=== PATIENT | female | born 1935 | race Caucasian/White ===

== ENCOUNTER 2020-04-18 08:05 | Outpatient (REF) | payer MEDICARE, SELFPAY ==
[2020-04-18 09:44] LABS: Estimated Average Glucose 186 mg/dL; Hemoglobin A1c % 8.1 %
[2020-04-18 10:22] LABS: Glucose Fasting 196 mg/dL (60-99)
[2020-04-18 10:29] LABS: Thyroid Stimulating Hormone 0.44 mIU/mL (0.32-4.0)
== END 2020-04-18 08:06 | disposition home or self-care (01) ==
LOC: HO.LAB 08:05
PROVIDERS: PCP Internal Medicine; Visit Provider Internal Medicine
DX: E03.9 Hypothyroidism, unspecified (principal); E11.9 Type 2 diabetes mellitus without complications
CPT/HCPCS: 82947; 83036; 84443

== ENCOUNTER → 2020-06-21 12:07 | Outpatient (BNVA) | payer MEDICARE, SELFPAY | PROVIDERS: PCP Internal Medicine; Visit Provider Internal Medicine Cardiovascular Disease | DX: I48.20 Chronic atrial fibrillation, unspecified (principal); I77.9 Disorder of arteries and arterioles, unspecified; R42 Dizziness and giddiness | CPT/HCPCS: 93005; 99212 ==

== ENCOUNTER 2020-06-22 10:06 | Outpatient (REF) | payer MEDICARE, SELFPAY ==
[2020-06-22 11:09] LABS: Anion Gap 13 (12-20); Blood Urea Nitrogen 11 mg/dL (9-16); Calcium 9.1 mg/dL (8.4-10.2); Carbon Dioxide 26 mmol/L (22-29); Chloride 104 mmol/L (96-108); Estimated Glomerular Filt Rate > 60; Glucose Random 224 mg/dL (60-115); Potassium 4.1 mmol/l (3.3-5.1); Sodium 139 mmol/L (135-145)
[2020-06-22 11:20] LABS: Digoxin 0.4 ng/mL (0.8-2.0)
== END 2020-06-22 10:07 | disposition home or self-care (01) ==
LOC: HO.LAB 10:06
PROVIDERS: PCP Internal Medicine; Visit Provider Internal Medicine Cardiovascular Disease
DX: I48.20 Chronic atrial fibrillation, unspecified (principal); E11.9 Type 2 diabetes mellitus without complications; R79.89 Other specified abnormal findings of blood chemistry
CPT/HCPCS: 80048; 80162

== ENCOUNTER 2020-08-09 11:40 | Outpatient (REF) | payer MEDICARE, SELFPAY ==
--- NOTE | ~2020-08-09 | MM_ITS ---
EXAMINATION: MM SCREENING DIGITAL BREAST TOMOSYNTHESIS, BILATERAL CLINICAL INFORMATION: Screening. Asymptomatic. Age 85. COMPARISON: Mammography: 02/23/2019, 02/19/2018, 02/04/2017 TECHNIQUE: Digital breast tomosynthesis is performed in both the craniocaudal and mediolateral oblique views along with computer-aided detection (CAD). Synthesized 2D images are generated from the tomosynthesis. FINDINGS: There are scattered areas of fibroglandular density (ACR BI-RADS breast composition Category b). There are no significant masses, abnormal calcifications, or other abnormalities. Parenchymal pattern is similar to prior studies. There are no significant changes. The axilla and skin contours are unremarkable. MM/MM tomosynthesis screening BI IMPRESSION: No mammographic evidence of malignancy. ASSESSMENT: BI-RADS 1: Negative RECOMMENDATION: Routine annual mammography screening. This patient's information was entered into a reminder system with a target due date for their next mammogram.
== END 2020-08-09 11:41 | disposition home or self-care (01) ==
LOC: HO.MAMMO 11:40
PROVIDERS: Visit Provider Internal Medicine
DX: Z12.31 Encounter for screening mammogram for malignant neoplasm of breast (principal)
CPT/HCPCS: 77063; 77067

== ENCOUNTER 2020-08-26 15:20 | Outpatient (REF) | payer MEDICARE, SELFPAY ==
[2020-08-26 16:32] LABS: Folate 13.6 ng/mL (> or = 4.0); Vitamin B12 271 pg/mL (200-900)
== END 2020-08-26 15:21 | disposition home or self-care (01) ==
LOC: HO.LNP 15:20
PROVIDERS: Visit Provider Internal Medicine
DX: G31.83 Neurocognitive disorder with Lewy bodies (principal)
CPT/HCPCS: 82607; 82746

== ENCOUNTER 2020-09-02 11:10 | Outpatient (REF) | payer MEDICARE, SELFPAY ==
--- NOTE | ~2020-09-02 | CT_ITS ---
EXAMINATION: CT HEAD WITHOUT CONTRAST CLINICAL INFORMATION: Dementia. COMPARISON: CT brain 05/27/2016. TECHNIQUE: Contiguous axial imaging was performed from the skull base to vertex without intravenous administration of contrast. This CT examination was performed using dose optimization techniques as appropriate, variously including the following: *Automated exposure control *Adjustment of mA and/or kV according to patient size (this includes techniques or standardized protocols for targeted exams where dose is matched to indication/reason for exam; i.e. extremities or head) *Use of iterative reconstruction technique DLP: 693 mGy-cm FINDINGS: There is no evidence of acute intracranial hemorrhage or territorial infarction. No abnormal mass effect or midline shift is seen. Alatorre to white matter differentiation is well preserved. No extra-axial fluid collections are identified. The ventricles are symmetrical in size and configuration but enlarged. There is diffuse periventricular hypodensity without mass effect in both cerebral hemispheres. The osseous structures and soft tissues are normal. The mastoid air cells and visualized portions of the paranasal sinuses are well aerated. CT/CT head/brain wo con IMPRESSION: No acute intracranial process seen. There is mild cerebral volume loss with chronic small vessel ischemic changes.
== END 2020-09-02 11:11 | disposition home or self-care (01) ==
LOC: HO.CT 11:10
PROVIDERS: PCP Internal Medicine; Visit Provider Internal Medicine
DX: G31.83 Neurocognitive disorder with Lewy bodies (principal)
CPT/HCPCS: 70450

== ENCOUNTER 2020-11-14 10:28 | Outpatient (REF) | payer MEDICARE, SELFPAY ==
[2020-11-14 11:15] LABS: Estimated Average Glucose 183 mg/dL
[2020-11-14 12:12] LABS: Alanine Aminotransferase 15 U/L (0-31); Albumin Level 4.3 g/dL (3.5-5.0); Alkaline Phosphatase 102 U/L (39-117); Aspartate Amino Transferase 12 U/L (5-31); Bilirubin Direct 0.5 mg/dL (0.0-0.5); Bilirubin Total 1.1 mg/dL (0.0-1.0); Cholesterol 117 mg/dL; Glucose Fasting 194 mg/dL (60-99); HDL Cholesterol 42 mg/dL; LDL Cholesterol Calculated 46 mg/dl; Total Protein 6.8 g/dL (6.5-8.0); Triglycerides 147 mg/dL
[2020-11-14 13:35] LABS: Reflex LDLD? No
[2020-11-15 09:59] LABS: Blood Urea Nitrogen 13 mg/dL (9-16); Estimated Glomerular Filt Rate > 60
== END 2020-11-14 10:29 | disposition home or self-care (01) ==
LOC: HO.LNP 10:28
PROVIDERS: Visit Provider Internal Medicine
DX: Z13.89 Encounter for screening for other disorder (principal)
CPT/HCPCS: 80061; 80076; 82565; 82947; 83036; 84520

== ENCOUNTER 2021-01-03 10:54 | Emergency (ER) | payer MEDICARE, SELFPAY ==
--- NOTE | ~2021-01-03 | CT_ITS ---
EXAMINATION: CT HEAD WITHOUT CONTRAST CLINICAL INFORMATION: Weakness for 2 days. COMPARISON: CT had noncontrast 09/02/2020 TECHNIQUE: Contiguous axial imaging was performed from the skull base to vertex without intravenous administration of contrast. This CT examination was performed using dose optimization techniques as appropriate, variously including the following: *Automated exposure control *Adjustment of mA and/or kV according to patient size (this includes techniques or standardized protocols for targeted exams where dose is matched to indication/reason for exam; i.e. extremities or head) *Use of iterative reconstruction technique DLP: 611 mGy-cm FINDINGS: There is no intracranial hemorrhage, hematoma, or extra-axial fluid collection. There are atrophic changes with mild prominence of the ventricles, cortical sulci, fissures, and cisterns similar to prior study. There is no interval hydrocephalus or edema or mass effect. No midline shift. Again, there is moderate periventricular white matter gliosis consistent with chronic small vessel ischemic changes. Virchow-Emigdio perivascular space again seen posterior inferior right basal ganglia. There is no visible acute territorial infarct or mass lesion. The calvarium appears intact. There is no pneumocephalus or orbital emphysema. The visualized sinuses and middle ears and mastoid air cells show no significant mucosal thickening. There are no air-fluid levels. CT/CT head/brain wo con IMPRESSION: 1. No acute intracranial abnormality. 2. Moderate global atrophic changes and periventricular white matter gliosis similar to prior exam 09/02/2020.
--- NOTE | ~2021-01-03 | CT_ITS ---
EXAMINATION: CT CHEST WITHOUT CONTRAST CLINICAL INFORMATION: Pneumonia. COMPARISON: Chest August 2016. TECHNIQUE: Multidetector volumetric CT imaging of the chest was done. Axial MIP volume rendering provided. Sagittal and coronal reformatted images were obtained. This CT examination was performed using dose optimization techniques as appropriate, variously including the following: *Automated exposure control *Adjustment of mA and/or kV according to patient size (this includes techniques or standardized protocols for targeted exams where dose is matched to indication/reason for exam; i.e. extremities or head) *Use of iterative reconstruction technique DLP: 186 mGy-cm. FINDINGS: Exam is slightly limited by image-degrading motion artifact likely related to patient breathing intermittently throughout the exam. LUNGS: Minimal linear opacities in the right middle lobe and posterior dependent lower lobes compatible scarring and/or discoid atelectasis. Minimal thickening of the minor fissure, probably without clinical significance of. No focal consolidation. No nodule. MEDIASTINUM: There is mild arterial calcification of the aorta and branches including the coronary vessels. No lymphadenopathy. PLEURA: There is no pleural effusion. No pleural mass or thickening. AXILLA: No lymphadenopathy. UPPER ABDOMEN: Unremarkable. OSSEOUS STRUCTURES: Mild multilevel spondylosis of the dorsal spine. CT/CT chest wo con IMPRESSION: No definite acute disease. Minimal atelectasis or scarring in the right middle lobe and lower lobes. Calcific atherosclerotic disease.
[2021-01-03 11:05] VITALS: BP 129/90; PULSE 68; RESP 18; TEMP 36.4; O2SAT 95; BMI 20.7
--- NOTE | 2021-01-03 11:08 | ECG_ITS ---
Test Reason : WEAKNESS Blood Pressure : / mmHG Vent. Rate : 064 BPM Atrial Rate : 104 BPM P-R Int : 000 ms QRS Dur : 088 ms QT Int : 418 ms P-R-T Axes : 000 045 -30 degrees QTc Int : 431 ms Atrial fibrillation Nonspecific ST abnormality Abnormal ECG When compared with ECG of 17-AUG-2016 10:47, No significant change was found Referred By: Leonel Hanson Electronically Signed By:CHANTEL LATHAM
--- NOTE | 2021-01-03 11:09 | ED.GENADULT ---
HPI - General Adult General Chief complaint: Weakness Stated complaint: WEAKNESS,LETHARGY X2DAYS Time Seen by Provider: 01/03/21 10:59 Source: patient Mode of arrival: ambulatory Limitations: no limitations History of Present Illness HPI narrative: patient presents to ED for weakness and lethargic for the past 2 days. Patient has dimensions a poor historian. Will wait for for history Related Data Home Medications Medication Instructions Recorded Confirmed amlodipine 2.5 mg tablet 2.5 mg PO DAILY 06/21/20 06/21/20 atorvastatin 10 mg tablet 10 mg PO DAILY 06/21/20 06/21/20 betaxolol 0.25 % eye 1 drp OPHTHALMIC (EYE) BID 06/21/20 06/21/20 drops,suspension calcium carbonate 600 mg calcium 600 mg PO DAILY 06/21/20 06/21/20 (1,500 mg) tablet digoxin 125 mcg (0.125 mg) tablet 125 mcg PO DAILY 06/21/20 06/21/20 levothyroxine 75 mcg tablet 75 mcg PO DAILY 06/21/20 06/21/20 meclizine 12.5 mg tablet 12.5 mg PO DAILY 06/21/20 06/21/20 memantine 10 mg tablet 10 mg PO BID 06/21/20 06/21/20 metformin 500 mg tablet 500 mg PO BID 06/21/20 06/21/20 metoprolol tartrate 50 mg tablet 50 mg PO BID 06/21/20 06/21/20 omeprazole 40 mg capsule,delayed 40 mg PO DAILY 06/21/20 06/21/20 release rivaroxaban 20 mg tablet 20 mg PO DAILY 06/21/20 06/21/20 valsartan 320 mg tablet 320 mg PO DAILY 06/21/20 06/21/20 Allergies Allergy/AdvReac Type Severity Reaction Status Date / Time corticotropin [From ACTH] Allergy Mild UNKNOWN Unverified 03/17/20 14:42 hydrochlorothiazide Allergy Unknown Verified 06/04/19 00:00 Review of Systems Review of Systems: dementia. will wait for her Yes all other systems are reviewed and are negative Constitutional: Constitutional: Reports as per HPI and Reports no additional constitutional complaints PMFSH Past Medical History Medical History Bilateral carotid artery disease Chronic atrial fibrillation HTN (hypertension) Surgical History Hx of appendectomy Hx of cholecystectomy Hx of hysterectomy Family History Family History Father CVD (cardiovascular disease) HTN (hypertension) Heart failure Mother Diabetes Cancer Brother CVD (cardiovascular disease) Social History Social History Advance Directives: Yes Advance Directives Information Provided: Yes Advance Directives on File: No Physical Exam Vital Signs: Vital Signs: Last Vital Signs Temp 97.4 F 01/03/21 17:57 Pulse 74 01/03/21 17:57 Resp 14 01/03/21 17:57 BP 197/88 H 01/03/21 17:57 Pulse Ox 94 01/03/21 17:57 Body Mass Index 20.7 Const: Other: lethargic General: cooperative and lethargic Orientation/consciousness: lethargic HENMT: Head: Yes normal to inspection, Yes No palpable skull fracture present, Yes normocephalic, Yes atraumatic and No abrasion Eyes: General: appearance normal, both eyes and all related structures Neck: Neck: Yes normal visual inspection, Yes full ROM, Yes no lymphadenopathy, Yes no meningeal signs, Yes trachea midline, Yes supple and No tender Chest: Chest palpation & inspection: normal inspection of the chest and normal palpation of entire chest wall Resp: Effort & Inspection: normal respiratory effort and able to speak in complete sentences Auscultation: clear to auscultation bilaterally Cardio: Jugular venous distension: no JVD Heart sounds: S1 normal heart sound present and S2 normal heart sound present GI: Inspection: Yes normal to inspection and No abdominal wall ecchymosis Palpation (GI): Soft to palpation, not firm, nontender, no guarding and not rigid : General: No CVA tenderness and Yes no CVA tenderness Back/Spine/Pelvis: Back: no CVA tenderness, No CVA tenderness and No back tenderness Skin: General skin exam: no rashes or lesions noted and elasticity normal Neuro: Other: negative for facial droop. Negative for slurred speech. All extremity have equal strength. Negative for any drift General: no meningeal signs and CN's II-XI intact bilaterally Extrem: General: Yes normal to inspection and Yes full ROM Psych: Appearance: grossly normal, well kempt and not disheveled Course Course Course Narrative: patient is a poor historian and seem lethargic. Negative for any focal neuro deficits. Patient have a medical evaluation including head CT, chest CT, labs, and UA. Reevaluation(s) Reevaluation #1: EKG shows atrial fibrillation. First troponin negative. UA negative for UTI. Head CT negative for stroke. Chest CT negative for pneumonia. Negative for electrolyte deficiency. Kidney function is normal. Negative for rhabdomyolysis. negative for any focal deficit. patient's came and informed us that patient began feeling tired and lethargic for the past 2 days. He states patient has been sleeping all day in bed yesterday and did not want to eat. States 2 days ago patient was found walking around talking with family and past 2 days patient does want to stay in bed and sleep. He denies any change in mental status. He patient has been walking on her own and even walked on her own this morning, but patient states she just wants to lay in bed and she is tired and sleeping. denies patient complaining of any abdominal pain, chest pain, shortness of breath, fever, chills, coughing, stroke-like symptoms, or any recent trauma. Time: 11:40 Reevaluation #2: patient now hypertensive systolic of 218. labetalol ordered. When blood pressure was elevated patient was anxious and shaking. Patient does have dementia and was . Time: 15:22 Reevaluation #3: repeat blood pressure on monitor systolic 128. case was presented to Dr. Johnson and and Natalia Victoria for possible admission for generalized weakness and failure to thrive. He reviewed the case and states patient had no indication for admission at the present moment. Patient was at her baseline mentally. And as per patient was ambulating this morning. Patient just feels fatigued. Has been made aware that patient takes digoxin so hospitalist informed that digoxin level should be sent and then if elevated we would reconsider admission. Case presented to eye care professional Marci for possible short-term rehab and PT evaluation if digoxin level is normal Time: 17:41 Additional Reevaluation(s): patient came back negative for digoxin toxicity. Second troponin came back negative. Will do case management. 18:15. see egg caser Marci spoke with and he does not want her to be evaluated for short-term rehab and refusing physical therapy. He states he can take care of patient at home and they will contact elderly care services. Medical Decision Making MDM Narrative Medical decision making narrative: Weakness. Failure to thrive Lab Data Result diagrams: 01/03/21 11:40 01/03/21 11:40 Labs: Lab Results 01/03/21 01/03/21 01/03/21 Range/Units 11:40 11:40 11:40 WBC 8.2 (4.8-10.8) X10*3/uL RBC 4.98 (4.20-5.50) X10*6/uL Hgb 14.5 (12.0-16.0) g/dl Hct 44.3 (37-47) % MCV 89.0 (80-98) fL MCH 29.1 (27.0-33.0) pg MCHC 32.7 (31.0-35.0) g/dl RDW 12.9 (11.0-16.0) % Plt Count 206 (160-400) X10*3/uL MPV 9.8 (9.4-12.3) fL Immature Gran % (Auto) 0.2 (0.0-0.4) % Neut % (Auto) 69.2 (45-73) % Lymph % (Auto) 21.9 (20-40) % [place] % (Auto) 6.5 (2-11) % Eos % (Auto) 1.7 (0-4) % Baso % (Auto) 0.5 (0-2) % Lymph # (Auto) 1.8 (1.2-4.9) X10*3/uL [place] # (Auto) 0.5 (0.1-1.2) X10*3/uL Eos # (Auto) 0.1 (0.0-0.4) X10*3/uL Baso # (Auto) 0.0 (0.0-0.2) X10*3/uL Abs Immat Gran (auto) 0.02 (0.00-0.03) X10*3/uL Absolute Neuts (auto) 5.7 (2.0-8.3) X10*3/uL Absolute Nucleated RBC 0.000 (0.0-0.012) X10*3/uL Nucleated RBC % (auto) 0.0 (0.0-0.2) /100WBC PT 22.1 H (9.9-13.0) SEC INR 1.9 H (0.9-1.1) APTT 48.0 H (24.1-38.0) SEC Sodium 141 (135-145) mmol/L Potassium 4.0 (3.3-5.1) mmol/L Chloride 106 (96-108) mmol/L Carbon Dioxide 26 (22-29) mmol/L Anion Gap 13 (12-20) BUN 14 (9-16) mg/dL Creatinine 0.82 (0.5-1.4) mg/dL Estim Creat Clear Calc 41.5 Estimated GFR > 60 POC Glucose (60-115) mg/dL Random Glucose 166 H (60-115) mg/dL Lactic Acid (0.5-2.0) mmol/L Calcium 9.8 D (8.4-10.2) mg/dL Magnesium 1.6 (1.6-2.6) mg/dL Total Bilirubin 1.0 (0.0-1.0) mg/dL AST 12 (5-31) U/L ALT 11 (0-31) U/L Alkaline Phosphatase 79 D (39-117) U/L Total Creatine Kinase 23 L (26-140) U/L Troponin I High Sens (<3.5-17.0) ng/L Total Protein 6.4 L (6.5-8.0) g/dL Albumin 3.9 (3.5-5.0) g/dL Urine Color Urine Appearance Urine pH (5.0-8.0) Ur Specific [place] (1.005-1.025) Urine Protein (NEG-TRACE) MG/DL Urine Glucose (UA) (NEG) MG/DL Urine Ketones (NEG) MG/DL Urine Blood (NEG) Urine Nitrite (NEG) Ur Leukocyte Esterase (NEG) Urine RBC (0) /HPF Urine WBC (0-4) /HPF Ur Squamous Epith Cells /LPF Urine Bacteria /LPF Digoxin (0.8-2.0) ng/mL COVID-19 (LAN) (Negative) COVID-19 Clin Com 01/03/21 01/03/21 01/03/21 Range/Units 11:40 11:40 14:36 WBC (4.8-10.8) X10*3/uL RBC (4.20-5.50) X10*6/uL Hgb (12.0-16.0) g/dl Hct (37-47) % MCV (80-98) fL MCH (27.0-33.0) pg MCHC (31.0-35.0) g/dl RDW (11.0-16.0) % Plt Count (160-400) X10*3/uL MPV (9.4-12.3) fL Immature Gran % (Auto) (0.0-0.4) % Neut % (Auto) (45-73) % Lymph % (Auto) (20-40) % [place] % (Auto) (2-11) % Eos % (Auto) (0-4) % Baso % (Auto) (0-2) % Lymph # (Auto) (1.2-4.9) X10*3/uL [place] # (Auto) (0.1-1.2) X10*3/uL Eos # (Auto) (0.0-0.4) X10*3/uL Baso # (Auto) (0.0-0.2) X10*3/uL Abs Immat Gran (auto) (0.00-0.03) X10*3/uL Absolute Neuts (auto) (2.0-8.3) X10*3/uL Absolute Nucleated RBC (0.0-0.012) X10*3/uL Nucleated RBC % (auto) (0.0-0.2) /100WBC PT (9.9-13.0) SEC INR (0.9-1.1) APTT (24.1-38.0) SEC Sodium (135-145) mmol/L Potassium (3.3-5.1) mmol/L Chloride (96-108) mmol/L Carbon Dioxide (22-29) mmol/L Anion Gap (12-20) BUN (9-16) mg/dL Creatinine (0.5-1.4) mg/dL Estim Creat Clear Calc Estimated GFR POC Glucose (60-115) mg/dL Random Glucose (60-115) mg/dL Lactic Acid 1.1 (0.5-2.0) mmol/L Calcium (8.4-10.2) mg/dL Magnesium (1.6-2.6) mg/dL Total Bilirubin (0.0-1.0) mg/dL AST (5-31) U/L ALT (0-31) U/L Alkaline Phosphatase (39-117) U/L Total Creatine Kinase (26-140) U/L Troponin I High Sens 5.6 (<3.5-17.0) ng/L Total Protein (6.5-8.0) g/dL Albumin (3.5-5.0) g/dL Urine Color YELLOW Urine Appearance CLEAR Urine pH 6.0 (5.0-8.0) Ur Specific [place] 1.025 (1.005-1.025) Urine Protein NEG (NEG-TRACE) MG/DL Urine Glucose (UA) NEG (NEG) MG/DL Urine Ketones NEG (NEG) MG/DL Urine Blood TRACE (NEG) Urine Nitrite NEG (NEG) Ur Leukocyte Esterase NEG (NEG) Urine RBC 1-4 (0) /HPF Urine WBC 0-2 (0-4) /HPF Ur Squamous Epith Cells 2+ /LPF Urine Bacteria NONE /LPF Digoxin (0.8-2.0) ng/mL COVID-19 (LAN) (Negative) COVID-19 Clin Com 01/03/21 01/03/21 01/03/21 Range/Units 16:30 16:53 17:06 WBC (4.8-10.8) X10*3/uL RBC (4.20-5.50) X10*6/uL Hgb (12.0-16.0) g/dl Hct (37-47) % MCV (80-98) fL MCH (27.0-33.0) pg MCHC (31.0-35.0) g/dl RDW (11.0-16.0) % Plt Count (160-400) X10*3/uL MPV (9.4-12.3) fL Immature Gran % (Auto) (0.0-0.4) % Neut % (Auto) (45-73) % Lymph % (Auto) (20-40) % [place] % (Auto) (2-11) % Eos % (Auto) (0-4) % Baso % (Auto) (0-2) % Lymph # (Auto) (1.2-4.9) X10*3/uL [place] # (Auto) (0.1-1.2) X10*3/uL Eos # (Auto) (0.0-0.4) X10*3/uL Baso # (Auto) (0.0-0.2) X10*3/uL Abs Immat Gran (auto) (0.00-0.03) X10*3/uL Absolute Neuts (auto) (2.0-8.3) X10*3/uL Absolute Nucleated RBC (0.0-0.012) X10*3/uL Nucleated RBC % (auto) (0.0-0.2) /100WBC PT (9.9-13.0) SEC INR (0.9-1.1) APTT (24.1-38.0) SEC Sodium (135-145) mmol/L Potassium (3.3-5.1) mmol/L Chloride (96-108) mmol/L Carbon Dioxide (22-29) mmol/L Anion Gap (12-20) BUN (9-16) mg/dL Creatinine (0.5-1.4) mg/dL Estim Creat Clear Calc Estimated GFR POC Glucose 133 H (60-115) mg/dL Random Glucose (60-115) mg/dL Lactic Acid (0.5-2.0) mmol/L Calcium (8.4-10.2) mg/dL Magnesium (1.6-2.6) mg/dL Total Bilirubin (0.0-1.0) mg/dL AST (5-31) U/L ALT (0-31) U/L Alkaline Phosphatase (39-117) U/L Total Creatine Kinase (26-140) U/L Troponin I High Sens (<3.5-17.0) ng/L Total Protein (6.5-8.0) g/dL Albumin (3.5-5.0) g/dL Urine Color Urine Appearance Urine pH (5.0-8.0) Ur Specific [place] (1.005-1.025) Urine Protein (NEG-TRACE) MG/DL Urine Glucose (UA) (NEG) MG/DL Urine Ketones (NEG) MG/DL Urine Blood (NEG) Urine Nitrite (NEG) Ur Leukocyte Esterase (NEG) Urine RBC (0) /HPF Urine WBC (0-4) /HPF Ur Squamous Epith Cells /LPF Urine Bacteria /LPF Digoxin 0.6 L (0.8-2.0) ng/mL COVID-19 (LAN) Negative (Negative) COVID-19 Clin Com See Note 01/03/21 Range/Units 17:06 WBC (4.8-10.8) X10*3/uL RBC (4.20-5.50) X10*6/uL Hgb (12.0-16.0) g/dl Hct (37-47) % MCV (80-98) fL MCH (27.0-33.0) pg MCHC (31.0-35.0) g/dl RDW (11.0-16.0) % Plt Count (160-400) X10*3/uL MPV (9.4-12.3) fL Immature Gran % (Auto) (0.0-0.4) % Neut % (Auto) (45-73) % Lymph % (Auto) (20-40) % [place] % (Auto) (2-11) % Eos % (Auto) (0-4) % Baso % (Auto) (0-2) % Lymph # (Auto) (1.2-4.9) X10*3/uL [place] # (Auto) (0.1-1.2) X10*3/uL Eos # (Auto) (0.0-0.4) X10*3/uL Baso # (Auto) (0.0-0.2) X10*3/uL Abs Immat Gran (auto) (0.00-0.03) X10*3/uL Absolute Neuts (auto) (2.0-8.3) X10*3/uL Absolute Nucleated RBC (0.0-0.012) X10*3/uL Nucleated RBC % (auto) (0.0-0.2) /100WBC PT (9.9-13.0) SEC INR (0.9-1.1) APTT (24.1-38.0) SEC Sodium (135-145) mmol/L Potassium (3.3-5.1) mmol/L Chloride (96-108) mmol/L Carbon Dioxide (22-29) mmol/L Anion Gap (12-20) BUN (9-16) mg/dL Creatinine (0.5-1.4) mg/dL Estim Creat Clear Calc Estimated GFR POC Glucose (60-115) mg/dL Random Glucose (60-115) mg/dL Lactic Acid (0.5-2.0) mmol/L Calcium (8.4-10.2) mg/dL Magnesium (1.6-2.6) mg/dL Total Bilirubin (0.0-1.0) mg/dL AST (5-31) U/L ALT (0-31) U/L Alkaline Phosphatase (39-117) U/L Total Creatine Kinase (26-140) U/L Troponin I High Sens 4.2 (<3.5-17.0) ng/L Total Protein (6.5-8.0) g/dL Albumin (3.5-5.0) g/dL Urine Color Urine Appearance Urine pH (5.0-8.0) Ur Specific [place] (1.005-1.025) Urine Protein (NEG-TRACE) MG/DL Urine Glucose (UA) (NEG) MG/DL Urine Ketones (NEG) MG/DL Urine Blood (NEG) Urine Nitrite (NEG) Ur Leukocyte Esterase (NEG) Urine RBC (0) /HPF Urine WBC (0-4) /HPF Ur Squamous Epith Cells /LPF Urine Bacteria /LPF Digoxin (0.8-2.0) ng/mL COVID-19 (LAN) (Negative) COVID-19 Clin Com ECG Data Interpretation: Atrial fibrillation. Nonspecific T abnormality. Meticulous this before. QRS 88. QTC 431. Discharge Plan Discharge Clinical Impression: Weakness, Fatigue, Adult failure to thrive Patient Disposition: Home, Self-Care Instructions: Failure to Thrive (ED), Weakness (ED), Fatigue (ED) Additional Instructions: your head CT scan came back normal. Your EKG and blood work came back negative for heart attack. Your urine was negative for UTI. Chest x-ray negative for pneumonia. Her kidney function came back normal. Your digoxin level came back normal. Return to the ED for any physical complaint, altered mental status, facial droop, slurred speech, loss of vision, paralysis of extremities, chest pain, shortness of breath, abdominal pain, dysuria, hematuria, flank pain, fever, chills, or any other concerning symptoms. Please follow-up with your primary care provider. Prescriptions: No Action metoprolol tartrate 50 mg tablet 50 mg PO BID RF: 0 calcium carbonate [Calcium 600] 600 mg calcium (1,500 mg) tablet 600 mg PO DAILY RF: 0 digoxin 125 mcg (0.125 mg) tablet 125 mcg PO DAILY RF: 0 amlodipine 2.5 mg tablet 2.5 mg PO DAILY RF: 0 metformin 500 mg tablet 500 mg PO BID RF: 0 levothyroxine [Synthroid] 75 mcg tablet 75 mcg PO DAILY RF: 0 atorvastatin [Lipitor] 10 mg tablet 10 mg PO DAILY RF: 0 omeprazole 40 mg capsule,delayed release(DR/EC) 40 mg PO DAILY RF: 0 Xarelto 20 mg tablet 20 mg PO DAILY RF: 0 memantine [Namenda] 10 mg tablet 10 mg PO BID RF: 0 Betoptic S 0.25 % drops,suspension 1 drp ophthalmic (eye) BID RF: 0 valsartan 320 mg tablet 320 mg PO DAILY RF: 0 meclizine 12.5 mg tablet 12.5 mg PO DAILY RF: 0 Print Language: [place] Citizen
[2021-01-03] MEDS: 0.9 % Sodium Chloride 1,000 ML 999 ML IV (11:45)
[2021-01-03 11:46] LABS: MANUAL DIFF FLAG NO
[2021-01-03 11:47] LABS: Basophils Percent Auto 0.5 % (0-2); Eosinophils Absolute Auto 0.1 X10*3/uL (0.0-0.4); Eosinophils Percent Auto 1.7 % (0-4); Hematocrit 44.3 % (37-47); Hemoglobin 14.5 g/dl (12.0-16.0); Imm Gran Abs Auto 0.02 X10*3/uL (0.00-0.03); Imm Gran Pct Auto 0.2 % (0.0-0.4); Lymphocytes Absolute Auto 1.8 X10*3/uL (1.2-4.9); Lymphocytes Percent Auto 21.9 % (20-40); Mean Corpuscular HGB Conc 32.7 g/dl (31.0-35.0); Mean Corpuscular Hemoglobin 29.1 pg (27.0-33.0); Mean Platelet Volume 9.8 fL (9.4-12.3); Monocytes Absolute Auto 0.5 X10*3/uL (0.1-1.2); Monocytes Percent Auto 6.5 % (2-11); Neutrophils Absolute Auto 5.7 X10*3/uL (2.0-8.3); Neutrophils Percent Auto 69.2 % (45-73); Platelet Count 206 X10*3/uL (160-400); Red Blood Count 4.98 X10*6/uL (4.20-5.50); Red Cell Distribution Width 12.9 % (11.0-16.0); White Blood Count 8.2 X10*3/uL (4.8-10.8)
[2021-01-03 12:02] LABS: INTERNATIONAL NORM RATIO 1.9 (0.9-1.1); Prothrombin Time 22.1 SEC (9.9-13.0)
[2021-01-03 12:08] LABS: Lactic Acid 1.1 mmol/L (0.5-2.0)
[2021-01-03 12:13] LABS: Alanine Aminotransferase 11 U/L (0-31); Albumin Level 3.9 g/dL (3.5-5.0); Alkaline Phosphatase 79 U/L (39-117); Anion Gap 13 (12-20); Aspartate Amino Transferase 12 U/L (5-31); Blood Urea Nitrogen 14 mg/dL (9-16); Calcium 9.8 mg/dL (8.4-10.2); Carbon Dioxide 26 mmol/L (22-29); Chloride 106 mmol/L (96-108); Creatinine Clr Calc Pharmacy 41.5; Estimated Glomerular Filt Rate > 60; Glucose Random 166 mg/dL (60-115); Sodium 141 mmol/L (135-145); Total Protein 6.4 g/dL (6.5-8.0)
[2021-01-03 12:31] LABS: Troponin-I High Sensitivity 5.6 ng/L (<3.5-17.0)
[2021-01-03 12:44] VITALS: BP 114/87; PULSE 68; RESP 22; O2SAT 93
[2021-01-03 14:54] LABS: Glucose Urine UA NEG (NEG); Leukocyte Esterase Urine NEG (NEG); Nitrite Urine NEG (NEG); Specific Gravity - Urine 1.025 (1.005-1.025); Urine Blood TRACE (NEG); Urine Ketones NEG (NEG); Urine Protein NEG (NEG-TRACE)
[2021-01-03 14:56] LABS: Appearance Urine CLEAR; Color Urine YELLOW
[2021-01-03 14:57] LABS: Magnesium 1.6 mg/dL (1.6-2.6)
[2021-01-03 15:08] VITALS: BP 218/94; PULSE 75; RESP 20; TEMP 36.6; O2SAT 94
[2021-01-03 15:09] LABS: WBC Urine 0-2 /HPF (0-4)
[2021-01-03 15:10] LABS: Squamous Epithelial Cell Urine 2+ /LPF
[2021-01-03 15:20] VITALS: BP 218/94; PULSE 74
[2021-01-03] MEDS: Labetalol HCL 100 MG/20 ML VIAL 10 MG IVPUSH (15:20)
[2021-01-03 16:49] LABS: COVID-19 Test Negative (Negative); IDNOW Serial# 08D9AD1C
[2021-01-03 16:56] LABS: Glucose, Whole Blood 133 mg/dL (60-115)
[2021-01-03 17:57] VITALS: BP 197/88; PULSE 74; RESP 14; TEMP 36.3; O2SAT 94
[2021-01-03 17:57] LABS: Digoxin 0.6 ng/mL (0.8-2.0)
[2021-01-03 18:00] LABS: Troponin-I High Sensitivity 4.2 ng/L (<3.5-17.0)
--- NOTE | 2021-01-03 18:18 | MHC.CM.ED ---
CM asked to meet with pt and to assess their needs for services. Pt has dementia and cares for her at home. They presently have no services and pt uses no DME. Ambulates without difficulty. has call to [facility] for evaluation. Has appointment with Dr. Raffaele Saldana next week. concerned that dementia is worsening and wanted EC to evaluate her dementia. CM suggested that they get a neurology referral from Dr. Saldana. would like to take pt home. States his son/daughter in law visit on Sundays and help with his . Pt feels safe at home. feels safe caring for her and denies need for services at home at this time. Awaiting discharge home. Leonel Dickerson aware of above and will d/c pt home.
== END 2021-01-03 18:55 | disposition home or self-care (01) ==
PROVIDERS: Physician Assistant; Emergency Provider Emergency Medicine
DX: R62.7 Adult failure to thrive (principal); R53.1 Weakness; R53.83 Other fatigue; Z20.822 Contact with and (suspected) exposure to COVID-19; I10 Essential (primary) hypertension; I48.91 Unspecified atrial fibrillation
CPT/HCPCS: 36415; 51701; 70450; 71250; 80053; 80162; 81001; 82550; 82947; 83605; 83735; 84484; 85025; 85610; 85730; 87040; 87635; 93005; 96361; 96374; 99284

== ENCOUNTER 2021-01-06 06:53 | Emergency (ER) | payer MEDICARE, SELFPAY ==
--- NOTE | 2021-01-06 07:17 | ED_ITS ---
HPI - General Adult General Chief complaint: Epistaxis Stated complaint: nosebleed Time Seen by Provider: 01/06/21 07:16 Source: patient, family and EMS Mode of arrival: EMS Limitations: no limitations History of Present Illness HPI narrative: Patient comes to the emergency room complaining of a bloody nose. Started approximately 1 hour ago. Patient is known to be on Xarelto for atrial fibrillation. The reports that yesterday the patient had a nosebleed as well, he was able to control the bleeding with pressure. However, today the nosebleed was profuse, therefore called EMS. Patient denies pain, complaining of nausea Related Data Home Medications Medication Instructions Recorded Confirmed amlodipine 2.5 mg tablet 2.5 mg PO DAILY 06/21/20 06/21/20 atorvastatin 10 mg tablet 10 mg PO DAILY 06/21/20 06/21/20 betaxolol 0.25 % eye 1 drp OPHTHALMIC (EYE) BID 06/21/20 06/21/20 drops,suspension calcium carbonate 600 mg calcium 600 mg PO DAILY 06/21/20 06/21/20 (1,500 mg) tablet digoxin 125 mcg (0.125 mg) tablet 125 mcg PO DAILY 06/21/20 06/21/20 levothyroxine 75 mcg tablet 75 mcg PO DAILY 06/21/20 06/21/20 meclizine 12.5 mg tablet 12.5 mg PO DAILY 06/21/20 06/21/20 memantine 10 mg tablet 10 mg PO BID 06/21/20 06/21/20 metformin 500 mg tablet 500 mg PO BID 06/21/20 06/21/20 metoprolol tartrate 50 mg tablet 50 mg PO BID 06/21/20 06/21/20 omeprazole 40 mg capsule,delayed 40 mg PO DAILY 06/21/20 06/21/20 release rivaroxaban 20 mg tablet 20 mg PO DAILY 06/21/20 06/21/20 valsartan 320 mg tablet 320 mg PO DAILY 06/21/20 06/21/20 Previous Rx's Medication Instructions Recorded cephalexin 500 mg PO Q12H #10 cap 01/06/21 Allergies Allergy/AdvReac Type Severity Reaction Status Date / Time corticotropin [From ACTH] Allergy Mild UNKNOWN Unverified 03/17/20 14:42 hydrochlorothiazide Allergy Unknown Verified 06/04/19 00:00 Review of Systems Review of Systems: Constitutional : No Weight loss, No Fever, No Chills, No Night Sweats, No Fatigue, No Malaise ENT/Mouth : No Hearing loss, No Ear Pain, no swelling difficulty, no hoarse ness, complaining of perfuse right nare bleeding Eyes: No Eye Pain, No Swelling, No Redness, No Foreign Body, No Discharge, No Vision Changes Cardiovascular : No Chest Pain, No SOB, No Dyspnea on Exertion, No Orthopnea, No Edema, No Palpitations Respiratory : No Cough, No Sputum, No Wheezing, No Smoke Exposure, No Dyspnea Gastrointestinal : No Nausea, No Vomiting, No Diarrhea, No Constipation, No abdominal Pain, No Hematochezia, No Melena Genitourinary : no irregular bleeding, No Dysuria, No Urinary Frequency, No Hematuria, No Urinary Incontinence, No Urgency, No Flank Pain, No Urinary Flow Changes, No Hesitancy Musculoskeletal : No joint pain, No Myalgias, No Joint Swelling Skin : No Skin Lesions, No rash Neuro : No Weakness, No Numbness, No Paresthesias, No Loss of Consciousness, No Dizziness, No Headache Psych : No Anxiety/Panic, No Depression, No SI/HI/AH/VH, No Social Issues, Heme/Lymph: No Bruising, No Bleeding,No Lymphadenopathy Endocrine : No Polyuria, No Polydipsia, No Temperature Intolerance [facility] Past Medical History Medical History Bilateral carotid artery disease Chronic atrial fibrillation HTN (hypertension) Surgical History Hx of appendectomy Hx of cholecystectomy Hx of hysterectomy Family History Family History Father CVD (cardiovascular disease) HTN (hypertension) Heart failure Mother Diabetes Cancer Brother CVD (cardiovascular disease) Social History Social History Smoked in Last 30 Days: No Use of substances other than those prescribed or required for medical reasons: No Advance Directives: No Advance Directives Information Provided: No Physical Exam Vital Signs: Vital Signs: Last Vital Signs Temp 97.5 F 01/06/21 07:25 Pulse 86 01/06/21 08:26 Resp 20 01/06/21 07:25 BP 184/84 H 01/06/21 07:25 Pulse Ox 95 01/06/21 08:26 Body Mass Index 21.0 Appearance: Alert. Oriented X3. No acute distress. Eyes: Pupils equal, round and reactive to light. ENT: patient is bleeding profusely from the right nare Neck: Normal inspection. Neck supple. No lymph nodes noted. No crepitus CVS: Normal heart rate and rhythm. Pulses normal. Normal S1 and S2 Respiratory: No respiratory distress. Breath sounds normal. No Wheezing. No rales Abdomen: Soft and nontender. No rigidity. No distention. good BS x4 Skin: Skin warm and dry. Normal skin color. Normal skin turgor. Extremities: No lower extremity edema. No lower extremity edema. No Lacerations. No Rash Neuro: Oriented X 3. No motor deficit. No sensory deficit. Moving all extermities. No slurred speech. Course Course Course Narrative: applied pressure to the nostrils did not stop the bleeding, still bleeding profusely, and anterior/posterior rhino rocket was soaked with TXA was applied to the right nostril. the bleeding stopped. I discussed with the patient that she will be going home with a rhino rocket, needs to be removed tomorrow, patient will be started on antibiotics. patient states that today she has an appointment with her primary care physician in 2 hours Medical Decision Making Lab Data Result diagrams: 01/06/21 07:20 01/06/21 07:20 Labs: Lab Results 01/06/21 01/06/21 01/06/21 Range/Units 07:20 07:20 07:20 WBC 9.9 (4.8-10.8) X10*3/uL RBC 4.46 (4.20-5.50) X10*6/uL Hgb 12.9 (12.0-16.0) g/dl Hct 39.5 (37-47) % MCV 88.6 (80-98) fL MCH 28.9 (27.0-33.0) pg MCHC 32.7 (31.0-35.0) g/dl RDW 13.0 (11.0-16.0) % Plt Count 206 (160-400) X10*3/uL MPV 10.0 (9.4-12.3) fL Immature Gran % (Auto) 0.3 (0.0-0.4) % Neut % (Auto) 60.5 (45-73) % Lymph % (Auto) 29.5 (20-40) % [place] % (Auto) 7.3 (2-11) % Eos % (Auto) 2.0 (0-4) % Baso % (Auto) 0.4 (0-2) % Lymph # (Auto) 2.9 (1.2-4.9) X10*3/uL [place] # (Auto) 0.7 (0.1-1.2) X10*3/uL Eos # (Auto) 0.2 (0.0-0.4) X10*3/uL Baso # (Auto) 0.0 (0.0-0.2) X10*3/uL Abs Immat Gran (auto) 0.03 (0.00-0.03) X10*3/uL Absolute Neuts (auto) 6.0 (2.0-8.3) X10*3/uL Absolute Nucleated RBC 0.000 (0.0-0.012) X10*3/uL Nucleated RBC % (auto) 0.0 (0.0-0.2) /100WBC PT 21.3 H (9.9-13.0) SEC INR 1.9 H (0.9-1.1) APTT 47.3 H (24.1-38.0) SEC Sodium 142 (135-145) mmol/L Potassium 4.6 (3.3-5.1) mmol/L Chloride 112 H (96-108) mmol/L Carbon Dioxide 18 L (22-29) mmol/L Anion Gap 17 (12-20) BUN 11 (9-16) mg/dL Creatinine 0.77 (0.5-1.4) mg/dL Estim Creat Clear Calc 42.2 Estimated GFR > 60 Random Glucose 174 H (60-115) mg/dL Calcium 9.0 D (8.4-10.2) mg/dL Total Bilirubin 0.6 (0.0-1.0) mg/dL Direct Bilirubin 0.2 (0.0-0.5) mg/dL AST 19 D (5-31) U/L ALT 15 (0-31) U/L Alkaline Phosphatase 72 (39-117) U/L Total Protein 6.4 L (6.5-8.0) g/dL Albumin 3.7 (3.5-5.0) g/dL Discharge Plan Discharge Clinical Impression: Epistaxis Patient Disposition: Home, Self-Care Instructions: Nosebleed (ED) Additional Instructions: Please follow-up with your primary care physician tomorrow. If you have any worsening or new symptoms, please return to the emergency room or call 911 Prescriptions: New cephalexin 500 mg capsule 500 mg PO Q12H Qty: 10 RF: 0 No Action metoprolol tartrate 50 mg tablet 50 mg PO BID RF: 0 calcium carbonate [Calcium 600] 600 mg calcium (1,500 mg) tablet 600 mg PO DAILY RF: 0 digoxin 125 mcg (0.125 mg) tablet 125 mcg PO DAILY RF: 0 amlodipine 2.5 mg tablet 2.5 mg PO DAILY RF: 0 metformin 500 mg tablet 500 mg PO BID RF: 0 levothyroxine [Synthroid] 75 mcg tablet 75 mcg PO DAILY RF: 0 atorvastatin [Lipitor] 10 mg tablet 10 mg PO DAILY RF: 0 omeprazole 40 mg capsule,delayed release(DR/EC) 40 mg PO DAILY RF: 0 Xarelto 20 mg tablet 20 mg PO DAILY RF: 0 memantine [Namenda] 10 mg tablet 10 mg PO BID RF: 0 Betoptic S 0.25 % drops,suspension 1 drp ophthalmic (eye) BID RF: 0 valsartan 320 mg tablet 320 mg PO DAILY RF: 0 meclizine 12.5 mg tablet 12.5 mg PO DAILY RF: 0
[2021-01-06] MEDS: ondansetron HCL 4 MG/2 ML VIAL IVPUSH (07:22)
[2021-01-06 07:23] LABS: MANUAL DIFF FLAG NO
[2021-01-06] MEDS: 0.9 % Sodium Chloride 1,000 ML 999 ML IVCONT (07:23)
[2021-01-06 07:25] VITALS: BP 184/84; PULSE 92; RESP 20; TEMP 36.4; O2SAT 95; BMI 21.0
[2021-01-06 07:26] LABS: Basophils Percent Auto 0.4 % (0-2); Eosinophils Absolute Auto 0.2 X10*3/uL (0.0-0.4); Hematocrit 39.5 % (37-47); Hemoglobin 12.9 g/dl (12.0-16.0); Imm Gran Abs Auto 0.03 X10*3/uL (0.00-0.03); Imm Gran Pct Auto 0.3 % (0.0-0.4); Lymphocytes Absolute Auto 2.9 X10*3/uL (1.2-4.9); Lymphocytes Percent Auto 29.5 % (20-40); Mean Corpuscular HGB Conc 32.7 g/dl (31.0-35.0); Mean Corpuscular Hemoglobin 28.9 pg (27.0-33.0); Mean Corpuscular Volume 88.6 fL (80-98); Monocytes Absolute Auto 0.7 X10*3/uL (0.1-1.2); Monocytes Percent Auto 7.3 % (2-11); Neutrophils Percent Auto 60.5 % (45-73); Platelet Count 206 X10*3/uL (160-400); Red Blood Count 4.46 X10*6/uL (4.20-5.50); White Blood Count 9.9 X10*3/uL (4.8-10.8)
[2021-01-06 07:30] LABS: INTERNATIONAL NORM RATIO 1.9 (0.9-1.1); Prothrombin Time 21.3 SEC (9.9-13.0)
[2021-01-06 07:33] LABS: Partial Thromboplastin Time 47.3 SEC (24.1-38.0)
[2021-01-06 08:02] LABS: Alanine Aminotransferase 15 U/L (0-31); Albumin Level 3.7 g/dL (3.5-5.0); Alkaline Phosphatase 72 U/L (39-117); Anion Gap 17 (12-20); Aspartate Amino Transferase 19 U/L (5-31); Bilirubin Direct 0.2 mg/dL (0.0-0.5); Bilirubin Total 0.6 mg/dL (0.0-1.0); Blood Urea Nitrogen 11 mg/dL (9-16); Carbon Dioxide 18 mmol/L (22-29); Chloride 112 mmol/L (96-108); Creatinine Clr Calc Pharmacy 42.2; Estimated Glomerular Filt Rate > 60; Glucose Random 174 mg/dL (60-115); Potassium 4.6 mmol/L (3.3-5.1); Sodium 142 mmol/L (135-145); Total Protein 6.4 g/dL (6.5-8.0)
[2021-01-06] MEDS: cephALEXin 500 MG CAPSULE PO (08:06)
--- NOTE | 2021-01-06 08:24 | PC.NURSE ---
pt in bed with eyes closed. reports discomfort to the face. family is at bedside. pt and family educated about care.
[2021-01-06 08:26] VITALS: PULSE 86; O2SAT 95
== END 2021-01-06 09:03 | disposition home or self-care (01) ==
PROVIDERS: Emergency Provider Emergency Medicine
DX: R04.0 Epistaxis (principal)
CPT/HCPCS: 36415; 80048; 80076; 85025; 85610; 85730; 99284; J2405

== ENCOUNTER 2021-01-06 13:25 | Emergency (ER) | payer MEDICARE, SELFPAY ==
[2021-01-06 13:30] VITALS: BP 142/75; PULSE 85; RESP 16; TEMP 36.4; O2SAT 96; BMI 21.0
--- NOTE | 2021-01-06 13:33 | ED.EPISTAXIS ---
History of Present Illness General Chief Complaint: General Medical Stated Complaint: dislodged nasal device Time Seen by Provider: 01/06/21 13:32 Source: patient Mode of arrival: ambulatory Limitations: no limitations History of Present Illness HPI Narrative: 85 y/o female with history of dementia, HTN, afib on Xarelto who was seen here in the ED earlier today for nose bleed and had a Rhinorocket placed into her right nare, presents back with slight dislodgment of the Rhinorocket. The tape came off of her cheek and she accidentally pulled on it a little bit. Patient has dementia and is a poor historian. did not witness how it came out. She denies any recurrent bleeding but came back to the ER for further evaluation of partial dislodgment. Location: Yes right nares Duration: Yes now resolved Pertinent past history: Yes hypertension and Yes history of previous nose bleed Context: Yes history of previous nose bleed Related Data Home Medications Medication Instructions Recorded Confirmed amlodipine 2.5 mg tablet 2.5 mg PO DAILY 06/21/20 06/21/20 atorvastatin 10 mg tablet 10 mg PO DAILY 06/21/20 06/21/20 betaxolol 0.25 % eye 1 drp OPHTHALMIC (EYE) BID 06/21/20 06/21/20 drops,suspension calcium carbonate 600 mg calcium 600 mg PO DAILY 06/21/20 06/21/20 (1,500 mg) tablet digoxin 125 mcg (0.125 mg) tablet 125 mcg PO DAILY 06/21/20 06/21/20 levothyroxine 75 mcg tablet 75 mcg PO DAILY 06/21/20 06/21/20 meclizine 12.5 mg tablet 12.5 mg PO DAILY 06/21/20 06/21/20 memantine 10 mg tablet 10 mg PO BID 06/21/20 06/21/20 metformin 500 mg tablet 500 mg PO BID 06/21/20 06/21/20 metoprolol tartrate 50 mg tablet 50 mg PO BID 06/21/20 06/21/20 omeprazole 40 mg capsule,delayed 40 mg PO DAILY 06/21/20 06/21/20 release rivaroxaban 20 mg tablet 20 mg PO DAILY 06/21/20 06/21/20 valsartan 320 mg tablet 320 mg PO DAILY 06/21/20 06/21/20 Previous Rx's Medication Instructions Recorded cephalexin 500 mg PO Q12H #10 cap 01/06/21 Allergies Allergy/AdvReac Type Severity Reaction Status Date / Time corticotropin [From ACTH] Allergy Mild UNKNOWN Unverified 03/17/20 14:42 hydrochlorothiazide Allergy Unknown Verified 06/04/19 00:00 Review of Systems Review of Systems: Constitutional: No Fever, No Chills ENT/Mouth: No sore throat, No Rhinorrhea, No Swallowing Difficulty, No nasal bleeding Cardiovascular: No Chest Pain, No SOB Respiratory: No Cough, No Sputum, No hemoptysis Gastrointestinal: No Nausea, No Vomiting Skin: No Skin Lesions, No rash Neuro: No Weakness, No Numbness, No Dizziness, No Headache Heme/Lymph: No Bruising PMFSH Past Medical History Attestation statement: The following information was validated with the patient. Medical History Bilateral carotid artery disease Chronic atrial fibrillation HTN (hypertension) Surgical History Hx of appendectomy Hx of cholecystectomy Hx of hysterectomy Family History Family History Father CVD (cardiovascular disease) HTN (hypertension) Heart failure Mother Diabetes Cancer Brother CVD (cardiovascular disease) Social History Social History Advance Directives: Yes Advance Directives Information Provided: Yes Advance Directives on File: No Physical Exam Vital Signs: Vital Signs: Last Vital Signs Temp 97.5 F 01/06/21 13:30 Pulse 85 01/06/21 13:30 Resp 16 01/06/21 13:30 BP 142/75 H 01/06/21 13:30 Pulse Ox 96 01/06/21 13:30 Body Mass Index 21.0 Appearance: Alert. Elderly female No acute distress. Eyes: Pupils equal, round and reactive to light. ENT: Pharynx normal. No blood seen in the posterior oropharynx, Rhinorocket in right nare with slight protusion anteriorly from the nare, no active bleeding appreciated. Neck: Normal inspection. Neck supple. Respiratory: No respiratory distress. Speaking in complete sentences Skin: Skin warm and dry. Normal skin color. Normal skin turgor. No rashes. Extremities: No lower extremity edema. Neuro: Alert, conversant, nonfocal. Course Course Course Narrative: 85 y/o female presenting with slight dislodgment of right nare Rhinorocket that was placed at 7am today. No active bleeding. 2cc of air was delflated, rhino rocket replaced and 2 cc reinstilled with good effect. No bleeding. Stable for d/c home with plan to come back tomorrow for removal as per Dr. Cabrera. Discharge Plan Discharge Clinical Impression: Epistaxis Patient Disposition: Home, Self-Care Instructions: Nosebleed (ED) Additional Instructions: recommend holding your Xarelto tonight come back to the ER tomorrow morning for rhinorocket removal continue antibiotics as prescribed recommend tylenol as needed for discomfort if nose bleeding recurs come back to the ER for further evaluation Prescriptions: No Action cephalexin 500 mg capsule 500 mg PO Q12H Qty: 10 RF: 0 metoprolol tartrate 50 mg tablet 50 mg PO BID RF: 0 calcium carbonate [Calcium 600] 600 mg calcium (1,500 mg) tablet 600 mg PO DAILY RF: 0 digoxin 125 mcg (0.125 mg) tablet 125 mcg PO DAILY RF: 0 amlodipine 2.5 mg tablet 2.5 mg PO DAILY RF: 0 metformin 500 mg tablet 500 mg PO BID RF: 0 levothyroxine [Synthroid] 75 mcg tablet 75 mcg PO DAILY RF: 0 atorvastatin [Lipitor] 10 mg tablet 10 mg PO DAILY RF: 0 omeprazole 40 mg capsule,delayed release(DR/EC) 40 mg PO DAILY RF: 0 Xarelto 20 mg tablet 20 mg PO DAILY RF: 0 memantine [Namenda] 10 mg tablet 10 mg PO BID RF: 0 Betoptic S 0.25 % drops,suspension 1 drp ophthalmic (eye) BID RF: 0 valsartan 320 mg tablet 320 mg PO DAILY RF: 0 meclizine 12.5 mg tablet 12.5 mg PO DAILY RF: 0
== END 2021-01-06 13:58 | disposition home or self-care (01) ==
PROVIDERS: Emergency Provider Emergency Medicine; PCP Internal Medicine
DX: R04.0 Epistaxis (principal); I10 Essential (primary) hypertension; Z79.899 Other long term (current) drug therapy
CPT/HCPCS: 36415; 80048; 80076; 85025; 85610; 85730; 96372; 99283; 99284; J2405

== ENCOUNTER 2021-01-07 11:02 | Emergency (ER) | payer MEDICARE, SELFPAY ==
[2021-01-07 11:20] VITALS: BP 132/54; PULSE 76; RESP 16; TEMP 36.7; O2SAT 97; BMI 21.0
--- NOTE | 2021-01-07 11:50 | ED.GENADULT ---
HPI - General Adult General Chief complaint: Wound/Laceration Stated complaint: PACKKING REMOVAL Time Seen by Provider: 01/07/21 11:48 Source: patient and family Limitations: no limitations History of Present Illness HPI narrative: This is a patient who states she had packing placed in her right nostril few days ago for epistaxis. Patient had returned yesterday because the packing and partly come out and had to be replaced. Patient has stopped her Xarelto yesterday per the instructions of a nurse practitioner. Patient returns today for packing removal. Reports no ongoing bleeding. She has been on antibiotic. She denies any headache or fever or sinus congestion. She has not noted any blood down the back of her throat Related Data Home Medications Medication Instructions Recorded Confirmed amlodipine 2.5 mg tablet 2.5 mg PO DAILY 06/21/20 06/21/20 atorvastatin 10 mg tablet 10 mg PO DAILY 06/21/20 06/21/20 betaxolol 0.25 % eye 1 drp OPHTHALMIC (EYE) BID 06/21/20 06/21/20 drops,suspension calcium carbonate 600 mg calcium 600 mg PO DAILY 06/21/20 06/21/20 (1,500 mg) tablet digoxin 125 mcg (0.125 mg) tablet 125 mcg PO DAILY 06/21/20 06/21/20 levothyroxine 75 mcg tablet 75 mcg PO DAILY 06/21/20 06/21/20 meclizine 12.5 mg tablet 12.5 mg PO DAILY 06/21/20 06/21/20 memantine 10 mg tablet 10 mg PO BID 06/21/20 06/21/20 metformin 500 mg tablet 500 mg PO BID 06/21/20 06/21/20 metoprolol tartrate 50 mg tablet 50 mg PO BID 06/21/20 06/21/20 omeprazole 40 mg capsule,delayed 40 mg PO DAILY 06/21/20 06/21/20 release rivaroxaban 20 mg tablet 20 mg PO DAILY 06/21/20 06/21/20 valsartan 320 mg tablet 320 mg PO DAILY 06/21/20 06/21/20 Previous Rx's Medication Instructions Recorded cephalexin 500 mg PO Q12H #10 cap 01/06/21 Allergies Allergy/AdvReac Type Severity Reaction Status Date / Time corticotropin [From ACTH] Allergy Mild UNKNOWN Unverified 03/17/20 14:42 hydrochlorothiazide Allergy Unknown Verified 06/04/19 00:00 Review of Systems Constitutional: Constitutional: Denies fever(s) ENT: Reports as per HPI, Denies nasal congestion, Denies sinus pressure and Denies sore throat Cardiovascular: Cardiovascular: Denies dyspnea Respiratory: Respiratory: Denies dyspnea PMFSH Past Medical History Medical History Bilateral carotid artery disease Chronic atrial fibrillation HTN (hypertension) Surgical History Hx of appendectomy Hx of cholecystectomy Hx of hysterectomy Family History Family History Father CVD (cardiovascular disease) HTN (hypertension) Heart failure Mother Diabetes Cancer Brother CVD (cardiovascular disease) Social History Social History Advance Directives: Yes Advance Directives Information Provided: No Advance Directives on File: No Physical Exam Vital Signs: Vital Signs: Last Vital Signs Temp 98.0 F 01/07/21 11:20 Pulse 76 01/07/21 11:20 Resp 16 01/07/21 11:20 BP 132/54 L 01/07/21 11:20 Pulse Ox 97 01/07/21 11:20 Body Mass Index 21.0 Const: Orientation/consciousness: patient oriented x3 HENMT: Head: Yes normal to inspection General nose exam: Other nasal findings present (Rhino stat air balloon device and right nostril) Eyes: General: appearance normal, both eyes and all related structures Resp: Effort & Inspection: normal respiratory effort Auscultation: clear to auscultation bilaterally Cardio: Rate: regular rate Rhythm: abnormal rhythm (Irregular regular) Neuro: General: patient oriented x3 Medical Decision Making MDM Narrative Medical decision making narrative: Air balloon was deflated and the packing was removed without incident. Examination after removal showed no bleeding, examination of the throat was also clear. Patient had stated that she had had the packing placed a few days ago but review of the records indicates that it actually was early yesterday. Nonetheless the patient has Dr. Villanueva and has no active bleeding and the packing has been removed Discharge Plan Discharge Clinical Impression: Encounter for removal of nasal packing Patient Disposition: Home, Self-Care Instructions: Nosebleed (ED) Additional Instructions: Restart her Xarelto tomorrow. Avoid bending over or straining. If bleeding recurs, pinch your nose and hold pressure directly for 20 minutes without letting up. Return for any new or worsened symptoms such as rebleeding which will not stop with direct pressure, fever or progressive headache/sinus symptoms Prescriptions: No Action cephalexin 500 mg capsule 500 mg PO Q12H Qty: 10 RF: 0 metoprolol tartrate 50 mg tablet 50 mg PO BID RF: 0 calcium carbonate [Calcium 600] 600 mg calcium (1,500 mg) tablet 600 mg PO DAILY RF: 0 digoxin 125 mcg (0.125 mg) tablet 125 mcg PO DAILY RF: 0 amlodipine 2.5 mg tablet 2.5 mg PO DAILY RF: 0 metformin 500 mg tablet 500 mg PO BID RF: 0 levothyroxine [Synthroid] 75 mcg tablet 75 mcg PO DAILY RF: 0 atorvastatin [Lipitor] 10 mg tablet 10 mg PO DAILY RF: 0 omeprazole 40 mg capsule,delayed release(DR/EC) 40 mg PO DAILY RF: 0 Xarelto 20 mg tablet 20 mg PO DAILY RF: 0 memantine [Namenda] 10 mg tablet 10 mg PO BID RF: 0 Betoptic S 0.25 % drops,suspension 1 drp ophthalmic (eye) BID RF: 0 valsartan 320 mg tablet 320 mg PO DAILY RF: 0 meclizine 12.5 mg tablet 12.5 mg PO DAILY RF: 0 Discharge Date/Time: 01/07/21 11:55
== END 2021-01-07 11:55 | disposition home or self-care (01) ==
PROVIDERS: Emergency Provider Emergency Medicine; PCP Internal Medicine
DX: Z48.00 Encounter for change or removal of nonsurgical wound dressing (principal)
CPT/HCPCS: 99283

== ENCOUNTER → 2021-01-24 14:58 | Outpatient (BNVA) | payer MEDICARE, SELFPAY | PROVIDERS: PCP Internal Medicine; Referring Provider Internal Medicine; Visit Provider Internal Medicine Cardiovascular Disease | DX: R42 Dizziness and giddiness (principal); I48.20 Chronic atrial fibrillation, unspecified | CPT/HCPCS: 99212 ==

== ENCOUNTER → 2021-02-07 11:04 | Outpatient (REF) | payer MEDICARE, SELFPAY ==
--- NOTE | 2021-02-07 11:07 | HM_ITS ---
Total monitoring time 3 days and 1 hour. Underlying rhythm is atrial fibrillation. Minimum heart rate 54/Min. Maximum 158/Min. Average 81/Min. About 5% of the time, rate greater than 100/Min. 100% the time, rhythm was atrial fibrillation. No pauses or AV blocks. Rare PVCs at 0.25% burden. No patient events. Overall, reasonable rate control but with tendency for tachycardia. MTDD
== END ==
LOC: HO.CARD 11:04
PROVIDERS: Visit Provider Internal Medicine Cardiovascular Disease
DX: R42 Dizziness and giddiness (principal)
CPT/HCPCS: 93225; 93242

== ENCOUNTER → 2021-02-22 12:49 | Outpatient (BNVA) | payer MEDICARE, SELFPAY | PROVIDERS: PCP Internal Medicine; Visit Provider Nurse Practitioner Family | DX: R42 Dizziness and giddiness (principal); I48.20 Chronic atrial fibrillation, unspecified; I25.82 Chronic total occlusion of coronary artery; I25.10 Atherosclerotic heart disease of native coronary artery without angina pectoris; I10 Essential (primary) hypertension; Z79.4 Long term (current) use of insulin; Z79.899 Other long term (current) drug therapy | CPT/HCPCS: 99212 ==

== ENCOUNTER 2021-05-22 12:20 | Emergency (ER) | payer MEDICARE, SELFPAY ==
--- NOTE | 2021-05-22 12:32 | ED.AMS ---
HPI - Altered Mental Status General Chief Complaint: Altered Mental Status Stated Complaint: GENERAL WEAKNESS Time Seen by Provider: 05/22/21 12:32 Source: EMS Mode of arrival: EMS Limitations: altered mental status History of Present Illness HPI narrative: Family with increased confusion, patient does not know why she is here. Patient had a head CT in August and again in December. MD complaint: confusion Onset (ago): week(s) Severity: moderate Consistency of symptoms: getting Worse Associated symptoms: denies other symptoms Related Data Home Medications Medication Instructions Recorded Confirmed atorvastatin 10 mg tablet (Lipitor) 10 mg PO DAILY 06/21/20 05/22/21 calcium carbonate 600 mg calcium 600 mg PO DAILY 06/21/20 05/22/21 (1,500 mg) tablet (Calcium) levothyroxine 75 mcg tablet 75 mcg PO DAILY 06/21/20 05/22/21 (Synthroid) memantine 10 mg tablet (Namenda) 10 mg PO BID 06/21/20 05/22/21 metformin 500 mg tablet 500 mg PO BID 06/21/20 05/22/21 metoprolol tartrate 50 mg tablet 50 mg PO BID 06/21/20 05/22/21 omeprazole 40 mg capsule,delayed 40 mg PO DAILY 06/21/20 05/22/21 release rivaroxaban 20 mg tablet (Xarelto) 20 mg PO DAILY 06/21/20 05/22/21 valsartan 320 mg tablet 320 mg PO DAILY 06/21/20 05/22/21 glimepiride 1 mg tablet 1 mg PO DAILY 01/24/21 05/22/21 aspirin 81 mg chewable tablet 81 mg PO DAILY 05/22/21 05/22/21 brimonidine 0.2 % eye drops 1 drp OPHTHALMIC (EYE) BID 05/22/21 05/22/21 fluticasone 250 mcg-salmeterol 50 1 puff INHALATION BID 05/22/21 05/22/21 mcg/dose blistr powdr for inhalation (Advair Diskus) latanoprost 0.005 % eye drops 1 drp OPHTHALMIC (EYE) BEDTIME 05/22/21 05/22/21 meclizine 12.5 mg tablet 12.5 mg PO DAILY PRN 05/22/21 05/22/21 vit C 250 mg-vit E 90 mg-zinc 40 1 cap PO BID 05/22/21 05/22/21 mg-copper 1 [id number] capsule (PreserVision AREDS-2) Allergies Allergy/AdvReac Type Severity Reaction Status Date / Time corticotropin [From ACTH] Allergy Mild UNKNOWN Unverified 02/22/21 14:43 hydrochlorothiazide Allergy Unknown Unknown Verified 02/22/21 14:43 Review of Systems Constitutional: Constitutional: Reports no additional constitutional complaints Eyes: Eyes: Reports no additional eye complaints ENT: Denies dizziness Cardiovascular: Cardiovascular: Reports no additional cardiovascular complaints Respiratory: Respiratory: Reports as per HPI Gastrointestinal: Gastrointestinal: Reports no additional gastrointestinal complaints Genitourinary: Genitourinary: Reports no additional female genitourinary complaints Musculoskeletal: Musculoskeletal: Reports no additional musculoskeletal complaints Integumentary/Breasts: Skin/Breast: Denies rash Neurologic: Reports system reviewed and no additional complaints, except as documented, Denies dizziness and Denies Sensory deficit (Neuro) Psychiatric: Psychiatric: Denies anxiety PMFSH Past Medical History Medical History Bilateral carotid artery disease Chronic atrial fibrillation HTN (hypertension) Surgical History Hx of appendectomy Hx of cholecystectomy Hx of hysterectomy Family History Family History Father CVD (cardiovascular disease) HTN (hypertension) Heart failure Mother Diabetes Cancer Brother CVD (cardiovascular disease) Social History Social History Advance Directives: Yes Advance Directives Information Provided: No Advance Directives on File: No Physical Exam Vital Signs: Vital Signs: Last Vital Signs Temp 98.5 F 05/22/21 12:34 Pulse 97 05/22/21 12:34 Resp 23 H 05/22/21 12:34 BP 199/118 H 05/22/21 12:34 Pulse Ox 94 05/22/21 12:34 Body Mass Index 21.9 Const: Other: Thin frail female in no acute distress, alert to self and place General: healthy appearing Nutritional Appearance: thin Orientation/consciousness: oriented to person and Other orientation findings (oriented to person and place) Limitations: no limitations HENMT: Head: Yes normal to inspection Ears: external ears normal General nose exam: Normal external nose present Mouth: Normal oral and palatal mucosa present and oropharynx normal Throat: Yes posterior oropharynx normal Eyes: General: appearance normal, both eyes and all related structures Neck: Other: supple Neck: Yes normal visual inspection Chest: Chest palpation & inspection: normal inspection of the chest Resp: Auscultation: clear to auscultation bilaterally Cardio: Jugular venous distension: no JVD Rate: regular rate Rhythm: regular rhythm Heart sounds: S1 normal heart sound present and S2 normal heart sound present GI: Inspection: Yes normal to inspection Palpation (GI): Soft to palpation, nontender and No hepatosplenomegaly present Auscultation: normal bowel sounds : General: Yes no CVA tenderness Back/Spine/Pelvis: Back: no CVA tenderness Skin: General skin exam: no rashes or lesions noted Neuro: General: oriented to person Cranial nerves: Yes CN's II-XII intact bilaterally Motor exam (neuro): 5/5 motor strength present throughout Sensory Exam: No Sensory deficit (Neuro) Extrem: General: Yes normal to inspection Psych: Appearance: grossly normal Course Reevaluation(s) Reevaluation #1: No acute change in labs, will have case management evaluate for safety Time: 14:30 Reevaluation #2: Discussed with Dr. Barillas patients dementia is getting worse and the is struggling to take care of her. Time: 14:43 Reevaluation #3: Awaiting physical therapy evaluation and will discarge Time: 17:31 MDM - Altered Mental Status Lab Data Result diagrams: 05/22/21 12:56 05/22/21 12:56 Labs: Lab Results 05/22/21 05/22/21 05/22/21 Range/Units 12:56 12:56 13:38 WBC 7.2 (4.8-10.8) X10*3/uL RBC 4.60 (4.20-5.50) X10*6/uL Hgb 10.8 L (12.0-16.0) g/dl Hct 35.1 L (37.0-47.0) % MCV 76.3 L (80.0-98.0) fL MCH 23.5 L (27.0-33.0) pg MCHC 30.8 L (31.0-35.0) g/dl RDW 19.8 H (11.0-16.0) % Plt Count 220 (160-400) X10*3/uL MPV 9.6 (9.4-12.3) fL Immature Gran % (Auto) 0.3 (0.0-0.4) % Neut % (Auto) 68.2 (45-73) % Lymph % (Auto) 23.0 (20-40) % [place] % (Auto) 6.7 (2-11) % Eos % (Auto) 1.4 (0-4) % Baso % (Auto) 0.4 (0-2) % Lymph # (Auto) 1.7 (1.2-4.9) X10*3/uL [place] # (Auto) 0.5 (0.1-1.2) X10*3/uL Eos # (Auto) 0.1 (0.0-0.4) X10*3/uL Baso # (Auto) 0.0 (0.0-0.2) X10*3/uL Abs Immat Gran (auto) 0.02 (0.00-0.03) X10*3/uL Absolute Neuts (auto) 4.9 (2.0-8.3) x10*3/uL Absolute Nucleated RBC 0.000 (0.0-0.012) X10*3/uL Nucleated RBC % (auto) 0.0 (0.0-0.2) /100WBC Sodium 141 (135-145) mmol/L Potassium 3.5 D (3.3-5.1) mmol/L Chloride 107 (96-108) mmol/L Carbon Dioxide 25 (22-29) mmol/L Anion Gap 13 (12-20) BUN 10 (9-16) mg/dL Creatinine 0.69 (0.5-1.4) mg/dL Estim Creat Clear Calc 47.1 Estimated GFR > 60 Random Glucose 133 H (60-115) mg/dL Calcium 9.0 (8.4-10.2) mg/dL Total Bilirubin 1.1 H (0.0-1.0) mg/dL Direct Bilirubin 0.5 (0.0-0.5) mg/dL AST 13 (5-31) U/L ALT 16 (0-31) U/L Alkaline Phosphatase 94 D (39-117) U/L Total Protein 6.0 L (6.5-8.0) g/dL Albumin 3.8 (3.5-5.0) g/dL Lipase 22 (8-78) U/L Urine Color YELLOW Urine Appearance CLEAR Urine pH 6.5 (5.0-8.0) Ur Specific [place] 1.015 (1.005-1.025) Urine Protein TRACE (NEG-TRACE) MG/DL Urine Glucose (UA) NEG (NEG) MG/DL Urine Ketones 15 (NEG) MG/DL Urine Blood NEG (NEG) Urine Nitrite NEG (NEG) Ur Leukocyte Esterase TRACE H (NEG) Urine RBC 0-2 (0) /HPF Urine WBC 1-4 (0-4) /HPF Ur Squamous Epith Cells TRACE /LPF Urine Bacteria TRACE /LPF Discharge Plan Discharge Clinical Impression: Dementia Patient Disposition: Home, Self-Care Instructions: Dementia (ED) Prescriptions: No Action latanoprost 0.005 % drops 1 drp ophthalmic (eye) BEDTIME RF: 0 fluticasone propion-salmeterol [Advair Diskus] 250-50 mcg/dose blister with device 1 puff inhalation BID RF: 0 brimonidine 0.2 % drops 1 drp ophthalmic (eye) BID RF: 0 meclizine 12.5 mg Tablet 12.5 mg PO DAILY PRN (Reason: Dizziness) RF: 0 aspirin 81 mg Tablet,Chewable 81 mg PO DAILY RF: 0 PreserVision AREDS-2 250-90-40-1 mg Capsule 1 cap PO BID RF: 0 glimepiride 1 mg tablet 1 mg PO DAILY RF: 0 metoprolol tartrate 50 mg tablet 50 mg PO BID RF: 0 calcium carbonate [Calcium 600] 600 mg calcium (1,500 mg) tablet 600 mg PO DAILY RF: 0 metformin 500 mg tablet 500 mg PO BID RF: 0 levothyroxine [Synthroid] 75 mcg tablet 75 mcg PO DAILY RF: 0 atorvastatin [Lipitor] 10 mg tablet 10 mg PO DAILY RF: 0 omeprazole 40 mg capsule,delayed release(DR/EC) 40 mg PO DAILY RF: 0 Xarelto 20 mg tablet 20 mg PO DAILY RF: 0 memantine [Namenda] 10 mg tablet 10 mg PO BID RF: 0 valsartan 320 mg tablet 320 mg PO DAILY RF: 0 Referrals: Bombardier,Raffaele P, MD [Primary Care Provider] - 1 week
[2021-05-22 12:34] VITALS: BP 199/118; BP 200/100; PULSE 110; PULSE 97; RESP 23; TEMP 36.9; O2SAT 94; BMI 21.9
[2021-05-22 12:59] LABS: MANUAL DIFF FLAG NO
[2021-05-22 13:01] LABS: Basophils Percent Auto 0.4 % (0-2); Eosinophils Absolute Auto 0.1 X10*3/uL (0.0-0.4); Eosinophils Percent Auto 1.4 % (0-4); Hematocrit 35.1 % (37.0-47.0); Hemoglobin 10.8 g/dl (12.0-16.0); Imm Gran Abs Auto 0.02 X10*3/uL (0.00-0.03); Imm Gran Pct Auto 0.3 % (0.0-0.4); Lymphocytes Absolute Auto 1.7 X10*3/uL (1.2-4.9); Mean Corpuscular HGB Conc 30.8 g/dl (31.0-35.0); Mean Corpuscular Hemoglobin 23.5 pg (27.0-33.0); Mean Corpuscular Volume 76.3 fL (80.0-98.0); Mean Platelet Volume 9.6 fL (9.4-12.3); Monocytes Absolute Auto 0.5 X10*3/uL (0.1-1.2); Monocytes Percent Auto 6.7 % (2-11); Neutrophils Absolute Auto 4.9 x10*3/uL (2.0-8.3); Neutrophils Percent Auto 68.2 % (45-73); Platelet Count 220 X10*3/uL (160-400); Red Cell Distribution Width 19.8 % (11.0-16.0); White Blood Count 7.2 X10*3/uL (4.8-10.8)
[2021-05-22 13:30] LABS: Alanine Aminotransferase 16 U/L (0-31); Albumin Level 3.8 g/dL (3.5-5.0); Alkaline Phosphatase 94 U/L (39-117); Anion Gap 13 (12-20); Aspartate Amino Transferase 13 U/L (5-31); Bilirubin Direct 0.5 mg/dL (0.0-0.5); Bilirubin Total 1.1 mg/dL (0.0-1.0); Blood Urea Nitrogen 10 mg/dL (9-16); Carbon Dioxide 25 mmol/L (22-29); Chloride 107 mmol/L (96-108); Creatinine Clr Calc Pharmacy 47.1; Estimated Glomerular Filt Rate > 60; Glucose Random 133 mg/dL (60-115); Lipase 22 U/L (8-78); Potassium 3.5 mmol/L (3.3-5.1); Sodium 141 mmol/L (135-145)
[2021-05-22 13:48] LABS: Appearance Urine CLEAR; Color Urine YELLOW; Glucose Urine UA NEG (NEG); Leukocyte Esterase Urine TRACE (NEG); Nitrite Urine NEG (NEG); PH 6.5 (5.0-8.0); Specific Gravity - Urine 1.015 (1.005-1.025); UACC Culture Trigger YES; Urine Blood NEG (NEG); Urine Ketones 15 MG/DL (NEG); Urine Protein TRACE MG/DL (NEG-TRACE)
--- NOTE | 2021-05-22 14:06 | PHA.MEDREC ---
Pharmacy Consult ? Medication Reconciliation Pharmacy has completed the medication reconciliation. There are no remarkable issues for provider's attention. Emi Quinones, DavidaD
[2021-05-22 14:09] LABS: Bacteria Urine TRACE /LPF; RBC Urine 0-2 /HPF (0); Squamous Epithelial Cell Urine TRACE /LPF
--- NOTE | 2021-05-22 17:06 | MHC.CM.ED ---
Addendum entered by Brooklynn Ramirez 05/22/21 17:26: Pt has jail health insurance. Listing of local business that provide home health care given to . Pt does not use a walker or a cane. They have no services in the home yet. Original Note: CM met with patient and at the request Of Dr. Pardo to ascertain if they need help or services at home. Pt has dementia and defers questions to her . HCP/, [facility] ([phone] H & [phone] C). provides all care at home. Pt can wash and dress herself. Pt eats well. helps her when ambulating and using the stairs for support. Uses a wheelchair when she needs to walk longer distances. [facility] has completed an intake. interested In ?EMERGENCY DEPARTMENT CLINICIAN or RADAR TECHNICIAN. Explained that he can pay for help in the home, as he is not interested in LTC at this time. Encouraged to speak with his family for some supports. Pt will have PT evaluation in the am. Care Port given with local facilities for STR if recommended. will review and get back to CM. Pt is well cared for. feels his of 62 years is safe at home. Pt is fully vaccinated with [employer] [place] and received the booster. No referrals placed at this time. CM to follow for d/c needs.
[2021-05-22 18:48] VITALS: BP 170/80; PULSE 89; RESP 15
[2021-05-22 19:54] VITALS: BP 180/89; PULSE 111; RESP 18; TEMP 36.9; O2SAT 94
--- NOTE | 2021-05-22 20:05 | PC.NURSE ---
Pt alert and confused, hx of dementia, per pt is at baseline mental status. pt only oriented to self at this time. Pt has reoriented and educated multiple times. Pt denies pain. Vitals stable. IV intact. Pt resting in stretcher at this time, very high safe. Educated acquisitions librarian duron. Will continue to monitor.
[2021-05-23 01:55] VITALS: BP 173/90; PULSE 98; RESP 16; TEMP 36.7
--- NOTE | 2021-05-23 05:02 | PC.NURSE ---
REPORT TAKEN FROM MICHAEL OSORIO, FIRST CONTACT WITH PT. RESTING IN BED EYES OPENED, PLEASANTLY CONFUSED. AWAITING PT EVAL IN AM.
[2021-05-23 06:00] VITALS: RESP 16; O2SAT 98
[2021-05-23 07:19] VITALS: BP 173/90; PULSE 98
--- NOTE | 2021-05-23 07:26 | PC.NURSE ---
REPORT GIVEN TO CLYDE OSORIO.
--- NOTE | 2021-05-23 08:37 | MHC.CM.ED ---
Patient remains in ER. Physical therapy eval completed. Home services is recommended. Met with patient and , [facility] at bedside. [facility] requesting referral to [facility]. Referral made via [employer]. Patient, Cailin Storm RN and Sindy COOPER aware. [facility] will transport patient home. Continue to monitor for d/c needs.
[2021-05-23 09:46] LABS: OBS Int Ctl Valid YES; OBS1 NEGATIVE (NEGATIVE)
== END 2021-05-23 11:02 | disposition home or self-care (01) ==
PROVIDERS: Physician Assistant; Emergency Provider Emergency Medicine; PCP Internal Medicine
DX: F03.90 Unspecified dementia, unspecified severity, without behavioral disturbance, psychotic disturbance, mood disturbance, and anxiety (principal); R53.1 Weakness; I48.20 Chronic atrial fibrillation, unspecified; I10 Essential (primary) hypertension; Z79.02 Long term (current) use of antithrombotics/antiplatelets; Z79.82 Long term (current) use of aspirin; Z79.899 Other long term (current) drug therapy
CPT/HCPCS: 36415; 80048; 80076; 81001; 82272; 83690; 85025; 87086; 97162; 99285

== ENCOUNTER 2021-06-05 10:51 | Outpatient (REF) | payer MEDICARE, SELFPAY ==
[2021-06-05 10:53] LABS: MANUAL DIFF FLAG NO
[2021-06-05 11:11] LABS: Basophils Percent Auto 0.4 % (0-2); Eosinophils Absolute Auto 0.1 X10*3/uL (0.0-0.4); Eosinophils Percent Auto 1.4 % (0-4); Hematocrit 36.9 % (37.0-47.0); Hemoglobin 11.2 g/dl (12.0-16.0); Imm Gran Abs Auto 0.02 X10*3/uL (0.00-0.03); Imm Gran Pct Auto 0.3 % (0.0-0.4); Lymphocytes Absolute Auto 1.8 X10*3/uL (1.2-4.9); Lymphocytes Percent Auto 23.1 % (20-40); Mean Corpuscular HGB Conc 30.4 g/dl (31.0-35.0); Mean Corpuscular Hemoglobin 23.7 pg (27.0-33.0); Mean Corpuscular Volume 78.2 fL (80.0-98.0); Mean Platelet Volume 10.8 fL (9.4-12.3); Monocytes Absolute Auto 0.5 X10*3/uL (0.1-1.2); Monocytes Percent Auto 6.8 % (2-11); Neutrophils Absolute Auto 5.3 x10*3/uL (2.0-8.3); Platelet Count 225 X10*3/uL (160-400); Red Blood Count 4.72 X10*6/uL (4.20-5.50); Red Cell Distribution Width 20.4 % (11.0-16.0); White Blood Count 7.8 X10*3/uL (4.8-10.8)
[2021-06-05 11:20] LABS: Appearance Urine CLEAR; Color Urine YELLOW; Glucose Urine UA NEG (NEG); Leukocyte Esterase Urine NEG (NEG); Nitrite Urine NEG (NEG); Specific Gravity - Urine 1.025 (1.005-1.025); Urine Blood NEG (NEG); Urine Ketones 5 MG/DL (NEG); Urine Protein 2+ MG/DL (NEG-TRACE)
[2021-06-05 11:23] LABS: Estimated Average Glucose 137 mg/dL; Hemoglobin A1c % 6.4 %
[2021-06-05 11:34] LABS: Alanine Aminotransferase 20 U/L (0-31); Albumin Level 3.8 g/dL (3.5-5.0); Alkaline Phosphatase 106 U/L (39-117); Anion Gap 15 (12-20); Aspartate Amino Transferase 15 U/L (5-31); Bilirubin Total 1.5 mg/dL (0.0-1.0); Blood Urea Nitrogen 10 mg/dL (9-16); Calcium 9.5 mg/dL (8.4-10.2); Carbon Dioxide 24 mmol/L (22-29); Chloride 108 mmol/L (96-108); Cholesterol 109 mg/dL; Estimated Glomerular Filt Rate > 60; Glucose Fasting 155 mg/dL (60-99); HDL Cholesterol 42 mg/dL; LDL Cholesterol Calculated 50 mg/dl; Potassium 3.5 mmol/L (3.3-5.1); Sodium 143 mmol/L (135-145); Total Protein 6.3 g/dL (6.5-8.0); Triglycerides 87 mg/dL
[2021-06-05 11:42] LABS: Creatinine Urine 136.28 mg/dL; Squamous Epithelial Cell Urine TRACE /LPF; TSH reflex Free T4 0.61 uIU/mL (0.32-4.0)
[2021-06-05 11:43] LABS: WBC Urine 0-2 /HPF (0-4)
[2021-06-05 11:44] LABS: RBC Urine 0 /HPF (0)
[2021-06-05 11:53] LABS: Microalbum/Creatinine Ratio Ur 554.7 ug/mg cr; Reflex LDLD? No
[2021-06-05 12:27] LABS: Iron 41 mcg/dL (30-160); Percent Iron Saturation 10 % (15-50); Total Iron Binding Capacity 414 mcg/dL (228-428); Unsaturated Iron Binding 373 ug/dL
== END 2021-06-05 10:52 | disposition home or self-care (01) ==
LOC: HO.LNP 10:51
PROVIDERS: Visit Provider Internal Medicine
DX: D64.9 Anemia, unspecified (principal); E03.9 Hypothyroidism, unspecified; E11.9 Type 2 diabetes mellitus without complications; E78.00 Pure hypercholesterolemia, unspecified; I10 Essential (primary) hypertension
CPT/HCPCS: 80053; 80061; 81001; 81003; 82043; 83036; 83540; 84443; 85025

== ENCOUNTER 2021-06-21 18:25 | Emergency (ER) | payer MEDICARE, SELFPAY ==
[2021-06-21 19:40] VITALS: BP 148/94; PULSE 108; RESP 20; TEMP 37; O2SAT 93; BMI 19.9
[2021-06-21 20:03] LABS: Appearance Urine CLEAR; Color Urine YELLOW; Glucose Urine UA NEG (NEG); Leukocyte Esterase Urine NEG (NEG); Nitrite Urine NEG (NEG); Specific Gravity - Urine 1.015 (1.005-1.025); Urine Blood NEG (NEG); Urine Ketones NEG (NEG); Urine Protein TRACE MG/DL (NEG-TRACE)
--- NOTE | 2021-06-21 22:14 | PC.NURSE ---
Pt restless in WR, per beginning to as is her usual at night. stating they would like to go home. This RN reviewed negative urine results and explained risks of leaving prior to MD gutiérrez. able to verbalize understanding of risks and return precautions. Pt ambulatory w/ steady gait, even and non-labored resps, in NAD at time of exiting department
== END 2021-06-21 22:22 | disposition left against medical advice (07) ==
PROVIDERS: Emergency Provider Emergency Medicine; PCP Internal Medicine
DX: N39.0 Urinary tract infection, site not specified (principal); R41.82 Altered mental status, unspecified; Z79.899 Other long term (current) drug therapy
CPT/HCPCS: 81003; 99283

== ENCOUNTER 2021-07-07 11:04 | Outpatient (REF) | payer MEDICARE, SELFPAY ==
[2021-07-07 12:02] LABS: Anion Gap 17 (12-20); Blood Urea Nitrogen 15 mg/dL (9-16); Calcium 9.6 mg/dL (8.4-10.2); Carbon Dioxide 20 mmol/L (22-29); Chloride 103 mmol/L (96-108); Estimated Glomerular Filt Rate 56; Glucose Random 242 mg/dL (60-115); Potassium 4.5 mmol/L (3.3-5.1); Sodium 135 mmol/L (135-145)
[2021-07-07 12:09] LABS: B Type Natriuretic Peptide 648 pg/mL (<100)
== END 2021-07-07 11:05 | disposition home or self-care (01) ==
LOC: HO.LAB 11:04
PROVIDERS: PCP Internal Medicine; Visit Provider Internal Medicine Cardiovascular Disease
DX: I48.20 Chronic atrial fibrillation, unspecified (principal)
CPT/HCPCS: 36415; 80048; 83880

== ENCOUNTER → 2021-07-17 08:24 | Outpatient (REF) | payer MEDICARE, SELFPAY ==
--- NOTE | 2021-07-17 08:31 | CA_ITS ---
Transthoracic Echocardiogram Patient (Last, First, Middle): Loren Mendoza M Gender: Female Date of : 1935 Age: 85 Procedure Date: 07/17/2021 Procedure Type: Transthoracic Echocardiogram Location: OP Height: 157.48 cm Weight: 49.44 kg BSA: 1.48 m2 Heart Rate: bpm BP: 125 / 82 mmHg Academic Adviser: TRANG Referring MD: Jimmy Plascencia MD Symptoms: I50.9 - Heart failure, unspecified Study Quality: Fair ECG Rhythm: Atrial Fibrillation Conclusions: - The left ventricular systolic function is mild to moderately decreased. The calculated ejection fraction is 41% by biplane method. - There is moderately decreased right ventricular systolic function. - The left atrium is moderately dilated. - There is mild calcification of the aortic valve. - There is moderate mitral annular calcification. There is mild mitral valve regurgitation. - There is moderate tricuspid valve regurgitation. - Severe pulmonary hypertension is present. Calculated RVSP 80 90mmHg, variable due to atrial fibrillation. - Small to moderately sized pericardial effusion over right atrium. Findings Left Ventricle Normal left ventricular cavity size. There is mildly increased left ventricular wall thickness. The left ventricular systolic function is mild to moderately decreased. The calculated ejection fraction is 41% by biplane method. There is mild global hypokinesis. Diastolic function is indeterminate on the basis of available data. Right Ventricle Normal right ventricular cavity size. There is moderately decreased right ventricular systolic function. TAPSE 1.1cm. Atria The left atrium is moderately dilated. The right atrium is mildly dilated. Aortic Valve There is mild calcification of the aortic valve. The mean gradient is 6 mmHg. There is trace (trivial) aortic valve regurgitation. No significant aortic stenosis. Mitral Valve There is moderate mitral annular calcification. There is mild mitral valve regurgitation. There is no mitral valve stenosis. Pulmonic Valve The pulmonic valve was not well visualized. Tricuspid Valve There is moderate tricuspid valve regurgitation. Severe pulmonary hypertension is present. Calculated RVSP 80-90mmHg, variable due to atrial fibrillation. Great Vessels The aortic annulus, sinuses of valsalva, and asc aorta are normal in size. Venous The inferior vena cava is normal in size and collapses greater than 50% with inspiration. Pericardium/Pleural There are no definitive echocardiographic findings of tamponade physiology. Small to moderately sized pericardial effusion over right atrium. Prior Study Comparison Changes noted compared to prior study dated: 06/10/2019. Decrease in LVEF. Increase in RVSP. Pericardial effusion noted. Measurements 2D Linear Measurements IVSd: 1.17 0.6-0.9/0.6-1.0 cm LVIDd: 4.23 3.9-5.3/4.2-5.9 cm LVIDd Index: 2.86 2.4-3.2/2.2-3.1 cm/m2 LVIDs: 3.26 2.0-3.6 cm LVPWd: 1.20 0.7-1.1 cm Ao Root: 3.00 2.1-3.5 cm LA Diam: 3.80 2.7-3.8/3.0-4.0 cm LAIDs Index: 2.57 1.5-2.3 cm/m2 LV Mass: 220.28 67-162/88-224 g LV Mass Index: 148.84 43-95/49-115 g/m2 LVOT Diam: 1.80 3.0+(-)1.3 cm 2D Systolic Function EF 4C: 41.80 >55% EF 2C: 42.70 >55% EF BiP: 40.70 >55% Mitral Valve MV Pk E: 1.03 MV Decel Time: 137.00 E'Lateral: 7.72 E'Medial: 5.98 E/E' Med: 17.20 E/E' Lat: 13.30 PHT: 40.00 MVA PHT: 5.50 Decel [place]: 7.53 Aortic Valve AoV Pk Blas: 1.67 AoV Mn Blas: 1.16 AoV VTI: 0.31 AoV Pk Grad: 11.00 Aov Mn Grad: 6.00 BESSIE Cont.VTI: 1.18 LVOT LVOT Pk Blas: 0.75 LVOT Mn Blas: 0.57 LVOT VTI: 0.14 LVOT Pk Grad: 2.00 LVOT Mn Grad: 1.00 LVOT Diam: 1.80 LVOT Area: 2.54 Diastolic Function MV Pk E: 1.03 E'Medial: 5.98 E/E' Med: 17.20 E' Laterial: 7.72 E/E' Lat: 13.30 Right Ventricle TAPSE (mm): 11.10 TVS' Blas: 7.62 Tricuspid Valve TR Pk Blas: 4.84 TR Pk Grad: 94.00 RA Press: 3.00 Great Vessels Aorta Ao Root-2D: 3.00 2.0-3.7 cm Ao Asc: 3.50 2.1-3.4 cm Ao Arch: 3.10 Updated in Other Vendor System with Status of Final Abdirahman Hennessy MD electronically signed on 07/17/2021 12:13:51 PM with status of Final
[2021-07-17 09:29] LABS: Anion Gap 14 (12-20); Blood Urea Nitrogen 18 mg/dL (9-16); Calcium 9.4 mg/dL (8.4-10.2); Carbon Dioxide 26 mmol/L (22-29); Chloride 106 mmol/L (96-108); Estimated Glomerular Filt Rate > 60; Glucose Random 249 mg/dL (60-115); Potassium 3.5 mmol/L (3.3-5.1); Sodium 142 mmol/L (135-145)
[2021-07-17 09:39] LABS: B Type Natriuretic Peptide 599 pg/mL (<100)
== END ==
LOC: HO.CARD 08:24
PROVIDERS: PCP Internal Medicine; Visit Provider Internal Medicine Cardiovascular Disease
DX: I50.9 Heart failure, unspecified (principal)
CPT/HCPCS: 36415; 80048; 83880; 93306; 99212

== ENCOUNTER 2021-07-21 13:06 | Outpatient (REF) | payer MEDICARE, SELFPAY ==
[2021-07-21 14:22] LABS: Anion Gap 15 (12-20); Blood Urea Nitrogen 18 mg/dL (9-16); Calcium 9.4 mg/dL (8.4-10.2); Carbon Dioxide 29 mmol/L (22-29); Chloride 100 mmol/L (96-108); Estimated Glomerular Filt Rate > 60; Glucose Random 126 mg/dL (60-115); Potassium 3.5 mmol/L (3.3-5.1); Sodium 140 mmol/L (135-145)
[2021-07-21 14:31] LABS: B Type Natriuretic Peptide 230 pg/mL (<100)
== END 2021-07-21 13:07 | disposition home or self-care (01) ==
LOC: HO.LAB 13:06
PROVIDERS: PCP Internal Medicine; Visit Provider Internal Medicine Cardiovascular Disease
DX: I48.20 Chronic atrial fibrillation, unspecified (principal); I50.9 Heart failure, unspecified
CPT/HCPCS: 36415; 80048; 83880; 99212

== ENCOUNTER → 2021-07-28 13:08 | Outpatient (BNVA) | payer MEDICARE, SELFPAY | PROVIDERS: PCP Internal Medicine; Referring Provider Internal Medicine; Visit Provider Internal Medicine Cardiovascular Disease | DX: I50.9 Heart failure, unspecified (principal); I48.20 Chronic atrial fibrillation, unspecified | CPT/HCPCS: 99212 ==

== ENCOUNTER 2021-07-31 21:51 | Emergency (ER) | payer MEDICARE, SELFPAY ==
--- NOTE | ~2021-07-31 | CT_ITS ---
EXAMINATION: CT HEAD WITHOUT CONTRAST CLINICAL INFORMATION: Severe headache. COMPARISON: CT head 01/03/2021 TECHNIQUE: Contiguous axial imaging was performed from the skull base to vertex without intravenous administration of contrast. Coronal and sagittal reformatted images are performed at CT scanner This CT examination was performed using dose optimization techniques as appropriate, variously including the following: *Automated exposure control *Adjustment of mA and/or kV according to patient size (this includes techniques or standardized protocols for targeted exams where dose is matched to indication/reason for exam; i.e. extremities or head) *Use of iterative reconstruction technique DLP: 625 mGy-cm FINDINGS: There is no evidence of acute intracranial hemorrhage or territorial infarction. No abnormal mass effect or midline shift is seen. Alatorre to white matter differentiation is well preserved. No extra-axial fluid collections are identified. There is generalized global volume loss. There is moderate prominence of the ventricles and the sulci . There is moderate hypodensity of the periventricular white matter due to chronic small vessel ischemic disease. There are vascular calcifications of the internal carotid arteries bilaterally. The osseous structures and soft tissues are normal. The mastoid air cells and visualized portions of the paranasal sinuses are well aerated. CT/CT head/brain wo con IMPRESSION: No acute intracranial pathology.
--- NOTE | 2021-07-31 22:04 | ED_ITS ---
HPI - Altered Mental Status General Chief Complaint: Neuro Symptoms/Deficit Stated Complaint: AMS Time Seen by Provider: 07/31/21 21:57 Source: patient and EMS History of Present Illness HPI narrative: Patient with History of hypertension AFib on Xarelto was doing okay till 2100 was getting ready for the bed and started having some headache and confusion anatomy Maddie had also improved focal deficit noted by the EMS. No vomiting no loss of consciousness no speech problem patient does have a baseline dementia and when examined the patient headache has improved Related Data Home Medications Medication Instructions Recorded Confirmed atorvastatin 10 mg tablet 10 mg PO DAILY 06/21/20 07/28/21 (Lipitor) calcium carbonate 600 mg 600 mg PO DAILY 06/21/20 07/28/21 calcium (1,500 mg) tablet (Calcium) memantine 10 mg tablet 10 mg PO BID 06/21/20 07/28/21 (Namenda) metformin 500 mg tablet 500 mg PO BID 06/21/20 07/28/21 metoprolol tartrate 50 mg 50 mg PO BID 06/21/20 07/28/21 tablet omeprazole 40 mg 40 mg PO DAILY 06/21/20 07/28/21 capsule,delayed release rivaroxaban 20 mg tablet 20 mg PO DAILY 06/21/20 07/28/21 (Xarelto) valsartan 320 mg tablet 320 mg PO DAILY 06/21/20 07/28/21 glimepiride 1 mg tablet 1 mg PO DAILY 01/24/21 07/28/21 aspirin 81 mg chewable 81 mg PO DAILY 05/22/21 07/28/21 tablet brimonidine 0.2 % eye drops 1 drp OPHTHALMIC (EYE) BID 05/22/21 07/28/21 fluticasone 250 1 puff INHALATION BID 05/22/21 07/28/21 mcg-salmeterol 50 mcg/dose blistr powdr for inhalation (Advair Diskus) latanoprost 0.005 % eye 1 drp OPHTHALMIC (EYE) 05/22/21 07/28/21 drops BEDTIME vit C 250 mg-vit E 90 1 cap PO BID 05/22/21 07/28/21 mg-zinc 40 mg-copper 1 [id number]-wjgwhs capsule (PreserVision AREDS-2) levothyroxine 50 mcg tablet 50 mcg PO DAILY 07/17/21 07/28/21 furosemide 20 mg tablet 40 mg PO DAILY tab 07/28/21 07/28/21 Allergies Allergy/AdvReac Type Severity Reaction Status Date / Time hydrochlorothiazide Allergy Unknown Unknown Verified 06/21/21 19:39 Review of Systems Verdana 4l Review of Systems: Yes all other systems are reviewed and Verdana 4d are negative [facility] Past Medical History Medical History Acute congestive heart failure Bilateral carotid artery disease Chronic atrial fibrillation Congestive heart failure HTN (hypertension) Surgical History Hx of appendectomy Hx of cholecystectomy Hx of hysterectomy Family History Family History Father CVD (cardiovascular disease) HTN (hypertension) Heart failure Mother Diabetes Cancer Brother CVD (cardiovascular disease) Social History Social History Alcohol intake: never Patient Tobacco Use Status: Never used Tobacco Use of substances other than those prescribed or required for medical reasons: No Advance Directives: No Physical Exam Verdana 4l Vital Signs: Verdana 4d Verdana 4d Vital Signs: Verdana 4d Verdana 4Bd Last Vital Signs Verdana 4d Appraisal Specialist New 4d Appraisal Specialist New 4d Temp 98.2 F 07/31/21 22:10 Appraisal Specialist New 4d Pulse 115 H 07/31/21 22:40 Appraisal Specialist New 4d Resp 16 07/31/21 22:40 BP 136/86 07/31/21 22:40 Pulse Ox 96 07/31/21 22:40 BMI result Body Mass Index 23.5 Appearance: Alert. Oriented X3. No acute distress. Eyes: PERRLA, No Nystagmus ENT: Pharynx normal. Oral Mucosa moist Neck: Normal inspection. Neck supple. CVS: Irregular heart rate and rhythm. Pulses normal. Respiratory: No respiratory distress. Equal air entry bilateral, no wheezing/rales/rhonchi Abdomen: Soft and nontender. Bowel sounds are present, no mass palpable, no CVA tenderness Skin: Skin warm and dry. Normal skin color. Normal skin turgor. Extremities: No lower extremity edema. No calf tenderness Neuro: Oriented X 3. No motor deficit. No sensory deficit.No cerebellar signs , cranial nerves II-XII intact MDM - Altered Mental Status Lab Data Attestation: I reviewed the patient's lab results. Result diagrams: 07/31/21 22:22 07/31/21 22:22 Labs: Lab Results 07/31/21 07/31/21 07/31/21 Range/Units 22:22 22:22 22:22 WBC 7.0 (4.8-10.8) X10*3/uL RBC 4.42 (4.20-5.50) X10*6/uL Hgb 10.4 L (12.0-16.0) g/dl Hct 34.7 L (37.0-47.0) % MCV 78.5 L (80.0-98.0) fL MCH 23.5 L (27.0-33.0) pg MCHC 30.0 L (31.0-35.0) g/dl RDW 18.4 H (11.0-16.0) % Plt Count 271 (160-400) X10*3/uL MPV 9.8 (9.4-12.3) fL Immature Gran % (Auto) 0.3 (0.0-0.4) % Neut % (Auto) 59.0 (45-73) % Lymph % (Auto) 28.9 (20-40) % [place] % (Auto) 9.5 (2-11) % Eos % (Auto) 1.9 (0-4) % Baso % (Auto) 0.4 (0-2) % Lymph # (Auto) 2.0 (1.2-4.9) X10*3/uL [place] # (Auto) 0.7 (0.1-1.2) X10*3/uL Eos # (Auto) 0.1 (0.0-0.4) X10*3/uL Baso # (Auto) 0.0 (0.0-0.2) X10*3/uL Abs Immat Gran (auto) 0.02 (0.00-0.03) X10*3/uL Absolute Neuts (auto) 4.1 (2.0-8.3) x10*3/uL Absolute Nucleated RBC 0.000 (0.0-0.012) X10*3/uL Nucleated RBC % (auto) 0.0 (0.0-0.2) /100WBC Sodium 143 (135-145) mmol/L Potassium 4.1 (3.3-5.1) mmol/L Chloride 106 (96-108) mmol/L Carbon Dioxide 25 (22-29) mmol/L Anion Gap 16 (12-20) BUN 19 H (9-16) mg/dL Creatinine 0.92 (0.5-1.4) mg/dL Estim Creat Clear Calc 43.4 Estimated GFR 58 Random Glucose 77 (60-115) mg/dL Calcium 9.6 (8.4-10.2) mg/dL Troponin I High Sens (<3.5-17.0) ng/L Urine Color Urine Appearance Urine pH (5.0-8.0) Ur Specific [place] (1.005-1.025) Urine Protein (NEG-TRACE) MG/DL Urine Glucose (UA) (NEG) MG/DL Urine Ketones (NEG) MG/DL Urine Blood (NEG) Urine Nitrite (NEG) Ur Leukocyte Esterase (NEG) COVID-19 (LAN) Negative (Negative) COVID-19 Clin Com See Note 07/31/21 07/31/21 Range/Units 22:22 22:35 WBC (4.8-10.8) X10*3/uL RBC (4.20-5.50) X10*6/uL Hgb (12.0-16.0) g/dl Hct (37.0-47.0) % MCV (80.0-98.0) fL MCH (27.0-33.0) pg MCHC (31.0-35.0) g/dl RDW (11.0-16.0) % Plt Count (160-400) X10*3/uL MPV (9.4-12.3) fL Immature Gran % (Auto) (0.0-0.4) % Neut % (Auto) (45-73) % Lymph % (Auto) (20-40) % [place] % (Auto) (2-11) % Eos % (Auto) (0-4) % Baso % (Auto) (0-2) % Lymph # (Auto) (1.2-4.9) X10*3/uL [place] # (Auto) (0.1-1.2) X10*3/uL Eos # (Auto) (0.0-0.4) X10*3/uL Baso # (Auto) (0.0-0.2) X10*3/uL Abs Immat Gran (auto) (0.00-0.03) X10*3/uL Absolute Neuts (auto) (2.0-8.3) x10*3/uL Absolute Nucleated RBC (0.0-0.012) X10*3/uL Nucleated RBC % (auto) (0.0-0.2) /100WBC Sodium (135-145) mmol/L Potassium (3.3-5.1) mmol/L Chloride (96-108) mmol/L Carbon Dioxide (22-29) mmol/L Anion Gap (12-20) BUN (9-16) mg/dL Creatinine (0.5-1.4) mg/dL Estim Creat Clear Calc Estimated GFR Random Glucose (60-115) mg/dL Calcium (8.4-10.2) mg/dL Troponin I High Sens 5.9 (<3.5-17.0) ng/L Urine Color YELLOW Urine Appearance CLEAR Urine pH 6.0 (5.0-8.0) Ur Specific [place] 1.015 (1.005-1.025) Urine Protein NEG (NEG-TRACE) MG/DL Urine Glucose (UA) NEG (NEG) MG/DL Urine Ketones NEG (NEG) MG/DL Urine Blood NEG (NEG) Urine Nitrite NEG (NEG) Ur Leukocyte Esterase NEG (NEG) COVID-19 (LAN) (Negative) COVID-19 Clin Com ECG Data ECG #1: Attestation: I personally reviewed and interpreted this ECG as follows: Interpretation: Atrial fibrillation with heart rate 103 beats per minute normal axis no acute ST T-wave change no acute ischemia Discharge Plan Discharge Clinical Impression: Headache Patient Disposition: Home, Self-Care Instructions: Acute Headache (ED) Additional Instructions: Tylenol for headache Report to the ER if worsening of the headache/nausea/vomiting/weakness of extremities Prescriptions: No Action latanoprost 0.005 % drops 1 drp ophthalmic (eye) BEDTIME 0RF fluticasone propion-salmeterol [Advair Diskus] 250-50 mcg/dose blister with device 1 puff inhalation BID 0RF brimonidine 0.2 % drops 1 drp ophthalmic (eye) BID 0RF aspirin 81 mg Tablet,Chewable 81 mg PO DAILY 0RF PreserVision AREDS-2 250-90-40-1 mg Capsule 1 cap PO BID 0RF glimepiride 1 mg tablet 1 mg PO DAILY 0RF metoprolol tartrate 50 mg tablet 50 mg PO BID 0RF calcium carbonate [Calcium 600] 600 mg calcium (1,500 mg) tablet 600 mg PO DAILY 0RF metformin 500 mg tablet 500 mg PO BID 0RF atorvastatin [Lipitor] 10 mg tablet 10 mg PO DAILY 0RF omeprazole 40 mg capsule,delayed release(DR/EC) 40 mg PO DAILY 0RF Xarelto 20 mg tablet 20 mg PO DAILY 0RF Rx Instructions: must administer with evening meal memantine [Namenda] 10 mg tablet 10 mg PO BID 0RF valsartan 320 mg tablet 320 mg PO DAILY 0RF levothyroxine 50 mcg tablet 50 mcg PO DAILY 0RF furosemide 20 mg tablet 40 mg PO DAILY 0RF
--- NOTE | 2021-07-31 22:06 | ECG_ITS ---
Test Reason : AMS Blood Pressure : / mmHG Vent. Rate : 103 BPM Atrial Rate : 000 BPM P-R Int : 000 ms QRS Dur : 088 ms QT Int : 364 ms P-R-T Axes : 000 052 072 degrees QTc Int : 476 ms Atrial fibrillation with rapid ventricular response Minimal voltage criteria for LVH, may be normal variant ( [place] product ) Abnormal ECG When compared with ECG of 03-JAN-2021 12:42, Vent. rate has increased BY 39 BPM Referred By: [facility] Electronically Signed By:CHANTEL LATHAM
[2021-07-31 22:10] VITALS: BP 157/93; PULSE 104; RESP 22; TEMP 36.8; O2SAT 96; BMI 23.5
[2021-07-31 22:25] VITALS: BP 155/90; PULSE 105; RESP 16; O2SAT 97
[2021-07-31 22:26] LABS: MANUAL DIFF FLAG NO
[2021-07-31 22:35] LABS: Basophils Percent Auto 0.4 % (0-2); Eosinophils Absolute Auto 0.1 X10*3/uL (0.0-0.4); Eosinophils Percent Auto 1.9 % (0-4); Hematocrit 34.7 % (37.0-47.0); Hemoglobin 10.4 g/dl (12.0-16.0); Imm Gran Abs Auto 0.02 X10*3/uL (0.00-0.03); Imm Gran Pct Auto 0.3 % (0.0-0.4); Lymphocytes Percent Auto 28.9 % (20-40); Mean Corpuscular Hemoglobin 23.5 pg (27.0-33.0); Mean Corpuscular Volume 78.5 fL (80.0-98.0); Mean Platelet Volume 9.8 fL (9.4-12.3); Monocytes Absolute Auto 0.7 X10*3/uL (0.1-1.2); Monocytes Percent Auto 9.5 % (2-11); Neutrophils Absolute Auto 4.1 x10*3/uL (2.0-8.3); Platelet Count 271 X10*3/uL (160-400); Red Blood Count 4.42 X10*6/uL (4.20-5.50); Red Cell Distribution Width 18.4 % (11.0-16.0)
[2021-07-31 22:40] VITALS: BP 136/86; PULSE 115; RESP 16; O2SAT 96
[2021-07-31 22:40] LABS: Appearance Urine CLEAR; Color Urine YELLOW; Glucose Urine UA NEG (NEG); Leukocyte Esterase Urine NEG (NEG); Nitrite Urine NEG (NEG); Specific Gravity - Urine 1.015 (1.005-1.025); Urine Blood NEG (NEG); Urine Ketones NEG (NEG); Urine Protein NEG (NEG-TRACE)
[2021-07-31 22:45] LABS: COVID-19 Test Negative (Negative)
[2021-07-31 22:59] LABS: Troponin-I High Sensitivity 5.9 ng/L (<3.5-17.0)
[2021-07-31 23:04] LABS: Anion Gap 16 (12-20); Blood Urea Nitrogen 19 mg/dL (9-16); Calcium 9.6 mg/dL (8.4-10.2); Carbon Dioxide 25 mmol/L (22-29); Chloride 106 mmol/L (96-108); Creatinine Clr Calc Pharmacy 43.4; Estimated Glomerular Filt Rate 58; Glucose Random 77 mg/dL (60-115); Potassium 4.1 mmol/L (3.3-5.1); Sodium 143 mmol/L (135-145)
[2021-07-31 23:38] VITALS: BP 146/78; PULSE 103; RESP 16; O2SAT 98
== END 2021-08-01 00:10 | disposition home or self-care (01) ==
PROVIDERS: Emergency Provider Internal Medicine; PCP Internal Medicine
DX: R51.9 Headache, unspecified (principal); Z20.822 Contact with and (suspected) exposure to COVID-19; I10 Essential (primary) hypertension; I48.20 Chronic atrial fibrillation, unspecified; Z79.01 Long term (current) use of anticoagulants; Z79.82 Long term (current) use of aspirin; Z79.02 Long term (current) use of antithrombotics/antiplatelets
CPT/HCPCS: 36415; 70450; 80048; 81003; 84484; 85025; 87635; 93005; 99284

== ENCOUNTER 2021-08-11 14:25 | Outpatient (REF) | payer MEDICARE, SELFPAY ==
--- NOTE | ~2021-08-11 | MM_ITS ---
EXAMINATION: MM SCREENING DIGITAL BREAST TOMOSYNTHESIS, BILATERAL CLINICAL INFORMATION: Screening. Asymptomatic. COMPARISON: Mammography: 08/09/2020, 02/23/2019, 02/19/2018 TECHNIQUE: Digital breast tomosynthesis is performed in both the craniocaudal and mediolateral oblique views along with computer-aided detection (CAD). Synthesized 2D images are generated from the tomosynthesis. Additional left MLO view is provided. FINDINGS: There are scattered areas of fibroglandular density (ACR BI-RADS breast composition Category b). There are no significant masses, abnormal calcifications, or other abnormalities. Parenchymal pattern is similar to prior studies. There is no developing density or architectural abnormality. The axilla and skin contours are unremarkable. No significant changes. MM/MM tomosynthesis screening BI IMPRESSION: No mammographic evidence of malignancy. ASSESSMENT: BI-RADS 1: Negative RECOMMENDATION: Routine annual mammography screening. This patient's information was entered into a reminder system with a target due date for their next mammogram.
== END 2021-08-11 14:26 | disposition home or self-care (01) ==
LOC: HO.MAMMO 14:25
PROVIDERS: Visit Provider Internal Medicine
DX: Z12.31 Encounter for screening mammogram for malignant neoplasm of breast (principal)
CPT/HCPCS: 77063; 77067

== ENCOUNTER → 2021-08-29 12:30 | Outpatient (BNVA) | payer MEDICARE, SELFPAY | PROVIDERS: PCP Internal Medicine; Referring Provider Internal Medicine; Visit Provider Internal Medicine Cardiovascular Disease | DX: I50.9 Heart failure, unspecified (principal); I48.20 Chronic atrial fibrillation, unspecified | CPT/HCPCS: 99212 ==

== ENCOUNTER 2021-09-05 10:02 | Outpatient (REF) | payer MEDICARE, SELFPAY ==
[2021-09-05 10:38] LABS: MANUAL DIFF FLAG NO
[2021-09-05 10:46] LABS: Basophils Percent Auto 0.4 % (0-2); Eosinophils Absolute Auto 0.1 X10*3/uL (0.0-0.4); Eosinophils Percent Auto 1.5 % (0-4); Hematocrit 34.4 % (37.0-47.0); Hemoglobin 10.2 g/dl (12.0-16.0); Imm Gran Abs Auto 0.02 X10*3/uL (0.00-0.03); Imm Gran Pct Auto 0.3 % (0.0-0.4); Lymphocytes Percent Auto 12.6 % (20-40); Mean Corpuscular HGB Conc 29.7 g/dl (31.0-35.0); Mean Corpuscular Volume 77.5 fL (80.0-98.0); Mean Platelet Volume 10.1 fL (9.4-12.3); Monocytes Absolute Auto 0.4 X10*3/uL (0.1-1.2); Monocytes Percent Auto 5.5 % (2-11); Neutrophils Absolute Auto 6.2 x10*3/uL (2.0-8.3); Neutrophils Percent Auto 79.7 % (45-73); Platelet Count 281 X10*3/uL (160-400); Red Blood Count 4.44 X10*6/uL (4.20-5.50); Red Cell Distribution Width 18.8 % (11.0-16.0); White Blood Count 7.8 X10*3/uL (4.8-10.8)
[2021-09-05 11:12] LABS: Iron 34 mcg/dL (30-160); Percent Iron Saturation 7 % (15-50); Total Iron Binding Capacity 471 mcg/dL (228-428); Unsaturated Iron Binding 437 ug/dL
[2021-09-05 11:27] LABS: Ferritin 20 ng/mL (10-250)
[2021-09-05 11:45] LABS: Folate 11.7 ng/mL (> or = 4.0); Vitamin B12 309 pg/mL (200-900)
== END 2021-09-05 10:03 | disposition home or self-care (01) ==
LOC: HO.10HDL 10:02
PROVIDERS: Visit Provider Internal Medicine
DX: D50.9 Iron deficiency anemia, unspecified (principal)
CPT/HCPCS: 36415; 82607; 82728; 82746; 83540; 85025

== ENCOUNTER 2021-09-11 10:47 | Outpatient (REF) | payer MEDICARE, SELFPAY ==
[2021-09-11 10:50] LABS: MANUAL DIFF FLAG NO
[2021-09-11 11:03] LABS: Basophils Percent Auto 0.4 % (0-2); Eosinophils Absolute Auto 0.1 X10*3/uL (0.0-0.4); Eosinophils Percent Auto 2.1 % (0-4); Hematocrit 38.3 % (37.0-47.0); Hemoglobin 11.4 g/dl (12.0-16.0); Imm Gran Abs Auto 0.02 X10*3/uL (0.00-0.03); Imm Gran Pct Auto 0.3 % (0.0-0.4); Lymphocytes Absolute Auto 2.7 X10*3/uL (1.2-4.9); Lymphocytes Percent Auto 40.7 % (20-40); Mean Corpuscular HGB Conc 29.8 g/dl (31.0-35.0); Mean Corpuscular Hemoglobin 23.2 pg (27.0-33.0); Mean Corpuscular Volume 77.8 fL (80.0-98.0); Mean Platelet Volume 10.3 fL (9.4-12.3); Monocytes Absolute Auto 0.6 X10*3/uL (0.1-1.2); Monocytes Percent Auto 8.2 % (2-11); Neutrophils Absolute Auto 3.3 x10*3/uL (2.0-8.3); Neutrophils Percent Auto 48.3 % (45-73); Platelet Count 228 X10*3/uL (160-400); Red Blood Count 4.92 X10*6/uL (4.20-5.50); Red Cell Distribution Width 19.7 % (11.0-16.0); White Blood Count 6.7 X10*3/uL (4.8-10.8)
[2021-09-11 11:33] LABS: TSH reflex Free T4 18.86 uIU/mL (0.32-4.0)
[2021-09-11 12:06] LABS: Free T4 (Free Thyroxine) 1.14 ng/dL (0.71-1.85)
== END 2021-09-11 10:48 | disposition home or self-care (01) ==
LOC: HO.LNP 10:47
PROVIDERS: PCP Internal Medicine; Visit Provider Internal Medicine
DX: E03.9 Hypothyroidism, unspecified (principal); D50.9 Iron deficiency anemia, unspecified
CPT/HCPCS: 84439; 84443; 85025

== ENCOUNTER 2021-10-09 09:49 | Day surgery (SDC) | payer MEDICARE, SELFPAY ==
[2021-10-04 10:21] VITALS: BMI 21.1
--- NOTE | 2021-10-05 14:23 | P.CONAN_ITS ---
Documented by User: Francoise Corea NP 10/05/21 14:26 HPI - Anesthesia Eval Consult details Narrative: 86yo F for Upper Endoscopy and Colonoscopy Xarelto for afib - ok to hold per cardiol Stable at 08/2021 cardiac visit [facility] Active Problems Active Problems: All Active Problems (Updated 10/04/21 @ 10:38 by Karen Molina, RN) Dizziness (Acute) Congestive heart failure (Acute) Chronic atrial fibrillation (Acute) Bilateral carotid artery disease (Acute) HTN (hypertension) (Acute) Past Medical History Medical History (Updated 10/04/21 @ 10:38 by Karen Molina, JO) Acute congestive heart failure Bilateral carotid artery disease Chronic atrial fibrillation Congestive heart failure COPD (chronic obstructive pulmonary disease) Diabetes HTN (hypertension) Seasonal allergies Family History Family History Father CVD (cardiovascular disease) HTN (hypertension) Heart failure Mother Diabetes Cancer Brother CVD (cardiovascular disease) Surgical History Surgical History (Updated 10/04/21 @ 10:19 by Karen Molina RN) History of esophagogastroduodenoscopy (EGD) Hx of appendectomy Hx of cholecystectomy Hx of colonoscopy Hx of hysterectomy Social History Social History Are you a primary prompt care rn to a significant other at home: No Do you presently have visiting nurse or other home services: No Alcohol intake: never Patient Tobacco Use Status: Never used Tobacco Use of substances other than those prescribed or required for medical reasons: No Are you DNR?: No Advance Directives: Yes Advance Directives Information Provided: No Advance Directives on File: Yes Advance Directives Date on File: 05/22/21 Recently lost weight without trying: Yes How much weight loss: 24-33 pounds Eating poorly because of decreased appetite: No Nutrition screen score: 5 Nutrition Risks: Surgical patient >75years Meds Allergies Allergy/AdvReac Type Severity Reaction Status Date / Time hydrochlorothiazide Allergy Unknown Unknown Verified 10/04/21 10:15 Home Medications Medication Instructions Recorded Confirmed Last Taken Type atorvastatin 10 mg tablet (Lipitor) 10 mg PO DAILY 06/21/20 10/04/21 05/21/21 History calcium carbonate 600 mg calcium 600 mg PO DAILY 06/21/20 10/04/21 05/21/21 History (1,500 mg) tablet (Calcium) memantine 10 mg tablet (Namenda) 10 mg PO BID 06/21/20 10/04/21 05/21/21 History metformin 500 mg tablet 1,000 mg PO BID 06/21/20 10/04/21 05/21/21 History metoprolol tartrate 50 mg tablet 50 mg PO BID 06/21/20 10/04/21 05/21/21 History omeprazole 40 mg capsule,delayed 40 mg PO DAILY@1700 06/21/20 10/04/21 05/21/21 History release rivaroxaban 20 mg tablet (Xarelto) 20 mg PO DAILY@1700 06/21/20 10/04/21 05/21/21 History valsartan 320 mg tablet 320 mg PO DAILY 06/21/20 10/04/21 05/21/21 History glimepiride 1 mg tablet 1 mg PO DAILY 01/24/21 10/04/21 05/21/21 History brimonidine 0.2 % eye drops 1 drp OPHTHALMIC (EYE) BID 05/22/21 10/04/21 05/21/21 History fluticasone 250 mcg-salmeterol 50 1 puff INHALATION BID 05/22/21 10/04/21 05/21/21 History mcg/dose blistr powdr for inhalation (Advair Diskus) latanoprost 0.005 % eye drops 1 drp OPHTHALMIC (EYE) BEDTIME 05/22/21 10/04/21 05/21/21 History vit C 250 mg-vit E 90 mg-zinc 40 1 cap PO BID 05/22/21 10/04/21 05/21/21 History mg-copper 1 [id number] capsule (PreserVision AREDS-2) levothyroxine 50 mcg tablet 50 mcg PO DAILY 07/17/21 10/04/21 Unknown History albuterol sulfate 90 mcg/actuation 2 puff PO Q4H PRN 10/04/21 10/04/21 Unknown History aerosol inhaler ferrous sulfate 325 mg (65 mg 325 mg PO DAILY 10/04/21 10/04/21 Unknown History iron) tablet (Iron (ferrous sulfate)) fexofenadine 180 mg tablet 180 mg PO DAILY 10/04/21 10/04/21 Unknown History Exam Exam Date and Time: October 05, 2021 1423 Height,Weight and Vital Signs: Height 5 ft 1 in Weight 50.802 kg Pertinent Lab Results Pertinent Lab Results: Laboratory Tests 07/31/21 09/11/21 22:22 08:40 WBC 6.7 Hgb 11.4 L Hct 38.3 Plt Count 228 Sodium 143 Potassium 4.1 Chloride 106 Carbon Dioxide 25 BUN 19 H Creatinine 0.92 Narrative Narrative: EKG 07/2021 Vent. Rate : 103 BPM ? ? Atrial Rate : 000 BPM ?? P-R Int : 000 ms? QRS Dur : 088 ms ? ? QT Int : 364 ms ? ? ? P-R-T Axes : 000 052 072 degrees ?? QTc Int : 476 ms ? Atrial fibrillation with rapid ventricular response Minimal voltage criteria for LVH, may be normal variant ( [place] product ) Abnormal ECG When compared with ECG of 03-JAN-2021 12:42, Vent. rate has increased BY? 39 BPM ECHO 07/2021 Conclusions: - The left ventricular systolic function is mild to moderately ? decreased.? The calculated ejection fraction is 41% by biplane ? method.? - There is moderately decreased right ventricular systolic ? ? ? function.? - The left atrium is moderately dilated. ? - There is mild calcification of the aortic valve. ? - There is moderate mitral annular calcification.? There is mild mitral valve regurgitation.? - There is moderate tricuspid valve regurgitation. ? - Severe pulmonary hypertension is present. Calculated RVSP 80 ? 90mmHg,? variable due to atrial fibrillation.? - Small to moderately sized pericardial effusion over right? ? ? atrium.? ?? Assessment and Plan Assessment Anesthesia Assessment: Chart Reviewed Documented by User: Roldan Beltran MD 10/09/21 11:18 [facility] Past Medical History Medical History (Updated 10/04/21 @ 10:38 by Karen Molina, RN) Acute congestive heart failure Bilateral carotid artery disease Chronic atrial fibrillation Congestive heart failure COPD (chronic obstructive pulmonary disease) Diabetes HTN (hypertension) Seasonal allergies Family History Family History Father CVD (cardiovascular disease) HTN (hypertension) Heart failure Mother Diabetes Cancer Brother CVD (cardiovascular disease) Family history of problems with anesthesia: No Surgical History Surgical History (Updated 10/04/21 @ 10:19 by Karen Molina RN) History of esophagogastroduodenoscopy (EGD) Hx of appendectomy Hx of cholecystectomy Hx of colonoscopy Hx of hysterectomy History of Problems with Anesthesia: No Social History Social History Are you a primary prompt care rn to a significant other at home: No Do you presently have visiting nurse or other home services: No Alcohol intake: never Patient Tobacco Use Status: Never used Tobacco Use of substances other than those prescribed or required for medical reasons: No Are you DNR?: No Advance Directives: Yes Advance Directives Information Provided: No Advance Directives on File: Yes Advance Directives Date on File: 05/22/21 Recently lost weight without trying: Yes How much weight loss: 24-33 pounds Eating poorly because of decreased appetite: No Nutrition screen score: 5 Nutrition Risks: Surgical patient >75years Meds Allergies Allergy/AdvReac Type Severity Reaction Status Date / Time hydrochlorothiazide Allergy Unknown Unknown Verified 10/04/21 10:15 Home Medications Medication Instructions Recorded Confirmed Last Taken Type atorvastatin 10 mg tablet (Lipitor) 10 mg PO DAILY 06/21/20 10/04/21 05/21/21 History calcium carbonate 600 mg calcium 600 mg PO DAILY 06/21/20 10/04/21 05/21/21 History (1,500 mg) tablet (Calcium) memantine 10 mg tablet (Namenda) 10 mg PO BID 06/21/20 10/04/21 05/21/21 History metformin 500 mg tablet 1,000 mg PO BID 06/21/20 10/04/21 05/21/21 History metoprolol tartrate 50 mg tablet 50 mg PO BID 06/21/20 10/04/21 05/21/21 History omeprazole 40 mg capsule,delayed 40 mg PO DAILY@1700 06/21/20 10/04/21 05/21/21 History release rivaroxaban 20 mg tablet (Xarelto) 20 mg PO DAILY@1700 06/21/20 10/04/21 05/21/21 History valsartan 320 mg tablet 320 mg PO DAILY 06/21/20 10/04/21 05/21/21 History glimepiride 1 mg tablet 1 mg PO DAILY 01/24/21 10/04/21 05/21/21 History brimonidine 0.2 % eye drops 1 drp OPHTHALMIC (EYE) BID 05/22/21 10/04/21 05/21/21 History fluticasone 250 mcg-salmeterol 50 1 puff INHALATION BID 05/22/21 10/04/21 05/21/21 History mcg/dose blistr powdr for inhalation (Advair Diskus) latanoprost 0.005 % eye drops 1 drp OPHTHALMIC (EYE) BEDTIME 05/22/21 10/04/21 05/21/21 History vit C 250 mg-vit E 90 mg-zinc 40 1 cap PO BID 05/22/21 10/04/21 05/21/21 History mg-copper 1 [id number] capsule (PreserVision AREDS-2) levothyroxine 50 mcg tablet 50 mcg PO DAILY 07/17/21 10/04/21 Unknown History albuterol sulfate 90 mcg/actuation 2 puff PO Q4H PRN 10/04/21 10/04/21 Unknown History aerosol inhaler ferrous sulfate 325 mg (65 mg 325 mg PO DAILY 10/04/21 10/04/21 Unknown History iron) tablet (Iron (ferrous sulfate)) fexofenadine 180 mg tablet 180 mg PO DAILY 10/04/21 10/04/21 Unknown History Exam Airway Mallampati Class: II TM Dist: >3cm Neck ROM: Full Loose/Missing/Broken Teeth: Yes (poor dentition) Heart: irreg irreg s1s2 Lungs: cta b/l Assessment and Plan Assessment Anesthesia Assessment: Anesthesia Plan Discussed Final Anesthetic Review Family History of Problems with Anesthesia: No History of Problems with Anesthesia: No NPO: Yes ASA Class: III Final Preanesthetic Review: No Changes in Pt Med Stat, Meds/Allgs Chart Reviewed, Consent Obtained/Reviewed and Anes Risks/Benef Reviewed Patient Risk: Intermediate Procedure Risk: Intermediate Assessment/Block/Sedation in SS: Assess/Block/Sedation-SS Anesthetic Plan Anesthetic Plan: MAC: and Agree w/ Assess. and Plan Disposition: Standard PACU
[2021-10-09 10:43] VITALS: BP 159/97; PULSE 80; RESP 15; TEMP 36.8; O2SAT 95; BMI 20.9
[2021-10-09] MEDS: Lactated Ringers 1,000 ML 20 ML IVCONT (11:07)
[2021-10-09 11:11] LABS: Glucose, Whole Blood 154 mg/dL (60-115)
[2021-10-09 12:50] VITALS: BP 115/61; PULSE 87; RESP 16; TEMP 36.4; O2SAT 94
--- NOTE | 2021-10-09 12:56 | PM.OP ---
Brief Operative Note Date of Service: 10/09/21 Pre-op diagnosis: Iron deficiency anemia Post-op diagnosis: other (Gastritis, R/O Celiac disease, Diverticulosis, Int/Ext hemorrhoids) Procedure: EGD with biopsies, Colonoscopy to the cecum Surgeon: Jose Pike Anesthesia: MAC Was an Human Resource Statistician used for this Procedure?: No Estimated blood loss (mL): 2.0 Pathology: other (A. Descending duodenum B. Gastric antrum) Condition: stable Disposition: PACU
[2021-10-09 13:05] VITALS: BP 157/75; PULSE 80; RESP 18; TEMP 36.2; O2SAT 97
--- NOTE | 2021-10-09 13:19 | OP_ITS ---
SURGEON: Jose Pike MD INDICATIONS: The patient presents for evaluation of iron-deficiency anemia. Full consent has been obtained from the patient's , including risks of bleeding and perforation. PREOPERATIVE DIAGNOSIS: Iron deficiency anemia. POSTOPERATIVE DIAGNOSIS: PROCEDURE PERFORMED: Colonoscopy to the cecum and esophagogastroduodenoscopy with biopsy. ESTIMATED BLOOD LOSS: COMPLICATIONS: ANESTHESIA: Monitored anesthesia care. ASSISTANTS: SPECIMENS: POSTOPERATIVE DIAGNOSES: Iron deficiency anemia, small hiatal hernia, mild gastritis, rule out celiac disease, diverticulosis, internal hemorrhoids, external hemorrhoids. DESCRIPTION OF PROCEDURE: The patient was placed in the left lateral decubitus position. The Olympus video gastroscope was passed in the posterior oropharynx and upper esophagus under direct vision. The scope was passed slowly into the distal esophagus. The gastroesophageal junction appeared at 38 cm. This area appeared normal without any sign of esophagitis nor Gilbert esophagus. The scope entered into the stomach. There was a small hiatal hernia with normal gastric mucosa. The scope was advanced to the pylorus and the duodenum was cannulated to the descending portion. The duodenum including the bulb appeared normal without mass or ulceration. Biopsies were obtained from the 2nd and 3rd portions of duodenum. The scope was withdrawn back to the stomach. The gastric antrum and body had some mild areas of edema and erythema, but no signs of any bleeding, erosions, nor ulceration. There was good peristalsis. Biopsies were obtained from the gastric antrum. The scope was retroflexed visualizing the proximal stomach carefully, which appeared normal other than multiple less than 5 mm hyperplastic appearing gastric polyps. There was no mass or ulceration. The scope was straightened and withdrawn back to the esophagus. The esophageal mucosa appeared normal. The scope was withdrawn from the patient. She was turned around for the colonoscopy. The digital rectal exam revealed external hemorrhoids. The Olympus video pediatric colonoscope was entered into the rectum and advanced easily to the cecum. Once in the cecum, I did identify normal-appearing cecal pouch with appendiceal orifice and a normal-appearing ileocecal valve. The entire cecum and ileocecal valve appeared normal. There was transillumination of light deep in the right lower quadrant. The scope was slowly withdrawn assessing all mucosal surfaces carefully. Preparation was excellent. I did not visualize any sign of polyps, colitis, nor angiodysplasia. There was a mild amount of sigmoid diverticulosis. In the rectum, scope was retroflexed visualizing internal hemorrhoids, but no other pathology. The rectal mucosa appeared normal. The scope was straightened and withdrawn from the patient. She tolerated the procedure well and was returned to recovery area in stable condition. IMPRESSION: 1. Mild gastritis. 2. Rule out celiac disease. 3. Small hiatal hernia. 4. Diverticulosis. 5. Internal and external hemorrhoids. PLAN: The results of the biopsis will be checked. She was advised to resume iron today, which I started her on recently after blood work showed iron deficiency with a ferritin of 20, hemoglobin 10.2, MCV 78, iron of 34, and iron saturation of 7%. B12 and folate levels were normal. She was advised to resume her Xarelto by tomorrow. I did advise her to continue the omeprazole long-term as well. I will see her in several months. We can follow her CBC. Given her age and condition, as long as things remain stable, I would probably hold off on any further studies such a small bowel video capsule study unless the anemia becomes more problematic requiring transfusions. This has all been discussed with her in detail and he is comfortable with this plan. MD AQUILES Pearson/THAI / [id number] MTDD
== END 2021-10-09 13:47 | disposition home or self-care (01) ==
PROVIDERS: PCP Internal Medicine; Visit Provider Internal Medicine
PROC: (CPT 45378; principal; 2021-10-09 10:50)
DX: D50.9 Iron deficiency anemia, unspecified (principal); K44.9 Diaphragmatic hernia without obstruction or gangrene; K29.70 Gastritis, unspecified, without bleeding; K57.30 Diverticulosis of large intestine without perforation or abscess without bleeding; K64.8 Other hemorrhoids; K64.4 Residual hemorrhoidal skin tags; I10 Essential (primary) hypertension; I48.91 Unspecified atrial fibrillation; J44.9 Chronic obstructive pulmonary disease, unspecified; Z79.01 Long term (current) use of anticoagulants; Z79.82 Long term (current) use of aspirin; Z79.899 Other long term (current) drug therapy
CPT/HCPCS: 45378; 43239; 82947; 88305; 88342; J3010

== ENCOUNTER 2021-11-11 15:52 | Inpatient (IN) | payer MEDICARE, SELFPAY ==
[2021-11-11] VITALS (7 sets, daily range): BP systolic 144–196; BP diastolic 84–112; PULSE 81–107; RESP 18–22; TEMP 36.8; O2SAT 92
--- NOTE | ~2021-11-11 | CT_ITS ---
EXAMINATION: CT CHEST WITHOUT CONTRAST CLINICAL INFORMATION: Hypoxia COMPARISON: 01/03/2021 TECHNIQUE: Multidetector volumetric CT imaging of the chest was done. Axial MIP volume rendering provided. Sagittal and coronal reformatted images were obtained. This CT examination was performed using dose optimization techniques as appropriate, variously including the following: *Automated exposure control *Adjustment of mA and/or kV according to patient size (this includes techniques or standardized protocols for targeted exams where dose is matched to indication/reason for exam; i.e. extremities or head) *Use of iterative reconstruction technique DLP: 464 mGy-cm FINDINGS: LUNGS: Mild emphysema. Smooth intralobular septal thickening within the upper lobes bilaterally reflective of interstitial edema. Subsegmental atelectasis present within the right lower lobe and lingula. Stable small area of round atelectasis within the medial segment of the middle lobe. There are a few stable pulmonary nodules measuring less than 3 mm. No concerning pulmonary nodules. MEDIASTINUM: Marked cardiomegaly. No pericardial effusion. Great vessels normal caliber. Triple vessel coronary calcifications. No mediastinal, hilar or supraclavicular lymphadenopathy. PLEURA: There is no pleural effusion. No pleural mass or thickening. AXILLA: No lymphadenopathy. UPPER ABDOMEN: Unremarkable. OSSEOUS STRUCTURES: Unremarkable. CT/CT chest wo con IMPRESSION: Cardiomegaly and mild interstitial pulmonary edema. Triple vessel coronary calcifications.
--- NOTE | ~2021-11-11 | CT_ITS ---
EXAMINATION: CT HEAD WITHOUT CONTRAST CLINICAL INFORMATION: Worst occipital headache COMPARISON: 07/31/2021 TECHNIQUE: Contiguous axial imaging was performed from the skull base to vertex without intravenous administration of contrast. This CT examination was performed using dose optimization techniques as appropriate, variously including the following: *Automated exposure control *Adjustment of mA and/or kV according to patient size (this includes techniques or standardized protocols for targeted exams where dose is matched to indication/reason for exam; i.e. extremities or head) *Use of iterative reconstruction technique DLP: 628 mGy-cm FINDINGS: There is no evidence of acute intracranial hemorrhage or territorial infarction. No abnormal mass effect or midline shift is seen. Alatorre to white matter differentiation is well preserved. No extra-axial fluid collections are identified. The ventricles are normal in size. Patchy and confluent subcortical and periventricular white matter low-attenuation changes redemonstrated, statistically related to chronic microangiopathic gliosis. The osseous structures and soft tissues are normal. The mastoid air cells and visualized portions of the paranasal sinuses are well aerated. CT/CT head/brain wo con IMPRESSION: No acute intracranial pathology.
--- NOTE | ~2021-11-11 | XR_ITS ---
EXAMINATION: XR CHEST CLINICAL INFORMATION: Hypoxemia COMPARISON: Chest radiograph 08/17/[address] chest 01/03/2021 TECHNIQUE: Frontal view of the chest was obtained. FINDINGS: There is mild cardiac enlargement. No CHF, consolidations or effusions. A small 6 mm nodular density is seen at the right apex between the first and second anterior rib ends. XR/XR chest 1V IMPRESSION: No acute intrathoracic disease. Possible small right upper lobe lung nodule
--- NOTE | 2021-11-11 16:15 | ED_ITS ---
HPI - Headache General Chief Complaint: Headache Stated Complaint: HEAD PAIN Time Seen by Provider: 11/11/21 16:14 Source: patient and EMS Mode of arrival: EMS Limitations: other (Patient has underlying dementia) History of Present Illness HPI Narrative: This is an 86-year-old female past medical history significant for atrial fibrillation, dementia, CHF, hypertension, diabetes presenting to the emergency department via ambulance with complaints of severe occipital headache times a few hours. According to EMS patient's called for help as patient was complaining of a sudden severe headache that did not feel like her typical, to the occipital aspect of the head. Has a hard time describing the pain. Patient tells me that she has been having episodes of these very strong headaches that come and go over the past few hours, she also reports associated dizziness, room spinning . She denies any head trauma. She is anticoagulated on Eliquis for atrial fibrillation. No recent falls. She denies chest pain, shortness of breath, nausea, vomiting, vision changes, neck pain. Patient has no history of migraines patient tells me at this time her headache has slightly subsided however it is still there. Her main concern at this time is dizziness MD elicited complaint: headache Onset (ago): day(s) (1) Onset description: suddenly Location: occipital Severity: severe Exacerbating factors: none Relieving factors: nothing Treatments prior to arrival: none Related Data Home Medications Medication Instructions Recorded Confirmed atorvastatin 10 mg tablet (Lipitor) 10 mg PO DAILY 06/21/20 10/04/21 calcium carbonate 600 mg calcium 600 mg PO DAILY 06/21/20 10/04/21 (1,500 mg) tablet (Calcium) memantine 10 mg tablet (Namenda) 10 mg PO BID 06/21/20 10/04/21 metformin 500 mg tablet 1,000 mg PO BID 06/21/20 10/04/21 metoprolol tartrate 50 mg tablet 50 mg PO BID 06/21/20 10/04/21 omeprazole 40 mg capsule,delayed 40 mg PO DAILY@1700 06/21/20 10/04/21 release rivaroxaban 20 mg tablet (Xarelto) 20 mg PO DAILY@1700 06/21/20 10/04/21 valsartan 320 mg tablet 320 mg PO DAILY 06/21/20 10/04/21 glimepiride 1 mg tablet 1 mg PO DAILY 01/24/21 10/04/21 brimonidine 0.2 % eye drops 1 drp OPHTHALMIC (EYE) BID 05/22/21 10/04/21 fluticasone 250 mcg-salmeterol 50 1 puff INHALATION BID 05/22/21 10/04/21 mcg/dose blistr powdr for inhalation (Advair Diskus) latanoprost 0.005 % eye drops 1 drp OPHTHALMIC (EYE) BEDTIME 05/22/21 10/04/21 vit C 250 mg-vit E 90 mg-zinc 40 1 cap PO BID 05/22/21 10/04/21 mg-copper 1 [id number] capsule (PreserVision AREDS-2) levothyroxine 50 mcg tablet 50 mcg PO DAILY 07/17/21 10/04/21 albuterol sulfate 90 mcg/actuation 2 puff PO Q4H PRN 10/04/21 10/04/21 aerosol inhaler ferrous sulfate 325 mg (65 mg 325 mg PO DAILY 10/04/21 10/04/21 iron) tablet (Iron (ferrous sulfate)) fexofenadine 180 mg tablet 180 mg PO DAILY 10/04/21 10/04/21 Previous Rx's Medication Instructions Recorded furosemide 20 mg tablet 40 mg PO DAILY #90 tab 08/14/21 Allergies Allergy/AdvReac Type Severity Reaction Status Date / Time hydrochlorothiazide Allergy Unknown Unknown Verified 10/04/21 10:15 Review of Systems Review of Systems: Constitutional : No Weight loss, No Fever, No Chills, No Fatigue, No Malaise ENT/Mouth : No sore throat, No Rhinorrhea Eyes: No Eye Pain, No Swelling, No Redness Cardiovascular : No Chest Pain, No SOB, No Dyspnea on Exertion, No Orthopnea, No Edema, No Palpitations Respiratory : No Cough, No Sputum, No Wheezing Gastrointestinal : No Nausea, No Vomiting, No Diarrhea, No Constipation, No abdominal Pain, No Hematochezia, No Melena Genitourinary : No Dysuria, No Urinary Frequency, No Hematuria, Musculoskeletal : No joint pain, No Myalgias, No Joint Swelling Skin : No Skin Lesions, No rash Neuro : No Weakness, No Numbness, + Dizziness, + Headache Psych : No Anxiety/Panic, No Depression All other systems reviewed and are negative Yes all other systems are reviewed and are negative PMFSH Past Medical History Attestation statement: The following information was validated with the patient. Source: old records reviewed and nursing notes reviewed Medical History Acute congestive heart failure Bilateral carotid artery disease Chronic atrial fibrillation Congestive heart failure COPD (chronic obstructive pulmonary disease) Diabetes HTN (hypertension) Seasonal allergies Surgical History History of esophagogastroduodenoscopy (EGD) Hx of appendectomy Hx of cholecystectomy Hx of colonoscopy Hx of hysterectomy Family History Family History Father CVD (cardiovascular disease) HTN (hypertension) Heart failure Mother Diabetes Cancer Brother CVD (cardiovascular disease) Social History Social History Are you a primary respiratory care instructor to a significant other at home: No Do you presently have visiting nurse or other home services: No Alcohol intake: never Patient Tobacco Use Status: Never used Tobacco Advance Directives: Yes Advance Directives on File: Yes Advance Directives Date on File: 05/22/21 Physical Exam Vital Signs: Vital Signs: Last Vital Signs Temp 98.2 F 11/11/21 21:13 Pulse 92 11/11/21 23:04 Resp 22 H 11/11/21 23:04 BP 177/94 H 11/11/21 23:04 Pulse Ox 92 11/11/21 23:04 Appearance: Alert.? Oriented X3.? No acute distress.? Head: Normocephalic, atraumatic, no step-offs or deformities Eyes: Pupils equal, round and reactive to light.? ENT: Pharynx normal.? Neck: Normal inspection.? Neck supple.? CVS: Normal heart rate and rhythm.? Pulses normal.? Respiratory: No respiratory distress.? Breath sounds normal.? Abdomen: Soft and nontender.? Skin: Skin warm and dry.? Normal skin color.? Normal skin turgor.? Extremities: No lower extremity edema.? No calf ttp. 5/5 strength to bilateral upper and lower extremities Back: No midline tenderness, no C-spine tenderness, full range of motion, no CVA tenderness bilaterally Neuro: Oriented X 3.? No motor deficit.? No sensory deficit. CN 2-12 intact Course Reevaluation(s) Reevaluation #1: Patient's CBC noted to be around baseline. No leukocytosis or anemia. Patient is noted to have a magnesium of 1.1 she will be given 2 g of IV magnesium at this time. No other acute electrolyte abnormalities requiring intervention. Patient's BNP slightly elevated however appears to be around her baseline, patient's reports that she did take Lasix prior to her arrival. Troponin negative. Patient not complaining of chest pain or shortness of breath unlikely CHF or ACS. Urine, CT of the head pending. Time: 16:55 Reevaluation #2: Magnesium improved to 1.8 after 2 g IV. Second troponin negative. Patient remains hypertensive however she was given 5 mg of amlodipine as well as Lasix. Patient will be admitted to the hospitalist team for hypoxia with new oxygen requirements, uncontrolled hypertension and further evaluation. Time: 23:21 MDM - Headache MDM Narrative Medical decision making narrative: 1610 86-year-old female presents with sudden-onset severe occipital headache with associated dizziness described as spinning. Anticoagulated on Eliquis. Arrived via EMS. No history of migraines. Physical examination benign. Neuro exam nonfocal. Normal [id number], [id number]-[id number]. Lungs clear. Irregularly irregular rhythm likely atrial fibrillation. Pupils equal round and reactive to light bilaterally. No nystagmus. NIH stroke scale of 0 Plan at this time is basic lab works, cardiac monitoring, orthostatic vitals. Low suspicion for VT, PE as patient is anticoagulated. Will rule out in tracranial etiologies, such as ICH. Will rule out orthostatic hypotension as well as electrolyte abnormalities and infection. Medical Records Attestation: I reviewed the patient's medical records. Lab Data Attestation: I reviewed the patient's lab results. Result diagrams: 11/11/21 16:35 11/11/21 18:52 Labs: Lab Results 11/11/21 11/11/21 11/11/21 Range/Units 16:35 16:35 16:35 WBC 7.9 (4.8-10.8) X10*3/uL RBC 4.82 (4.20-5.50) X10*6/uL Hgb 12.8 (12.0-16.0) g/dl Hct 40.3 (37.0-47.0) % MCV 83.6 (80.0-98.0) fL MCH 26.6 L (27.0-33.0) pg MCHC 31.8 (31.0-35.0) g/dl RDW 20.5 H (11.0-16.0) % Plt Count 159 L D (160-400) X10*3/uL MPV 9.5 (9.4-12.3) fL Immature Gran % (Auto) 0.3 (0.0-0.4) % Neut % (Auto) 62.9 (45-73) % Lymph % (Auto) 27.1 (20-40) % Warren % (Auto) 8.4 (2-11) % Eos % (Auto) 1.0 (0-4) % Baso % (Auto) 0.3 (0-2) % Lymph # (Auto) 2.1 (1.2-4.9) X10*3/uL Warren # (Auto) 0.7 (0.1-1.2) X10*3/uL Eos # (Auto) 0.1 (0.0-0.4) X10*3/uL Baso # (Auto) 0.0 (0.0-0.2) X10*3/uL Abs Immat Gran (auto) 0.02 (0.00-0.03) X10*3/uL Absolute Neuts (auto) 5.0 (2.0-8.3) x10*3/uL Absolute Nucleated RBC 0.000 (0.0-0.012) X10*3/uL Nucleated RBC % (auto) 0.0 (0.0-0.2) /100WBC PT (9.9-13.0) SEC INR (0.9-1.1) Sodium 142 (135-145) mmol/L Potassium 3.4 (3.3-5.1) mmol/L Chloride 104 (96-108) mmol/L Carbon Dioxide 27 (22-29) mmol/L Anion Gap 14 (12-20) BUN 18 H (9-16) mg/dL Creatinine 0.88 (0.5-1.4) mg/dL Estim Creat Clear Calc TNP Estimated GFR > 60 Random Glucose 108 (60-115) mg/dL Calcium 9.6 (8.4-10.2) mg/dL Magnesium 1.1 L* (1.6-2.6) mg/dL Total Bilirubin 0.8 (0.0-1.0) mg/dL AST 12 (5-31) U/L ALT 14 (0-31) U/L Alkaline Phosphatase 81 D (39-117) U/L Troponin I High Sens 4.2 (<3.5-17.0) ng/L C-Reactive Protein (< or = 0.50) mg/dL B-Natriuretic Peptide (<100) pg/mL Total Protein 6.5 (6.5-8.0) g/dL Albumin 3.8 (3.5-5.0) g/dL Urine Color Urine Appearance Urine pH (5.0-8.0) Ur Specific [place] (1.005-1.025) Urine Protein (NEG-TRACE) MG/DL Urine Glucose (UA) (NEG) MG/DL Urine Ketones (NEG) MG/DL Urine Blood (NEG) Urine Nitrite (NEG) Ur Leukocyte Esterase (NEG) COVID-19 (LAN) (Negative) COVID-19 Clin Com Influenza Type A (PCR) (Negative) Influenza Type B (PCR) (Negative) RSV RNA Qual (PCR) (Negative) SARS-CoV-2 RNA (RT-PCR) (Negative) 11/11/21 11/11/21 11/11/21 Range/Units 16:35 16:35 16:35 WBC (4.8-10.8) X10*3/uL RBC (4.20-5.50) X10*6/uL Hgb (12.0-16.0) g/dl Hct (37.0-47.0) % MCV (80.0-98.0) fL MCH (27.0-33.0) pg MCHC (31.0-35.0) g/dl RDW (11.0-16.0) % Plt Count (160-400) X10*3/uL MPV (9.4-12.3) fL Immature Gran % (Auto) (0.0-0.4) % Neut % (Auto) (45-73) % Lymph % (Auto) (20-40) % Warren % (Auto) (2-11) % Eos % (Auto) (0-4) % Baso % (Auto) (0-2) % Lymph # (Auto) (1.2-4.9) X10*3/uL Warren # (Auto) (0.1-1.2) X10*3/uL Eos # (Auto) (0.0-0.4) X10*3/uL Baso # (Auto) (0.0-0.2) X10*3/uL Abs Immat Gran (auto) (0.00-0.03) X10*3/uL Absolute Neuts (auto) (2.0-8.3) x10*3/uL Absolute Nucleated RBC (0.0-0.012) X10*3/uL Nucleated RBC % (auto) (0.0-0.2) /100WBC PT 16.7 H (9.9-13.0) SEC INR 1.5 H (0.9-1.1) Sodium (135-145) mmol/L Potassium (3.3-5.1) mmol/L Chloride (96-108) mmol/L Carbon Dioxide (22-29) mmol/L Anion Gap (12-20) BUN (9-16) mg/dL Creatinine (0.5-1.4) mg/dL Estim Creat Clear Calc Estimated GFR Random Glucose (60-115) mg/dL Calcium (8.4-10.2) mg/dL Magnesium (1.6-2.6) mg/dL Total Bilirubin (0.0-1.0) mg/dL AST (5-31) U/L ALT (0-31) U/L Alkaline Phosphatase (39-117) U/L Troponin I High Sens (<3.5-17.0) ng/L C-Reactive Protein (< or = 0.50) mg/dL B-Natriuretic Peptide 313 H (<100) pg/mL Total Protein (6.5-8.0) g/dL Albumin (3.5-5.0) g/dL Urine Color Urine Appearance Urine pH (5.0-8.0) Ur Specific [place] (1.005-1.025) Urine Protein (NEG-TRACE) MG/DL Urine Glucose (UA) (NEG) MG/DL Urine Ketones (NEG) MG/DL Urine Blood (NEG) Urine Nitrite (NEG) Ur Leukocyte Esterase (NEG) COVID-19 (LAN) Negative (Negative) COVID-19 Clin Com See Note Influenza Type A (PCR) (Negative) Influenza Type B (PCR) (Negative) RSV RNA Qual (PCR) (Negative) SARS-CoV-2 RNA (RT-PCR) (Negative) 11/11/21 11/11/21 11/11/21 Range/Units 18:52 21:19 21:19 WBC (4.8-10.8) X10*3/uL RBC (4.20-5.50) X10*6/uL Hgb (12.0-16.0) g/dl Hct (37.0-47.0) % MCV (80.0-98.0) fL MCH (27.0-33.0) pg MCHC (31.0-35.0) g/dl RDW (11.0-16.0) % Plt Count (160-400) X10*3/uL MPV (9.4-12.3) fL Immature Gran % (Auto) (0.0-0.4) % Neut % (Auto) (45-73) % Lymph % (Auto) (20-40) % Warren % (Auto) (2-11) % Eos % (Auto) (0-4) % Baso % (Auto) (0-2) % Lymph # (Auto) (1.2-4.9) X10*3/uL Warren # (Auto) (0.1-1.2) X10*3/uL Eos # (Auto) (0.0-0.4) X10*3/uL Baso # (Auto) (0.0-0.2) X10*3/uL Abs Immat Gran (auto) (0.00-0.03) X10*3/uL Absolute Neuts (auto) (2.0-8.3) x10*3/uL Absolute Nucleated RBC (0.0-0.012) X10*3/uL Nucleated RBC % (auto) (0.0-0.2) /100WBC PT (9.9-13.0) SEC INR (0.9-1.1) Sodium 141 (135-145) mmol/L Potassium 3.5 (3.3-5.1) mmol/L Chloride 104 (96-108) mmol/L Carbon Dioxide 28 (22-29) mmol/L Anion Gap 13 (12-20) BUN 17 H (9-16) mg/dL Creatinine 0.78 (0.5-1.4) mg/dL Estim Creat Clear Calc TNP Estimated GFR > 60 Random Glucose 89 (60-115) mg/dL Calcium 9.4 (8.4-10.2) mg/dL Magnesium 1.8 (1.6-2.6) mg/dL Total Bilirubin (0.0-1.0) mg/dL AST (5-31) U/L ALT (0-31) U/L Alkaline Phosphatase (39-117) U/L Troponin I High Sens 4.3 (<3.5-17.0) ng/L C-Reactive Protein 0.06 (< or = 0.50) mg/dL B-Natriuretic Peptide (<100) pg/mL Total Protein (6.5-8.0) g/dL Albumin (3.5-5.0) g/dL Urine Color YELLOW Urine Appearance CLEAR Urine pH 6.0 (5.0-8.0) Ur Specific [place] 1.010 (1.005-1.025) Urine Protein NEG (NEG-TRACE) MG/DL Urine Glucose (UA) NEG (NEG) MG/DL Urine Ketones NEG (NEG) MG/DL Urine Blood NEG (NEG) Urine Nitrite NEG (NEG) Ur Leukocyte Esterase NEG (NEG) COVID-19 (LAN) (Negative) COVID-19 Clin Com Influenza Type A (PCR) (Negative) Influenza Type B (PCR) (Negative) RSV RNA Qual (PCR) (Negative) SARS-CoV-2 RNA (RT-PCR) (Negative) 11/11/21 Range/Units 21:56 WBC (4.8-10.8) X10*3/uL RBC (4.20-5.50) X10*6/uL Hgb (12.0-16.0) g/dl Hct (37.0-47.0) % MCV (80.0-98.0) fL MCH (27.0-33.0) pg MCHC (31.0-35.0) g/dl RDW (11.0-16.0) % Plt Count (160-400) X10*3/uL MPV (9.4-12.3) fL Immature Gran % (Auto) (0.0-0.4) % Neut % (Auto) (45-73) % Lymph % (Auto) (20-40) % Warren % (Auto) (2-11) % Eos % (Auto) (0-4) % Baso % (Auto) (0-2) % Lymph # (Auto) (1.2-4.9) X10*3/uL Warren # (Auto) (0.1-1.2) X10*3/uL Eos # (Auto) (0.0-0.4) X10*3/uL Baso # (Auto) (0.0-0.2) X10*3/uL Abs Immat Gran (auto) (0.00-0.03) X10*3/uL Absolute Neuts (auto) (2.0-8.3) x10*3/uL Absolute Nucleated RBC (0.0-0.012) X10*3/uL Nucleated RBC % (auto) (0.0-0.2) /100WBC PT (9.9-13.0) SEC INR (0.9-1.1) Sodium (135-145) mmol/L Potassium (3.3-5.1) mmol/L Chloride (96-108) mmol/L Carbon Dioxide (22-29) mmol/L Anion Gap (12-20) BUN (9-16) mg/dL Creatinine (0.5-1.4) mg/dL Estim Creat Clear Calc Estimated GFR Random Glucose (60-115) mg/dL Calcium (8.4-10.2) mg/dL Magnesium (1.6-2.6) mg/dL Total Bilirubin (0.0-1.0) mg/dL AST (5-31) U/L ALT (0-31) U/L Alkaline Phosphatase (39-117) U/L Troponin I High Sens (<3.5-17.0) ng/L C-Reactive Protein (< or = 0.50) mg/dL B-Natriuretic Peptide (<100) pg/mL Total Protein (6.5-8.0) g/dL Albumin (3.5-5.0) g/dL Urine Color Urine Appearance Urine pH (5.0-8.0) Ur Specific [place] (1.005-1.025) Urine Protein (NEG-TRACE) MG/DL Urine Glucose (UA) (NEG) MG/DL Urine Ketones (NEG) MG/DL Urine Blood (NEG) Urine Nitrite (NEG) Ur Leukocyte Esterase (NEG) COVID-19 (LAN) (Negative) COVID-19 Clin Com Influenza Type A (PCR) NEGATIVE (Negative) Influenza Type B (PCR) NEGATIVE (Negative) RSV RNA Qual (PCR) NEGATIVE (Negative) SARS-CoV-2 RNA (RT-PCR) NEGATIVE (Negative) ECG Data Attestation: I personally reviewed and interpreted this ECG as follows: ECG interpretation date: 11/11/21 ECG interpretation time: 17:33 Prior ECG tracings: available for review Interpretation: Ventricular rate of 78, WA varies, QRS normal, QT/QTC normal. EKG shows atrial fibrillation with premature ventricular complexes no evident ischemia. No significant changes from EKG from July 2021 Critical Care Time Critical Care Time Critical Care Time: No Discharge Plan Discharge Clinical Impression: HTN (hypertension), Dizziness, Hypoxia Patient Disposition: Admitted As Inpatient
--- NOTE | 2021-11-11 16:25 | ECG_ITS ---
Test Reason : CONFUSION Blood Pressure : / mmHG Vent. Rate : 078 BPM Atrial Rate : 000 BPM P-R Int : 000 ms QRS Dur : 088 ms QT Int : 408 ms P-R-T Axes : 000 061 065 degrees QTc Int : 465 ms Atrial fibrillation with premature ventricular or aberrantly conducted complexes Moderate voltage criteria for LVH, may be normal variant ( Sokolow-Oneill , [place] product ) Nonspecific ST abnormality Abnormal ECG When compared with ECG of 31-JUL-2021 22:14, No significant change was found Referred By: Fern Padilla Electronically Signed By:ESTUARDO CORDOBA MD
[2021-11-11 16:42] LABS: MANUAL DIFF FLAG NO
[2021-11-11 16:44] LABS: Basophils Percent Auto 0.3 % (0-2); Eosinophils Absolute Auto 0.1 X10*3/uL (0.0-0.4); Hematocrit 40.3 % (37.0-47.0); Hemoglobin 12.8 g/dl (12.0-16.0); Imm Gran Abs Auto 0.02 X10*3/uL (0.00-0.03); Imm Gran Pct Auto 0.3 % (0.0-0.4); Lymphocytes Absolute Auto 2.1 X10*3/uL (1.2-4.9); Lymphocytes Percent Auto 27.1 % (20-40); Mean Corpuscular HGB Conc 31.8 g/dl (31.0-35.0); Mean Corpuscular Hemoglobin 26.6 pg (27.0-33.0); Mean Corpuscular Volume 83.6 fL (80.0-98.0); Mean Platelet Volume 9.5 fL (9.4-12.3); Monocytes Absolute Auto 0.7 X10*3/uL (0.1-1.2); Monocytes Percent Auto 8.4 % (2-11); Neutrophils Percent Auto 62.9 % (45-73); Platelet Count 159 X10*3/uL (160-400); Red Blood Count 4.82 X10*6/uL (4.20-5.50); Red Cell Distribution Width 20.5 % (11.0-16.0); White Blood Count 7.9 X10*3/uL (4.8-10.8)
[2021-11-11 16:49] LABS: INTERNATIONAL NORM RATIO 1.5 (0.9-1.1); Prothrombin Time 16.7 SEC (9.9-13.0)
[2021-11-11 17:06] LABS: COVID-19 Test Negative (Negative)
[2021-11-11 17:07] LABS: B Type Natriuretic Peptide 313 pg/mL (<100); Troponin-I High Sensitivity 4.2 ng/L (<3.5-17.0)
[2021-11-11 17:24] LABS: Alanine Aminotransferase 14 U/L (0-31); Albumin Level 3.8 g/dL (3.5-5.0); Alkaline Phosphatase 81 U/L (39-117); Anion Gap 14 (12-20); Aspartate Amino Transferase 12 U/L (5-31); Bilirubin Total 0.8 mg/dL (0.0-1.0); Blood Urea Nitrogen 18 mg/dL (9-16); Calcium 9.6 mg/dL (8.4-10.2); Carbon Dioxide 27 mmol/L (22-29); Chloride 104 mmol/L (96-108); Estimated Glomerular Filt Rate > 60; Glucose Random 108 mg/dL (60-115); Magnesium 1.1 mg/dL (1.6-2.6); Potassium 3.4 mmol/L (3.3-5.1); Sodium 142 mmol/L (135-145); Total Protein 6.5 g/dL (6.5-8.0)
[2021-11-11] MEDS: Magnesium Sulfate/H2O 2 GM/50 ML PIGGYBACK IV (17:48)
[2021-11-11 19:16] LABS: Anion Gap 13 (12-20); Blood Urea Nitrogen 17 mg/dL (9-16); Calcium 9.4 mg/dL (8.4-10.2); Carbon Dioxide 28 mmol/L (22-29); Chloride 104 mmol/L (96-108); Estimated Glomerular Filt Rate > 60; Glucose Random 89 mg/dL (60-115); Potassium 3.5 mmol/L (3.3-5.1); Sodium 141 mmol/L (135-145)
[2021-11-11 21:41] LABS: Appearance Urine CLEAR; Color Urine YELLOW; Glucose Urine UA NEG (NEG); Leukocyte Esterase Urine NEG (NEG); Nitrite Urine NEG (NEG); Urine Blood NEG (NEG); Urine Ketones NEG (NEG); Urine Protein NEG (NEG-TRACE)
[2021-11-11 21:53] LABS: Troponin-I High Sensitivity 4.3 ng/L (<3.5-17.0)
[2021-11-11] MEDS: Furosemide 20 MG/2 ML VIAL IVPUSH (21:56)
[2021-11-11 21:57] LABS: Magnesium 1.8 mg/dL (1.6-2.6)
[2021-11-11] MEDS: amLODIPine Besylate 5 MG TABLET PO (21:58)
[2021-11-11 22:21] LABS: C Reactive Protein 0.06 mg/dL (< or = 0.50)
[2021-11-11 22:41] LABS: Influenza A PCR NEGATIVE (Negative); Influenza B PCR NEGATIVE (Negative); Resp Syncy Virus RNA Qual PCR NEGATIVE (Negative); SARS COV2 PCR INHOUSE NEGATIVE (Negative)
--- NOTE | 2021-11-12 00:09 | PM.IMHP ---
History of Present Illness Date of Service: 11/12/21 Chief Complaint: headache 88-year-old female with a past medical history of hypertension, hyperlipidemia, diabetes, atrial fibrillation on anticoagulation, CHF presented to the hospital today with a chief complaint of headache. Patient reported that she had headache located on the back of the head; denies any associated blurry visions. Had mild dizziness. Denies any numbness tingling or focal weakness. Denies any chest pain. Reports that the headache was severe hence presented to the hospital for further evaluation. Denies any cough or shortness of breath. Denies any GI symptoms. Review of all other systems is negative except mentioned above ER course: Per ER team patient on presentation noted to have nonfocal examination; [place] [address] systolic; CT head showed no acute findings; but patient noted to be hypoxic at 84% on room air; chest x-ray showed congestion. Given Lasix. Patient also received amlodipine. Blood pressure improving. Admitted to the hospital for further management. [facility] Medical History Acute congestive heart failure Bilateral carotid artery disease Chronic atrial fibrillation Congestive heart failure COPD (chronic obstructive pulmonary disease) Diabetes HTN (hypertension) Seasonal allergies Family History Father CVD (cardiovascular disease) HTN (hypertension) Heart failure Mother Diabetes Cancer Brother CVD (cardiovascular disease) Surgical History History of esophagogastroduodenoscopy (EGD) Hx of appendectomy Hx of cholecystectomy Hx of colonoscopy Hx of hysterectomy Social History Are you a primary women's health care nurse practitioner to a significant other at home: No Do you presently have visiting nurse or other home services: No Alcohol intake: never Patient Tobacco Use Status: Never used Tobacco Advance Directives: Yes Advance Directives on File: Yes Advance Directives Date on File: 05/22/21 Meds Allergies Allergy/AdvReac Type Severity Reaction Status Date / Time hydrochlorothiazide Allergy Unknown Unknown Verified 10/04/21 10:15 Home Medications Medication Instructions Recorded Confirmed Last Taken Type atorvastatin 10 mg tablet (Lipitor) 10 mg PO DAILY 06/21/20 10/04/21 05/21/21 History calcium carbonate 600 mg calcium 600 mg PO DAILY 06/21/20 10/04/21 05/21/21 History (1,500 mg) tablet (Calcium) memantine 10 mg tablet (Namenda) 10 mg PO BID 06/21/20 10/04/21 05/21/21 History metformin 500 mg tablet 1,000 mg PO BID 06/21/20 10/04/21 05/21/21 History metoprolol tartrate 50 mg tablet 50 mg PO BID 06/21/20 10/04/21 05/21/21 History omeprazole 40 mg capsule,delayed 40 mg PO DAILY@1700 06/21/20 10/04/21 05/21/21 History release rivaroxaban 20 mg tablet (Xarelto) 20 mg PO DAILY@1700 06/21/20 10/04/21 05/21/21 History valsartan 320 mg tablet 320 mg PO DAILY 06/21/20 10/04/21 05/21/21 History glimepiride 1 mg tablet 1 mg PO DAILY 01/24/21 10/04/21 05/21/21 History brimonidine 0.2 % eye drops 1 drp OPHTHALMIC (EYE) BID 05/22/21 10/04/21 05/21/21 History fluticasone 250 mcg-salmeterol 50 1 puff INHALATION BID 05/22/21 10/04/21 05/21/21 History mcg/dose blistr powdr for inhalation (Advair Diskus) latanoprost 0.005 % eye drops 1 drp OPHTHALMIC (EYE) BEDTIME 05/22/21 10/04/21 05/21/21 History vit C 250 mg-vit E 90 mg-zinc 40 1 cap PO BID 05/22/21 10/04/21 05/21/21 History mg-copper 1 [id number] capsule (PreserVision AREDS-2) levothyroxine 50 mcg tablet 50 mcg PO DAILY 07/17/21 10/04/21 Unknown History albuterol sulfate 90 mcg/actuation 2 puff PO Q4H PRN 10/04/21 10/04/21 Unknown History aerosol inhaler ferrous sulfate 325 mg (65 mg 325 mg PO DAILY 10/04/21 10/04/21 Unknown History iron) tablet (Iron (ferrous sulfate)) fexofenadine 180 mg tablet 180 mg PO DAILY 10/04/21 10/04/21 Unknown History atorvastatin 10 mg tablet 1 tab PO DAILY 11/12/21 11/12/21 Unknown History brimonidine 0.2 % eye drops 1 drp OPHTHALMIC (EYE) BID 11/12/21 11/12/21 Unknown History calcium carb-ergocalciferol (vit 1 tab PO DAILY 11/12/21 11/12/21 Unknown History D2) 600 mg calcium-200 unit tablet furosemide 20 mg tablet 2 tab PO DAILY 11/12/21 11/12/21 Unknown History guaifenesin 600 mg tablet, 600 mg PO DAILY 11/12/21 11/12/21 Unknown History extended release 12 hr (Mucinex) latanoprost 0.005 % eye drops 1 drp OPHTHALMIC (EYE) BEDTIME 11/12/21 11/12/21 Unknown History levothyroxine 50 mcg tablet 1 tab PO DAILY 11/12/21 11/12/21 Unknown History memantine 10 mg tablet 1 tab PO BID 11/12/21 11/12/21 Unknown History metformin 500 mg tablet 2 tab PO BID 11/12/21 11/12/21 Unknown History metoprolol tartrate 50 mg tablet 1 tab PO BID 11/12/21 11/12/21 Unknown History omeprazole 40 mg capsule,delayed 1 cap PO DAILY 11/12/21 11/12/21 Unknown History release rivaroxaban 20 mg tablet (Xarelto) 1 tab PO DAILY 11/12/21 11/12/21 Unknown History valsartan 320 mg tablet 1 tab PO DAILY 11/12/21 11/12/21 Unknown History vit C 250 mg-vit E 90 mg-zinc 40 1 tab PO BID 11/12/21 11/12/21 Unknown History mg-copper 1 [id number] capsule (PreserVision AREDS-2) Physical Exam Vital Signs and Narrative: Vital Signs: Last Vital Signs Temp 98.2 F 11/11/21 21:13 Pulse 92 11/11/21 23:04 Resp 22 H 11/11/21 23:04 BP 177/94 H 11/11/21 23:04 Pulse Ox 92 11/11/21 23:04 Gen: Appears be in no acute distress. On supplemental oxygen. Speaks in full sentences. HEENT: NCAT, Moist mucosa. Pulmonary: Fine crackles present CVS: Normal S1-S2 Abdomen: BS+, Soft, Nontender Extremities: Warm well perfused Neuro: Alert and awake. grossly nonfocal Results Labs CBC and Chem 7: 11/11/21 16:35 11/11/21 18:52 Labs: Laboratory Results - last 24 hr 11/11/21 11/11/21 11/11/21 16:35 16:35 16:35 MCV 83.6 MCH 26.6 L MCHC 31.8 RDW 20.5 H Plt Count 159 L D MPV 9.5 Immature Gran % (Auto) 0.3 Neut % (Auto) 62.9 Lymph % (Auto) 27.1 [place]alier % (Auto) 8.4 Eos % (Auto) 1.0 Baso % (Auto) 0.3 Lymph # (Auto) 2.1 [place]alier # (Auto) 0.7 Eos # (Auto) 0.1 Baso # (Auto) 0.0 Abs Immat Gran (auto) 0.02 Absolute Neuts (auto) 5.0 Absolute Nucleated RBC 0.000 Nucleated RBC % (auto) 0.0 PT INR Anion Gap 14 Estim Creat Clear Calc TNP Estimated GFR > 60 Random Glucose 108 Calcium 9.6 Magnesium 1.1 L* Total Bilirubin 0.8 AST 12 ALT 14 Alkaline Phosphatase 81 D Troponin I High Sens 4.2 C-Reactive Protein B-Natriuretic Peptide Total Protein 6.5 Albumin 3.8 Urine Color Urine Appearance Urine pH Ur Specific [place] Urine Protein Urine Glucose (UA) Urine Ketones Urine Blood Urine Nitrite Ur Leukocyte Esterase COVID-19 (LAN) COVID-19 Clin Com Influenza Type A (PCR) Influenza Type B (PCR) RSV RNA Qual (PCR) SARS-CoV-2 RNA (RT-PCR) 11/11/21 11/11/21 11/11/21 16:35 16:35 16:35 MCV MCH MCHC RDW Plt Count MPV Immature Gran % (Auto) Neut % (Auto) Lymph % (Auto) [place] % (Auto) Eos % (Auto) Baso % (Auto) Lymph # (Auto) [place] # (Auto) Eos # (Auto) Baso # (Auto) Abs Immat Gran (auto) Absolute Neuts (auto) Absolute Nucleated RBC Nucleated RBC % (auto) PT 16.7 H INR 1.5 H Anion Gap Estim Creat Clear Calc Estimated GFR Random Glucose Calcium Magnesium Total Bilirubin AST ALT Alkaline Phosphatase Troponin I High Sens C-Reactive Protein B-Natriuretic Peptide 313 H Total Protein Albumin Urine Color Urine Appearance Urine pH Ur Specific [place] Urine Protein Urine Glucose (UA) Urine Ketones Urine Blood Urine Nitrite Ur Leukocyte Esterase COVID-19 (LAN) Negative COVID-19 Clin Com See Note Influenza Type A (PCR) Influenza Type B (PCR) RSV RNA Qual (PCR) SARS-CoV-2 RNA (RT-PCR) 11/11/21 11/11/21 11/11/21 18:52 21:19 21:19 MCV MCH MCHC RDW Plt Count MPV Immature Gran % (Auto) Neut % (Auto) Lymph % (Auto) [place] % (Auto) Eos % (Auto) Baso % (Auto) Lymph # (Auto) [place] # (Auto) Eos # (Auto) Baso # (Auto) Abs Immat Gran (auto) Absolute Neuts (auto) Absolute Nucleated RBC Nucleated RBC % (auto) PT INR Anion Gap 13 Estim Creat Clear Calc TNP Estimated GFR > 60 Random Glucose 89 Calcium 9.4 Magnesium 1.8 Total Bilirubin AST ALT Alkaline Phosphatase Troponin I High Sens 4.3 C-Reactive Protein 0.06 B-Natriuretic Peptide Total Protein Albumin Urine Color YELLOW Urine Appearance CLEAR Urine pH 6.0 Ur Specific [place] 1.010 Urine Protein NEG Urine Glucose (UA) NEG Urine Ketones NEG Urine Blood NEG Urine Nitrite NEG Ur Leukocyte Esterase NEG COVID-19 (LAN) COVID-19 Clin Com Influenza Type A (PCR) Influenza Type B (PCR) RSV RNA Qual (PCR) SARS-CoV-2 RNA (RT-PCR) 11/11/21 21:56 MCV MCH MCHC RDW Plt Count MPV Immature Gran % (Auto) Neut % (Auto) Lymph % (Auto) [place] % (Auto) Eos % (Auto) Baso % (Auto) Lymph # (Auto) [place] # (Auto) Eos # (Auto) Baso # (Auto) Abs Immat Gran (auto) Absolute Neuts (auto) Absolute Nucleated RBC Nucleated RBC % (auto) PT INR Anion Gap Estim Creat Clear Calc Estimated GFR Random Glucose Calcium Magnesium Total Bilirubin AST ALT Alkaline Phosphatase Troponin I High Sens C-Reactive Protein B-Natriuretic Peptide Total Protein Albumin Urine Color Urine Appearance Urine pH Ur Specific [place] Urine Protein Urine Glucose (UA) Urine Ketones Urine Blood Urine Nitrite Ur Leukocyte Esterase COVID-19 (LAN) COVID-19 Clin Com Influenza Type A (PCR) NEGATIVE Influenza Type B (PCR) NEGATIVE RSV RNA Qual (PCR) NEGATIVE SARS-CoV-2 RNA (RT-PCR) NEGATIVE Imaging Radiologist's Impressions: Impressions Head CT 11/11/21 17:00 IMPRESSION: No acute intracranial pathology. Chest X-Ray 11/11/21 19:45 IMPRESSION: No acute intrathoracic disease. Possible small right upper lobe lung nodule Chest CT 11/11/21 21:53 IMPRESSION: Cardiomegaly and mild interstitial pulmonary edema. Triple vessel coronary calcifications. Assessment and Plan (1) Dizziness: Status: Acute (2) Hypoxia: Status: Acute Plan 88-year-old female with a past medical history of hypertension, hyperlipidemia, diabetes, atrial fibrillation on anticoagulation, CHF presented to the hospital today with a chief complaint of headache. Noted to have hypoxia. Admitted for further management. Headache: Occipital. Currently resolved. Tylenol p.r.n.. CT head showed no acute findings. Exam grossly nonfocal. Denies any prior history of migraines. If the headache recurs will consider Neurology consult. Hypoxia: Likely in the setting of CHF. Patient received Lasix 20 mg IV in the ER. Cardiology follow-up. Daily weights and I's and O's. history of hypertension / hyperlipidemia: Continue home medications History of diabetes: Insulin sliding scale. Hold metformin History of dementia: Continue home memantine History of glaucoma: Continue home eye drops history of AFib: Continue home rivaroxaban. Patient on metoprolol. Rate controlled. DVT prophylaxis: Patient on rivaroxaban Code status: Code. Confirmed with the patient's family at bedside. Quality Stroke Does the patient have a stroke diagnosis?: No VTE Prior VTE?: No VTE Risk Level:: Medical - moderate - high VTE Device Contraindication: Treatment Not Indicated VTE Drug Contraindication: N/A - Med Ordered
[2021-11-12 00:26] VITALS: BP 168/101; PULSE 100; RESP 14; O2SAT 93
[2021-11-12] MEDS: Melatonin 3 MG TABLET 6 MG PO (01:21)
[2021-11-12] MEDS: Acetaminophen 325 MG TABLET 650 MG PO (01:21)
--- NOTE | 2021-11-12 02:54 | PC.NURSE ---
Transferred pt to a hospital bed and alarm set.
[2021-11-12] MEDS: traZODone HCL 50 MG TABLET PO (06:07)
[2021-11-12 06:21] VITALS: BP 125/73; PULSE 119; RESP 21; O2SAT 94
[2021-11-12 06:59] LABS: MANUAL DIFF FLAG NO
[2021-11-12 07:06] LABS: Basophils Percent Auto 0.4 % (0-2); Eosinophils Absolute Auto 0.1 X10*3/uL (0.0-0.4); Eosinophils Percent Auto 0.9 % (0-4); Imm Gran Abs Auto 0.05 X10*3/uL (0.00-0.03); Imm Gran Pct Auto 0.5 % (0.0-0.4); Lymphocytes Absolute Auto 2.5 X10*3/uL (1.2-4.9); Mean Corpuscular HGB Conc 32.6 g/dl (31.0-35.0); Mean Corpuscular Hemoglobin 26.6 pg (27.0-33.0); Mean Corpuscular Volume 81.7 fL (80.0-98.0); Mean Platelet Volume 10.5 fL (9.4-12.3); Monocytes Absolute Auto 0.7 X10*3/uL (0.1-1.2); Monocytes Percent Auto 7.3 % (2-11); Neutrophils Absolute Auto 6.3 x10*3/uL (2.0-8.3); Neutrophils Percent Auto 64.9 % (45-73); Platelet Count 185 X10*3/uL (160-400); Red Blood Count 5.26 X10*6/uL (4.20-5.50); Red Cell Distribution Width 20.3 % (11.0-16.0); White Blood Count 9.7 X10*3/uL (4.8-10.8)
[2021-11-12] MEDS: Insulin Lispro 100 UNIT/ML 3 ML VIAL SUBCUT (07:33)
--- NOTE | 2021-11-12 07:36 | PC.NURSE ---
report taken from jens anderson pt awake, breakfast brought to bedside. pt is very confused, appears anxious. educated about why pt is in hospital, given verbal reassurance. pt a bit more calm after assurance, but still asking many questions that have already been answered. pt has no iv access at this time. will alert hospitalist provider. domonique.
[2021-11-12 07:39] LABS: Anion Gap 17 (12-20); Blood Urea Nitrogen 18 mg/dL (9-16); Calcium 9.3 mg/dL (8.4-10.2); Carbon Dioxide 24 mmol/L (22-29); Chloride 101 mmol/L (96-108); Estimated Glomerular Filt Rate > 60; Glucose Random 151 mg/dL (60-115); Potassium 3.3 mmol/L (3.3-5.1); Sodium 139 mmol/L (135-145)
[2021-11-12] MEDS: Levothyroxine Sodium 50 MCG TABLET PO (08:51)
[2021-11-12] MEDS: Atorvastatin Calcium 10 MG TABLET PO (08:51)
[2021-11-12] MEDS: Metoprolol Tartrate 50 MG TABLET PO (08:51)
[2021-11-12] MEDS: Memantine HCl 10 MG TABLET PO (08:51)
[2021-11-12] MEDS: Omeprazole 40 MG CAPSULE.DR PO (08:52)
[2021-11-12] MEDS: Rivaroxaban 20 MG TABLET PO (08:52)
--- NOTE | 2021-11-12 09:56 | PM.EVENT ---
Event Note Date of Service: 11/12/21 Event Note: day hospitalist update S VIDES resolved off O2 now denies dyspnea O VS- BP 125/73, P 119, R 21, SaO2 94 on RA gen- NAD lungs- CTAB CV irregularly irregular + rapid in 110s, no m/r/g abd- soft/NT ext- no edema neuro- no focal findings A/P hospital d#1 86yo F with chronic HFrEF, chronic AF, bilateral carotid artery disease, HTN, COPD, DM2 presenting with VIDES + admitted with hypoxia due to CHF exacerbation # acute/chronic HFrEF + R-sided HF - TTE 07/17/21 LVEF 44% + decreased RV systolic function - continue IV furosemide - continue b-kathrin + ARB # AF/RVR - needs better rate control, increase metoprolol to 50 mg q8h - continue rivaroxaban for AC # HTN - continue metoprolol + valsartan # hypoMg - repleted # acute hypoxic resp failure - resolved # carotdid artery diseaese - continue statin # COPD - continue ICS/LABA, prn albuterol # DM2 - correction-dose lispro # hypothyroidism - continue LT4 # VTE ppx - rivaroxaban In my clinical judgment, the patient requires continued hospitalization for the following reasons: IV diuresis, rate control
[2021-11-12 09:58] VITALS: BP 106/62
--- NOTE | 2021-11-12 10:46 | PC.NURSE ---
pt remains confused, at bedside for visitation att, requiring frequent redirection.
--- NOTE | 2021-11-12 13:07 | P.F2F_ITS ---
Service Date Service Date: 11/12/21 Encounter Date of encounter: 11/12/21 Reasons for Services Signs and symptoms assessed: CHF cognitive impairment Reason for retirement: medication management and medication treatment Reason for physical therapy: home safety and mobility, therapeutic exercises, gait/transfer training, assess need for DME, ADL training and energy conservation MD Overseeing Care: Raffaele Saldana Homebound: Leaving the home is medically contraindicated at this time without the asist of a device and/or another person due th the listed conditions above and below. Reason homebound: unsteady gait / fall risk, shortness of breath with minimal effort and cognitively impaired / unsafe Certification: Based on the above findings, I certify that this patient is confined to the home and needs intermittent retirement care, physical therapy and/or speech therapy, or continues to need occupational therapy. The patient is under my care, and I have initiated the establishment of the plan of care. The patient will be followed by a physician who will periodically review the plan of care.
--- NOTE | 2021-11-12 13:40 | PM.CNCAR ---
History of Present Illness History of Present Illness Date of Service: 11/12/21 Requesting physician: Vern Hobbs Consult reason: congestive heart failure Chief complaint: Hypoxia Narrative: I was consulted to see Loren in cardiology consultation today. She is a patient of mine and I see year outpatient due to heart failure preserved ejection fraction in setting of chronic atrial fibrillation, bilateral carotid disease hypertension. She also has advanced dementia and is taken care of at home by her . Yesterday she was brought to the emergency room by the ago she was having severe occipital headache which lasted total of 12 minutes. He has been got concerned and brought her to the emergency room via an ambulance. She was noted to be significantly hypertensive. Her imaging of the brain was negative given that she is on oral anticoagulation therapy. Her she was noted to be hypoxemic and was noted to heart failure by chest x-ray BNP is minimally elevated. She was given diuresis and currently using no oxygen she appears very comfortable. Oxygen saturation is at 94% on room air. She appears very agitated and restless while I was talking with her and is very confused. says this has increased significantly in the recent time. Review of Systems Review of Systems: Yes Unobtainable due to mental status Neurologic: Reports confusion Psychiatric: Psychiatric: Reports confusion PMFSH Past Medical History Medical History Acute congestive heart failure Bilateral carotid artery disease Chronic atrial fibrillation Congestive heart failure COPD (chronic obstructive pulmonary disease) Diabetes HTN (hypertension) Seasonal allergies Family History Family History Father CVD (cardiovascular disease) HTN (hypertension) Heart failure Mother Diabetes Cancer Brother CVD (cardiovascular disease) Surgical History Surgical History History of esophagogastroduodenoscopy (EGD) Hx of appendectomy Hx of cholecystectomy Hx of colonoscopy Hx of hysterectomy Social History Social History Are you a primary medicare nurse to a significant other at home: No Do you presently have visiting nurse or other home services: No Alcohol intake: never Patient Tobacco Use Status: Never used Tobacco Advance Directives: Yes Advance Directives on File: Yes Advance Directives Date on File: 05/22/21 Meds Allergies Allergy/AdvReac Type Severity Reaction Status Date / Time hydrochlorothiazide Allergy Unknown Unknown Verified 10/04/21 10:15 Active Medications: Current Medications Acetaminophen (Acetaminophen 325 Mg Tablet) 650 mg PO Q6H PRN PRN Reason: Pain, Mild (Pain Scale 1-3) Last Admin: 11/12/21 01:21 Dose: 650 mg Documented by: Atorvastatin Calcium (Atorvastatin Calcium 10 Mg Tablet) 10 mg PO DAILY [facility] Last Admin: 11/12/21 08:51 Dose: 10 mg Documented by: Dextrose (Dextrose 50 % 25 Gm/50 Ml Syringe) 25 gm IVPUSH Q15M PRN; Protocol PRN Reason: per Hypoglycemia Standing Ord. Fluticasone/Vilanterol (Fluticasone/Vilanterol 100/25 Blst.W.Dev) 1 puff INHALE RDAILY [facility] Last Admin: 11/12/21 11:42 Dose: Not Given Documented by: Furosemide (Furosemide 20 Mg/2 Ml Vial) 20 mg IVPUSH DAILY [facility]; Protocol Last Admin: 11/12/21 07:33 Dose: Not Given Documented by: Glucose (Glucose Gel 15 Gm Gel..Gram.) 15 gm PO Q15M PRN; Protocol PRN Reason: per Hypoglycemia Standing Ord. Insulin Human Lispro (Insulin Lispro 100 Unit/Ml 3 Ml Vial) 0 unit SUBCUT QIDACHS [facility]; Protocol Last Admin: 11/12/21 07:33 Dose: 2 unit Documented by: Latanoprost (Latanoprost 0.005 % Ophth [place] 2.5 Ml Drops) 1 drop EYE-BOTH BEDTIME [facility] Levothyroxine Sodium (Levothyroxine Sodium 50 Mcg Tablet) 50 mcg PO DAILY@0600 [facility] Last Admin: 11/12/21 08:51 Dose: 50 mcg Documented by: Melatonin (Melatonin 3 Mg Tablet) 6 mg PO BEDTIME PRN PRN Reason: Insomnia Last Admin: 11/12/21 01:21 Dose: 6 mg Documented by: Memantine (Memantine Hcl 10 Mg Tablet) 10 mg PO BID [facility] Last Admin: 11/12/21 08:51 Dose: 10 mg Documented by: Metoprolol Tartrate (Metoprolol Tartrate 50 Mg Tablet) 50 mg PO Q8H [facility]; Protocol Non-Formulary Medication (Calcium Carbonate-Vitamin D2) 1 tab PO DAILY [facility] Last Admin: 11/12/21 08:52 Dose: Not Given Documented by: Omeprazole (Omeprazole 40 Mg Capsule.Dr) 40 mg PO DAILY [facility] Last Admin: 11/12/21 08:52 Dose: 40 mg Documented by: Rivaroxaban (Rivaroxaban 20 Mg Tablet) 20 mg PO DAILY [facility] Last Admin: 11/12/21 08:52 Dose: 20 mg Documented by: Senna (Sennosides 8.6 Mg Tablet) 17.2 mg PO BEDTIME PRN PRN Reason: Constipation Sodium Chloride (0.9 % Sodium Chloride Flush 3 Ml Syringe) 3 ml IVFLUSH QSHIFT [facility] Last Admin: 11/12/21 10:08 Dose: Not Given Documented by: Valsartan (Valsartan 320 Mg Tablet) 320 mg PO DAILY [facility]; Protocol Last Admin: 11/12/21 09:58 Dose: Not Given Documented by: Home Medications Medication Instructions Recorded Confirmed Last Taken Type glimepiride 1 mg tablet 1 mg PO DAILY 01/24/21 11/12/21 05/21/21 History fluticasone 250 mcg-salmeterol 50 1 puff INHALATION BID 05/22/21 11/12/21 05/21/21 History mcg/dose blistr powdr for inhalation (Advair Diskus) albuterol sulfate 90 mcg/actuation 2 puff PO Q4H PRN 10/04/21 11/12/21 Unknown History aerosol inhaler atorvastatin 10 mg tablet 1 tab PO DAILY 11/12/21 11/12/21 Unknown History brimonidine 0.2 % eye drops 1 drp OPHTHALMIC (EYE) BID 11/12/21 11/12/21 Unknown History calcium carb-ergocalciferol (vit 1 tab PO DAILY 11/12/21 11/12/21 Unknown History D2) 600 mg calcium-200 unit tablet furosemide 20 mg tablet 2 tab PO DAILY 11/12/21 11/12/21 Unknown History guaifenesin 600 mg tablet, 600 mg PO DAILY 11/12/21 11/12/21 Unknown History extended release 12 hr (Mucinex) latanoprost 0.005 % eye drops 1 drp OPHTHALMIC (EYE) BEDTIME 11/12/21 11/12/21 Unknown History levothyroxine 50 mcg tablet 1 tab PO DAILY 11/12/21 11/12/21 Unknown History memantine 10 mg tablet 1 tab PO BID 11/12/21 11/12/21 Unknown History metformin 500 mg tablet 2 tab PO BID 11/12/21 11/12/21 Unknown History metoprolol tartrate 50 mg tablet 1 tab PO BID 11/12/21 11/12/21 Unknown History omeprazole 40 mg capsule,delayed 1 cap PO DAILY 11/12/21 11/12/21 Unknown History release rivaroxaban 20 mg tablet (Xarelto) 1 tab PO DAILY 11/12/21 11/12/21 Unknown History valsartan 320 mg tablet 1 tab PO DAILY 11/12/21 11/12/21 Unknown History vit C 250 mg-vit E 90 mg-zinc 40 1 tab PO BID 11/12/21 11/12/21 Unknown History mg-copper 1 [id number] capsule (PreserVision AREDS-2) Physical Exam Vital Signs: Vital Signs: Last Vital Signs Temp 98.2 F 11/11/21 21:13 Pulse 119 H 11/12/21 06:21 Resp 21 H 11/12/21 06:21 BP 106/62 11/12/21 09:58 Pulse Ox 94 11/12/21 06:21 Const: General: cooperative, comfortable, no acute distress, alert, awake, confusion and other (Restless and anxious) Nutritional Appearance: thin Orientation/consciousness: confusion Limitations: no limitations HEENT: Head: Yes normocephalic and Yes atraumatic Neck: Neck: Yes trachea midline, Yes supple and Yes no JVD Resp: Effort & Inspection: normal respiratory effort Auscultation: clear to auscultation bilaterally Cardio: Jugular venous distension: no JVD Rhythm: abnormal rhythm irregularly irregular Heart sounds: S1 normal heart sound present, S2 normal heart sound present, no click, no gallops and no murmurs GI: Auscultation: normal bowel sounds Neuro: General: no focal motor deficits and confusion Extrem: General: Yes no clubbing, cyanosis or edema Objective Labs and Meds Result diagrams: 11/12/21 06:18 11/12/21 06:18 Lab results: Laboratory Results - last 24 hr 11/11/21 11/11/21 11/11/21 16:35 16:35 16:35 WBC 7.9 RBC 4.82 Hgb 12.8 Hct 40.3 MCV 83.6 MCH 26.6 L MCHC 31.8 RDW 20.5 H Plt Count 159 L D MPV 9.5 Immature Gran % (Auto) 0.3 Neut % (Auto) 62.9 Lymph % (Auto) 27.1 [place] % (Auto) 8.4 Eos % (Auto) 1.0 Baso % (Auto) 0.3 Lymph # (Auto) 2.1 [place] # (Auto) 0.7 Eos # (Auto) 0.1 Baso # (Auto) 0.0 Abs Immat Gran (auto) 0.02 Absolute Neuts (auto) 5.0 Absolute Nucleated RBC 0.000 Nucleated RBC % (auto) 0.0 PT INR Sodium 142 Potassium 3.4 Chloride 104 Carbon Dioxide 27 Anion Gap 14 BUN 18 H Creatinine 0.88 Estim Creat Clear Calc TNP Estimated GFR > 60 Random Glucose 108 Calcium 9.6 Magnesium 1.1 L* Total Bilirubin 0.8 AST 12 ALT 14 Alkaline Phosphatase 81 D Troponin I High Sens 4.2 C-Reactive Protein B-Natriuretic Peptide Total Protein 6.5 Albumin 3.8 Urine Color Urine Appearance Urine pH Ur Specific [place] Urine Protein Urine Glucose (UA) Urine Ketones Urine Blood Urine Nitrite Ur Leukocyte Esterase COVID-19 (LAN) COVID-19 Clin Com Influenza Type A (PCR) Influenza Type B (PCR) RSV RNA Qual (PCR) SARS-CoV-2 RNA (RT-PCR) 11/11/21 11/11/21 11/11/21 16:35 16:35 16:35 WBC RBC Hgb Hct MCV MCH MCHC RDW Plt Count MPV Immature Gran % (Auto) Neut % (Auto) Lymph % (Auto) [place] % (Auto) Eos % (Auto) Baso % (Auto) Lymph # (Auto) [place] # (Auto) Eos # (Auto) Baso # (Auto) Abs Immat Gran (auto) Absolute Neuts (auto) Absolute Nucleated RBC Nucleated RBC % (auto) PT 16.7 H INR 1.5 H Sodium Potassium Chloride Carbon Dioxide Anion Gap BUN Creatinine Estim Creat Clear Calc Estimated GFR Random Glucose Calcium Magnesium Total Bilirubin AST ALT Alkaline Phosphatase Troponin I High Sens C-Reactive Protein B-Natriuretic Peptide 313 H Total Protein Albumin Urine Color Urine Appearance Urine pH Ur Specific [place] Urine Protein Urine Glucose (UA) Urine Ketones Urine Blood Urine Nitrite Ur Leukocyte Esterase COVID-19 (LAN) Negative COVID-19 Clin Com See Note Influenza Type A (PCR) Influenza Type B (PCR) RSV RNA Qual (PCR) SARS-CoV-2 RNA (RT-PCR) 11/11/21 11/11/21 11/11/21 18:52 21:19 21:19 WBC RBC Hgb Hct MCV MCH MCHC RDW Plt Count MPV Immature Gran % (Auto) Neut % (Auto) Lymph % (Auto) [place] % (Auto) Eos % (Auto) Baso % (Auto) Lymph # (Auto) [place] # (Auto) Eos # (Auto) Baso # (Auto) Abs Immat Gran (auto) Absolute Neuts (auto) Absolute Nucleated RBC Nucleated RBC % (auto) PT INR Sodium 141 Potassium 3.5 Chloride 104 Carbon Dioxide 28 Anion Gap 13 BUN 17 H Creatinine 0.78 Estim Creat Clear Calc TNP Estimated GFR > 60 Random Glucose 89 Calcium 9.4 Magnesium 1.8 Total Bilirubin AST ALT Alkaline Phosphatase Troponin I High Sens 4.3 C-Reactive Protein 0.06 B-Natriuretic Peptide Total Protein Albumin Urine Color YELLOW Urine Appearance CLEAR Urine pH 6.0 Ur Specific [place] 1.010 Urine Protein NEG Urine Glucose (UA) NEG Urine Ketones NEG Urine Blood NEG Urine Nitrite NEG Ur Leukocyte Esterase NEG COVID-19 (LAN) COVID-19 Clin Com Influenza Type A (PCR) Influenza Type B (PCR) RSV RNA Qual (PCR) SARS-CoV-2 RNA (RT-PCR) 11/11/21 11/12/21 11/12/21 21:56 06:18 06:18 WBC 9.7 RBC 5.26 Hgb 14.0 Hct 43.0 MCV 81.7 MCH 26.6 L MCHC 32.6 RDW 20.3 H Plt Count 185 MPV 10.5 Immature Gran % (Auto) 0.5 H Neut % (Auto) 64.9 Lymph % (Auto) 26.0 [place] % (Auto) 7.3 Eos % (Auto) 0.9 Baso % (Auto) 0.4 Lymph # (Auto) 2.5 [place] # (Auto) 0.7 Eos # (Auto) 0.1 Baso # (Auto) 0.0 Abs Immat Gran (auto) 0.05 H Absolute Neuts (auto) 6.3 Absolute Nucleated RBC 0.000 Nucleated RBC % (auto) 0.0 PT INR Sodium 139 Potassium 3.3 Chloride 101 Carbon Dioxide 24 Anion Gap 17 BUN 18 H Creatinine 0.83 Estim Creat Clear Calc TNP Estimated GFR > 60 Random Glucose 151 H Calcium 9.3 Magnesium Total Bilirubin AST ALT Alkaline Phosphatase Troponin I High Sens C-Reactive Protein B-Natriuretic Peptide Total Protein Albumin Urine Color Urine Appearance Urine pH Ur Specific [place] Urine Protein Urine Glucose (UA) Urine Ketones Urine Blood Urine Nitrite Ur Leukocyte Esterase COVID-19 (LAN) COVID-19 Clin Com Influenza Type A (PCR) NEGATIVE Influenza Type B (PCR) NEGATIVE RSV RNA Qual (PCR) NEGATIVE SARS-CoV-2 RNA (RT-PCR) NEGATIVE Imaging Radiologist's impression: Impressions Head CT 11/11/21 17:00 IMPRESSION: No acute intracranial pathology. Chest X-Ray 11/11/21 19:45 IMPRESSION: No acute intrathoracic disease. Possible small right upper lobe lung nodule Chest CT 11/11/21 21:53 IMPRESSION: Cardiomegaly and mild interstitial pulmonary edema. Triple vessel coronary calcifications. Assessment and Plan (1) Congestive heart failure: Status: Acute On presentation patient was noted to be in heart failure and hypoxic. She was diuresed and currently appears to be well P heart failure could be due to acute hypertension. Underlying significant coronary artery disease highly likely. Also blood pressure could be significantly elevated due to vegetation. She was recently treated as outpatient for heart failure. This is going be a difficult problem to saw given her significant cognitive dysfunction and her elderly taking care of her at home. He has his own health issues. This could be a socially cline managing heart failure syndrome. However currently appears to be euvolemic and responding well to diuretic. I think she can go home. distance management of heart failure well. Risk of recurrent hospitalization with heart failure given marked hypertension is likely. Hypertension significantly elevated could be due to autonomic dysfunction but more likely related to agitation related to her dementia. This will be difficult clinical problem to solve when she is currently and normotensive situation. P.r.n. dose of hydralazine at home can be pursued. (2) Chronic atrial fibrillation: Status: Acute Chronic rate control atrial fibrillation. Currently rate controlled. Continue current rate control regimen. Continue full oral anticoagulation as prescribed. Will follow up as outpatient. Procedures Date of Service Date of Service: 11/12/21
[2021-11-12 13:45] VITALS: BP 131/83; PULSE 94; RESP 17; O2SAT 94
--- NOTE | 2021-11-12 14:18 | PM.DS ---
DS: Providers Provider Date of Service: 11/12/21 Date of admission: 11/12/21 00:02 Date of discharge: 11/12/21 Primary care physician: Raffaele Saldana MD Consults: 11/12/21 00:07 Consult to Cardiology Routine Consulting Provider: Jimmy Plascencia Reason for consultation: chf DS: Diagnosis Discharge Diagnosis (1) Congestive heart failure: Status: Acute (2) Chronic atrial fibrillation: Status: Acute (3) Acute on chronic heart failure with preserved ejection fraction (HFpEF): Status: Acute (4) Hypertension: Status: Acute DS: Summary Hospital Course Hospital Course: from admission H+P by Manpreet Hobbs, 11/12/21: 88-year-old female with a past medical history of hypertension, hyperlipidemia, diabetes, atrial fibrillation on anticoagulation, CHF presented to the hospital today with a chief complaint of headache.? Patient reported that she had headache located on the back of the head; denies any associated blurry visions.? Had mild dizziness.? Denies any numbness tingling or focal weakness.? Denies any chest pain. Reports that the? headache was severe hence presented to the hospital for further evaluation.? Denies any cough or shortness of breath.? Denies any GI symptoms.? Review of all other systems is negative except mentioned above ER course: Per ER team patient on presentation noted to have nonfocal examination; [place] [address] systolic; CT head showed no acute findings; but patient noted to be hypoxic at 84% on room air; chest x-ray showed congestion.? Given Lasix.? Patient also received amlodipine.? Blood pressure improving.? Admitted to the hospital for further management. per Cardiology consultation by Jimmy Plascencia MD, 11/12/21: I was consulted to see Loren in cardiology consultation today.? She is a patient of mine and I see year outpatient due to heart failure preserved ejection fraction in setting of chronic atrial fibrillation, bilateral carotid disease hypertension.? She also has advanced dementia and is taken care of at home by her .? Yesterday she was brought to the emergency room by the ago she was having severe occipital headache which lasted total of 12 minutes.? He has been got concerned and brought her to the emergency room via an ambulance.? She was noted to be significantly hypertensive.? Her imaging of the brain was negative given that she is on oral anticoagulation therapy.? Her she was noted to be hypoxemic and was noted to heart failure by chest x-ray BNP is minimally elevated.? She was given diuresis and currently using no oxygen she appears very comfortable.? Oxygen saturation is at 94% on room air.? She appears very agitated and restless while I was talking with her and is very confused.? says this has increased significantly in the recent time. She was diuresed with IV furosemide and quickly weaned off supplemental O2. Cardiology was consulted. She was discharged home with VNA services and outpatient follow-up. As-needed PO hyddralazine dose was prescibed; current exacerbation likely due to acute hypertension. There could be some comoonent of autonomic dysfunction but more likely agitation due to her dementia. Time Spent with Patient Time attestation: Total time spent providing and/or coordinating discharge services: Discharge coordination time: Greater than 30 minutes Quality: Safe Use of Opioids Does Pt have an Active Cancer Diagnosis on the Problem List?: No Quality: Stroke Does the patient have a stroke diagnosis?: No Physical Exam Vital Signs: Vital Signs: Last Vital Signs Temp 98.2 F 11/11/21 21:13 Pulse 94 11/12/21 13:45 Resp 17 11/12/21 13:45 BP 131/83 11/12/21 13:45 Pulse Ox 94 11/12/21 13:45 DS: Data Data Completed and Pending Labs on day of discharge: Laboratory Results - last 24 hr 11/11/21 11/11/21 11/11/21 16:35 16:35 16:35 WBC 7.9 RBC 4.82 Hgb 12.8 Hct 40.3 MCV 83.6 MCH 26.6 L MCHC 31.8 RDW 20.5 H Plt Count 159 L D MPV 9.5 Immature Gran % (Auto) 0.3 Neut % (Auto) 62.9 Lymph % (Auto) 27.1 [place] % (Auto) 8.4 Eos % (Auto) 1.0 Baso % (Auto) 0.3 Lymph # (Auto) 2.1 [place] # (Auto) 0.7 Eos # (Auto) 0.1 Baso # (Auto) 0.0 Abs Immat Gran (auto) 0.02 Absolute Neuts (auto) 5.0 Absolute Nucleated RBC 0.000 Nucleated RBC % (auto) 0.0 PT INR Sodium 142 Potassium 3.4 Chloride 104 Carbon Dioxide 27 Anion Gap 14 BUN 18 H Creatinine 0.88 Estim Creat Clear Calc TNP Estimated GFR > 60 Random Glucose 108 Calcium 9.6 Magnesium 1.1 L* Total Bilirubin 0.8 AST 12 ALT 14 Alkaline Phosphatase 81 D Troponin I High Sens 4.2 C-Reactive Protein B-Natriuretic Peptide Total Protein 6.5 Albumin 3.8 Urine Color Urine Appearance Urine pH Ur Specific [place] Urine Protein Urine Glucose (UA) Urine Ketones Urine Blood Urine Nitrite Ur Leukocyte Esterase COVID-19 (LAN) COVID-19 Clin Com Influenza Type A (PCR) Influenza Type B (PCR) RSV RNA Qual (PCR) SARS-CoV-2 RNA (RT-PCR) 11/11/21 11/11/21 11/11/21 16:35 16:35 16:35 WBC RBC Hgb Hct MCV MCH MCHC RDW Plt Count MPV Immature Gran % (Auto) Neut % (Auto) Lymph % (Auto) [place] % (Auto) Eos % (Auto) Baso % (Auto) Lymph # (Auto) [place] # (Auto) Eos # (Auto) Baso # (Auto) Abs Immat Gran (auto) Absolute Neuts (auto) Absolute Nucleated RBC Nucleated RBC % (auto) PT 16.7 H INR 1.5 H Sodium Potassium Chloride Carbon Dioxide Anion Gap BUN Creatinine Estim Creat Clear Calc Estimated GFR Random Glucose Calcium Magnesium Total Bilirubin AST ALT Alkaline Phosphatase Troponin I High Sens C-Reactive Protein B-Natriuretic Peptide 313 H Total Protein Albumin Urine Color Urine Appearance Urine pH Ur Specific [place] Urine Protein Urine Glucose (UA) Urine Ketones Urine Blood Urine Nitrite Ur Leukocyte Esterase COVID-19 (LAN) Negative COVID-19 Clin Com See Note Influenza Type A (PCR) Influenza Type B (PCR) RSV RNA Qual (PCR) SARS-CoV-2 RNA (RT-PCR) 11/11/21 11/11/21 11/11/21 18:52 21:19 21:19 WBC RBC Hgb Hct MCV MCH MCHC RDW Plt Count MPV Immature Gran % (Auto) Neut % (Auto) Lymph % (Auto) [place] % (Auto) Eos % (Auto) Baso % (Auto) Lymph # (Auto) [place] # (Auto) Eos # (Auto) Baso # (Auto) Abs Immat Gran (auto) Absolute Neuts (auto) Absolute Nucleated RBC Nucleated RBC % (auto) PT INR Sodium 141 Potassium 3.5 Chloride 104 Carbon Dioxide 28 Anion Gap 13 BUN 17 H Creatinine 0.78 Estim Creat Clear Calc TNP Estimated GFR > 60 Random Glucose 89 Calcium 9.4 Magnesium 1.8 Total Bilirubin AST ALT Alkaline Phosphatase Troponin I High Sens 4.3 C-Reactive Protein 0.06 B-Natriuretic Peptide Total Protein Albumin Urine Color YELLOW Urine Appearance CLEAR Urine pH 6.0 Ur Specific [place] 1.010 Urine Protein NEG Urine Glucose (UA) NEG Urine Ketones NEG Urine Blood NEG Urine Nitrite NEG Ur Leukocyte Esterase NEG COVID-19 (LAN) COVID-19 Clin Com Influenza Type A (PCR) Influenza Type B (PCR) RSV RNA Qual (PCR) SARS-CoV-2 RNA (RT-PCR) 11/11/21 11/12/21 11/12/21 21:56 06:18 06:18 WBC 9.7 RBC 5.26 Hgb 14.0 Hct 43.0 MCV 81.7 MCH 26.6 L MCHC 32.6 RDW 20.3 H Plt Count 185 MPV 10.5 Immature Gran % (Auto) 0.5 H Neut % (Auto) 64.9 Lymph % (Auto) 26.0 [place] % (Auto) 7.3 Eos % (Auto) 0.9 Baso % (Auto) 0.4 Lymph # (Auto) 2.5 [place] # (Auto) 0.7 Eos # (Auto) 0.1 Baso # (Auto) 0.0 Abs Immat Gran (auto) 0.05 H Absolute Neuts (auto) 6.3 Absolute Nucleated RBC 0.000 Nucleated RBC % (auto) 0.0 PT INR Sodium 139 Potassium 3.3 Chloride 101 Carbon Dioxide 24 Anion Gap 17 BUN 18 H Creatinine 0.83 Estim Creat Clear Calc TNP Estimated GFR > 60 Random Glucose 151 H Calcium 9.3 Magnesium Total Bilirubin AST ALT Alkaline Phosphatase Troponin I High Sens C-Reactive Protein B-Natriuretic Peptide Total Protein Albumin Urine Color Urine Appearance Urine pH Ur Specific [place] Urine Protein Urine Glucose (UA) Urine Ketones Urine Blood Urine Nitrite Ur Leukocyte Esterase COVID-19 (LAN) COVID-19 Clin Com Influenza Type A (PCR) NEGATIVE Influenza Type B (PCR) NEGATIVE RSV RNA Qual (PCR) NEGATIVE SARS-CoV-2 RNA (RT-PCR) NEGATIVE Discharge Plan Discharge Patient Disposition: Home Health Service Discharge Diagnosis: CHF exacerbation, acute hypoxic respiratory failure Referrals: Raffaele Saldana MD [Primary Care Provider] - 1 Week Discharge Medications: New hydralazine 10 mg tablet 10 mg PO TID PRN (Reason: systolic blood pressure greater than 160) Qty: 30 0RF Continued fluticasone propion-salmeterol [Advair Diskus] 250-50 mcg/dose blister with device 1 puff inhalation BID 0RF atorvastatin 10 mg tablet 1 tab PO DAILY 0RF brimonidine 0.2 % drops 1 drp ophthalmic (eye) BID 0RF calcium carbonate-vitamin D2 600 mg calcium- 200 unit Tablet 1 tab PO DAILY 0RF furosemide 20 mg tablet 2 tab PO DAILY 0RF latanoprost 0.005 % drops 1 drp ophthalmic (eye) BEDTIME 0RF levothyroxine 50 mcg tablet 1 tab PO DAILY 0RF memantine 10 mg tablet 1 tab PO BID 0RF metformin 500 mg tablet 2 tab PO BID 0RF metoprolol tartrate 50 mg tablet 1 tab PO BID 0RF guaifenesin [Mucinex] 600 mg Tablet Extended Release 12hr 600 mg PO DAILY 0RF omeprazole 40 mg capsule,delayed release(DR/EC) 1 cap PO DAILY 0RF PreserVision AREDS-2 250-90-40-1 mg Capsule 1 tab PO BID 0RF valsartan 320 mg tablet 1 tab PO DAILY 0RF Xarelto 20 mg tablet 1 tab PO DAILY 0RF albuterol sulfate 90 mcg/actuation HFA aerosol inhaler 2 puff PO Q4H PRN (Reason: Shortness Of Breath Or Wheezing) 0RF glimepiride 1 mg tablet 1 mg PO DAILY 0RF Discharge Orders: Discharge Order (Routine); Ordered 11/12/21 Ordered By: Delicia Galvan Diet: advance to usual diet and low salt diet Activity on Discharge: As tolerated Stand Alone Forms: Patient Portal Discharge page Care Plan Goals: cardiac health Health Concerns: CHF exacerbation, acute hypoxic respiratory failure Plan of Treatment: continue medications take hydralazine 10 mg 3x a day as needed for systolic blood pressure >160 restrict sodium to 2000 mg/d see primary care doctor in 1 week follow up with DR Plascencia in 1-2 weeks Assessment: See Discharge Summary Patient Instructions: Heart Failure (DC)
--- NOTE | 2021-11-12 14:34 | MHC.CM.PN ---
met with pt and in ed pt lives with had no srerv ceis prior to admisison pty dcd home with [facility] referrals made
--- NOTE | 2021-11-12 14:44 | MHC.CM.PN ---
PT DISCHARGED HOME TODAY WITH [facility]
[2021-11-13 11:46] LABS: Glucose, Whole Blood 216 mg/dL (60-115)
[2021-11-13 12:10] LABS: Glucose, Whole Blood 182 mg/dL (60-115)
== END 2021-11-12 14:35 | disposition home health service (06) | DRG 291 ==
LOC: HO.ED 23:20 → HO.EDOVER 11-12 00:12
PROVIDERS: Physician Assistant; Admitting Provider Hospitalist; Emergency Provider Internal Medicine; PCP Internal Medicine; Visit Provider Family Medicine
DX: I11.0 Hypertensive heart disease with heart failure (principal); I50.23 Acute on chronic systolic (congestive) heart failure; J96.01 Acute respiratory failure with hypoxia; I48.20 Chronic atrial fibrillation, unspecified; E83.42 Hypomagnesemia; E03.9 Hypothyroidism, unspecified; F03.90 Unspecified dementia, unspecified severity, without behavioral disturbance, psychotic disturbance, mood disturbance, and anxiety; Z20.822 Contact with and (suspected) exposure to COVID-19; Z79.01 Long term (current) use of anticoagulants; Z79.51 Long term (current) use of inhaled steroids; Z79.84 Long term (current) use of oral hypoglycemic drugs; Z79.890 Hormone replacement therapy; Z79.899 Other long term (current) drug therapy
CPT/HCPCS: 0241U; 36415; 70450; 71045; 71250; 80048; 80053; 81003; 82947; 83735; 83880; 84484; 85025; 85610; 86140; 87635; 93005; 99285; J1940; J3475

== ENCOUNTER 2021-11-30 11:18 | Outpatient (REF) | payer MEDICARE, SELFPAY ==
[2021-11-30 11:40] LABS: MANUAL DIFF FLAG NO
[2021-11-30 11:49] LABS: Basophils Percent Auto 0.4 % (0-2); Eosinophils Absolute Auto 0.1 X10*3/uL (0.0-0.4); Eosinophils Percent Auto 1.2 % (0-4); Hematocrit 42.3 % (37.0-47.0); Hemoglobin 13.4 g/dl (12.0-16.0); Imm Gran Abs Auto 0.03 X10*3/uL (0.00-0.03); Imm Gran Pct Auto 0.4 % (0.0-0.4); Lymphocytes Absolute Auto 1.2 X10*3/uL (1.2-4.9); Lymphocytes Percent Auto 13.9 % (20-40); Mean Corpuscular HGB Conc 31.7 g/dl (31.0-35.0); Mean Corpuscular Volume 85.3 fL (80.0-98.0); Mean Platelet Volume 10.2 fL (9.4-12.3); Monocytes Absolute Auto 0.5 X10*3/uL (0.1-1.2); Neutrophils Absolute Auto 6.5 x10*3/uL (2.0-8.3); Neutrophils Percent Auto 78.1 % (45-73); Platelet Count 181 X10*3/uL (160-400); Red Blood Count 4.96 X10*6/uL (4.20-5.50); Red Cell Distribution Width 17.7 % (11.0-16.0); White Blood Count 8.3 X10*3/uL (4.8-10.8)
[2021-11-30 12:16] LABS: Iron 85 mcg/dL (30-160); Percent Iron Saturation 21 % (15-50); Total Iron Binding Capacity 410 mcg/dL (228-428); Unsaturated Iron Binding 325 ug/dL
[2021-11-30 12:31] LABS: Ferritin 21 ng/mL (10-250)
== END 2021-11-30 11:19 | disposition home or self-care (01) ==
LOC: HO.LAB 11:18
PROVIDERS: PCP Internal Medicine; Visit Provider Internal Medicine
DX: D50.9 Iron deficiency anemia, unspecified (principal); I48.20 Chronic atrial fibrillation, unspecified; I50.9 Heart failure, unspecified
CPT/HCPCS: 36415; 82728; 83540; 85025; 99212

== ENCOUNTER 2022-01-18 10:31 | Outpatient (REF) | payer MEDICARE, SELFPAY ==
[2022-01-18 11:45] LABS: Thyroid Stimulating Hormone 5.03 uIU/mL (0.32-4.0)
[2022-01-18 12:00] LABS: Vitamin B12 237 pg/mL (200-900)
== END 2022-01-18 10:32 | disposition home or self-care (01) ==
LOC: HO.LNP 10:31
PROVIDERS: Visit Provider Internal Medicine
DX: E03.9 Hypothyroidism, unspecified (principal); D50.9 Iron deficiency anemia, unspecified
CPT/HCPCS: 82607; 82746; 84443

== ENCOUNTER → 2022-03-08 12:54 | Outpatient (BNVA) | payer MEDICARE, SELFPAY | PROVIDERS: PCP Internal Medicine; Referring Provider Internal Medicine; Visit Provider Internal Medicine Cardiovascular Disease | DX: I50.9 Heart failure, unspecified (principal); I48.20 Chronic atrial fibrillation, unspecified; Z79.01 Long term (current) use of anticoagulants; Z79.899 Other long term (current) drug therapy | CPT/HCPCS: 99212 ==

== ENCOUNTER 2022-06-05 11:06 | Outpatient (REF) | payer MEDICARE, SELFPAY ==
[2022-06-05 11:12] LABS: MANUAL DIFF FLAG NO
[2022-06-05 12:01] LABS: Basophils Percent Auto 0.5 % (0-2); Eosinophils Absolute Auto 0.2 X10*3/uL (0.0-0.4); Eosinophils Percent Auto 2.6 % (0-4); Hemoglobin 14.3 g/dl (12.0-16.0); Imm Gran Abs Auto 0.04 X10*3/uL (0.00-0.03); Imm Gran Pct Auto 0.5 % (0.0-0.4); Lymphocytes Absolute Auto 3.1 X10*3/uL (1.2-4.9); Lymphocytes Percent Auto 37.6 % (20-40); Mean Corpuscular HGB Conc 32.5 g/dl (31.0-35.0); Mean Corpuscular Hemoglobin 30.4 pg (27.0-33.0); Mean Corpuscular Volume 93.4 fL (80.0-98.0); Mean Platelet Volume 10.7 fL (9.4-12.3); Monocytes Absolute Auto 0.6 X10*3/uL (0.1-1.2); Monocytes Percent Auto 7.5 % (2-11); Neutrophils Absolute Auto 4.2 x10*3/uL (2.0-8.3); Neutrophils Percent Auto 51.3 % (45-73); Platelet Count 210 X10*3/uL (160-400); Red Blood Count 4.71 X10*6/uL (4.20-5.50); Red Cell Distribution Width 12.2 % (11.0-16.0); White Blood Count 8.2 X10*3/uL (4.8-10.8)
[2022-06-05 12:04] LABS: Appearance Urine Clear; Color Urine Yellow; Glucose Urine UA Negative (Negative); Leukocyte Esterase Urine Small (1+) (Negative); Nitrite Urine Negative (Negative); PH 5.5 (5.0-9.0); Specific Gravity - Urine 1.025 (1.005-1.025); UMIC TRIGGER UA YES; Urine Blood Negative (Negative); Urine Ketones Negative (Negative); Urine Protein Trace mg/dL (Neg-Trace)
[2022-06-05 12:18] LABS: Estimated Average Glucose 134 mg/dL; Hemoglobin A1c % 6.3 %
[2022-06-05 12:38] LABS: Bacteria Urine Trace (None Seen); RBC Urine 0-2 /HPF (0-2); Squamous Epithelial Cell Urine 0-2 /HPF (0-2); WBC Urine 0-5 /HPF (0-5)
[2022-06-05 12:39] LABS: Hyaline Casts Urine 0-2 /LPF (0-2)
[2022-06-05 12:41] LABS: Creatinine Urine 154.45 mg/dL; Microalbum/Creatinine Ratio Ur 70.5 ug/mg cr
[2022-06-05 14:07] LABS: Alanine Aminotransferase 16 U/L (0-31); Albumin Level 4.2 g/dL (3.5-5.0); Alkaline Phosphatase 75 U/L (39-117); Anion Gap 16 (12-20); Aspartate Amino Transferase 17 U/L (5-31); Blood Urea Nitrogen 27 mg/dL (9-16); Calcium 9.5 mg/dL (8.4-10.2); Carbon Dioxide 23 mmol/L (22-29); Chloride 108 mmol/L (96-108); Cholesterol 135 mg/dL; Estimated Glomerular Filt Rate 46; Glucose Fasting 141 mg/dL (60-99); HDL Cholesterol 56 mg/dL; LDL Cholesterol Calculated 58 mg/dl; Potassium 3.9 mmol/L (3.3-5.1); Sodium 143 mmol/L (135-145); TSH reflex Free T4 1.15 uIU/mL (0.32-4.0); Total Protein 6.8 g/dL (6.5-8.0); Triglycerides 108 mg/dL
== END 2022-06-05 11:07 | disposition home or self-care (01) ==
LOC: HO.LNP 11:06
PROVIDERS: Visit Provider Internal Medicine
DX: I11.0 Hypertensive heart disease with heart failure (principal); I50.9 Heart failure, unspecified; E03.9 Hypothyroidism, unspecified; E11.9 Type 2 diabetes mellitus without complications; E78.00 Pure hypercholesterolemia, unspecified; D50.9 Iron deficiency anemia, unspecified
CPT/HCPCS: 80053; 80061; 81001; 82043; 83036; 84443; 85025

== ENCOUNTER 2022-06-12 11:19 | Outpatient (REF) | payer MEDICARE, SELFPAY ==
[2022-06-12 12:27] LABS: Blood Urea Nitrogen 21 mg/dL (9-16)
== END 2022-06-12 11:20 | disposition home or self-care (01) ==
LOC: HO.LNP 11:19
PROVIDERS: Visit Provider Internal Medicine
DX: R79.9 Abnormal finding of blood chemistry, unspecified (principal); I50.9 Heart failure, unspecified; I48.20 Chronic atrial fibrillation, unspecified
CPT/HCPCS: 84520; 99212

== ENCOUNTER 2022-06-26 15:10 | Outpatient (REF) | payer MEDICARE, SELFPAY ==
[2022-06-26 16:16] LABS: Leukocytes Stool Qualitative MOD: 3-9/OIF (NEGATIVE)
[2022-06-27 10:11] LABS: Adenovirus F 40/41 Not Detected (Not Detect.); Astrovirus Not Detected (Not Detect.); Campylobacter Not Detected (Not Detect.); Cryptosporidium Not Detected (Not Detect.); Cyclospora cayetanensis Not Detected (Not Detect.); E. coli EAEC Not Detected (Not Detect.); E. coli EPEC Not Detected (Not Detect.); E. coli ETEC Not Detected (Not Detect.); E. coli STEC Not Detected (Not Detect.); Entamoeba histolytica Not Detected (Not Detect.); Giardia lamblia Not Detected (Not Detect.); Norovirus GI/GII Not Detected (Not Detect.); Plesiomonas shigelloides Not Detected (Not Detect.); Rotavirus A Not Detected (Not Detect.); Salmonella Not Detected (Not Detect.); Sapovirus Not Detected (Not Detect.); Shigella sp./EIEC Not Detected (Not Detect.); Vibrio Not Detected (Not Detect.); Vibrio Cholerae Not Detected (Not Detect.); Yersinia enterocolitica Not Detected (Not Detect.)
== END 2022-06-26 15:11 | disposition home or self-care (01) ==
LOC: HO.LNP 15:10
PROVIDERS: Visit Provider Internal Medicine
DX: R19.7 Diarrhea, unspecified (principal)
CPT/HCPCS: 87177; 87209; 87507; 89055

== ENCOUNTER 2022-07-28 16:13 | Emergency (ER) | payer MEDICARE, SELFPAY ==
--- NOTE | ~2022-07-28 | XR_ITS ---
EXAMINATION: XR chest 1V CLINICAL INFORMATION: Chest pain COMPARISON: Chest radiograph 11/11/2021 TECHNIQUE: One view of the chest XR/XR chest 1V FINDINGS/IMPRESSION: * Similar slightly increased reticular opacities which may reflect sequelae of senescent change. No new superimposed focal consolidation. * No pneumothorax or pleural effusion. * Cardiac silhouette is mildly enlarged similar to prior.
[2022-07-28 16:32] VITALS: BP 110/89; BP 172/85; PULSE 87; PULSE 94; RESP 14; TEMP 36.7; O2SAT 95; BMI 19.5
--- NOTE | 2022-07-28 16:48 | ED.EXTPRO ---
HPI - Extremity Problem General Chief complaint: Extremity Injury, Upper Stated complaint: SHOULDER PAIN,NO INJURY Time Seen by Provider: 07/28/22 16:48 Source: patient Mode of arrival: EMS Limitations: no limitations History of Present Illness HPI Narrative: Patient 86 years old with history of chronic atrial fibrillation on Eliquis, hypertension, CHF comes here as around 15:00 while at rest noticed pain in the left arm left lateral ribs. Pain lasted until she came to the hospital denies any pain now no shoulder pain no history of fall palpitation or shortness of breath no fever or chills no cough at this time patient feels normal blood pressure on arrival was 172/85 pulse rate 87 saturating 95% on room air Related Data Home Medications Medication Instructions Recorded Confirmed glimepiride 1 mg tablet 1 mg PO DAILY 01/24/21 06/12/22 fluticasone 250 mcg-salmeterol 50 1 puff inhalation BID 05/22/21 06/12/22 mcg/dose blistr powdr for inhalation (Advair Diskus) albuterol sulfate 90 mcg/actuation 2 puff PO Q4H PRN Shortness Of 10/04/21 06/12/22 aerosol inhaler Breath Or Wheezing brimonidine 0.2 % eye drops 1 drp ophthalmic (eye) BID 11/12/21 06/12/22 guaifenesin 600 mg tablet, 600 mg PO DAILY 11/12/21 06/12/22 extended release 12 hr (Mucinex) latanoprost 0.005 % eye drops 1 drp ophthalmic (eye) BEDTIME 11/12/21 06/12/22 atorvastatin 10 mg tablet 10 mg PO DAILY 11/30/21 06/12/22 calcium carb-ergocalciferol (vit 1 tab PO DAILY 11/30/21 06/12/22 D2) 600 mg calcium-200 unit tablet levothyroxine 50 mcg tablet 50 mcg PO DAILY 11/30/21 06/12/22 memantine 10 mg tablet 10 mg PO BID 11/30/21 06/12/22 metformin 500 mg tablet 1,000 mg PO BID 11/30/21 06/12/22 metoprolol tartrate 50 mg tablet 50 mg PO BID 11/30/21 06/12/22 omeprazole 40 mg capsule,delayed 40 mg PO DAILY 11/30/21 06/12/22 release potassium chloride 8 mEq 8 meq PO DAILY 11/30/21 06/12/22 tablet,extended release vit C 250 mg-vit E 90 mg-zinc 40 1 tab PO BID 11/30/21 06/12/22 mg-copper 1 [id number] capsule (PreserVision AREDS-2) valsartan 160 mg tablet 160 mg PO DAILY 06/12/22 06/12/22 Previous Rx's Medication Instructions Recorded hydralazine 10 mg tablet 10 mg PO TID PRN systolic blood 11/12/21 pressure greater than 160 #30 tabs apixaban 2.5 mg tablet (Eliquis) 2.5 mg PO BID #180 tabs 06/12/22 furosemide 20 mg tablet 40 mg PO DAILY #180 tabs 06/28/22 Allergies Allergy/AdvReac Type Severity Reaction Status Date / Time hydrochlorothiazide Allergy Unknown Unknown Verified 10/04/21 10:15 Review of Systems Review of Systems: Yes all other systems are reviewed and are negative [facility] Past Medical History Medical History Acute congestive heart failure Bilateral carotid artery disease Chronic atrial fibrillation Congestive heart failure COPD (chronic obstructive pulmonary disease) Diabetes Dizziness HTN (hypertension) Hypoxia Seasonal allergies Surgical History History of esophagogastroduodenoscopy (EGD) Hx of appendectomy Hx of cholecystectomy Hx of colonoscopy Hx of hysterectomy Family History Family History Father CVD (cardiovascular disease) HTN (hypertension) Heart failure Mother Diabetes Cancer Brother CVD (cardiovascular disease) Social History Social History Are you a primary pharmacy customer care specialist to a significant other at home: No Do you presently have visiting nurse or other home services: No Alcohol intake: never Patient Tobacco Use Status: Never used Tobacco Advance Directives: Yes Advance Directives on File: Yes Advance Directives Date on File: 05/22/21 service: No Physical Exam Vital Signs: Vital Signs: Last Vital Signs Temp 98.0 F 07/28/22 19:09 Pulse 94 07/28/22 19:09 Resp 23 H 07/28/22 19:09 BP 152/97 H 07/28/22 19:09 Pulse Ox 94 07/28/22 19:09 O2 Del Method 07/28/22 19:09 BMI result Body Mass Index 19.5 Appearance: Alert. Oriented X3. No acute distress. Eyes: PERRLA, No Nystagmus ENT: Pharynx normal. Oral Mucosa moist Neck: Normal inspection. Neck supple. CVS: Irregular irregular heart rate soft systolic ejection murmur no rub or gallop. Pulses normal. Respiratory: No respiratory distress. Equal air entry bilateral, no wheezing/rales/rhonchi Abdomen: Soft and nontender. Bowel sounds are present, no mass palpable, no CVA tenderness Skin: Skin warm and dry. Normal skin color. Normal skin turgor. Extremities: No lower extremity edema. No calf tenderness Neuro: Oriented X 3. No motor deficit. Medical Decision Making Medical Decision Making [facility] Narrative: Patient with left arm pain left rib pain etiology not very clear on Eliquis for AFib heart rate controlled 2 sets of high sensitive troponin negative D-dimer negative chest x-ray negative patient without any pain while stay in the ER will discharge patient home advised to follow up with consumer affairs director Lab Data [facility] Lab Attestation statement: I reviewed the patient's lab results. 07/28/22 17:23 07/28/22 17:23 Labs: Lab Results 07/28/22 07/28/22 07/28/22 Range/Units 17:23 17:23 17:23 WBC 7.7 (4.8-10.8) X10*3/uL RBC 4.33 (4.20-5.50) X10*6/uL Hgb 13.0 (12.0-16.0) g/dl Hct 39.6 (37.0-47.0) % MCV 91.5 (80.0-98.0) fL MCH 30.0 (27.0-33.0) pg MCHC 32.8 (31.0-35.0) g/dl RDW 13.1 (11.0-16.0) % Plt Count 177 (160-400) X10*3/uL MPV 10.2 (9.4-12.3) fL Immature Gran % (Auto) 0.4 (0.0-0.4) % Neut % (Auto) 66.0 (45-73) % Lymph % (Auto) 23.0 (20-40) % Bullock % (Auto) 8.7 (2-11) % Eos % (Auto) 1.4 (0-4) % Baso % (Auto) 0.5 (0-2) % Lymph # (Auto) 1.8 (1.2-4.9) X10*3/uL Bullock # (Auto) 0.7 (0.1-1.2) X10*3/uL Eos # (Auto) 0.1 (0.0-0.4) X10*3/uL Baso # (Auto) 0.0 (0.0-0.2) X10*3/uL Abs Immat Gran (auto) 0.03 (0.00-0.03) X10*3/uL Absolute Neuts (auto) 5.1 (2.0-8.3) x10*3/uL Absolute Nucleated RBC 0.000 (0.0-0.012) X10*3/uL Nucleated RBC % (auto) 0.0 (0.0-0.2) /100WBC PT 13.9 H (10.0-13.1) SEC INR 1.2 H (0.9-1.1) D-Dimer High Sensitivty < 150 NG/ML Sodium 141 (135-145) mmol/L Potassium 3.9 (3.3-5.1) mmol/L Chloride 105 (96-108) mmol/L Carbon Dioxide 28 (22-29) mmol/L Anion Gap 12 (12-20) BUN 32 H (9-16) mg/dL Creatinine 1.16 (0.5-1.4) mg/dL Estim Creat Clear Calc 27.4 Estimated GFR 44 Random Glucose 171 H (60-115) mg/dL Calcium 9.4 (8.4-10.2) mg/dL Total Bilirubin 0.5 (0.0-1.0) mg/dL AST 12 (5-31) U/L ALT 15 (0-31) U/L Alkaline Phosphatase 76 (39-117) U/L Troponin I High Sens (<3.5-17.0) ng/L B-Natriuretic Peptide (<100) pg/mL Total Protein 5.9 L (6.5-8.0) g/dL Albumin 3.5 (3.5-5.0) g/dL 07/28/22 07/28/22 07/28/22 Range/Units 17:23 17:23 19:15 WBC (4.8-10.8) X10*3/uL RBC (4.20-5.50) X10*6/uL Hgb (12.0-16.0) g/dl Hct (37.0-47.0) % MCV (80.0-98.0) fL MCH (27.0-33.0) pg MCHC (31.0-35.0) g/dl RDW (11.0-16.0) % Plt Count (160-400) X10*3/uL MPV (9.4-12.3) fL Immature Gran % (Auto) (0.0-0.4) % Neut % (Auto) (45-73) % Lymph % (Auto) (20-40) % Bullock % (Auto) (2-11) % Eos % (Auto) (0-4) % Baso % (Auto) (0-2) % Lymph # (Auto) (1.2-4.9) X10*3/uL Bullock # (Auto) (0.1-1.2) X10*3/uL Eos # (Auto) (0.0-0.4) X10*3/uL Baso # (Auto) (0.0-0.2) X10*3/uL Abs Immat Gran (auto) (0.00-0.03) X10*3/uL Absolute Neuts (auto) (2.0-8.3) x10*3/uL Absolute Nucleated RBC (0.0-0.012) X10*3/uL Nucleated RBC % (auto) (0.0-0.2) /100WBC PT (10.0-13.1) SEC INR (0.9-1.1) D-Dimer High Sensitivty NG/ML Sodium (135-145) mmol/L Potassium (3.3-5.1) mmol/L Chloride (96-108) mmol/L Carbon Dioxide (22-29) mmol/L Anion Gap (12-20) BUN (9-16) mg/dL Creatinine (0.5-1.4) mg/dL Estim Creat Clear Calc Estimated GFR Random Glucose (60-115) mg/dL Calcium (8.4-10.2) mg/dL Total Bilirubin (0.0-1.0) mg/dL AST (5-31) U/L ALT (0-31) U/L Alkaline Phosphatase (39-117) U/L Troponin I High Sens < 3.5 3.4 (<3.5-17.0) ng/L B-Natriuretic Peptide 216 H (<100) pg/mL Total Protein (6.5-8.0) g/dL Albumin (3.5-5.0) g/dL Independent Interpretation I performed an independent interpretation of an: EKG Interpretation: Atrial fibrillation heart rate 95 beats per minute LVH no acute restricted in no acute ischemia Discharge Plan Discharge Clinical Impression: Chest pain, Musculoskeletal arm pain Patient Disposition: Home, Self-Care Instructions: Chest Pain (ED), Arm Pain (ED) Additional Instructions: Because of your chest and arm pain is not very clear No cardiac damage was seen at this time Follow-up with your PCP/consumer affairs director for further evaluation Continue medications as before Prescriptions: No Action furosemide 20 mg tablet 40 mg PO DAILY Qty: 180 3RF fluticasone propion-salmeterol [Advair Diskus] 250-50 mcg/dose blister with device 1 puff inhalation BID brimonidine 0.2 % drops 1 drp ophthalmic (eye) BID latanoprost 0.005 % drops 1 drp ophthalmic (eye) BEDTIME guaifenesin [Mucinex] 600 mg Tablet Extended Release 12hr 600 mg PO DAILY hydralazine 10 mg tablet 10 mg PO TID PRN (Reason: systolic blood pressure greater than 160) Qty: 30 0RF atorvastatin 10 mg tablet 10 mg PO DAILY calcium carbonate-vitamin D2 600 mg calcium- 200 unit tablet 1 tab PO DAILY levothyroxine 50 mcg tablet 50 mcg PO DAILY memantine 10 mg tablet 10 mg PO BID metformin 500 mg tablet 1,000 mg PO BID metoprolol tartrate 50 mg tablet 50 mg PO BID omeprazole 40 mg capsule,delayed release(DR/EC) 40 mg PO DAILY PreserVision AREDS-2 250-90-40-1 mg capsule 1 tab PO BID albuterol sulfate 90 mcg/actuation HFA aerosol inhaler 2 puff PO Q4H PRN (Reason: Shortness Of Breath Or Wheezing) glimepiride 1 mg tablet 1 mg PO DAILY potassium chloride 8 mEq tablet extended release 8 meq PO DAILY valsartan 160 mg tablet 160 mg PO DAILY Eliquis 2.5 mg tablet 2.5 mg PO BID Qty: 180 3RF
--- NOTE | 2022-07-28 16:51 | ECG_ITS ---
Test Reason : Left arm pain Blood Pressure : / mmHG Vent. Rate : 095 BPM Atrial Rate : 000 BPM P-R Int : 000 ms QRS Dur : 084 ms QT Int : 380 ms P-R-T Axes : 000 060 081 degrees QTc Int : 477 ms Atrial fibrillation Minimal voltage criteria for LVH, may be normal variant ( Dane product ) Abnormal ECG When compared with ECG of 11-NOV-2021 17:20, No significant change was found Referred By: [facility] Electronically Signed By:CHANTEL LATHAM
[2022-07-28 17:33] LABS: MANUAL DIFF FLAG NO
[2022-07-28 17:34] LABS: Basophils Percent Auto 0.5 % (0-2); Eosinophils Absolute Auto 0.1 X10*3/uL (0.0-0.4); Eosinophils Percent Auto 1.4 % (0-4); Hematocrit 39.6 % (37.0-47.0); Imm Gran Abs Auto 0.03 X10*3/uL (0.00-0.03); Imm Gran Pct Auto 0.4 % (0.0-0.4); Lymphocytes Absolute Auto 1.8 X10*3/uL (1.2-4.9); Mean Corpuscular HGB Conc 32.8 g/dl (31.0-35.0); Mean Corpuscular Volume 91.5 fL (80.0-98.0); Mean Platelet Volume 10.2 fL (9.4-12.3); Monocytes Absolute Auto 0.7 X10*3/uL (0.1-1.2); Monocytes Percent Auto 8.7 % (2-11); Neutrophils Absolute Auto 5.1 x10*3/uL (2.0-8.3); Platelet Count 177 X10*3/uL (160-400); Red Blood Count 4.33 X10*6/uL (4.20-5.50); Red Cell Distribution Width 13.1 % (11.0-16.0); White Blood Count 7.7 X10*3/uL (4.8-10.8)
[2022-07-28 17:40] LABS: INTERNATIONAL NORM RATIO 1.2 (0.9-1.1); Prothrombin Time 13.9 SEC (10.0-13.1)
[2022-07-28 17:56] LABS: Alanine Aminotransferase 15 U/L (0-31); Albumin Level 3.5 g/dL (3.5-5.0); Alkaline Phosphatase 76 U/L (39-117); Anion Gap 12 (12-20); Aspartate Amino Transferase 12 U/L (5-31); Bilirubin Total 0.5 mg/dL (0.0-1.0); Blood Urea Nitrogen 32 mg/dL (9-16); Calcium 9.4 mg/dL (8.4-10.2); Carbon Dioxide 28 mmol/L (22-29); Chloride 105 mmol/L (96-108); Creatinine Clr Calc Pharmacy 27.4; Estimated Glomerular Filt Rate 44; Glucose Random 171 mg/dL (60-115); Potassium 3.9 mmol/L (3.3-5.1); Sodium 141 mmol/L (135-145); Total Protein 5.9 g/dL (6.5-8.0)
[2022-07-28 17:58] LABS: B Type Natriuretic Peptide 216 pg/mL (<100)
[2022-07-28 18:03] LABS: Troponin-I High Sensitivity < 3.5 ng/L (<3.5-17.0)
--- NOTE | 2022-07-28 18:58 | PC.NURSE ---
Pt able to get up to bathroom with tech assistance. Pt now resting comfortably on stretcher, no apparent distress
[2022-07-28 19:09] VITALS: BP 152/97; PULSE 94; RESP 23; TEMP 36.7; O2SAT 94
[2022-07-28 19:43] LABS: Troponin-I High Sensitivity 3.4 ng/L (<3.5-17.0)
[2022-07-28 20:08] LABS: D Dimer High Sensitivity < 150 NG/ML
== END 2022-07-28 20:43 | disposition home or self-care (01) ==
PROVIDERS: Emergency Provider Internal Medicine; PCP Internal Medicine
DX: R07.9 Chest pain, unspecified (principal); M79.18 Myalgia, other site; E11.9 Type 2 diabetes mellitus without complications; I11.0 Hypertensive heart disease with heart failure; I50.9 Heart failure, unspecified; I48.91 Unspecified atrial fibrillation; Z79.01 Long term (current) use of anticoagulants; Z79.02 Long term (current) use of antithrombotics/antiplatelets; Z79.84 Long term (current) use of oral hypoglycemic drugs; Z79.899 Other long term (current) drug therapy
CPT/HCPCS: 36415; 71045; 80053; 83880; 84484; 85025; 85379; 85610; 93005; 99284

== ENCOUNTER 2022-08-23 10:56 | Outpatient (REF) | payer MEDICARE, SELFPAY ==
--- NOTE | ~2022-08-23 | MM_ITS ---
EXAMINATION: MM SCREENING DIGITAL BREAST TOMOSYNTHESIS, BILATERAL CLINICAL INFORMATION: Screening. Asymptomatic. COMPARISON: Mammography: 08/11/2021, 08/09/2020, 02/23/2019 TECHNIQUE: Digital breast tomosynthesis is performed in both the craniocaudal and mediolateral oblique views along with computer-aided detection (CAD). Synthesized 2D images are generated from the tomosynthesis. FINDINGS: There are scattered areas of fibroglandular density (ACR BI-RADS breast composition Category b). Breast tissue composition borders on heterogeneously dense. There are no significant masses, abnormal calcifications, or other abnormalities. No architectural abnormality. The axilla and skin contours are unremarkable. MM/MM tomosynthesis screening BI IMPRESSION: No mammographic evidence of malignancy. ASSESSMENT: BI-RADS 1: Negative RECOMMENDATION: Routine annual mammography screening. This patient's information was entered into a reminder system with a target due date for their next mammogram.
== END 2022-08-23 10:57 | disposition home or self-care (01) ==
LOC: HO.MAMMO 10:56
PROVIDERS: PCP Internal Medicine; Visit Provider Internal Medicine
DX: Z12.31 Encounter for screening mammogram for malignant neoplasm of breast (principal)
CPT/HCPCS: 77063; 77067

== ENCOUNTER 2022-09-14 10:44 | Outpatient (REF) | payer MEDICARE, SELFPAY ==
[2022-09-14 11:56] LABS: Blood Urea Nitrogen 32 mg/dL (9-16)
== END 2022-09-14 10:45 | disposition home or self-care (01) ==
LOC: HO.LNP 10:44
PROVIDERS: Visit Provider Internal Medicine
DX: R79.9 Abnormal finding of blood chemistry, unspecified (principal)
CPT/HCPCS: 84520

== ENCOUNTER 2022-10-30 10:56 | Outpatient (REF) | payer MEDICARE, MEDICAID, SELFPAY ==
[2022-10-30 12:44] LABS: Blood Urea Nitrogen 32 mg/dL (9-16); Estimated Glomerular Filt Rate 50
== END 2022-10-30 10:57 | disposition home or self-care (01) ==
LOC: HO.LNP 10:56
PROVIDERS: Visit Provider Internal Medicine
DX: I10 Essential (primary) hypertension (principal)
CPT/HCPCS: 82565; 84520

== ENCOUNTER 2022-11-22 07:34 | Inpatient (IN) | payer MEDICARE, MEDICAID, SELFPAY ==
[2022-11-22] VITALS (13 sets, daily range): BP systolic 144–191; BP diastolic 66–105; PULSE 79–140; RESP 12–26; TEMP 36.7–38.9; O2SAT 90–98; BMI 21.9
--- NOTE | ~2022-11-22 | XR_ITS ---
EXAMINATION: XR CHEST CLINICAL INFORMATION: Hypoxia COMPARISON: July 28, 2022 TECHNIQUE: AP portable view of the chest was obtained. FINDINGS: There is a patchy region of density seen within the right upper lobe which may be related to pneumonitis or atelectasis. Heart upper limits of normal in size. No evidence of pulmonary edema. No pneumothorax. There appears to be some mild blunting of the left costophrenic angle which may be related to small effusion. XR/XR chest 1V IMPRESSION: Patchy density right upper lobe which may be related to atelectasis or pneumonitis. Probable small left pleural effusion.
--- NOTE | ~2022-11-22 | CT_ITS ---
EXAMINATION: CT HEAD WITHOUT CONTRAST CLINICAL INFORMATION: Confusion. On anticoagulant. COMPARISON: November 11, 2021 TECHNIQUE: Contiguous axial imaging was performed from the skull base to vertex without intravenous administration of contrast. This CT examination was performed using dose optimization techniques as appropriate, variously including the following: *Automated exposure control *Adjustment of mA and/or kV according to patient size (this includes techniques or standardized protocols for targeted exams where dose is matched to indication/reason for exam; i.e. extremities or head) *Use of iterative reconstruction technique DLP: 561 mGy-cm FINDINGS: No intracranial hemorrhage identified. No abnormal extra-axial fluid collection. No significant mass effect or midline structure shift. There is prominence of the ventricles, sulci, and cisterns consistent with generalized atrophy. There is large amount of periventricular white matter low density seen consistent with gliosis of microangiopathy. Alatorre-white matter interface maintained. Calvarium intact. Visualized paranasal sinuses and mastoid air cells aerated. Temporomandibular joints unremarkable. Pterygoid plates intact. CT/CT head/brain wo IV con IMPRESSION: No acute intracranial pathology. 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
--- NOTE | ~2022-11-22 | CT_ITS ---
EXAMINATION: CT CHEST WITHOUT CONTRAST CLINICAL INFORMATION: Question pneumonia and pleural effusion. COMPARISON: 09/11/2021. TECHNIQUE: Multidetector volumetric CT imaging of the chest was done. Axial MIP volume rendering provided. Sagittal and coronal reformatted images were obtained. This CT examination was performed using dose optimization techniques as appropriate, variously including the following: *Automated exposure control *Adjustment of mA and/or kV according to patient size (this includes techniques or standardized protocols for targeted exams where dose is matched to indication/reason for exam; i.e. extremities or head) *Use of iterative reconstruction technique DLP: 187 mGy-cm FINDINGS: LUNGS: Central airways are patent. There are mild changes of centrilobular emphysema. There is intralobular septal thickening seen within the upper lobes bilaterally. There is bronchial wall thickening seen bilaterally which may be infectious or related to reactive airways disease. There is a region of discoid disease seen within the right middle lobe likely related to atelectasis. There are some scattered regions of mucus plugging, most prominent within the lingula and left lower lobe. Sub 4 mm densities are present. There is a small focus of disease seen within the posterior aspect of the right upper lobe which was not definitely present on study of 11/11/2021. There is a small amount of bibasilar airspace disease likely related to dependent atelectasis. No significant pleural effusion is identified. MEDIASTINUM: The heart is enlarged. No pericardial effusion. No thoracic aortic aneurysm. I do not definitely see mediastinal or hilar lymphadenopathy, but evaluation to the hilar regions is somewhat limited with lack of IV contrast. CORONARY ARTERY CALCIFICATION: Present and prominent. PLEURA: There is no pleural effusion. No pleural mass or thickening. AXILLA: No lymphadenopathy. UPPER ABDOMEN: There is a 1 cm low-density region seen within the anterior aspect of the spleen containing a single calcification. This was present on old study. The adrenal glands are bulky bilaterally without focal mass appreciated. OSSEOUS STRUCTURES: No suspicious destructive bony lesions are identified. There is degenerative change of the shoulders and acromioclavicular joints bilaterally. There is calcific tendinitis of the right shoulder. CT/CT chest wo IV con IMPRESSION: Bronchial wall thickening with some mucus plugging as described above which may be related to infectious process versus reactive airways disease. Cardiomegaly without pulmonary edema. Fleischner guidelines were followed.
--- NOTE | ~2022-11-22 | XR_ITS ---
EXAMINATION: XR CHEST CLINICAL INFORMATION: Shortness of breath. COMPARISON: 11/25/2022 chest radiograph. TECHNIQUE: Frontal view of the chest was obtained. FINDINGS: No significant abnormality is noted involving the heart, lungs, mediastinum, bony thorax or soft tissues. XR/XR chest 1V IMPRESSION: No acute cardiopulmonary process.
--- NOTE | ~2022-11-22 | XR_ITS ---
EXAMINATION: XR CHEST CLINICAL INFORMATION: Hypoxia COMPARISON: Chest radiograph and chest CT 11/22/2022 TECHNIQUE: Frontal view of the chest was obtained. FINDINGS: Compared to the prior study, there's been some slight improvement. I suspect there was upper zone redistribution which appears slightly improved. Mild cardiac enlargement remains. No gross CHF or pleural effusions. There are chronic markings in the upper lobes shown to be atelectasis on the recent CT scan. XR/XR chest 1V IMPRESSION: Slight improvement in appearances when compared to the prior study.
--- NOTE | 2022-11-22 08:04 | ECG_ITS ---
Test Reason : tachy Blood Pressure : / mmHG Vent. Rate : 114 BPM Atrial Rate : 000 BPM P-R Int : 000 ms QRS Dur : 074 ms QT Int : 334 ms P-R-T Axes : 000 083 110 degrees QTc Int : 460 ms Atrial fibrillation with rapid ventricular response Nonspecific ST and T wave abnormality Abnormal ECG When compared with ECG of 28-JUL-2022 17:51, Non-specific change in ST segment in Anterior leads Referred By: Generic ED Physician Electronically Signed By:CHANTEL LATHAM
--- NOTE | 2022-11-22 08:18 | ED.AMS ---
HPI - Altered Mental Status General Chief Complaint: Altered Mental Status Stated Complaint: INCR CONFUSION,H/O DEMENTIA PER HUSB Time Seen by Provider: 11/22/22 08:10 Source: patient, family, EMS and old records reviewed Mode of arrival: EMS Limitations: altered mental status History of Present Illness HPI narrative: 87-year-old female with a history of dementia, chronic atrial fibrillation on anticoagulation, CHF, HTN, hypothyroidism, diabetes who presents to the ER from home via EMS for evaluation of generalized weakness and increased confusion. Patient was in her usual state of health last night when she went to bed. reports she got up at 03:00 to use the bathroom. She was incontinent of urine while walking to the bathroom. He states she got up again at 06:00, went to the bathroom and was unable to get off of the toilet due to generalized weakness. He states she was more confused than usual. He called 911. On EMS arrival patient was found to be in rapid AFib. IV was established she was given 5 mg of IV metoprolol. On arrival to the ER patient is in rapid AFib, heart rate 110s. She is hypertensive in the 180 systolic. She offers no physical complaints except for being cold. She denies any chest pain or trouble breathing. No nausea, vomiting, abdominal pain. She denies any dysuria. She did not get her morning medications today. MD complaint: confusion and weakness Onset (ago): hour(s) Time: 06:00 Timing confirmed by: spouse Severity: moderate Consistency of symptoms: constant Context: diabetes and other (History of dementia) Associated symptoms: chills, weakness, difficulty walking and other (Urinary incontinence) Treatments prior to arrival: other (IV metoprolol) Related Data Home Medications Medication Instructions Recorded Confirmed glimepiride 1 mg tablet 1 mg PO DAILY 01/24/21 06/12/22 fluticasone 250 mcg-salmeterol 50 1 puff inhalation BID 05/22/21 06/12/22 mcg/dose blistr powdr for inhalation (Advair Diskus) albuterol sulfate 90 mcg/actuation 2 puff PO Q4H PRN Shortness Of 10/04/21 06/12/22 aerosol inhaler Breath Or Wheezing brimonidine 0.2 % eye drops 1 drp ophthalmic (eye) BID 11/12/21 06/12/22 guaifenesin 600 mg tablet, 600 mg PO DAILY 11/12/21 06/12/22 extended release 12 hr (Mucinex) latanoprost 0.005 % eye drops 1 drp ophthalmic (eye) BEDTIME 11/12/21 06/12/22 atorvastatin 10 mg tablet 10 mg PO DAILY 11/30/21 06/12/22 calcium carb-ergocalciferol (vit 1 tab PO DAILY 11/30/21 06/12/22 D2) 600 mg calcium-200 unit tablet levothyroxine 50 mcg tablet 50 mcg PO DAILY 11/30/21 06/12/22 memantine 10 mg tablet 10 mg PO BID 11/30/21 06/12/22 metformin 500 mg tablet 1,000 mg PO BID 11/30/21 06/12/22 metoprolol tartrate 50 mg tablet 50 mg PO BID 11/30/21 06/12/22 omeprazole 40 mg capsule,delayed 40 mg PO DAILY 11/30/21 06/12/22 release potassium chloride 8 mEq 8 meq PO DAILY 11/30/21 06/12/22 tablet,extended release vit C 250 mg-vit E 90 mg-zinc 40 1 tab PO BID 11/30/21 06/12/22 mg-copper 1 bh-zmjddr-yydvan capsule (PreserVision AREDS-2) valsartan 160 mg tablet 160 mg PO DAILY 06/12/22 06/12/22 Previous Rx's Medication Instructions Recorded hydralazine 10 mg tablet 10 mg PO TID PRN systolic blood 11/12/21 pressure greater than 160 #30 tabs apixaban 2.5 mg tablet (Eliquis) 2.5 mg PO BID #180 tabs 06/12/22 furosemide 20 mg tablet 40 mg PO DAILY #180 tabs 06/28/22 Allergies Allergy/AdvReac Type Severity Reaction Status Date / Time hydrochlorothiazide Allergy Unknown Unknown Verified 10/04/21 10:15 Review of Systems Review of Systems: Yes all other systems are reviewed and are negative [facility] Past Medical History Medical History Acute congestive heart failure Bilateral carotid artery disease Chronic atrial fibrillation Congestive heart failure COPD (chronic obstructive pulmonary disease) Diabetes Dizziness HTN (hypertension) Hypoxia Seasonal allergies Surgical History History of esophagogastroduodenoscopy (EGD) Hx of appendectomy Hx of cholecystectomy Hx of colonoscopy Hx of hysterectomy Family History Family History Father CVD (cardiovascular disease) HTN (hypertension) Heart failure Mother Diabetes Cancer Brother CVD (cardiovascular disease) Social History Social History Are you a primary director of patient care to a significant other at home: No Do you presently have visiting nurse or other home services: No Alcohol intake: former Patient Tobacco Use Status: Never used Tobacco Smoked in Last 30 Days: No Use of substances other than those prescribed or required for medical reasons: No Advance Directives: Yes Advance Directives on File: Yes Advance Directives Date on File: 05/22/21 service: No Physical Exam ED Vital Signs: Vital Signs - 24 hr 11/22/22 08:04 11/22/22 09:13 11/22/22 10:18 Temperature 98.1 F 102.1 F H 98.6 F Pulse Rate 117 H 113 H 126 H Respiratory Rate 16 20 18 Blood Pressure 191/103 H 180/105 H 153/87 H Pulse Oximetry 90 L 98 Oxygen Delivery Method Room Air Oxymask Oxygen Flow Rate 4 4 11/22/22 11:03 Temperature Pulse Rate 91 Respiratory Rate 26 H Blood Pressure 146/81 H Pulse Oximetry Oxygen Delivery Method Oxygen Flow Rate BMI result Body Mass Index 21.9 Appearance: Alert elderly female laying in bed, tremulous. Oriented X2. Mildly tachypneic. Head: normocephalic, atraumatic. Eyes: Pupils equal, round and reactive to light. ENT: Pharynx normal. No tonsillar swelling or exudate. Neck: Normal inspection. Neck supple. Positive JVD CVS: Tachycardic, heart rate 110. Irregularly irregular. Pulses normal. Respiratory: Mild respiratory distress, increased respiratory rate low 20s.. Breath sounds normal. Abdomen: Soft and nontender. +BS x4 Skin: Skin warm and dry. Normal skin color. Normal skin turgor. No rashes. Extremities: No lower extremity edema. No joint swelling. Neuro/psych: Oriented X 2. Generalized weakness noted, able to follow simple commands, strength equal and symmetrical throughout No sensory deficit. CN II-XII intact. Normal speech and cognition. Course Reevaluation(s) Reevaluation #1: Patient found to have a rectal temperature of 102.1 degrees. She is tachycardic and hypertensive. She is slightly tachypneic. Chest x-ray showing a right upper lobe infiltrate, question aspiration. Will cover with IV Zosyn for now. Holding off IV fluids given her history of heart failure and hypertension. She has JVD. Will monitor closely. Will plan for admission to the hospital once workup is complete. Time: 09:20 Reevaluation #2: Fever improved. Heart rate improved. Blood pressure improved. She is saturating well on [address] head is unremarkable. Will plan for admission for ongoing management. Patient and at the bedside updated on plan of care. Time: 11:07 Medications Administered Discontinued Medications Generic Name Dose Route Start Last Admin Trade Name Freq PRN Reason Stop Dose Admin Acetaminophen 975 mg 11/22/22 09:17 11/22/22 09:22 Acetaminophen 325 Mg Tablet PO 11/22/22 09:18 975 mg ONCE ONE Administration Piperacillin Sod/Tazobactam 100 mls @ 200 mls/hr 11/22/22 09:09 11/22/22 10:03 Sod 4.5 gm/ Sodium Chloride IV 11/22/22 09:38 Infused ONCE ONE Infusion Metoprolol Tartrate 5 mg 11/22/22 08:46 11/22/22 09:16 Metoprolol Tartrate 5 Mg/5 Ml Vial IVPUSH 11/22/22 08:47 5 mg ONCE ONE Administration Medical Decision Making Medical Decision Making MDM Narrative: 87-year-old female with a history of dementia, chronic atrial fibrillation on anticoagulation, CHF, HTN, hypothyroidism, diabetes who presents to the ER from home via EMS for evaluation of generalized weakness and increased confusion. Patient found to be hypoxic to as low as 86% on room air, she is tachypneic. AAO X2, ,more confused than usual. She is febrile to 102.1 with rapid atrial fibrillation. She was given antipyretics, IV Lopressor (BP 180s). IV diuresis held due to her fever. Her BNP is 500 but she has no peripheral edema. No pulmonary edema on her chest x-ray. Chest x-ray is showing a patchy infiltrate in her right upper lobe, question aspiration. Will give her Zosyn. Will add viral respiratory panel. Will plan for admission to the hospital for ongoing management. Differential Diagnosis Differential Diagnoses: The differential diagnosis associated with the presentation includes Acute metabolic encephalopathy, sepsis, acute UTI, pneumonia, colitis, viral syndrome, bacteremia Admission/Observation Consideration of admission/observation: Escalation of care including admission/observation considered Septic, hypoxic patient Consult Healthcare Provider Management of the patient was discussed with: Hospitalist Lab Data MDM Lab Attestation statement: I reviewed the patient's lab results. 11/22/22 08:53 11/22/22 08:53 Labs: Lab Results 11/22/22 11/22/22 11/22/22 Range/Units 08:53 08:53 08:53 WBC 7.3 (4.8-10.8) X10*3/uL RBC 4.75 (4.20-5.50) X10*6/uL Hgb 14.0 (12.0-16.0) g/dl Hct 42.4 (37.0-47.0) % MCV 89.3 (80.0-98.0) fL MCH 29.5 (27.0-33.0) pg MCHC 33.0 (31.0-35.0) g/dl RDW 12.6 (11.0-16.0) % Plt Count 140 L (160-400) X10*3/uL MPV 10.1 (9.4-12.3) fL Immature Gran % (Auto) 0.4 (0.0-0.4) % Neut % (Auto) 77.6 H (45-73) % Lymph % (Auto) 14.6 L (20-40) % [place] % (Auto) 7.1 (2-11) % Eos % (Auto) 0.0 (0-4) % Baso % (Auto) 0.3 (0-2) % Lymph # (Auto) 1.1 L (1.2-4.9) X10*3/uL [place] # (Auto) 0.5 (0.1-1.2) X10*3/uL Eos # (Auto) 0.0 (0.0-0.4) X10*3/uL Baso # (Auto) 0.0 (0.0-0.2) X10*3/uL Abs Immat Gran (auto) 0.03 (0.00-0.03) X10*3/uL Absolute Neuts (auto) 5.7 (2.0-8.3) x10*3/uL Absolute Nucleated RBC 0.000 (0.0-0.012) X10*3/uL Nucleated RBC % (auto) 0.0 (0.0-0.2) /100WBC PT (10.0-13.1) SEC INR (0.9-1.1) APTT (26.0-36.4) SEC VBG pH (7.32-7.43) VBG pCO2 mmHg VBG pO2 mmHg VBG HCO3 (22-26) mmol/L VBG O2 Saturation % VBG Base Excess mmol/L Sodium 138 (135-145) mmol/L Potassium 3.9 (3.3-5.1) mmol/L Chloride 103 (96-108) mmol/L Carbon Dioxide 24 (22-29) mmol/L Anion Gap 15 (12-20) BUN 19 H (9-16) mg/dL Creatinine 1.08 (0.5-1.4) mg/dL Estim Creat Clear Calc 29.0 Estimated GFR 48 Random Glucose 185 H (60-115) mg/dL Lactic Acid 1.3 (0.5-2.0) mmol/L Calcium 9.4 (8.4-10.2) mg/dL Magnesium 1.5 L (1.6-2.6) mg/dL Total Bilirubin 1.1 H (0.0-1.0) mg/dL Direct Bilirubin 0.3 (0.0-0.5) mg/dL AST 18 (5-31) U/L ALT 21 (0-31) U/L Alkaline Phosphatase 95 (39-117) U/L Troponin I High Sens (<3.5-17.0) ng/L B-Natriuretic Peptide (<100) pg/mL Total Protein 7.0 (6.5-8.0) g/dL Albumin 4.2 (3.5-5.0) g/dL Procalcitonin 0.04 ng/mL TSH (0.32-4.0) uIU/mL Urine Color Urine Appearance Urine pH (5.0-9.0) Ur Specific [place] (1.005-1.025) Urine Protein (Neg-Trace) mg/dL Urine Glucose (UA) (Negative) mg/dL Urine Ketones (Negative) mg/dL Urine Blood (Negative) Urine Nitrite (Negative) Ur Leukocyte Esterase (Negative) Urine RBC (0-2) /HPF Urine WBC (0-5) /HPF Ur Squamous Epith Cells (0-2) /HPF Urine Bacteria (None Seen) Hyaline Casts (0-2) /LPF 11/22/22 11/22/22 11/22/22 Range/Units 08:53 08:53 08:53 WBC (4.8-10.8) X10*3/uL RBC (4.20-5.50) X10*6/uL Hgb (12.0-16.0) g/dl Hct (37.0-47.0) % MCV (80.0-98.0) fL MCH (27.0-33.0) pg MCHC (31.0-35.0) g/dl RDW (11.0-16.0) % Plt Count (160-400) X10*3/uL MPV (9.4-12.3) fL Immature Gran % (Auto) (0.0-0.4) % Neut % (Auto) (45-73) % Lymph % (Auto) (20-40) % [place] % (Auto) (2-11) % Eos % (Auto) (0-4) % Baso % (Auto) (0-2) % Lymph # (Auto) (1.2-4.9) X10*3/uL [place] # (Auto) (0.1-1.2) X10*3/uL Eos # (Auto) (0.0-0.4) X10*3/uL Baso # (Auto) (0.0-0.2) X10*3/uL Abs Immat Gran (auto) (0.00-0.03) X10*3/uL Absolute Neuts (auto) (2.0-8.3) x10*3/uL Absolute Nucleated RBC (0.0-0.012) X10*3/uL Nucleated RBC % (auto) (0.0-0.2) /100WBC PT (10.0-13.1) SEC INR (0.9-1.1) APTT (26.0-36.4) SEC VBG pH (7.32-7.43) VBG pCO2 mmHg VBG pO2 mmHg VBG HCO3 (22-26) mmol/L VBG O2 Saturation % VBG Base Excess mmol/L Sodium (135-145) mmol/L Potassium (3.3-5.1) mmol/L Chloride (96-108) mmol/L Carbon Dioxide (22-29) mmol/L Anion Gap (12-20) BUN (9-16) mg/dL Creatinine (0.5-1.4) mg/dL Estim Creat Clear Calc Estimated GFR Random Glucose (60-115) mg/dL Lactic Acid (0.5-2.0) mmol/L Calcium (8.4-10.2) mg/dL Magnesium (1.6-2.6) mg/dL Total Bilirubin (0.0-1.0) mg/dL Direct Bilirubin (0.0-0.5) mg/dL AST (5-31) U/L ALT (0-31) U/L Alkaline Phosphatase (39-117) U/L Troponin I High Sens 6.6 D (<3.5-17.0) ng/L B-Natriuretic Peptide 502 H (<100) pg/mL Total Protein (6.5-8.0) g/dL Albumin (3.5-5.0) g/dL Procalcitonin ng/mL TSH 0.37 (0.32-4.0) uIU/mL Urine Color Urine Appearance Urine pH (5.0-9.0) Ur Specific [place] (1.005-1.025) Urine Protein (Neg-Trace) mg/dL Urine Glucose (UA) (Negative) mg/dL Urine Ketones (Negative) mg/dL Urine Blood (Negative) Urine Nitrite (Negative) Ur Leukocyte Esterase (Negative) Urine RBC (0-2) /HPF Urine WBC (0-5) /HPF Ur Squamous Epith Cells (0-2) /HPF Urine Bacteria (None Seen) Hyaline Casts (0-2) /LPF 11/22/22 11/22/22 11/22/22 Range/Units 09:12 09:33 09:36 WBC (4.8-10.8) X10*3/uL RBC (4.20-5.50) X10*6/uL Hgb (12.0-16.0) g/dl Hct (37.0-47.0) % MCV (80.0-98.0) fL MCH (27.0-33.0) pg MCHC (31.0-35.0) g/dl RDW (11.0-16.0) % Plt Count (160-400) X10*3/uL MPV (9.4-12.3) fL Immature Gran % (Auto) (0.0-0.4) % Neut % (Auto) (45-73) % Lymph % (Auto) (20-40) % [place] % (Auto) (2-11) % Eos % (Auto) (0-4) % Baso % (Auto) (0-2) % Lymph # (Auto) (1.2-4.9) X10*3/uL [place] # (Auto) (0.1-1.2) X10*3/uL Eos # (Auto) (0.0-0.4) X10*3/uL Baso # (Auto) (0.0-0.2) X10*3/uL Abs Immat Gran (auto) (0.00-0.03) X10*3/uL Absolute Neuts (auto) (2.0-8.3) x10*3/uL Absolute Nucleated RBC (0.0-0.012) X10*3/uL Nucleated RBC % (auto) (0.0-0.2) /100WBC PT 13.9 H (10.0-13.1) SEC INR 1.2 H (0.9-1.1) APTT 34.1 (26.0-36.4) SEC VBG pH 7.42 (7.32-7.43) VBG pCO2 40 mmHg VBG pO2 47 mmHg VBG HCO3 26 (22-26) mmol/L VBG O2 Saturation 77.0 % VBG Base Excess 2.2 mmol/L Sodium (135-145) mmol/L Potassium (3.3-5.1) mmol/L Chloride (96-108) mmol/L Carbon Dioxide (22-29) mmol/L Anion Gap (12-20) BUN (9-16) mg/dL Creatinine (0.5-1.4) mg/dL Estim Creat Clear Calc Estimated GFR Random Glucose (60-115) mg/dL Lactic Acid (0.5-2.0) mmol/L Calcium (8.4-10.2) mg/dL Magnesium (1.6-2.6) mg/dL Total Bilirubin (0.0-1.0) mg/dL Direct Bilirubin (0.0-0.5) mg/dL AST (5-31) U/L ALT (0-31) U/L Alkaline Phosphatase (39-117) U/L Troponin I High Sens (<3.5-17.0) ng/L B-Natriuretic Peptide (<100) pg/mL Total Protein (6.5-8.0) g/dL Albumin (3.5-5.0) g/dL Procalcitonin ng/mL TSH (0.32-4.0) uIU/mL Urine Color Yellow Urine Appearance Clear Urine pH 6.5 (5.0-9.0) Ur Specific [place] 1.015 (1.005-1.025) Urine Protein 300 (3+) H (Neg-Trace) mg/dL Urine Glucose (UA) 100 H (Negative) mg/dL Urine Ketones 15 (Negative) mg/dL Urine Blood Trace H (Negative) Urine Nitrite Negative (Negative) Ur Leukocyte Esterase Small (1+) H (Negative) Urine RBC 3-5 H (0-2) /HPF Urine WBC 0-5 (0-5) /HPF Ur Squamous Epith Cells 0-2 (0-2) /HPF Urine Bacteria None Seen (None Seen) Hyaline Casts 0-2 (0-2) /LPF ABG Data ABG Results: venous gas 7.42/40/47 Attestation ABG: I personally reviewed and interpreted this ABG as follows: Interpretation: Normal pH, no acute metabolic or respiratory acid-base derangement. Independent Interpretation I performed an independent interpretation of an: Plain X-Ray and CT Scan Interpretation: Chest x-ray with patchy infiltrate in the right upper lobe, increased vascular markings, agree the radiologist read. CT head without acute bleed or edema. EKG with rapid atrial fibrillation, heart rate 114, normal QTC, no ST segment elevations or depressions. Radiology Impression Discussion of test interpretation with radiology: I have reviewed the radiologist's reading. Radiologist Impression: EXAMINATION: XR CHEST CLINICAL INFORMATION: Hypoxia COMPARISON: July 28, 2022 TECHNIQUE: AP portable view of the chest was obtained. FINDINGS: There is a patchy region of density seen within the right upper lobe which may be related to pneumonitis or atelectasis. Heart upper limits of normal in size. No evidence of pulmonary edema. No pneumothorax. There appears to be some mild blunting of the left costophrenic angle which may be related to small effusion. XR/XR chest 1V IMPRESSION: Patchy density right upper lobe which may be related to atelectasis or pneumonitis. ? Probable small left pleural effusion. CT/CT head/brain wo IV con IMPRESSION: No acute intracranial pathology. ? 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 Independent Historian Clinical information obtained from an independent historian. History obtained from or confirmed by: Spouse and EMS External Record Review External record reviewed: Office record, Outpatient record, Prior outpatient labs and Prior outpatient radiology Prescription Management I considered prescription management with: Antibiotic Chronic Conditions Patient?s care impacted by: Diabetes, Hypertension and Other (dementia, afib) Critical Care Time Critical Care Time Critical Care Time: Yes Total Critical Care Time: 48 Attestation: I have personally provided critical care time exclusive of time spent on separately billable procedures. Time includes review of lab data, radiology results, discussion with consultants, and monitoring for potential decompensation. Intervention performed as documented. Discharge Plan Discharge Clinical Impression: Sepsis, Pneumonia, Acute respiratory failure with hypoxia, Atrial fibrillation with RVR, Acute metabolic encephalopathy Patient Disposition: Admitted As Inpatient
--- NOTE | 2022-11-22 08:32 | PC.NURSE ---
Alert with confusion. Oriented to self and place. Arrived from home via ems after states at 3am she had urinary incontinence multiple times and was unable to get herself off the toilet. States at baseline she has some confusion but this is not normal behavior for her. states she has a hx of afib. Afib noted on monitor. hypertensive 183/103. Provider aware. denies sob or chest pain but sob noted at rest. sating 100% on 4 liters oxy mask. No edema noted. at bedside.
[2022-11-22 09:07] LABS: Basophils Percent Auto 0.3 % (0-2); Imm Gran Abs Auto 0.03 X10*3/uL (0.00-0.03); Imm Gran Pct Auto 0.4 % (0.0-0.4); Mean Platelet Volume 10.1 fL (9.4-12.3); Monocytes Absolute Auto 0.5 X10*3/uL (0.1-1.2); Monocytes Percent Auto 7.1 % (2-11); PLT CLUMP 1; SCAN SMEAR FLAG 1
[2022-11-22 09:09] LABS: Hematocrit 42.4 % (37.0-47.0); Lymphocytes Absolute Auto 1.1 X10*3/uL (1.2-4.9); Lymphocytes Percent Auto 14.6 % (20-40); Mean Corpuscular Hemoglobin 29.5 pg (27.0-33.0); Mean Corpuscular Volume 89.3 fL (80.0-98.0); Neutrophils Absolute Auto 5.7 x10*3/uL (2.0-8.3); Neutrophils Percent Auto 77.6 % (45-73); Red Blood Count 4.75 X10*6/uL (4.20-5.50); Red Cell Distribution Width 12.6 % (11.0-16.0)
[2022-11-22 09:12] LABS: MANUAL DIFF FLAG NO; Platelet Count 140 X10*3/uL (160-400); White Blood Count 7.3 X10*3/uL (4.8-10.8)
[2022-11-22] MEDS: Metoprolol Tartrate 5 MG/5 ML VIAL IVPUSH (09:16)
--- NOTE | 2022-11-22 09:19 | PC.NURSE ---
urine obtained via straight cath and sent to lab. oral temp 99.9, rectal temp 102.1 Sepsis protocol initiated. max at bedside says best # to contact him at is [phone]. IV metoprolol given per order.
[2022-11-22 09:22] LABS: Lactic Acid 1.3 mmol/L (0.5-2.0)
[2022-11-22] MEDS: Acetaminophen 325 MG TABLET 975 MG PO (09:22)
[2022-11-22 09:26] LABS: Alanine Aminotransferase 21 U/L (0-31); Albumin Level 4.2 g/dL (3.5-5.0); Alkaline Phosphatase 95 U/L (39-117); Anion Gap 15 (12-20); Aspartate Amino Transferase 18 U/L (5-31); Bilirubin Direct 0.3 mg/dL (0.0-0.5); Bilirubin Total 1.1 mg/dL (0.0-1.0); Blood Urea Nitrogen 19 mg/dL (9-16); Calcium 9.4 mg/dL (8.4-10.2); Carbon Dioxide 24 mmol/L (22-29); Chloride 103 mmol/L (96-108); Estimated Glomerular Filt Rate 48; Glucose Random 185 mg/dL (60-115); Magnesium 1.5 mg/dL (1.6-2.6); Potassium 3.9 mmol/L (3.3-5.1); Sodium 138 mmol/L (135-145)
[2022-11-22] MEDS: Piperacillin Sodium/Tazobactam 4.5 GM in 0.9 % Sodium Chloride 100 ML IV (09:27)
[2022-11-22 09:29] LABS: Appearance Urine Clear; Color Urine Yellow; Glucose Urine UA 100 mg/dL (Negative); Leukocyte Esterase Urine Small (1+) (Negative); Nitrite Urine Negative (Negative); PH 6.5 (5.0-9.0); Specific Gravity - Urine 1.015 (1.005-1.025); UMIC TRIGGER UACC YES; Urine Blood Trace (Negative); Urine Ketones 15 mg/dL (Negative); Urine Protein 300 (3+) mg/dL (Neg-Trace)
[2022-11-22 09:29] LABS: B Type Natriuretic Peptide 502 pg/mL (<100)
[2022-11-22 09:33] LABS: Troponin-I High Sensitivity 6.6 ng/L (<3.5-17.0)
[2022-11-22 09:38] LABS: Venous Blood Gas Refer to POC result
[2022-11-22 09:40] LABS: Bacteria Urine None Seen (None Seen); Hyaline Casts Urine 0-2 /LPF (0-2); Squamous Epithelial Cell Urine 0-2 /HPF (0-2); UACC Culture Trigger YES; WBC Urine 0-5 /HPF (0-5)
[2022-11-22 09:44] LABS: INTERNATIONAL NORM RATIO 1.2 (0.9-1.1); Prothrombin Time 13.9 SEC (10.0-13.1)
[2022-11-22 09:44] LABS: VBG Base Excess 2.2 mmol/L; VBG HCO3 26 mmol/L (22-26); VBG pCO2 40 mmHg; VBG pH 7.42 (7.32-7.43); VBG pO2 47 mmHg
[2022-11-22 09:47] LABS: Partial Thromboplastin Time 34.1 SEC (26.0-36.4)
[2022-11-22 09:47] LABS: TSH reflex Free T4 0.37 uIU/mL (0.32-4.0)
[2022-11-22 10:17] LABS: Procalcitonin 0.04 ng/mL
--- NOTE | 2022-11-22 10:20 | PC.NURSE ---
Alert with confusion. IV abt completed. improvement in BP 157/96, 162/90. 97% on 4 liters oxymask. No sob noted. at bedside
--- NOTE | 2022-11-22 11:17 | PC.NURSE ---
rectal temp 100.3
--- NOTE | 2022-11-22 11:19 | PM.IMHP ---
History of Present Illness Date of Service: 11/22/22 Attending physician on admission: Sabas Simons Chief Complaint: Generalized weakness and increasing confusion Pt is a 87-year-old female with a PMH significant for?unspecified dementia, HTN, HLD, asthma, ttf-ffroyzm-ioxdwrlkb diabetes, hypothyroidism, persistent AFib on Eliquis, HFrEF, and GERD who presents to the ED with?generalized weakness and increased confusion since earlier this morning. Patient is alert and oriented to self only and thus incapable of providing HPI. Unsuccessfully attempted to contact ; HPI thus obtained from chart review. Patient lives with her . Patient was apparently in her usual state of health up until last night when she went to bed. Patient was incontinent of urine early this morning at 03:00 when she got up to go to the bathroom. Patient again got up to go to the bathroom at around 06:00 and was unable to get herself off the toilet d/t generalized weakness. called EMS who found the patient to be in AFib with RVR and satting at 86% O2 on RA. EMS administered metoprolol 5 mg IV. In the ED patient was febrile up to 102.1, tachycardic up to the 120s, tachypneic up to 26, and hypotensive up to 191/103, satting at 90% O2 on RA. Patient placed on 4L OxyMask, no satting 96% O2. Labs were significant for platelets of 140, magnesium 1.5, BNP elevated at 502. No leukocytosis, H&H stable. Electrolytes WNL. Renal function baseline. Hepatic function baseline. Troponin negative at 6.6. Procalcitonin 0.04. VBG WNL. UA negative for UTI. Respiratory panel pending. CXR showed patchy density of right upper lobe which may be atelectasis or pneumonitis, and probable small left pleural effusion. CT?of head showed no acute intracranial pathology but atrophic changes related to microangiopathy. EKG demonstrated AFib with RVR of 114. Pt was treated with metoprolol, Tylenol, and Zosyn. Pt will be admitted to the hospital acute hypoxic respiratory failure setting of possible pneumonia and AFib with RVR. Review of Systems Review of Systems: Unable to obtain due to patient's mentation [facility] Medical History Acute congestive heart failure Bilateral carotid artery disease Chronic atrial fibrillation Congestive heart failure COPD (chronic obstructive pulmonary disease) Diabetes Dizziness HTN (hypertension) Hypoxia Seasonal allergies Family History Father CVD (cardiovascular disease) HTN (hypertension) Heart failure Mother Diabetes Cancer Brother CVD (cardiovascular disease) Surgical History History of esophagogastroduodenoscopy (EGD) Hx of appendectomy Hx of cholecystectomy Hx of colonoscopy Hx of hysterectomy Social History Are you a primary career placement services counselor to a significant other at home: No Do you presently have visiting nurse or other home services: No Alcohol intake: former Patient Tobacco Use Status: Never used Tobacco Smoked in Last 30 Days: No Use of substances other than those prescribed or required for medical reasons: No Advance Directives: Yes Advance Directives on File: Yes Advance Directives Date on File: 05/22/21 service: No Meds Allergies Allergy/AdvReac Type Severity Reaction Status Date / Time hydrochlorothiazide Allergy Unknown Unknown Verified 10/04/21 10:15 Active Medications: Current Medications Pharmacy Consult (Consult Rx Perform Med Rec) 1 each MISCELLANE ONCE PRN PRN Reason: Consult order Home Medications Medication Instructions Recorded Confirmed Last Taken Type fluticasone 250 mcg-salmeterol 50 1 puff inhalation BID 05/22/21 11/22/22 11/21/22 History mcg/dose blistr powdr for inhalation (Advair Diskus) albuterol sulfate 90 mcg/actuation 2 puff PO Q4H PRN Shortness Of 10/04/21 11/22/22 Unknown History aerosol inhaler Breath Or Wheezing brimonidine 0.2 % eye drops 1 drp ophthalmic (eye) BID 11/12/21 11/22/22 11/21/22 History latanoprost 0.005 % eye drops 1 drp ophthalmic (eye) BEDTIME 11/12/21 11/22/22 11/21/22 History atorvastatin 10 mg tablet 10 mg PO BEDTIME 11/30/21 11/22/22 11/21/22 History calcium carb-ergocalciferol (vit 1 tab PO DAILY 11/30/21 11/22/22 11/21/22 History D2) 600 mg calcium-200 unit tablet memantine 10 mg tablet 10 mg PO BID 11/30/21 11/22/22 11/21/22 History metformin 500 mg tablet 500 mg PO DAILY 11/30/21 11/22/22 11/21/22 History metoprolol tartrate 50 mg tablet 50 mg PO BID 11/30/21 11/22/22 11/21/22 History omeprazole 40 mg capsule,delayed 40 mg PO DAILY@0630 11/30/21 11/22/22 11/21/22 History release potassium chloride 8 mEq 8 meq PO BEDTIME 11/30/21 11/22/22 11/21/22 History tablet,extended release vit C 250 mg-vit E 90 mg-zinc 40 1 tab PO BID 11/30/21 11/22/22 11/21/22 History mg-copper 1 qm-vgljfy-hlkowz capsule (PreserVision AREDS-2) furosemide 20 mg tablet 20 mg PO BID@0800,1700 11/22/22 11/22/22 11/21/22 History levothyroxine 75 mcg tablet 75 mcg PO DAILY@0600 11/22/22 11/22/22 11/21/22 History meclizine 12.5 mg tablet 12.5 mg PO DAILY PRN Dizziness 11/22/22 11/22/22 Unknown History Physical Exam Vital Signs and Narrative: Vital Signs: Last Vital Signs Temp 100.3 F 11/22/22 11:18 Pulse 90 11/22/22 11:18 Resp 20 11/22/22 11:18 BP 152/101 H 11/22/22 11:18 Pulse Ox 98 11/22/22 09:13 O2 Del Method Oxymask 11/22/22 11:18 O2 Flow Rate 4 11/22/22 11:18 BMI result Body Mass Index 21.9 Constitutional: Alert, pleasantly confused, in no acute distress. Mental Status: Oriented to person only, not to place, time, or situation. Eyes: Pupils are equal, round, and reactive to light. Ear, Nose, and Throat: Oropharynx clear, mucous membranes moist. Ears and nose without deformities. Trachea midline. Respiratory: Diffuse expiratory wheezing. Cardiovascular: Irregularly irregular rhythm. Gastrointestinal: Abdomen soft, non-tender, non-distended. Normal bowel sounds. Neurologic: Cranial nerves II-XII are grossly intact bilaterally. No focal neurological deficits. Moves all extremities spontaneously. Skin: No rashes or lesions noted. Extremities: Mild bilateral edema. Psychiatric: Confused, cooperative. Results Labs 11/22/22 08:53 11/22/22 08:53 Labs: Laboratory Results - last 24 hr 11/22/22 11/22/22 11/22/22 08:53 08:53 08:53 MCV 89.3 MCH 29.5 MCHC 33.0 RDW 12.6 Plt Count 140 L MPV 10.1 Immature Gran % (Auto) 0.4 Neut % (Auto) 77.6 H Lymph % (Auto) 14.6 L Montgomery % (Auto) 7.1 Eos % (Auto) 0.0 Baso % (Auto) 0.3 Lymph # (Auto) 1.1 L Montgomery # (Auto) 0.5 Eos # (Auto) 0.0 Baso # (Auto) 0.0 Abs Immat Gran (auto) 0.03 Absolute Neuts (auto) 5.7 Absolute Nucleated RBC 0.000 Nucleated RBC % (auto) 0.0 PT INR APTT VBG pH VBG pCO2 VBG pO2 VBG HCO3 VBG O2 Saturation VBG Base Excess Anion Gap 15 Estim Creat Clear Calc 29.0 Estimated GFR 48 Random Glucose 185 H Lactic Acid 1.3 Calcium 9.4 Magnesium 1.5 L Total Bilirubin 1.1 H Direct Bilirubin 0.3 AST 18 ALT 21 Alkaline Phosphatase 95 Troponin I High Sens B-Natriuretic Peptide Total Protein 7.0 Albumin 4.2 Procalcitonin 0.04 TSH Urine Color Urine Appearance Urine pH Ur Specific Lincoln Urine Protein Urine Glucose (UA) Urine Ketones Urine Blood Urine Nitrite Ur Leukocyte Esterase Urine RBC Urine WBC Ur Squamous Epith Cells Urine Bacteria Hyaline Casts 11/22/22 11/22/22 11/22/22 08:53 08:53 08:53 MCV MCH MCHC RDW Plt Count MPV Immature Gran % (Auto) Neut % (Auto) Lymph % (Auto) Montgomery % (Auto) Eos % (Auto) Baso % (Auto) Lymph # (Auto) Montgomery # (Auto) Eos # (Auto) Baso # (Auto) Abs Immat Gran (auto) Absolute Neuts (auto) Absolute Nucleated RBC Nucleated RBC % (auto) PT INR APTT VBG pH VBG pCO2 VBG pO2 VBG HCO3 VBG O2 Saturation VBG Base Excess Anion Gap Estim Creat Clear Calc Estimated GFR Random Glucose Lactic Acid Calcium Magnesium Total Bilirubin Direct Bilirubin AST ALT Alkaline Phosphatase Troponin I High Sens 6.6 D B-Natriuretic Peptide 502 H Total Protein Albumin Procalcitonin TSH 0.37 Urine Color Urine Appearance Urine pH Ur Specific Lincoln Urine Protein Urine Glucose (UA) Urine Ketones Urine Blood Urine Nitrite Ur Leukocyte Esterase Urine RBC Urine WBC Ur Squamous Epith Cells Urine Bacteria Hyaline Casts 11/22/22 11/22/22 11/22/22 09:12 09:33 09:36 MCV MCH MCHC RDW Plt Count MPV Immature Gran % (Auto) Neut % (Auto) Lymph % (Auto) Montgomery % (Auto) Eos % (Auto) Baso % (Auto) Lymph # (Auto) Montgomery # (Auto) Eos # (Auto) Baso # (Auto) Abs Immat Gran (auto) Absolute Neuts (auto) Absolute Nucleated RBC Nucleated RBC % (auto) PT 13.9 H INR 1.2 H APTT 34.1 VBG pH 7.42 VBG pCO2 40 VBG pO2 47 VBG HCO3 26 VBG O2 Saturation 77.0 VBG Base Excess 2.2 Anion Gap Estim Creat Clear Calc Estimated GFR Random Glucose Lactic Acid Calcium Magnesium Total Bilirubin Direct Bilirubin AST ALT Alkaline Phosphatase Troponin I High Sens B-Natriuretic Peptide Total Protein Albumin Procalcitonin TSH Urine Color Yellow Urine Appearance Clear Urine pH 6.5 Ur Specific Lincoln 1.015 Urine Protein 300 (3+) H Urine Glucose (UA) 100 H Urine Ketones 15 Urine Blood Trace H Urine Nitrite Negative Ur Leukocyte Esterase Small (1+) H Urine RBC 3-5 H Urine WBC 0-5 Ur Squamous Epith Cells 0-2 Urine Bacteria None Seen Hyaline Casts 0-2 Imaging Radiologist's Impressions: Impressions Chest X-Ray 11/22/22 08:32 IMPRESSION: Patchy density right upper lobe which may be related to atelectasis or pneumonitis. Probable small left pleural effusion. Head CT 11/22/22 09:52 IMPRESSION: No acute intracranial pathology. 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 Assessment and Plan (1) Acute respiratory failure with hypoxia: Status: Acute (2) Atrial fibrillation with RVR: Status: Acute (3) Acute metabolic encephalopathy: Status: Acute Plan Pt is a 87-year-old female with a PMH significant for?unspecified dementia, HTN, HLD, asthma, jqs-dqbhyys-jbmhjcijs diabetes, hypothyroidism, persistent AFib on Eliquis, HFrEF, and GERD who presents to the ED with?generalized weakness and increased confusion since earlier this morning. Pt will be admitted to the hospital acute hypoxic respiratory failure setting of possible pneumonia and AFib with RVR. Acute hypoxic respiratory failure in the setting of likely pneumonitis Patient satting at 86% O2 on RA per EMS Patient placed on 4 L OxyMask, no satting at 96% O2 Viral vs bacterial: No cough or sputum production, procalcitonin 0.04, CXR more suggestive pneumonitis vs atelectasis, wheezing on exam Will empirically cover with ceftriaxone and azithromycin Solu-Medrol DuoNebs Will obtain CT of chest Titrate supplemental O2 >92, wean as tolerated Acute toxic metabolic encephalopathy Likely secondary to hypoxia, not bacterial infection Patient with hx dementia, baseline unclear Treat as above Monitor mentation AFib with RVR Pt with persistent AFib found to have HR and 120s Possibly secondary to viral respiratory illness Patient given IV metoprolol by EMS and in the ED HR now rate controlled in 80s Continue home metoprolol, Eliquis Monitor on telemetry Sepsis Patient technically meets sepsis criteria: Likely infection, tachycardia, tachypnea Viral versus bacterial Patient recovered by broad-spectrum antibiotics HFpEF Patient was slightly elevated BNP, possible small pleural effusion on CXR, mild peripheral edema Last echo on 07/17/2021 showed slightly decreased EF of 41% Patient to get echocardiogram Check CT of chest for evidence of pleural edema Continue home furosemide for now Monitor on telemetry Dementia, unspecified Patient apparently more confused than baseline, though baseline unknown Continue memantine Monitor mentation Bpr-hzfxmmg-xixnixyde diabetes type 2 Hold metformin SSI Diabetic diet Hypothyroidism Continue levothyroxine Full Code Attending:?Dr. Simons DVT Prophylaxis: On Eliquis Pt will require a hospitalization of at least two nights for treatment of? with . Time Spent With Patient Time: Total time managing care of this patient today ____ minutes. Quality Stroke Does the patient have a stroke diagnosis?: No VTE Prior VTE?: No VTE Risk Level:: Medical - moderate - high VTE Device Contraindication: Treatment Not Indicated VTE Drug Contraindication: N/A - Med Ordered
--- NOTE | 2022-11-22 11:55 | PHA.MEDREC ---
Pharmacy Consult ? Medication Reconciliation Pharmacy has completed the medication reconciliation. Spoke to patient's spouse Chandler to confirm meds. Patient's spouse states metformin was changed to 500mg daily and the patient is no longer on valsartan 160mg as changed by Dr. Saldana.
[2022-11-22] MEDS: methylPREDNISolone Sod Succ 40 MG/ML VIAL IVPUSH (12:38)
[2022-11-22] MEDS: cefTRIAXone sodium 1 GM in 0.9 % Sodium Chloride 50 ML IV (12:38)
[2022-11-22] MEDS: Magnesium Sulfate/H2O 2 GM/50 ML PIGGYBACK IV (12:39)
[2022-11-22] MEDS: 0.9 % Sodium Chloride Flush 3 ML SYRINGE IVFLUSH ×2 (12:39→20:09)
[2022-11-22 12:41] LABS: Adenovirus PCR Not Detected (Not Detect.); Bordetella parapertussis PCR Not Detected (Not Detect.); Bordetella pertussis PCR Not Detected (Not Detect.); Chlamydia pneumoniae PCR Not Detected (Not Detect.); Coronavirus 229E PCR Not Detected (Not Detect.); Coronavirus HKU1 PCR Not Detected (Not Detect.); Coronavirus NL63 PCR Not Detected (Not Detect.); Coronavirus OC43 PCR Not Detected (Not Detect.); Human metapneumovirus PCR Not Detected (Not Detect.); Influenza A PCR Not Detected (Not Detect.); Influenza B PCR Not Detected (Not Detect.); Mycoplasma pneumoniae PCR Not Detected (Not Detect.); Parainfluenza 1 PCR Not Detected (Not Detect.); Parainfluenza 2 PCR Detected (Not Detect.); Parainfluenza 3 PCR Not Detected (Not Detect.); Parainfluenza 4 PCR Not Detected (Not Detect.); RSV PCR Not Detected (Not Detect.); Rhino/Enterovirus PCR Not Detected (Not Detect.); SARS-CoV-2 PCR Not Detected (Not Detect.)
--- NOTE | 2022-11-22 12:59 | PC.NURSE ---
patient reports feeling better and less sob. Ikpyfh48% on 2 liters oxymask . IV abt and mg running per order. reports no pain or discomfort.
[2022-11-22] MEDS: Azithromycin 500 MG in 0.9 % Sodium Chloride 250 ML 125 MG IV (13:50)
[2022-11-22] MEDS: Omeprazole 40 MG CAPSULE.DR PO (13:55)
[2022-11-22] MEDS: Apixaban 2.5 MG TABLET PO ×2 (13:55→20:08)
[2022-11-22] MEDS: Memantine HCl 10 MG TABLET PO ×2 (13:55→20:08)
--- NOTE | 2022-11-22 14:13 | PC.NURSE ---
oxy mask removed sating 90% on RA. Placed on 2 liters NS sating 96%.
[2022-11-22] MEDS: Brimonidine Tartrate 0.2% Oph 5 ML BOTTLE 1 DROP EYE-BOTH ×2 (14:38→21:53)
[2022-11-22] MEDS: Albuterol/Iprat 2.5/0.5MG 3 ML AMPUL.NEB INHALE ×2 (14:38→20:36)
--- NOTE | 2022-11-22 14:44 | PC.NURSE ---
BP 187/102 provider aware, no new orders at this time
--- NOTE | 2022-11-22 17:09 | MHC.EDTECH ---
THIS PCT ASSUMED CARE OF PT AT 1700 ,VITALS SIGN TAKEN ,PT WAS ASSISTED UNTO THE BEDPAN ,BUT PT DID NOT VOID .
--- NOTE | 2022-11-22 17:40 | PC.NURSE ---
Report called to unit for transfer
--- NOTE | 2022-11-22 17:58 | MHC.EDTECH ---
PATIENT WAS ASSISTED UNTO BEDSIDE COMMODE ,PATIENT VOID LG AMOUNT OF URINE ,
[2022-11-22] MEDS: Furosemide 20 MG TABLET PO (18:26)
[2022-11-22] MEDS: Metoprolol Tartrate 50 MG TABLET PO (20:08)
[2022-11-22] MEDS: Potassium Chloride ER 10 MEQ TABLET.ER PO (20:09)
[2022-11-22] MEDS: Atorvastatin Calcium 10 MG TABLET PO (20:09)
[2022-11-22] MEDS: Latanoprost 0.005 % Ophth Sol 2.5 ML DROPS 1 DROP EYE-BOTH (21:53)
[2022-11-23] VITALS (9 sets, daily range): BP systolic 128–168; BP diastolic 64–100; PULSE 85–157; RESP 18–20; TEMP 36.5–37.1; O2SAT 94–97
[2022-11-23] MEDS: methylPREDNISolone Sod Succ 40 MG/ML VIAL IVPUSH ×2 (00:53→11:27)
[2022-11-23] MEDS: Levothyroxine Sodium 75 MCG TABLET PO (05:21)
[2022-11-23] MEDS: Omeprazole 40 MG CAPSULE.DR PO (05:21)
[2022-11-23 06:46] LABS: Hematocrit 37.2 % (37.0-47.0); Hemoglobin 12.6 g/dl (12.0-16.0); Mean Corpuscular HGB Conc 33.9 g/dl (31.0-35.0); Mean Corpuscular Hemoglobin 29.9 pg (27.0-33.0); Mean Corpuscular Volume 88.2 fL (80.0-98.0); Mean Platelet Volume 10.4 fL (9.4-12.3); Platelet Count 119 X10*3/uL (160-400); Red Blood Count 4.22 X10*6/uL (4.20-5.50); Red Cell Distribution Width 12.7 % (11.0-16.0); White Blood Count 5.3 X10*3/uL (4.8-10.8)
[2022-11-23 07:29] LABS: Anion Gap 14 (12-20); Blood Urea Nitrogen 24 mg/dL (9-16); Calcium 8.4 mg/dL (8.4-10.2); Carbon Dioxide 22 mmol/L (22-29); Chloride 108 mmol/L (96-108); Creatinine Clr Calc Pharmacy 30.7; Estimated Glomerular Filt Rate 51; Glucose Random 237 mg/dL (60-115); Potassium 4.1 mmol/L (3.3-5.1); Sodium 140 mmol/L (135-145)
--- NOTE | 2022-11-23 09:00 | MHC.CM.PN ---
Patient has a diagnosis of Dementia; CM spoke with /HCP/Emeterio @ [phone] and addressed IMM with him (original will be left at bedside, per Emeterio's request and a copy has been placed on the chart). Patient lives in a house with her and she receives [facility] services twice a week. Home/resume said services is the goal and CM has initialed and will follow for dc planning. Patient has received [email or web address] vax x4 and her PCP is Dr. Raffaele Saldana.
[2022-11-23] MEDS: Furosemide 20 MG TABLET PO ×2 (09:06→15:58)
[2022-11-23] MEDS: Memantine HCl 10 MG TABLET PO ×2 (09:06→20:44)
[2022-11-23] MEDS: Metoprolol Tartrate 50 MG TABLET PO ×2 (09:06→20:44)
[2022-11-23] MEDS: Brimonidine Tartrate 0.2% Oph 5 ML BOTTLE 1 DROP EYE-BOTH ×2 (09:06→21:14)
[2022-11-23] MEDS: 0.9 % Sodium Chloride Flush 3 ML SYRINGE IVFLUSH ×2 (09:06→15:58)
[2022-11-23] MEDS: Apixaban 2.5 MG TABLET PO ×2 (09:06→20:44)
--- NOTE | 2022-11-23 09:23 | HO.PM.IMPN ---
Subjective Subjective Date of Service: 11/23/22 Interval History: sob, nausea Physical Exam Vital Signs: Vital Signs: Last Vital Signs Temp 97.7 F 11/23/22 07:24 Pulse 92 11/23/22 07:24 Resp 20 11/23/22 07:24 BP 168/95 H 11/23/22 07:24 Pulse Ox 95 11/23/22 07:24 O2 Del Method Nasal Cannula 11/23/22 07:24 O2 Flow Rate 2 11/23/22 07:24 BMI result Body Mass Index 21.9 alert, frail, tachypnea Objective Data Active Medications Acetaminophen (Acetaminophen 325 Mg Tablet) 650 mg PO Q6H PRN PRN Reason: Pain, Mild (Pain Scale 1-3) Albuterol/Ipratropium (Albuterol/Iprat 2.5/0.5mg 3 Ml Ampul.Neb) 3 ml INHALE RQ4H WHILE AWAKE [facility] Last Admin: 11/23/22 07:56 Dose: Not Given Documented By: ANA PAULA Non-Admin Reason: Patient Refused Apixaban (Apixaban 2.5 Mg Tablet) 2.5 mg PO BID [facility] Last Admin: 11/23/22 09:06 Dose: 2.5 mg Documented By: SORIN Atorvastatin Calcium (Atorvastatin Calcium 10 Mg Tablet) 10 mg PO BEDTIME [facility] Last Admin: 11/22/22 20:09 Dose: 10 mg Documented By: RAMA Brimonidine Tartrate (Brimonidine Tartrate 0.2% Oph 5 Ml Bottle) 1 drop EYE-BOTH BID [facility] Last Admin: 11/23/22 09:06 Dose: 1 drop Documented By: SORIN Docusate Sodium (Docusate Sodium 100 Mg Capsule) 100 mg PO DAILY PRN PRN Reason: Constipation Fluticasone/Vilanterol (Fluticasone/Vilanterol 100/25 Blst.W.Dev) 1 puff INHALE RDAILY [facility] Last Admin: 11/23/22 07:55 Dose: Not Given Documented By: ANA PAULA Non-Admin Reason: med unavail pharmacy called Furosemide (Furosemide 20 Mg Tablet) 20 mg PO BID@0800,1700 [facility]; Protocol Last Admin: 11/23/22 09:06 Dose: 20 mg Documented By: SORIN Ceftriaxone Sodium 1 gm/ (Sodium Chloride) 50 mls @ 100 mls/hr IV Q24H [facility] Last Infusion: 11/22/22 14:10 Dose: 0 mls/hr Documented By: GRISEL Azithromycin 500 mg/ Sodium (Chloride) 250 mls @ 125 mls/hr IV Q24H [facility] Last Infusion: 11/22/22 16:46 Dose: 0 mls/hr Documented By: JUAN Latanoprost (Latanoprost 0.005 % Ophth [place] 2.5 Ml Drops) 1 drop EYE-BOTH BEDTIME [facility] Last Admin: 11/22/22 21:53 Dose: 1 drop Documented By: RAMA Levothyroxine Sodium (Levothyroxine Sodium 75 Mcg Tablet) 75 mcg PO DAILY@0600 [facility] Last Admin: 11/23/22 05:21 Dose: 75 mcg Documented By: RAMA Meclizine HCl (Meclizine Hcl 12.5 Mg Tablet) 12.5 mg PO DAILY PRN PRN Reason: Dizziness Memantine (Memantine Hcl 10 Mg Tablet) 10 mg PO BID [facility] Last Admin: 11/23/22 09:06 Dose: 10 mg Documented By: SORIN Methylprednisolone Sodium Succinate (Methylprednisolone Sod Succ 40 Mg/Ml Vial) 40 mg IVPUSH Q12H [facility] Last Admin: 11/23/22 00:53 Dose: 40 mg Documented By: RAMA Metoprolol Tartrate (Metoprolol Tartrate 50 Mg Tablet) 50 mg PO BID [facility]; Protocol Last Admin: 11/23/22 09:06 Dose: 50 mg Documented By: SORIN Omeprazole (Omeprazole 40 Mg Capsule.Dr) 40 mg PO DAILY@0630 [facility] Last Admin: 11/23/22 05:21 Dose: 40 mg Documented By: RAMA Pharmacy Consult (Consult Rx Perform Med Rec) 1 each MISCELLANE ONCE PRN PRN Reason: Consult order Potassium Chloride (Potassium Chloride Er 10 Meq Tablet.Er) 10 meq PO BEDTIME [facility] Last Admin: 11/22/22 20:09 Dose: 10 meq Documented By: RAMA Sodium Chloride (0.9 % Sodium Chloride Flush 3 Ml Syringe) 3 ml IVFLUSH QSHIFT [facility] Last Admin: 11/23/22 09:06 Dose: 3 ml Documented By: SORIN Labs 11/23/22 06:22 11/23/22 06:22 Labs: Laboratory Results - last 24 hr 11/22/22 11/22/22 11/22/22 08:53 08:53 08:53 MCV MCH MCHC RDW Plt Count MPV Absolute Nucleated RBC Nucleated RBC % (auto) PT INR APTT VBG pH VBG pCO2 VBG pO2 VBG HCO3 VBG O2 Saturation VBG Base Excess Anion Gap 15 Estim Creat Clear Calc 29.0 Estimated GFR 48 Random Glucose 185 H Calcium 9.4 Magnesium 1.5 L Total Bilirubin 1.1 H Direct Bilirubin 0.3 AST 18 ALT 21 Alkaline Phosphatase 95 Troponin I High Sens 6.6 D B-Natriuretic Peptide 502 H Total Protein 7.0 Albumin 4.2 Procalcitonin 0.04 TSH Urine Color Urine Appearance Urine pH Ur Specific [place] Urine Protein Urine Glucose (UA) Urine Ketones Urine Blood Urine Nitrite Ur Leukocyte Esterase Urine RBC Urine WBC Ur Squamous Epith Cells Urine Bacteria Hyaline Casts Respiratory Panel [facility] Adenovirus (Rapid PCR) B.pert (TEM-PCR) B.parapertussis DNA PCR C. pneumoniae DNA (PCR) Coronavirus OC43 (PCR) Coronavirus HKU1 (PCR) Coronavirus 229E (PCR) Coronavirus NL63 (PCR) Human Metapneumovir PCR Influenza A (RT-PCR) Influenza B (RT-PCR) M. pneumoniae (PCR) Parainfluenza 1 (PCR) Parainfluenza 2 (PCR) Parainfluenza 3 (PCR) Parainfluenza 4 (PCR) RSV (PCR) Entero/Rhino (PCR) SARS-CoV-2 RNA (RT-PCR) 11/22/22 11/22/22 11/22/22 08:53 09:12 09:33 MCV MCH MCHC RDW Plt Count MPV Absolute Nucleated RBC Nucleated RBC % (auto) PT 13.9 H INR 1.2 H APTT 34.1 VBG pH VBG pCO2 VBG pO2 VBG HCO3 VBG O2 Saturation VBG Base Excess Anion Gap Estim Creat Clear Calc Estimated GFR Random Glucose Calcium Magnesium Total Bilirubin Direct Bilirubin AST ALT Alkaline Phosphatase Troponin I High Sens B-Natriuretic Peptide Total Protein Albumin Procalcitonin TSH 0.37 Urine Color Yellow Urine Appearance Clear Urine pH 6.5 Ur Specific [place] 1.015 Urine Protein 300 (3+) H Urine Glucose (UA) 100 H Urine Ketones 15 Urine Blood Trace H Urine Nitrite Negative Ur Leukocyte Esterase Small (1+) H Urine RBC 3-5 H Urine WBC 0-5 Ur Squamous Epith Cells 0-2 Urine Bacteria None Seen Hyaline Casts 0-2 Respiratory Panel [facility]ason Adenovirus (Rapid PCR) B.pert (TEM-PCR) B.parapertussis DNA PCR C. pneumoniae DNA (PCR) Coronavirus OC43 (PCR) Coronavirus HKU1 (PCR) Coronavirus 229E (PCR) Coronavirus NL63 (PCR) Human Metapneumovir PCR Influenza A (RT-PCR) Influenza B (RT-PCR) M. pneumoniae (PCR) Parainfluenza 1 (PCR) Parainfluenza 2 (PCR) Parainfluenza 3 (PCR) Parainfluenza 4 (PCR) RSV (PCR) Entero/Rhino (PCR) SARS-CoV-2 RNA (RT-PCR) 11/22/22 11/22/22 11/23/22 09:36 11:14 06:22 MCV 88.2 MCH 29.9 MCHC 33.9 RDW 12.7 Plt Count 119 L MPV 10.4 Absolute Nucleated RBC 0.000 Nucleated RBC % (auto) 0.0 PT INR APTT VBG pH 7.42 VBG pCO2 40 VBG pO2 47 VBG HCO3 26 VBG O2 Saturation 77.0 VBG Base Excess 2.2 Anion Gap Estim Creat Clear Calc Estimated GFR Random Glucose Calcium Magnesium Total Bilirubin Direct Bilirubin AST ALT Alkaline Phosphatase Troponin I High Sens B-Natriuretic Peptide Total Protein Albumin Procalcitonin TSH Urine Color Urine Appearance Urine pH Ur Specific [place] Urine Protein Urine Glucose (UA) Urine Ketones Urine Blood Urine Nitrite Ur Leukocyte Esterase Urine RBC Urine WBC Ur Squamous Epith Cells Urine Bacteria Hyaline Casts Respiratory Panel [facility] See Note Adenovirus (Rapid PCR) Not Detected B.pert (TEM-PCR) Not Detected B.parapertussis DNA PCR Not Detected C. pneumoniae DNA (PCR) Not Detected Coronavirus OC43 (PCR) Not Detected Coronavirus HKU1 (PCR) Not Detected Coronavirus 229E (PCR) Not Detected Coronavirus NL63 (PCR) Not Detected Human Metapneumovir PCR Not Detected Influenza A (RT-PCR) Not Detected Influenza B (RT-PCR) Not Detected M. pneumoniae (PCR) Not Detected Parainfluenza 1 (PCR) Not Detected Parainfluenza 2 (PCR) Detected A Parainfluenza 3 (PCR) Not Detected Parainfluenza 4 (PCR) Not Detected RSV (PCR) Not Detected Entero/Rhino (PCR) Not Detected SARS-CoV-2 RNA (RT-PCR) Not Detected 11/23/22 06:22 MCV MCH MCHC RDW Plt Count MPV Absolute Nucleated RBC Nucleated RBC % (auto) PT INR APTT VBG pH VBG pCO2 VBG pO2 VBG HCO3 VBG O2 Saturation VBG Base Excess Anion Gap 14 Estim Creat Clear Calc 30.7 Estimated GFR 51 Random Glucose 237 H Calcium 8.4 D Magnesium 2.0 Total Bilirubin Direct Bilirubin AST ALT Alkaline Phosphatase Troponin I High Sens B-Natriuretic Peptide Total Protein Albumin Procalcitonin TSH Urine Color Urine Appearance Urine pH Ur Specific [place] Urine Protein Urine Glucose (UA) Urine Ketones Urine Blood Urine Nitrite Ur Leukocyte Esterase Urine RBC Urine WBC Ur Squamous Epith Cells Urine Bacteria Hyaline Casts Respiratory Panel [facility]ason Adenovirus (Rapid PCR) B.pert (TEM-PCR) B.parapertussis DNA PCR C. pneumoniae DNA (PCR) Coronavirus OC43 (PCR) Coronavirus HKU1 (PCR) Coronavirus 229E (PCR) Coronavirus NL63 (PCR) Human Metapneumovir PCR Influenza A (RT-PCR) Influenza B (RT-PCR) M. pneumoniae (PCR) Parainfluenza 1 (PCR) Parainfluenza 2 (PCR) Parainfluenza 3 (PCR) Parainfluenza 4 (PCR) RSV (PCR) Entero/Rhino (PCR) SARS-CoV-2 RNA (RT-PCR) Assessment and Plan (1) Acute respiratory failure with hypoxia: Status: Acute Plan 87F PMH dementia, HTN, HLD, moderate persistent asthma, DM, hypothryoid, persistent afib on eliquis, hfref, GERD, presented with weakness, increased confusion and sob acute hypoxic respiraotry failure, acute metabolic encephalopathy, and viral sepsis due to parainfluenza complciated by moderate persistent asthma with acute decompensation steroids, nebs, wean o2 conitnue azithro, will dc rocephin peristent afib with rvr metoprolol, eliquis chronic systolic chf metoprolol, po lasix DM insulin, pocs hypothryoid synthroid dvt prophyalxis - eliquis full code reason for continued hospitalization:hypoxic, sob Time Spent With Patient Time: Total time managing care of this patient today ____ minutes. Quality Stroke Does the patient have a stroke diagnosis?: No VTE Prior VTE?: No VTE Risk Level:: Medical - moderate - high VTE Device Contraindication: Treatment Not Indicated VTE Drug Contraindication: N/A - Med Ordered
[2022-11-23] MEDS: Albuterol/Iprat 2.5/0.5MG 3 ML AMPUL.NEB INHALE ×3 (11:07→19:07)
[2022-11-23] MEDS: Azithromycin 500 MG in 0.9 % Sodium Chloride 250 ML 125 MG IV (11:27)
[2022-11-23 13:38] LABS: Adenovirus F 40/41 Not Detected (Not Detect.); Astrovirus Not Detected (Not Detect.); Campylobacter Not Detected (Not Detect.); Cryptosporidium Not Detected (Not Detect.); Cyclospora cayetanensis Not Detected (Not Detect.); E. coli EAEC Not Detected (Not Detect.); E. coli EPEC Not Detected (Not Detect.); E. coli ETEC Not Detected (Not Detect.); E. coli O157 Not Detected (Not Detect.); E. coli STEC Not Detected (Not Detect.); Entamoeba histolytica Not Detected (Not Detect.); Giardia lamblia Not Detected (Not Detect.); Norovirus GI/GII Not Detected (Not Detect.); Plesiomonas shigelloides Not Detected (Not Detect.); Rotavirus A Not Detected (Not Detect.); Salmonella Not Detected (Not Detect.); Sapovirus Not Detected (Not Detect.); Shigella sp./EIEC Not Detected (Not Detect.); Vibrio Not Detected (Not Detect.); Vibrio Cholerae Not Detected (Not Detect.); Yersinia enterocolitica Not Detected (Not Detect.)
[2022-11-23 13:39] LABS: CDiff Gene PCR NEGATIVE (Negative)
[2022-11-23] MEDS: Potassium Chloride ER 10 MEQ TABLET.ER PO (20:43)
[2022-11-23] MEDS: Atorvastatin Calcium 10 MG TABLET PO (20:44)
[2022-11-23] MEDS: Metoprolol Tartrate 5 MG/5 ML VIAL IVPUSH (21:03)
[2022-11-23] MEDS: diphenhydrAMINE HCL 50 MG/ML VIAL IVPUSH (21:08)
[2022-11-23] MEDS: Latanoprost 0.005 % Ophth Sol 2.5 ML DROPS 1 DROP EYE-BOTH (21:15)
[2022-11-24] VITALS (12 sets, daily range): BP systolic 147–160; BP diastolic 60–98; PULSE 63–124; RESP 14–20; TEMP 36–37; O2SAT 88–98
[2022-11-24] MEDS: methylPREDNISolone Sod Succ 40 MG/ML VIAL IVPUSH (01:50)
[2022-11-24] MEDS: 0.9 % Sodium Chloride Flush 3 ML SYRINGE IVFLUSH ×3 (01:50→14:02)
[2022-11-24] MEDS: Levothyroxine Sodium 75 MCG TABLET PO (06:29)
[2022-11-24] MEDS: Omeprazole 40 MG CAPSULE.DR PO (06:29)
[2022-11-24 07:09] LABS: Hematocrit 39.6 % (37.0-47.0); Hemoglobin 13.2 g/dl (12.0-16.0); Mean Corpuscular HGB Conc 33.3 g/dl (31.0-35.0); Mean Corpuscular Hemoglobin 29.4 pg (27.0-33.0); Mean Corpuscular Volume 88.2 fL (80.0-98.0); Mean Platelet Volume 11.1 fL (9.4-12.3); Platelet Count 146 X10*3/uL (160-400); Red Blood Count 4.49 X10*6/uL (4.20-5.50); Red Cell Distribution Width 12.7 % (11.0-16.0); White Blood Count 11.8 X10*3/uL (4.8-10.8)
[2022-11-24 07:59] LABS: Anion Gap 16 (12-20); Blood Urea Nitrogen 37 mg/dL (9-16); Calcium 8.9 mg/dL (8.4-10.2); Carbon Dioxide 20 mmol/L (22-29); Chloride 107 mmol/L (96-108); Creatinine Clr Calc Pharmacy 26.5; Estimated Glomerular Filt Rate 43; Glucose Fasting 373 mg/dL (60-99); Potassium 4.3 mmol/L (3.3-5.1); Sodium 139 mmol/L (135-145)
[2022-11-24] MEDS: Memantine HCl 10 MG TABLET PO ×2 (08:15→22:45)
[2022-11-24] MEDS: Apixaban 2.5 MG TABLET PO ×2 (08:15→22:44)
[2022-11-24] MEDS: Metoprolol Tartrate 50 MG TABLET PO ×2 (08:15→18:02)
[2022-11-24] MEDS: Furosemide 20 MG TABLET PO ×2 (08:15→16:35)
[2022-11-24] MEDS: Brimonidine Tartrate 0.2% Oph 5 ML BOTTLE 1 DROP EYE-BOTH ×2 (08:21→22:48)
[2022-11-24] MEDS: Albuterol/Iprat 2.5/0.5MG 3 ML AMPUL.NEB INHALE ×4 (08:28→19:36)
--- NOTE | 2022-11-24 09:47 | HO.PM.IMPN ---
Subjective Subjective Date of Service: 11/24/22 Interval History: confused, sob improved Physical Exam Vital Signs: Vital Signs: Last Vital Signs Temp 98.4 F 11/24/22 07:47 Pulse 63 11/24/22 08:30 Resp 18 11/24/22 08:30 BP 158/98 H 11/24/22 08:00 Pulse Ox 98 11/24/22 07:47 O2 Del Method Room Air 11/24/22 07:47 O2 Flow Rate 3 11/23/22 22:59 BMI result Body Mass Index 21.9 alert, less resp distress, confused Objective Data Active Medications Acetaminophen (Acetaminophen 325 Mg Tablet) 650 mg PO Q6H PRN PRN Reason: Pain, Mild (Pain Scale 1-3) Albuterol/Ipratropium (Albuterol/Iprat 2.5/0.5mg 3 Ml Ampul.Neb) 3 ml INHALE RQ4H WHILE AWAKE [facility] Last Admin: 11/24/22 08:28 Dose: 3 ml Documented By: CORBIN Apixaban (Apixaban 2.5 Mg Tablet) 2.5 mg PO BID [facility] Last Admin: 11/24/22 08:15 Dose: 2.5 mg Documented By: BRITTON Atorvastatin Calcium (Atorvastatin Calcium 10 Mg Tablet) 10 mg PO BEDTIME [facility] Last Admin: 11/23/22 20:44 Dose: 10 mg Documented By: KARLA Brimonidine Tartrate (Brimonidine Tartrate 0.2% Oph 5 Ml Bottle) 1 drop EYE-BOTH BID [facility] Last Admin: 11/24/22 08:21 Dose: 1 drop Documented By: BRITTON Docusate Sodium (Docusate Sodium 100 Mg Capsule) 100 mg PO DAILY PRN PRN Reason: Constipation Fluticasone/Vilanterol (Fluticasone/Vilanterol 100/25 Blst.W.Dev) 1 puff INHALE RDAILY [facility] Last Admin: 11/23/22 07:55 Dose: Not Given Documented By: ANA PAULA Non-Admin Reason: med unavail pharmacy called Furosemide (Furosemide 20 Mg Tablet) 20 mg PO BID@0800,1700 [facility]; Protocol Last Admin: 11/24/22 08:15 Dose: 20 mg Documented By: BRITTON Glucose (Glucose Gel 15 Gm Gel..Gram.) 15 gm PO Q15M PRN; Protocol PRN Reason: per Hypoglycemia Standing Ord. Azithromycin 500 mg/ Sodium (Chloride) 250 mls @ 125 mls/hr IV Q24H [facility] Last Infusion: 11/23/22 13:36 Dose: 0 mls/hr Documented By: SORIN Dextrose (D10) 250 mls @ 750 mls/hr IV Q15M PRN; Protocol PRN Reason: per Hypoglycemia Standing Ord. Insulin Human Lispro (Insulin Lispro 100 Unit/Ml 3 Ml Vial) 0 unit SUBCUT QIDACHS [facility]; Protocol Latanoprost (Latanoprost 0.005 % Ophth [place] 2.5 Ml Drops) 1 drop EYE-BOTH BEDTIME [facility] Last Admin: 11/23/22 21:15 Dose: 1 drop Documented By: KARLA Levothyroxine Sodium (Levothyroxine Sodium 75 Mcg Tablet) 75 mcg PO DAILY@0600 [facility] Last Admin: 11/24/22 06:29 Dose: 75 mcg Documented By: KARLA Meclizine HCl (Meclizine Hcl 12.5 Mg Tablet) 12.5 mg PO DAILY PRN PRN Reason: Dizziness Memantine (Memantine Hcl 10 Mg Tablet) 10 mg PO BID [facility] Last Admin: 11/24/22 08:15 Dose: 10 mg Documented By: BRITTON Metoprolol Tartrate (Metoprolol Tartrate 50 Mg Tablet) 50 mg PO BID [facility]; Protocol Last Admin: 11/24/22 08:15 Dose: 50 mg Documented By: RBITTON Omeprazole (Omeprazole 40 Mg [place].) 40 mg PO DAILY@0630 [facility] Last Admin: 11/24/22 06:29 Dose: 40 mg Documented By: KARLA Pharmacy Consult (Consult Rx Perform Med Rec) 1 each MISCELLANE ONCE PRN PRN Reason: Consult order Potassium Chloride (Potassium Chloride Er 10 Meq Tablet.Er) 10 meq PO BEDTIME [facility] Last Admin: 11/23/22 20:43 Dose: 10 meq Documented By: KARLA Prednisone (Prednisone 20 Mg Tablet) 40 mg PO DAILY [facility] Sodium Chloride (0.9 % Sodium Chloride Flush 3 Ml Syringe) 3 ml IVFLUSH QSHIFT [facility] Last Admin: 11/24/22 08:16 Dose: 3 ml Documented By: BRITTON Labs 11/24/22 06:28 11/24/22 06:28 Labs: Laboratory Results - last 24 hr 11/23/22 11/23/22 11/24/22 11:05 11:05 06:28 MCV 88.2 MCH 29.4 MCHC 33.3 RDW 12.7 Plt Count 146 L MPV 11.1 Absolute Nucleated RBC 0.000 Nucleated RBC % (auto) 0.0 Anion Gap Estim Creat Clear Calc Estimated GFR Fasting Glucose Calcium Stl C. cayetanensis PCR Not Detected Stool Rotavirus A PCR Not Detected Stl Adenov F 40/41 PCR Not Detected Stool Astrovirus (PCR) Not Detected Stool Campylobacter PCR Not Detected Stool Cryptosporidium PCR Not Detected Stl Sh Tox Pr E STEC PCR Not Detected Stool E coli O157 PCR Not Detected Stl Enterotoxigenic E PCR Not Detected Stool EPEC (PCR) Not Detected Stool EAEC (PCR) Not Detected Stl E. histolytica PCR Not Detected Stool Giardia Lamblia PCR Not Detected Stl P. shigelloides PCR Not Detected Stool Salmonella PCR Not Detected Stool Sapovirus (PCR) Not Detected Stl Shigella/EIEC PCR Not Detected St Y.enterocolitica PCR Not Detected Stool Vibrio (PCR) Not Detected Stl Vibrio cholerae PCR Not Detected Stl Norovirus GI/GII PCR Not Detected C. difficile Tox B Gene NEGATIVE 11/24/22 06:28 MCV MCH MCHC RDW Plt Count MPV Absolute Nucleated RBC Nucleated RBC % (auto) Anion Gap 16 Estim Creat Clear Calc 26.5 Estimated GFR 43 Fasting Glucose 373 H* Calcium 8.9 Stl C. cayetanensis PCR Stool Rotavirus A PCR Stl Adenov F 40/41 PCR Stool Astrovirus (PCR) Stool Campylobacter PCR Stool Cryptosporidium PCR Stl Sh Tox Pr E STEC PCR Stool E coli O157 PCR Stl Enterotoxigenic E PCR Stool EPEC (PCR) Stool EAEC (PCR) Stl E. histolytica PCR Stool Giardia Lamblia PCR Stl P. shigelloides PCR Stool Salmonella PCR Stool Sapovirus (PCR) Stl Shigella/EIEC PCR St Y.enterocolitica PCR Stool Vibrio (PCR) Stl Vibrio cholerae PCR Stl Norovirus GI/GII PCR C. difficile Tox B Gene Microbiology Microbiology Results: Microbiology 11/22/22 08:53 Blood Culture - Preliminary Blood - Arterial No growth after 24 hours. 11/22/22 08:53 Blood Culture - Preliminary Blood - Arterial No growth after 24 hours. 11/22/22 Unknown Urine Culture - Preliminary Urine Catheterized - Straight Catheter Culture in progress. Assessment and Plan (1) Acute respiratory failure with hypoxia: Status: Acute Plan 87F PMH dementia, HTN, HLD, moderate persistent asthma, DM, hypothryoid, persistent afib on eliquis, hfref, GERD, presented with weakness, increased confusion and sob acute hypoxic respiraotry failure, acute metabolic encephalopathy, and viral sepsis due to parainfluenza complciated by moderate persistent asthma with acute decompensation steroids changed to po, nebs, wean o2 conitnue azithro, dementia with acute hospital delerium orienting strategies peristent afib with rvr metoprolol, eliquis chronic systolic chf metoprolol, po lasix DM insulin, pocs hypothryoid synthroid dvt prophyalxis - eliquis full code reason for continued hospitalization:acute delrium Time Spent With Patient Time: Total time managing care of this patient today ____ minutes. Quality Stroke Does the patient have a stroke diagnosis?: No VTE Prior VTE?: No VTE Risk Level:: Medical - moderate - high VTE Device Contraindication: Treatment Not Indicated VTE Drug Contraindication: N/A - Med Ordered
[2022-11-24] MEDS: Fluticasone/Vilanterol 100/25 BLST.W.DEV 1 PUFF INHALE (11:15)
[2022-11-24] MEDS: Insulin Lispro 100 UNIT/ML 3 ML VIAL SUBCUT ×3 (11:45→21:00)
[2022-11-24] MEDS: Azithromycin 500 MG in 0.9 % Sodium Chloride 250 ML 125 MG IV (11:50)
[2022-11-24 11:51] LABS: Glucose, Whole Blood 413 mg/dL (60-115)
[2022-11-24] MEDS: QUEtiapine Fumarate 25 MG TABLET PO (15:08)
[2022-11-24] MEDS: OLANZapine 5 MG TABLET PO (16:35)
[2022-11-24 16:46] LABS: Glucose, Whole Blood 391 mg/dL (60-115)
--- NOTE | 2022-11-24 18:03 | PC.NURSE ---
pt HR remain high 150s-160s. Afib w RVR. notified. Gave Metoprolol early.
[2022-11-24 20:28] LABS: Glucose, Whole Blood 219 mg/dL (60-115)
[2022-11-24] MEDS: Atorvastatin Calcium 10 MG TABLET PO (22:44)
[2022-11-24] MEDS: Potassium Chloride ER 10 MEQ TABLET.ER PO (22:45)
[2022-11-24] MEDS: Acetaminophen 325 MG TABLET 650 MG PO (22:46)
[2022-11-24] MEDS: Latanoprost 0.005 % Ophth Sol 2.5 ML DROPS 1 DROP EYE-BOTH (22:48)
[2022-11-25] VITALS (9 sets, daily range): BP systolic 129–165; BP diastolic 66–95; PULSE 84–121; RESP 18–23; TEMP 36.6–37.4; O2SAT 90–97
[2022-11-25] MEDS: 0.9 % Sodium Chloride Flush 3 ML SYRINGE IVFLUSH ×2 (03:47→08:18)
[2022-11-25] MEDS: Omeprazole 40 MG CAPSULE.DR PO (06:25)
[2022-11-25] MEDS: Acetaminophen 325 MG TABLET 650 MG PO ×2 (06:25→16:57)
[2022-11-25] MEDS: Levothyroxine Sodium 75 MCG TABLET PO (06:25)
--- NOTE | 2022-11-25 06:38 | PC.NURSE ---
Assumed care at 1900. Patient is alert, oriented to person only. Limited communication ability, responds often to delusional stimuli. Clear words with nonsensical/delusional ideation. Limited ability to voice own needs. Patient with nonverbal signs of pain, medicated with tylenol twice per emar with good effect. Swallowing ability limited, seems to be having a lot of uncoordinated mouth movements when tryiung to swallow, delayed swallowing. Crushed pills in pudding with good effect.
[2022-11-25 06:53] LABS: Hematocrit 41.1 % (37.0-47.0); Hemoglobin 13.4 g/dl (12.0-16.0); Mean Corpuscular HGB Conc 32.6 g/dl (31.0-35.0); Mean Corpuscular Hemoglobin 29.5 pg (27.0-33.0); Mean Corpuscular Volume 90.5 fL (80.0-98.0); PLT CLUMP 1; Red Blood Count 4.54 X10*6/uL (4.20-5.50); Red Cell Distribution Width 12.7 % (11.0-16.0)
[2022-11-25 07:16] LABS: Anion Gap 13 (12-20); Blood Urea Nitrogen 30 mg/dL (9-16); Carbon Dioxide 25 mmol/L (22-29); Chloride 108 mmol/L (96-108); Creatinine Clr Calc Pharmacy 27.5; Estimated Glomerular Filt Rate 45; Glucose Fasting 172 mg/dL (60-99); Potassium 3.8 mmol/L (3.3-5.1); Sodium 142 mmol/L (135-145)
[2022-11-25 07:18] LABS: Glucose, Whole Blood 183 mg/dL (60-115)
[2022-11-25 07:18] LABS: Platelet Count 120 X10*3/uL (160-400); White Blood Count 8.8 X10*3/uL (4.8-10.8)
[2022-11-25] MEDS: Fluticasone/Vilanterol 100/25 BLST.W.DEV 1 PUFF INHALE (07:58)
[2022-11-25] MEDS: Albuterol/Iprat 2.5/0.5MG 3 ML AMPUL.NEB INHALE ×3 (07:58→19:52)
[2022-11-25] MEDS: Insulin Lispro 100 UNIT/ML 3 ML VIAL SUBCUT ×4 (08:02→21:09)
[2022-11-25] MEDS: Furosemide 20 MG TABLET PO ×2 (08:08→16:56)
[2022-11-25] MEDS: predniSONE 20 MG TABLET 40 MG PO (08:08)
[2022-11-25] MEDS: Metoprolol Tartrate 50 MG TABLET PO ×3 (08:08→21:08)
[2022-11-25] MEDS: Apixaban 2.5 MG TABLET PO ×2 (08:09→21:08)
[2022-11-25] MEDS: Memantine HCl 10 MG TABLET PO ×2 (08:09→21:08)
[2022-11-25] MEDS: Brimonidine Tartrate 0.2% Oph 5 ML BOTTLE 1 DROP EYE-BOTH ×2 (08:18→21:10)
--- NOTE | 2022-11-25 09:23 | HO.PM.IMPN ---
Subjective Subjective Date of Service: 11/25/22 Interval History: confused, sob improved Physical Exam Vital Signs: Vital Signs: Last Vital Signs Temp 98.8 F 11/25/22 07:08 Pulse 105 H 11/25/22 08:41 Resp 20 11/25/22 08:41 BP 135/82 11/25/22 07:08 Pulse Ox 93 11/25/22 07:08 O2 Del Method Room Air 11/25/22 07:08 O2 Flow Rate 3 11/23/22 22:59 BMI result Body Mass Index 21.9 alert, less resp distress, confused Objective Data Active Medications Acetaminophen (Acetaminophen 325 Mg Tablet) 650 mg PO Q6H PRN PRN Reason: Pain, Mild (Pain Scale 1-3) Last Admin: 11/25/22 06:25 Dose: 650 mg Documented By: CUONG Albuterol/Ipratropium (Albuterol/Iprat 2.5/0.5mg 3 Ml Ampul.Neb) 3 ml INHALE RQ4H WHILE AWAKE [facility] Last Admin: 11/25/22 07:58 Dose: 3 ml Documented By: CORBIN Apixaban (Apixaban 2.5 Mg Tablet) 2.5 mg PO BID [facility] Last Admin: 11/25/22 08:09 Dose: 2.5 mg Documented By: ROMMEL Atorvastatin Calcium (Atorvastatin Calcium 10 Mg Tablet) 10 mg PO BEDTIME [facility] Last Admin: 11/24/22 22:44 Dose: 10 mg Documented By: CUONG Brimonidine Tartrate (Brimonidine Tartrate 0.2% Oph 5 Ml Bottle) 1 drop EYE-BOTH BID [facility] Last Admin: 11/25/22 08:18 Dose: 1 drop Documented By: ROMMEL Docusate Sodium (Docusate Sodium 100 Mg Capsule) 100 mg PO DAILY PRN PRN Reason: Constipation Fluticasone/Vilanterol (Fluticasone/Vilanterol 100/25 Blst.W.Dev) 1 puff INHALE RDAILY [facility] Last Admin: 11/25/22 07:58 Dose: 1 puff Documented By: CORBIN Furosemide (Furosemide 20 Mg Tablet) 20 mg PO BID@0800,1700 [facility]; Protocol Last Admin: 11/25/22 08:08 Dose: 20 mg Documented By: ROMMEL Glucose (Glucose Gel 15 Gm Gel..Gram.) 15 gm PO Q15M PRN; Protocol PRN Reason: per Hypoglycemia Standing Ord. Azithromycin 500 mg/ Sodium (Chloride) 250 mls @ 125 mls/hr IV Q24H [facility] Last Infusion: 11/24/22 13:50 Dose: 0 mls/hr Documented By: BRITTON Dextrose (D10) 250 mls @ 750 mls/hr IV Q15M PRN; Protocol PRN Reason: per Hypoglycemia Standing Ord. Insulin Human Lispro (Insulin Lispro 100 Unit/Ml 3 Ml Vial) 0 unit SUBCUT QIDACHS [facility]; Protocol Last Admin: 11/25/22 08:02 Dose: 2 unit Documented By: ROMMEL Latanoprost (Latanoprost 0.005 % Ophth [place] 2.5 Ml Drops) 1 drop EYE-BOTH BEDTIME [facility] Last Admin: 11/24/22 22:48 Dose: 1 drop Documented By: CUONG Levothyroxine Sodium (Levothyroxine Sodium 75 Mcg Tablet) 75 mcg PO DAILY@0600 [facility] Last Admin: 11/25/22 06:25 Dose: 75 mcg Documented By: CUONG Meclizine HCl (Meclizine Hcl 12.5 Mg Tablet) 12.5 mg PO DAILY PRN PRN Reason: Dizziness Memantine (Memantine Hcl 10 Mg Tablet) 10 mg PO BID [facility] Last Admin: 11/25/22 08:09 Dose: 10 mg Documented By: ROMMEL Metoprolol Tartrate (Metoprolol Tartrate 50 Mg Tablet) 50 mg PO TID [facility]; Protocol Last Admin: 11/25/22 08:08 Dose: 50 mg Documented By: ROMMEL Omeprazole (Omeprazole 40 Mg Capsule.Dr) 40 mg PO DAILY@0630 [facility] Last Admin: 11/25/22 06:25 Dose: 40 mg Documented By: CUONG Pharmacy Consult (Consult Rx Perform Med Rec) 1 each MISCELLANE ONCE PRN PRN Reason: Consult order Potassium Chloride (Potassium Chloride Er 10 Meq Tablet.Er) 10 meq PO BEDTIME [facility] Last Admin: 11/24/22 22:45 Dose: 10 meq Documented By: CUONG Prednisone (Prednisone 20 Mg Tablet) 40 mg PO DAILY [facility] Last Admin: 05/28/23 08:08 Dose: 40 mg Documented By: ROMMEL Sodium Chloride (0.9 % Sodium Chloride Flush 3 Ml Syringe) 3 ml IVFLUSH QSHIFT [facility] Last Admin: 11/25/22 08:18 Dose: 3 ml Documented By: ROMMEL Labs 11/25/22 06:39 11/25/22 06:39 Labs: Laboratory Results - last 24 hr 11/24/22 11/24/22 11/24/22 11:11 16:42 20:18 MCV MCH MCHC RDW Plt Count MPV Absolute Nucleated RBC Nucleated RBC % (auto) Anion Gap Estim Creat Clear Calc Estimated GFR POC Glucose 413 H* 391 H* 219 H Fasting Glucose Calcium 11/25/22 11/25/22 11/25/22 06:39 06:39 07:07 MCV 90.5 MCH 29.5 MCHC 32.6 RDW 12.7 Plt Count 120 L MPV Not Reportable Absolute Nucleated RBC 0.000 Nucleated RBC % (auto) 0.0 Anion Gap 13 Estim Creat Clear Calc 27.5 Estimated GFR 45 POC Glucose 183 H Fasting Glucose 172 H Calcium 9.0 Microbiology Microbiology Results: Microbiology 11/22/22 Unknown Urine Culture - Final Urine Catheterized - Straight Catheter 11/22/22 08:53 Blood Culture - Preliminary Blood - Arterial No growth after 48 hours. 11/22/22 08:53 Blood Culture - Preliminary Blood - Arterial No growth after 48 hours. Assessment and Plan (1) Acute respiratory failure with hypoxia: Status: Acute Plan 87F PMH dementia, HTN, HLD, moderate persistent asthma, DM, hypothryoid, persistent afib on eliquis, hfref, GERD, presented with weakness, increased confusion and sob acute hypoxic respiraotry failure, acute metabolic encephalopathy, and viral sepsis due to parainfluenza complciated by moderate persistent asthma with acute decompensation steroids changed to po, nebs, wean o2 conitnue azithro, dementia with acute hospital delerium orienting strategies peristent afib with rvr metoprolol increased to 50 tid, eliquis chronic systolic chf metoprolol, po lasix DM insulin, pocs hypothryoid synthroid dvt prophyalxis - eliquis full code reason for continued hospitalization:acute delrium, afib rvr Time Spent With Patient Time: Total time managing care of this patient today ____ minutes. Quality Stroke Does the patient have a stroke diagnosis?: No VTE Prior VTE?: No VTE Risk Level:: Medical - moderate - high VTE Device Contraindication: Treatment Not Indicated VTE Drug Contraindication: N/A - Med Ordered
[2022-11-25 11:05] LABS: Glucose, Whole Blood 312 mg/dL (60-115)
[2022-11-25] MEDS: Azithromycin 500 MG in 0.9 % Sodium Chloride 250 ML 125 MG IV (11:53)
--- NOTE | 2022-11-25 14:03 | PC.NURSE ---
Patient with congested lung sounds and loose cough noted. Precautions in place. OOB with assist to chair in am. Heart rate remains in one teens to 130's after increase in Metoprolol dose even at rest. Dr Simons notified in afternoon dose increased from TID to every 6 hours ok for next dose to start at 1700. Continues IV antibiotics per order. Patient resting in chair throughout shift comfortably with sitter at bedside for safety. Will continue to monitor
[2022-11-25 15:55] LABS: Glucose, Whole Blood 392 mg/dL (60-115)
--- NOTE | 2022-11-25 17:43 | PC.NURSE ---
Approximately 1530 sitter at bedside noticed the patient having an increase in respiratory effort while sleeping. Pt more lethargic than earlier although arrousable sleeping in recliner chair. Lung sounds junky more on right side than left continues with loose cough while awake. Oxygen sat 90 on room air placed on 2L via nasal cannula up to 98. HR remains 100-[address] Simons notified xray ordered and completed. POC 392 at dinner time trending up notified 10 units lispro given. Will continue to monitor
[2022-11-25 21:02] LABS: Glucose, Whole Blood 284 mg/dL (60-115)
[2022-11-25] MEDS: Atorvastatin Calcium 10 MG TABLET PO (21:08)
[2022-11-25] MEDS: Potassium Chloride ER 10 MEQ TABLET.ER PO (21:08)
[2022-11-25] MEDS: Latanoprost 0.005 % Ophth Sol 2.5 ML DROPS 1 DROP EYE-BOTH (21:10)
[2022-11-26] VITALS (10 sets, daily range): BP systolic 138–185; BP diastolic 64–96; PULSE 77–131; RESP 16–22; TEMP 36.2–37.1; O2SAT 91–98
[2022-11-26] MEDS: 0.9 % Sodium Chloride Flush 3 ML SYRINGE IVFLUSH ×3 (00:28→17:01)
[2022-11-26 01:00] LABS: Glucose, Whole Blood 199 mg/dL (60-115)
[2022-11-26] MEDS: Levothyroxine Sodium 75 MCG TABLET PO (05:52)
[2022-11-26] MEDS: Omeprazole 40 MG CAPSULE.DR PO (05:52)
[2022-11-26 07:49] LABS: Glucose, Whole Blood 289 mg/dL (60-115)
[2022-11-26] MEDS: Fluticasone/Vilanterol 100/25 BLST.W.DEV 1 PUFF INHALE (08:03)
[2022-11-26] MEDS: Albuterol/Iprat 2.5/0.5MG 3 ML AMPUL.NEB INHALE ×2 (08:04→19:01)
[2022-11-26] MEDS: Insulin Lispro 100 UNIT/ML 3 ML VIAL SUBCUT ×4 (08:10→21:27)
--- NOTE | 2022-11-26 08:26 | HO.PM.IMPN ---
Subjective Subjective Date of Service: 11/26/22 Interval History: confused -some improvement, sob Physical Exam Vital Signs: Vital Signs: Last Vital Signs Temp 98.2 F 11/26/22 03:51 Pulse 87 11/26/22 08:06 Resp 16 11/26/22 08:06 BP 138/64 11/26/22 03:51 Pulse Ox 92 11/26/22 03:51 O2 Del Method Nasal Cannula 11/26/22 03:51 O2 Flow Rate 2 11/26/22 03:51 BMI result Body Mass Index 21.9 alert, less resp distress, confused Objective Data Active Medications Acetaminophen (Acetaminophen 325 Mg Tablet) 650 mg PO Q6H PRN PRN Reason: Pain, Mild (Pain Scale 1-3) Last Admin: 11/25/22 16:57 Dose: 650 mg Documented By: ROMMEL Albuterol/Ipratropium (Albuterol/Iprat 2.5/0.5mg 3 Ml Ampul.Neb) 3 ml INHALE RQ4H WHILE AWAKE [facility] Last Admin: 11/26/22 08:04 Dose: 3 ml Documented By: OLU Apixaban (Apixaban 2.5 Mg Tablet) 2.5 mg PO BID [facility] Last Admin: 11/25/22 21:08 Dose: 2.5 mg Documented By: RADHA Atorvastatin Calcium (Atorvastatin Calcium 10 Mg Tablet) 10 mg PO BEDTIME [facility] Last Admin: 11/25/22 21:08 Dose: 10 mg Documented By: RADHA Brimonidine Tartrate (Brimonidine Tartrate 0.2% Oph 5 Ml Bottle) 1 drop EYE-BOTH BID [facility] Last Admin: 11/25/22 21:10 Dose: 1 drop Documented By: RADHA Docusate Sodium (Docusate Sodium 100 Mg Capsule) 100 mg PO DAILY PRN PRN Reason: Constipation Fluticasone/Vilanterol (Fluticasone/Vilanterol 100/25 Blst.W.Dev) 1 puff INHALE RDAILY [facility] Last Admin: 11/26/22 08:03 Dose: 1 puff Documented By: OLU Furosemide (Furosemide 20 Mg Tablet) 20 mg PO BID@0800,1700 [facility]; Protocol Last Admin: 11/25/22 16:56 Dose: 20 mg Documented By: ROMMEL Glucose (Glucose Gel 15 Gm Gel..Gram.) 15 gm PO Q15M PRN; Protocol PRN Reason: per Hypoglycemia Standing Ord. Azithromycin 500 mg/ Sodium (Chloride) 250 mls @ 125 mls/hr IV Q24H [facility] Last Infusion: 11/25/22 15:35 Dose: 0 mls/hr Documented By: ROMMEL Dextrose (D10) 250 mls @ 750 mls/hr IV Q15M PRN; Protocol PRN Reason: per Hypoglycemia Standing Ord. Insulin Human Lispro (Insulin Lispro 100 Unit/Ml 3 Ml Vial) 0 unit SUBCUT QIDACHS [facility]; Protocol Last Admin: 11/26/22 08:10 Dose: 6 unit Documented By: ELIZ Latanoprost (Latanoprost 0.005 % Ophth [place] 2.5 Ml Drops) 1 drop EYE-BOTH BEDTIME [facility] Last Admin: 11/25/22 21:10 Dose: 1 drop Documented By: RADHA Levothyroxine Sodium (Levothyroxine Sodium 75 Mcg Tablet) 75 mcg PO DAILY@0600 [facility] Last Admin: 11/26/22 05:52 Dose: 75 mcg Documented By: RADHA Meclizine HCl (Meclizine Hcl 12.5 Mg Tablet) 12.5 mg PO DAILY PRN PRN Reason: Dizziness Memantine (Memantine Hcl 10 Mg Tablet) 10 mg PO BID [facility] Last Admin: 11/25/22 21:08 Dose: 10 mg Documented By: RADHA Omeprazole (Omeprazole 40 Mg Capsule.Dr) 40 mg PO DAILY@0630 [facility] Last Admin: 11/26/22 05:52 Dose: 40 mg Documented By: RADHA Pharmacy Consult (Consult Rx Perform Med Rec) 1 each MISCELLANE ONCE PRN PRN Reason: Consult order Potassium Chloride (Potassium Chloride Er 10 Meq Tablet.Er) 10 meq PO BEDTIME [facility] Last Admin: 11/25/22 21:08 Dose: 10 meq Documented By: RADHA Prednisone (Prednisone 20 Mg Tablet) 40 mg PO DAILY [facility] Last Admin: 11/25/22 08:08 Dose: 40 mg Documented By: ROMMEL Sodium Chloride (0.9 % Sodium Chloride Flush 3 Ml Syringe) 3 ml IVFLUSH QSHIFT [facility] Last Admin: 11/26/22 08:11 Dose: 3 ml Documented By: ELIZ Labs 11/25/22 06:39 11/25/22 06:39 Labs: Laboratory Results - last 24 hr 11/25/22 11/25/22 11/25/22 11:01 15:49 20:59 POC Glucose 312 H 392 H* 284 H 11/26/22 11/26/22 00:56 07:41 POC Glucose 199 H 289 H Assessment and Plan (1) Acute respiratory failure with hypoxia: Status: Acute Plan 87F PMH dementia, HTN, HLD, moderate persistent asthma, DM, hypothryoid, persistent afib on eliquis, hfref, GERD, presented with weakness, increased confusion and sob acute hypoxic respiraotry failure, acute metabolic encephalopathy, and viral sepsis due to parainfluenza complciated by moderate persistent asthma with acute decompensation steroids changed to po, nebs, wean o2 conitnue azithro, dementia with acute hospital delerium orienting strategies, somewhat better today peristent afib with rvr metoprolol increased to 100mg bid, eliquis, monitor chronic systolic chf metoprolol, po lasix DM insulin, pocs hypothryoid synthroid dvt prophyalxis - eliquis full code reason for continued hospitalization:acute delrium, afib rvr Time Spent With Patient Time: Total time managing care of this patient today ____ minutes. Quality Stroke Does the patient have a stroke diagnosis?: No VTE Prior VTE?: No VTE Risk Level:: Medical - moderate - high VTE Device Contraindication: Treatment Not Indicated VTE Drug Contraindication: N/A - Med Ordered
[2022-11-26] MEDS: predniSONE 20 MG TABLET 40 MG PO (08:49)
[2022-11-26] MEDS: Memantine HCl 10 MG TABLET PO ×2 (08:49→19:41)
[2022-11-26] MEDS: Apixaban 2.5 MG TABLET PO ×2 (08:49→19:41)
[2022-11-26] MEDS: Furosemide 20 MG TABLET PO ×2 (08:50→17:00)
[2022-11-26] MEDS: Metoprolol Tartrate 100 MG TABLET PO ×2 (10:42→19:41)
[2022-11-26] MEDS: QUEtiapine Fumarate 25 MG TABLET PO (11:22)
[2022-11-26] MEDS: Brimonidine Tartrate 0.2% Oph 5 ML BOTTLE 1 DROP EYE-BOTH ×2 (11:23→21:27)
[2022-11-26 11:33] LABS: Glucose, Whole Blood 194 mg/dL (60-115)
[2022-11-26] MEDS: Azithromycin 500 MG in 0.9 % Sodium Chloride 250 ML 125 MG IV (12:26)
[2022-11-26 16:24] LABS: Glucose, Whole Blood 248 mg/dL (60-115)
[2022-11-26] MEDS: LORazepam 0.5 MG TABLET PO (18:17)
[2022-11-26] MEDS: OLANZapine 10 MG VIAL IM (19:41)
[2022-11-26] MEDS: Atorvastatin Calcium 10 MG TABLET PO (19:41)
[2022-11-26] MEDS: Potassium Chloride ER 10 MEQ TABLET.ER PO (19:41)
[2022-11-26 21:21] LABS: Glucose, Whole Blood 292 mg/dL (60-115)
[2022-11-26] MEDS: Metoprolol Tartrate 5 MG/5 ML VIAL IVPUSH ×2 (21:27→23:28)
[2022-11-26] MEDS: Latanoprost 0.005 % Ophth Sol 2.5 ML DROPS 1 DROP EYE-BOTH (21:27)
--- NOTE | 2022-11-26 22:47 | PC.NURSE ---
DR PACHECO NOTIFIED OF PTS HR STILL IN 120S-130S SUSTAINING AFTER IV LOPRESSOR. NO NEW ORDERS, SAID IT LESS THAN 140 HR IS OK
[2022-11-27] VITALS (8 sets, daily range): BP systolic 143–190; BP diastolic 82–107; PULSE 112–136; RESP 16–20; TEMP 36.2–36.9; O2SAT 92–94
--- NOTE | 2022-11-27 04:36 | PC.NURSE ---
dr marion notified of pts bp 190/100, no new orders. patient asymptomatic.
[2022-11-27] MEDS: Metoprolol Tartrate 5 MG/5 ML VIAL IVPUSH ×3 (05:35→21:31)
[2022-11-27] MEDS: LORazepam 2 MG/ML VIAL 1 MG IVPUSH (05:35)
[2022-11-27] MEDS: Levothyroxine Sodium 75 MCG TABLET PO (05:38)
[2022-11-27] MEDS: Omeprazole 40 MG CAPSULE.DR PO (05:38)
--- NOTE | 2022-11-27 07:00 | CA_ITS ---
Transthoracic Echocardiogram Patient (Last, First, Middle): Loren Mendoza M Gender: Female Date of : 1935 Age: 87 Procedure Date: 11/27/2022 Procedure Type: Transthoracic Echocardiogram [place] [facility] [place]: 157.48 cm Weight: 54.43 kg BSA: 1.54 m2 Heart Rate: bpm BP: 159 / 107 mmHg Shearer Helper: SB Referring MD: Sinan COOPER Model Technician: Jimmy Plascencia MD Symptoms: Hx of HFrEF last echo 07/22, Afib w/RVR Study Quality: Technically Difficult/narrow ribs/supine ECG Rhythm: Atrial Fibrillation Conclusions: - 1. Technically difficult study due to body habitus as well as rapid atrial fibrillation 2. Mildly reduced LV ejection fraction 45-50% 3. Suggestion of underlying aortic stenosis, unable to assess severity next 4. Mildly elevated right ventricular systolic pressure 5. No gross pericardial effusion Findings Left Ventricle Normal left ventricular cavity size. The left ventricular systolic function is mildly decreased. The visually estimated ejection fraction is between 45 50%. Regional wall motion abnormalities can not be excluded due to suboptimal endocardial definition. Diastolic function is indeterminate on the basis of available data. Right Ventricle The right ventricle was not well visualized. Atria The left atrium was not well visualized. Interatrial shunt cannot be excluded. The right atrium is mildly dilated. Aortic Valve There is mild calcification of the aortic valve. Increased gradients across aortic valve suggestive aortic stenosis although severity is difficult to assess on this study Mitral Valve The mitral valve was not well visualized. There is trace mitral valve regurgitation. There is no mitral valve stenosis. Pulmonic Valve The pulmonic valve was not well visualized. Tricuspid Valve Normal tricuspid valve structure. There is mild tricuspid valve regurgitation. Normal right atrial pressure. Mild pulmonary hypertension is present. Great Vessels The aorta was not well visualized. The pulmonary artery was not well visualized. Venous The inferior vena cava is normal in size and collapses greater than 50% with inspiration. Pericardium/Pleural There is no evidence of pericardial effusion. Measurements 2D Linear Measurements IVSd: 1.17 0.6-0.9/0.6-1.0 cm LVIDd: 3.65 3.9-5.3/4.2-5.9 cm LVIDd Index: 2.37 2.4-3.2/2.2-3.1 cm/m2 LVIDs: 2.91 2.0-3.6 cm LVPWd: 1.13 0.7-1.1 cm LA Diam: 2.90 2.7-3.8/3.0-4.0 cm LAIDs Index: 1.88 1.5-2.3 cm/m2 LV Mass: 168.50 67-162/88-224 g LV Mass Index: 109.41 43-95/49-115 g/m2 LVOT Diam: 1.90 3.0+(-)1.3 cm 2D Systolic Function EF 4C: 37.70 >55% EF 2C: 57.80 >55% EF BiP: 49.50 >55% Mitral Valve MV Pk E: 0.99 Aortic Valve AoV Pk Blas: 1.60 AoV Mn Blas: 1.15 AoV VTI: 0.21 AoV Pk Grad: 10.00 Aov Mn Grad: 6.00 BESSIE Cont.VTI: 1.32 LVOT LVOT Pk Blas: 0.81 LVOT Mn Blas: 0.54 LVOT VTI: 0.10 LVOT Pk Grad: 3.00 LVOT Mn Grad: 1.00 LVOT Diam: 1.90 LVOT Area: 2.84 Diastolic Function MV Pk E: 0.99 Right Ventricle TAPSE (mm): 13.40 TVS' Blas: 11.10 Tricuspid Valve TR Pk Blas: 3.11 TR Pk Grad: 39.00 RA Press: 3.00 RVSP: 42.00 Great Vessels Aorta Sinus of Valsalva: 2.70 2.0-3.5 cm Ao Asc: 2.90 2.1-3.4 cm Pulmonary Valve PV Pk Blas: 1.17 Peak PV Grad: 5.00 Updated in Other Vendor System with Status of Final Jimmy Plascencia MD electronically signed on 11/28/2022 2:06:35 PM with status of Final
[2022-11-27 07:36] LABS: Glucose, Whole Blood 173 mg/dL (60-115)
[2022-11-27] MEDS: Fluticasone/Vilanterol 100/25 BLST.W.DEV 1 PUFF INHALE (08:16)
[2022-11-27] MEDS: Albuterol/Iprat 2.5/0.5MG 3 ML AMPUL.NEB INHALE ×2 (08:16→11:28)
--- NOTE | 2022-11-27 09:25 | HO.PM.IMPN ---
Subjective Subjective Date of Service: 11/27/22 Interval History: tachy Physical Exam Vital Signs: Vital Signs: Last Vital Signs Temp 97.1 F 11/27/22 08:00 Pulse 112 H 11/27/22 08:19 Resp 16 11/27/22 08:19 BP 179/100 H 11/27/22 08:00 Pulse Ox 94 11/27/22 08:00 O2 Del Method Nasal Cannula 11/27/22 08:00 O2 Flow Rate 3 11/27/22 08:00 BMI result Body Mass Index 21.9 alert, less resp distress, confused Objective Data Active Medications Acetaminophen (Acetaminophen 325 Mg Tablet) 650 mg PO Q6H PRN PRN Reason: Pain, Mild (Pain Scale 1-3) Last Admin: 11/25/22 16:57 Dose: 650 mg Documented By: ROMMEL Albuterol/Ipratropium (Albuterol/Iprat 2.5/0.5mg 3 Ml Ampul.Neb) 3 ml INHALE RQ4H WHILE AWAKE [facility] Last Admin: 11/27/22 08:16 Dose: 3 ml Documented By: ALFREDO Apixaban (Apixaban 2.5 Mg Tablet) 2.5 mg PO BID [facility] Last Admin: 11/26/22 19:41 Dose: 2.5 mg Documented By: DONNY Atorvastatin Calcium (Atorvastatin Calcium 10 Mg Tablet) 10 mg PO BEDTIME [facility] Last Admin: 11/26/22 19:41 Dose: 10 mg Documented By: DONNY Brimonidine Tartrate (Brimonidine Tartrate 0.2% Oph 5 Ml Bottle) 1 drop EYE-BOTH BID [facility] Last Admin: 11/26/22 21:27 Dose: 1 drop Documented By: DONNY Digoxin (Digoxin 0.125 Mg Tablet) 0.125 mg PO Q2D [facility] Docusate Sodium (Docusate Sodium 100 Mg Capsule) 100 mg PO DAILY PRN PRN Reason: Constipation Fluticasone/Vilanterol (Fluticasone/Vilanterol 100/25 Blst.W.Dev) 1 puff INHALE RDAILY [facility] Last Admin: 11/27/22 08:16 Dose: 1 puff Documented By: ALFREDO Furosemide (Furosemide 20 Mg Tablet) 20 mg PO BID@0800,1700 [facility]; Protocol Last Admin: 11/26/22 17:00 Dose: 20 mg Documented By: ELIZ Glucose (Glucose Gel 15 Gm Gel..Gram.) 15 gm PO Q15M PRN; Protocol PRN Reason: per Hypoglycemia Standing Ord. Dextrose (D10) 250 mls @ 750 mls/hr IV Q15M PRN; Protocol PRN Reason: per Hypoglycemia Standing Ord. Insulin Human Lispro (Insulin Lispro 100 Unit/Ml 3 Ml Vial) 0 unit SUBCUT QIDACHS [facility]; Protocol Last Admin: 11/26/22 21:27 Dose: 6 unit Documented By: DONNY Latanoprost (Latanoprost 0.005 % Ophth [place] 2.5 Ml Drops) 1 drop EYE-BOTH BEDTIME [facility] Last Admin: 11/26/22 21:27 Dose: 1 drop Documented By: DONNY Levothyroxine Sodium (Levothyroxine Sodium 75 Mcg Tablet) 75 mcg PO DAILY@0600 [facility] Last Admin: 11/27/22 05:38 Dose: 75 mcg Documented By: DONNY Meclizine HCl (Meclizine Hcl 12.5 Mg Tablet) 12.5 mg PO DAILY PRN PRN Reason: Dizziness Memantine (Memantine Hcl 10 Mg Tablet) 10 mg PO BID [facility] Last Admin: 11/26/22 19:41 Dose: 10 mg Documented By: DONNY Metoprolol Tartrate (Metoprolol Tartrate 100 Mg Tablet) 100 mg PO BID [facility]; Protocol Last Admin: 11/26/22 19:41 Dose: 100 mg Documented By: DONNY Omeprazole (Omeprazole 40 Mg Capsule.Dr) 40 mg PO DAILY@0630 [facility] Last Admin: 11/27/22 05:38 Dose: 40 mg Documented By: DONNY Pharmacy Consult (Consult Rx Perform Med Rec) 1 each MISCELLANE ONCE PRN PRN Reason: Consult order Potassium Chloride (Potassium Chloride Er 10 Meq Tablet.Er) 10 meq PO BEDTIME [facility] Last Admin: 11/26/22 19:41 Dose: 10 meq Documented By: DONNY Prednisone (Prednisone 20 Mg Tablet) 40 mg PO DAILY [facility] Last Admin: 11/26/22 08:49 Dose: 40 mg Documented By: ELIZ Sodium Chloride (0.9 % Sodium Chloride Flush 3 Ml Syringe) 3 ml IVFLUSH QSHIFT [facility] Last Admin: 11/27/22 01:42 Dose: Not Given Documented By: DONNY Non-Admin Reason: Previously Administered Labs 11/25/22 06:39 11/25/22 06:39 Labs: Laboratory Results - last 24 hr 11/26/22 11/26/22 11/26/22 11:28 16:08 21:14 POC Glucose 194 H 248 H 292 H 11/27/22 07:00 POC Glucose 173 H Assessment and Plan (1) Acute respiratory failure with hypoxia: Status: Acute Plan 87F PMH dementia, HTN, HLD, moderate persistent asthma, DM, hypothryoid, persistent afib on eliquis, hfref, GERD, presented with weakness, increased confusion and sob acute hypoxic respiraotry failure, acute metabolic encephalopathy, and viral sepsis due to parainfluenza complciated by moderate persistent asthma with acute decompensation prednisone, nebs, wean o2 completed azitho course dementia with acute hospital delerium orienting strategies, atypical antipychotics as needed for patient safety only peristent afib with rvr metoprolol increased to 100mg bid, eliquis, still fast, will start low dose dig, monitor chronic systolic chf metoprolol, po lasix DM insulin, pocs hypothryoid synthroid dvt prophyalxis - eliquis full code reason for continued hospitalization:hypoxia, afib rvr Time Spent With Patient Time: Total time managing care of this patient today ____ minutes. Quality Stroke Does the patient have a stroke diagnosis?: No VTE Prior VTE?: No VTE Risk Level:: Medical - moderate - high VTE Device Contraindication: Treatment Not Indicated VTE Drug Contraindication: N/A - Med Ordered
[2022-11-27] MEDS: predniSONE 20 MG TABLET 40 MG PO (10:35)
[2022-11-27] MEDS: Digoxin 0.125 MG TABLET PO (10:36)
[2022-11-27] MEDS: 0.9 % Sodium Chloride Flush 3 ML SYRINGE IVFLUSH ×3 (10:36→21:32)
[2022-11-27] MEDS: Insulin Lispro 100 UNIT/ML 3 ML VIAL SUBCUT ×2 (10:37→12:35)
[2022-11-27] MEDS: Brimonidine Tartrate 0.2% Oph 5 ML BOTTLE 1 DROP EYE-BOTH ×2 (10:52→21:53)
[2022-11-27 11:33] LABS: Glucose, Whole Blood 203 mg/dL (60-115)
[2022-11-27 16:13] LABS: Glucose, Whole Blood 74 mg/dL (60-115)
[2022-11-27 17:24] LABS: Glucose, Whole Blood 94 mg/dL (60-115)
[2022-11-27 19:38] LABS: Glucose, Whole Blood 102 mg/dL (60-115)
[2022-11-27] MEDS: Atorvastatin Calcium 10 MG TABLET PO (21:41)
[2022-11-27] MEDS: Memantine HCl 10 MG TABLET PO (21:41)
[2022-11-27] MEDS: Potassium Chloride Packet 20 MEQ PACKET 40 MEQ PO (21:43)
[2022-11-27] MEDS: Metoprolol Tartrate 100 MG TABLET PO (21:51)
[2022-11-27] MEDS: Apixaban 2.5 MG TABLET PO (21:52)
[2022-11-27] MEDS: Latanoprost 0.005 % Ophth Sol 2.5 ML DROPS 1 DROP EYE-BOTH (21:53)
[2022-11-28] VITALS (13 sets, daily range): BP systolic 123–170; BP diastolic 78–98; PULSE 73–138; RESP 17–20; TEMP 36.3–37.1; O2SAT 93–97
[2022-11-28 07:04] LABS: Hematocrit 42.2 % (37.0-47.0); Hemoglobin 13.4 g/dl (12.0-16.0); Mean Corpuscular HGB Conc 31.8 g/dl (31.0-35.0); Mean Corpuscular Hemoglobin 29.2 pg (27.0-33.0); Mean Corpuscular Volume 91.9 fL (80.0-98.0); Mean Platelet Volume 10.9 fL (9.4-12.3); Platelet Count 203 X10*3/uL (160-400); Red Blood Count 4.59 X10*6/uL (4.20-5.50); Red Cell Distribution Width 12.8 % (11.0-16.0)
[2022-11-28 07:07] LABS: Anion Gap 13 (12-20); Blood Urea Nitrogen 27 mg/dL (9-16); Calcium 9.4 mg/dL (8.4-10.2); Carbon Dioxide 29 mmol/L (22-29); Chloride 108 mmol/L (96-108); Creatinine Clr Calc Pharmacy 29.8; Estimated Glomerular Filt Rate 50; Glucose Fasting 144 mg/dL (60-99); Potassium 4.5 mmol/L (3.3-5.1); Sodium 145 mmol/L (135-145)
[2022-11-28 07:17] LABS: Glucose, Whole Blood 137 mg/dL (60-115)
[2022-11-28] MEDS: Losartan Potassium 25 MG TABLET PO (09:47)
[2022-11-28] MEDS: predniSONE 20 MG TABLET 40 MG PO (09:47)
[2022-11-28] MEDS: 0.9 % Sodium Chloride Flush 3 ML SYRINGE IVFLUSH ×2 (09:47→16:30)
[2022-11-28] MEDS: Furosemide 20 MG TABLET PO ×2 (09:47→16:29)
[2022-11-28] MEDS: Memantine HCl 10 MG TABLET PO ×2 (09:47→21:13)
[2022-11-28] MEDS: Metoprolol Tartrate 100 MG TABLET PO ×2 (09:47→21:13)
[2022-11-28] MEDS: Apixaban 2.5 MG TABLET PO ×2 (09:47→21:14)
--- NOTE | 2022-11-28 10:21 | MHC.CM.PN ---
Per ROUNDS discussion, Patient is not yet medically cleared for dc (Sitter, still on O2, needs PT eval); CM will follow for PT's recommendation to assist with disposition.
[2022-11-28] MEDS: Brimonidine Tartrate 0.2% Oph 5 ML BOTTLE 1 DROP EYE-BOTH ×2 (10:25→21:21)
--- NOTE | 2022-11-28 11:20 | MHC.CM.PN ---
PT is recommending STR; Patient's Sitter will be dc'd today, per ROUNDS discussion.CM will follow.
[2022-11-28] MEDS: Albuterol/Iprat 2.5/0.5MG 3 ML AMPUL.NEB INHALE ×3 (11:44→20:16)
--- NOTE | 2022-11-28 11:45 | HO.PM.IMPN ---
Subjective Subjective Date of Service: 11/28/22 Interval History: More alert and interactive Feels weak with no injury HR better controlled but still high 100-110s No other overnight events Review of Systems Review of Systems: Yes all other systems are reviewed and are negative Physical Exam Vital Signs: Vital Signs: Last Vital Signs Temp 97.7 F 11/28/22 07:15 Pulse 109 H 11/28/22 11:19 Resp 20 11/28/22 07:15 BP 170/80 H 11/28/22 11:19 Pulse Ox 94 11/28/22 11:19 O2 Del Method Nasal Cannula 11/28/22 07:15 O2 Flow Rate 2 11/28/22 07:10 BMI result Body Mass Index 21.9 Const: Other: Constitutional : Awake, interactive, less delirious, not in distress Neck : Normal inspection, Supple Cardiovascular : irregular irregular, no JVP, no lower extremity edema Respiratory : good bilateral air entry, no crackles, wheezes or rhonchi Gastrointestinal: soft, lax, Normal bowel sounds, Non tender Skin : Warm, Dry Neurological : Alert & oriented to self and place, No focal deficit , more interactive Objective Data Active Medications Acetaminophen (Acetaminophen 325 Mg Tablet) 650 mg PO Q6H PRN PRN Reason: Pain, Mild (Pain Scale 1-3) Last Admin: 11/25/22 16:57 Dose: 650 mg Documented By: ROMMEL Albuterol/Ipratropium (Albuterol/Iprat 2.5/0.5mg 3 Ml Ampul.Neb) 3 ml INHALE RQ4H WHILE AWAKE [facility] Last Admin: 11/28/22 11:44 Dose: 3 ml Documented By: VICENTE Apixaban (Apixaban 2.5 Mg Tablet) 2.5 mg PO BID [facility] Last Admin: 11/28/22 09:47 Dose: 2.5 mg Documented By: DAVID Atorvastatin Calcium (Atorvastatin Calcium 10 Mg Tablet) 10 mg PO BEDTIME [facility] Last Admin: 11/27/22 21:41 Dose: 10 mg Documented By: CARMEN Brimonidine Tartrate (Brimonidine Tartrate 0.2% Oph 5 Ml Bottle) 1 drop EYE-BOTH BID [facility] Last Admin: 11/28/22 10:25 Dose: 1 drop Documented By: DAVID Digoxin (Digoxin 0.125 Mg Tablet) 0.125 mg PO Q2D [facility] Last Admin: 11/27/22 10:36 Dose: 0.125 mg Documented By: DAVID Docusate Sodium (Docusate Sodium 100 Mg Capsule) 100 mg PO DAILY PRN PRN Reason: Constipation Fluticasone/Vilanterol (Fluticasone/Vilanterol 100/25 Blst.W.Dev) 1 puff INHALE RDAILY [facility] Last Admin: 11/28/22 07:58 Dose: Not Given Documented By: VICENTE Non-Admin Reason: pt eating Furosemide (Furosemide 20 Mg Tablet) 20 mg PO BID@0800,1700 [facility]; Protocol Last Admin: 11/28/22 09:47 Dose: 20 mg Documented By: DAVID Glucose (Glucose Gel 15 Gm Gel..Gram.) 15 gm PO Q15M PRN; Protocol PRN Reason: per Hypoglycemia Standing Ord. Dextrose (D10) 250 mls @ 750 mls/hr IV Q15M PRN; Protocol PRN Reason: per Hypoglycemia Standing Ord. Insulin Human Lispro (Insulin Lispro 100 Unit/Ml 3 Ml Vial) 0 unit SUBCUT QIDACHS [facility]; Protocol Last Admin: 11/28/22 07:35 Dose: Not Given Documented By: DAVID Non-Admin Reason: No Insulin Coverage Latanoprost (Latanoprost 0.005 % Ophth [place] 2.5 Ml Drops) 1 drop EYE-BOTH BEDTIME [facility] Last Admin: 11/27/22 21:53 Dose: 1 drop Documented By: CARMEN Levothyroxine Sodium (Levothyroxine Sodium 75 Mcg Tablet) 75 mcg PO DAILY@0600 [facility] Last Admin: 11/28/22 06:06 Dose: Not Given Documented By: CARMEN Non-Admin Reason: Patient Refused Losartan Potassium (Losartan Potassium 25 Mg Tablet) 25 mg PO DAILY [facility]; Protocol Last Admin: 11/28/22 09:47 Dose: 25 mg Documented By: DAVID Meclizine HCl (Meclizine Hcl 12.5 Mg Tablet) 12.5 mg PO DAILY PRN PRN Reason: Dizziness Memantine (Memantine Hcl 10 Mg Tablet) 10 mg PO BID [facility] Last Admin: 11/28/22 09:47 Dose: 10 mg Documented By: DAVID Metoprolol Tartrate (Metoprolol Tartrate 100 Mg Tablet) 100 mg PO BID [facility]; Protocol Last Admin: 11/28/22 09:47 Dose: 100 mg Documented By: DAVID Olanzapine (Olanzapine 5 Mg Tablet) 5 mg PO Q4H PRN PRN Reason: severe agitation patient safet Omeprazole (Omeprazole 40 Mg Capsule.Dr) 40 mg PO DAILY@0630 [facility] Last Admin: 11/28/22 06:07 Dose: Not Given Documented By: CARMEN Non-Admin Reason: Patient Refused Pharmacy Consult (Consult Rx Perform Med Rec) 1 each MISCELLANE ONCE PRN PRN Reason: Consult order Potassium Chloride (Potassium Chloride Er 10 Meq Tablet.Er) 10 meq PO BEDTIME [facility] Last Admin: 11/27/22 22:04 Dose: Not Given Documented By: CARMEN Non-Admin Reason: aware - new order for powder form Prednisone (Prednisone 20 Mg Tablet) 40 mg PO DAILY [facility] Last Admin: 11/28/22 09:47 Dose: 40 mg Documented By: DAVID Sodium Chloride (0.9 % Sodium Chloride Flush 3 Ml Syringe) 3 ml IVFLUSH QSHIFT [facility] Last Admin: 11/28/22 09:47 Dose: 3 ml Documented By: DAVID Labs 11/28/22 06:32 11/28/22 06:32 Labs: Laboratory Results - last 24 hr 11/27/22 11/27/22 11/27/22 16:06 17:19 19:31 MCV MCH MCHC RDW Plt Count MPV Absolute Nucleated RBC Nucleated RBC % (auto) Anion Gap Estim Creat Clear Calc Estimated GFR POC Glucose 74 94 102 Fasting Glucose Calcium Magnesium 11/28/22 11/28/22 11/28/22 06:32 06:32 07:13 MCV 91.9 MCH 29.2 MCHC 31.8 RDW 12.8 Plt Count 203 D MPV 10.9 Absolute Nucleated RBC 0.000 Nucleated RBC % (auto) 0.0 Anion Gap 13 Estim Creat Clear Calc 29.8 Estimated GFR 50 POC Glucose 137 H Fasting Glucose 144 H Calcium 9.4 Magnesium 2.0 Microbiology Microbiology Results: Microbiology 11/22/22 08:53 Blood Culture - Final Blood - Arterial No growth after 5 days. 11/22/22 08:53 Blood Culture - Final Blood - Arterial No growth after 5 days. Assessment and Plan (1) Acute respiratory failure with hypoxia: Status: Acute (2) Atrial fibrillation with RVR: Status: Acute (3) Acute metabolic encephalopathy: Status: Acute (4) Parainfluenza virus infection: Status: Acute Plan 87F PMH dementia, HTN, HLD, moderate persistent asthma, DM, hypothryoid, persistent afib on eliquis, hfref, GERD, presented with weakness, increased confusion and sob acute hypoxic respiraotry failure, acute metabolic encephalopathy, and viral sepsis due to parainfluenza complciated by moderate persistent asthma with acute decompensation improving slowly continue prednisone, nebs, wean o2 completed azitho course dementia with acute hospital delerium orienting strategies, atypical antipychotics as needed for patient safety only remove the sitter today and monitor start PT peristent afib with rvr metoprolol increased to 100mg bid, Continue eliquis continue low dose dig, monitor chronic systolic chf metoprolol, po lasix DM insulin, pocs hypothryoid synthroid dvt prophyalxis - eliquis full code reason for continued hospitalization:hypoxia, afib rvr Time Spent With Patient Time: Total time managing care of this patient today ____ minutes. Quality Stroke Does the patient have a stroke diagnosis?: No VTE Prior VTE?: No VTE Risk Level:: Medical - moderate - high VTE Device Contraindication: Treatment Not Indicated VTE Drug Contraindication: N/A - Med Ordered
[2022-11-28 12:11] LABS: Glucose, Whole Blood 323 mg/dL (60-115)
[2022-11-28] MEDS: Insulin Lispro 100 UNIT/ML 3 ML VIAL SUBCUT ×3 (12:14→21:11)
[2022-11-28 16:12] LABS: Glucose, Whole Blood 481 mg/dL (60-115)
[2022-11-28] MEDS: Insulin Lispro 100 UNIT/ML 3 ML VIAL 8 UNIT SUBCUT (16:29)
[2022-11-28 19:48] LABS: Glucose, Whole Blood 368 mg/dL (60-115)
[2022-11-28] MEDS: Metoprolol Tartrate 5 MG/5 ML VIAL 2.5 MG IVPUSH (19:51)
[2022-11-28] MEDS: hydrOXYzine HCL 25 MG TABLET PO (19:56)
[2022-11-28] MEDS: traZODone HCL 50 MG TABLET PO (21:14)
[2022-11-28] MEDS: Atorvastatin Calcium 10 MG TABLET PO (21:14)
[2022-11-28] MEDS: Latanoprost 0.005 % Ophth Sol 2.5 ML DROPS 1 DROP EYE-BOTH (21:21)
[2022-11-29] VITALS (7 sets, daily range): BP systolic 114–160; BP diastolic 69–90; PULSE 101–138; RESP 16–20; TEMP 36.6–37.1; O2SAT 90–94
[2022-11-29] MEDS: OLANZapine 5 MG TABLET PO ×2 (04:35→17:25)
[2022-11-29] MEDS: Omeprazole 40 MG CAPSULE.DR PO (05:18)
[2022-11-29] MEDS: Levothyroxine Sodium 75 MCG TABLET PO (05:18)
[2022-11-29 07:30] LABS: Glucose, Whole Blood 229 mg/dL (60-115)
[2022-11-29] MEDS: Insulin Lispro 100 UNIT/ML 3 ML VIAL SUBCUT ×4 (07:57→20:24)
[2022-11-29] MEDS: Insulin Glargine,Hum.rec.anlog 100 UNIT/ML 10 ML VIAL 10 UNIT SUBCUT (07:57)
[2022-11-29] MEDS: predniSONE 20 MG TABLET 40 MG PO (07:58)
[2022-11-29] MEDS: Losartan Potassium 25 MG TABLET PO (07:58)
[2022-11-29] MEDS: 0.9 % Sodium Chloride Flush 3 ML SYRINGE IVFLUSH ×3 (07:58→20:25)
[2022-11-29] MEDS: Apixaban 2.5 MG TABLET PO ×2 (07:58→20:24)
[2022-11-29] MEDS: Metoprolol Tartrate 5 MG/5 ML VIAL IVPUSH (07:58)
[2022-11-29] MEDS: Metoprolol Tartrate 100 MG TABLET PO ×2 (07:58→20:24)
[2022-11-29] MEDS: Memantine HCl 10 MG TABLET PO ×2 (07:59→20:24)
[2022-11-29] MEDS: Furosemide 20 MG TABLET PO ×2 (07:59→17:25)
[2022-11-29] MEDS: Brimonidine Tartrate 0.2% Oph 5 ML BOTTLE 1 DROP EYE-BOTH ×2 (08:08→20:25)
[2022-11-29] MEDS: Fluticasone/Vilanterol 100/25 BLST.W.DEV 1 PUFF INHALE (08:39)
[2022-11-29] MEDS: Digoxin 0.125 MG TABLET PO (09:59)
--- NOTE | 2022-11-29 10:35 | MHC.CM.PN ---
EMR reviewed and per MD rounds, pt will have 1:1 sitter discontinued today and is anticipated to D/C tomorrow to [facility]. CM will continue to follow.
--- NOTE | 2022-11-29 10:49 | HO.PM.IMPN ---
Subjective Subjective Date of Service: 11/29/22 Interval History: More alert and interactive HR was high overnight around 140s weaned down O2 Sitter back overnight No other overnight events Review of Systems Review of Systems: Yes all other systems are reviewed and are negative Physical Exam Vital Signs: Vital Signs: Last Vital Signs Temp 98.8 F 11/29/22 07:06 Pulse 101 H 11/29/22 09:54 Resp 20 11/29/22 08:46 BP 160/90 H 11/29/22 07:06 Pulse Ox 90 L 11/29/22 07:06 O2 Del Method Room Air 11/29/22 07:06 O2 Flow Rate 2 11/28/22 23:05 BMI result Body Mass Index 21.9 Const: Other: Constitutional : Awake, interactive, less delirious, not in distress Neck : Normal inspection, Supple Cardiovascular : irregular irregular, no JVP, no lower extremity edema Respiratory : good bilateral air entry, no crackles, wheezes or rhonchi Gastrointestinal: soft, lax, Normal bowel sounds, Non tender Skin : Warm, Dry Neurological : Alert & oriented to self and place, No focal deficit , more interactive Objective Data Active Medications Acetaminophen (Acetaminophen 325 Mg Tablet) 650 mg PO Q6H PRN PRN Reason: Pain, Mild (Pain Scale 1-3) Last Admin: 11/25/22 16:57 Dose: 650 mg Documented By: ROMMEL Apixaban (Apixaban 2.5 Mg Tablet) 2.5 mg PO BID [facility] Last Admin: 11/29/22 07:58 Dose: 2.5 mg Documented By: ELIZ Atorvastatin Calcium (Atorvastatin Calcium 10 Mg Tablet) 10 mg PO BEDTIME [facility] Last Admin: 11/28/22 21:14 Dose: 10 mg Documented By: CARMEN Brimonidine Tartrate (Brimonidine Tartrate 0.2% Oph 5 Ml Bottle) 1 drop EYE-BOTH BID [facility] Last Admin: 11/29/22 08:08 Dose: 1 drop Documented By: ELIZ Digoxin (Digoxin 0.125 Mg Tablet) 0.125 mg PO Q2D [facility] Last Admin: 11/29/22 09:59 Dose: 0.125 mg Documented By: ELIZ Docusate Sodium (Docusate Sodium 100 Mg Capsule) 100 mg PO DAILY PRN PRN Reason: Constipation Fluticasone/Vilanterol (Fluticasone/Vilanterol 100/25 Blst.W.Dev) 1 puff INHALE RDAILY [facility] Last Admin: 11/29/22 08:39 Dose: 1 puff Documented By: CORBIN Furosemide (Furosemide 20 Mg Tablet) 20 mg PO BID@0800,1700 [facility]; Protocol Last Admin: 11/29/22 07:59 Dose: 20 mg Documented By: ELIZ Glucose (Glucose Gel 15 Gm Gel..Gram.) 15 gm PO Q15M PRN; Protocol PRN Reason: per Hypoglycemia Standing Ord. Dextrose (D10) 250 mls @ 750 mls/hr IV Q15M PRN; Protocol PRN Reason: per Hypoglycemia Standing Ord. Insulin Glargine (Insulin Glargine,Hum.Rec.Anlog 100 Unit/Ml 10 Ml Vial) 10 unit SUBCUT DAILY [facility] Last Admin: 11/29/22 07:57 Dose: 10 unit Documented By: ELIZ Insulin Human Lispro (Insulin Lispro 100 Unit/Ml 3 Ml Vial) 0 unit SUBCUT QIDACHS [facility]; Protocol Last Admin: 11/29/22 07:57 Dose: 4 unit Documented By: ELIZ Latanoprost (Latanoprost 0.005 % Ophth [place] 2.5 Ml Drops) 1 drop EYE-BOTH BEDTIME [facility] Last Admin: 11/28/22 21:21 Dose: 1 drop Documented By: CARMEN Levothyroxine Sodium (Levothyroxine Sodium 75 Mcg Tablet) 75 mcg PO DAILY@0600 [facility] Last Admin: 11/29/22 05:18 Dose: 75 mcg Documented By: CARMEN Losartan Potassium (Losartan Potassium 25 Mg Tablet) 25 mg PO DAILY [facility]; Protocol Last Admin: 11/29/22 07:58 Dose: 25 mg Documented By: ELIZ Meclizine HCl (Meclizine Hcl 12.5 Mg Tablet) 12.5 mg PO DAILY PRN PRN Reason: Dizziness Memantine (Memantine Hcl 10 Mg Tablet) 10 mg PO BID [facility] Last Admin: 11/29/22 07:59 Dose: 10 mg Documented By: ELIZ Metoprolol Tartrate (Metoprolol Tartrate 100 Mg Tablet) 100 mg PO BID [facility]; Protocol Last Admin: 11/29/22 07:58 Dose: 100 mg Documented By: ELIZ Olanzapine (Olanzapine 5 Mg Tablet) 5 mg PO Q4H PRN PRN Reason: severe agitation patient safet Last Admin: 11/29/22 04:35 Dose: 5 mg Documented By: CARMEN Olanzapine (Olanzapine 5 Mg Tablet) 5 mg PO DAILY@1700 [facility] Omeprazole (Omeprazole 40 Mg Capsule.Dr) 40 mg PO DAILY@0630 [facility] Last Admin: 11/29/22 05:18 Dose: 40 mg Documented By: CARMEN Pharmacy Consult (Consult Rx Perform Med Rec) 1 each MISCELLANE ONCE PRN PRN Reason: Consult order Potassium Chloride (Potassium Chloride Er 10 Meq Tablet.Er) 10 meq PO BEDTIME [facility] Last Admin: 11/28/22 22:06 Dose: Not Given Documented By: CARMEN Non-Admin Reason: Per ok to hold, potassium 4.5 today Prednisone (Prednisone 20 Mg Tablet) 40 mg PO DAILY [facility] Last Admin: 11/29/22 07:58 Dose: 40 mg Documented By: ELIZ Sodium Chloride (0.9 % Sodium Chloride Flush 3 Ml Syringe) 3 ml IVFLUSH QSHIFT [facility] Last Admin: 11/29/22 07:58 Dose: 3 ml Documented By: ELIZ Trazodone HCl (Trazodone Hcl 50 Mg Tablet) 50 mg PO BEDTIME PRN PRN Reason: Insomnia Last Admin: 11/28/22 21:14 Dose: 50 mg Documented By: CAMREN Labs 11/28/22 06:32 11/28/22 06:32 Labs: Laboratory Results - last 24 hr 11/28/22 11/28/22 11/28/22 12:07 16:09 19:41 POC Glucose 323 H 481 H* 368 H* 11/29/22 07:26 POC Glucose 229 H Assessment and Plan (1) Parainfluenza virus infection: Status: Acute (2) Sepsis: Status: Acute (3) Pneumonia: Status: Acute (4) Atrial fibrillation with RVR: Status: Acute Plan 87F PMH dementia, HTN, HLD, moderate persistent asthma, DM, hypothryoid, persistent afib on eliquis, hfref, GERD, presented with weakness, increased confusion and sob acute hypoxic respiraotry failure, acute metabolic encephalopathy, and viral sepsis due to parainfluenza complciated by moderate persistent asthma with acute decompensation improving slowly continue prednisone, DC nebs, wean o2 completed azitho course dementia with acute hospital delerium orienting strategies, atypical antipychotics as needed for patient safety only remove the sitter today and monitor PT peristent afib with rvr DC nebs metoprolol increased to 100mg bid Continue eliquis continue low dose dig consider change to Amiodarone chronic systolic chf metoprolol, po lasix DM insulin, pocs hypothryoid synthroid dvt prophyalxis - eliquis full code reason for continued hospitalization:hypoxia, afib rvr Time Spent With Patient Time: Total time managing care of this patient today ____ minutes. Quality Stroke Does the patient have a stroke diagnosis?: No VTE Prior VTE?: No VTE Risk Level:: Medical - moderate - high VTE Device Contraindication: Treatment Not Indicated VTE Drug Contraindication: N/A - Med Ordered
--- NOTE | 2022-11-29 10:50 | P.CDIM_ITS ---
PROVIDER RESPONSE TEXT: To clarify, the appropriate diagnosis supported by the clinical indicators: Other (explain): Hyperglycemia 2/2 DM QUERY TEXT: PHYSICIAN'S DOCUMENTATION REQUEST Date of Query: 11/29/2022 09:10 AM EDT Patient Name: Loren Mendoza Admit Date: 11/22/2022 Dear Cuca Webb, A review of the medical record indicates additional documentation may be needed. Please review below and update the documentation accordingly. Clinical Indicators: Blood sugars on 11/28/22: 323, 368 Blood sugar on 11/29/22: 229 PMH: Diabetes Mellitus , on Insulin Please clarify the following regarding the Complications of Diabetes Mellitus (DM): Please describe any known complications (Such as N[facility]HC, Coma, CKD including stage, Retinopathy, Neuropathy, Peripheral angiopathy, Arthropath y, Foot ulcer, Hypoglycemia, Hyperglycemia, Gastroparesis, and/or Cellulitis) No complications of DM Other (explain)Clinically unable to determine (explain)Thank you, Azalea Sebastian RN Use of terms such as suspected, likely, concern for, or probable (associated with a specific diagnosi s that is being evaluated, monitored, or treated as if it exists) are acceptable and can be coded in the inpatient se tting, when documented at the time of discharge. Please use your independent medical judgment in providing your response. THIS QUERY IS PART OF THE PERMANENT MEDICAL RECORD
[2022-11-29 11:08] LABS: Glucose, Whole Blood 244 mg/dL (60-115)
[2022-11-29 16:06] LABS: Glucose, Whole Blood 365 mg/dL (60-115)
[2022-11-29 19:51] LABS: Glucose, Whole Blood 249 mg/dL (60-115)
[2022-11-29] MEDS: Atorvastatin Calcium 10 MG TABLET PO (20:23)
[2022-11-29] MEDS: traZODone HCL 50 MG TABLET PO (20:23)
[2022-11-29] MEDS: Potassium Chloride ER 10 MEQ TABLET.ER PO (20:23)
[2022-11-29] MEDS: Latanoprost 0.005 % Ophth Sol 2.5 ML DROPS 1 DROP EYE-BOTH (20:25)
[2022-11-30 03:54] VITALS: PULSE 120; RESP 17
[2022-11-30] MEDS: Levothyroxine Sodium 75 MCG TABLET PO (06:33)
[2022-11-30] MEDS: Omeprazole 40 MG CAPSULE.DR PO (06:33)
[2022-11-30 07:13] VITALS: BP 158/89; PULSE 101; RESP 20; TEMP 36.3; O2SAT 92
[2022-11-30 07:19] LABS: Glucose, Whole Blood 155 mg/dL (60-115)
[2022-11-30] MEDS: Insulin Lispro 100 UNIT/ML 3 ML VIAL SUBCUT (08:07)
[2022-11-30] MEDS: 0.9 % Sodium Chloride Flush 3 ML SYRINGE IVFLUSH (08:08)
--- NOTE | 2022-11-30 10:19 | MHC.CM.PN ---
IMM 11/30/22. Pt medically cleared for D/C today, going to [facility] in [place], transportation booked via [facility] at 2pm today. Called and notified pts Emeterio, who is pleased with this plan.
--- NOTE | 2022-11-30 11:14 | P.DS_ITS ---
DS: Providers Provider Date of Service: 11/30/22 Date of admission: 11/22/22 12:26 Primary care physician: Raffaele Saldana MD Consults: 11/25/22 13:35 Consult to Cardiology Routine Consulting Provider: [facility] Reason for consultation: afib rvr Has provider been notified: Yes 11/27/22 00:26 Consult for Sitter Routine Reason for consultation: delirium DS: Diagnosis Discharge Diagnosis (1) Parainfluenza virus infection: Status: Acute (2) Sepsis: Status: Acute (3) Pneumonia: Status: Acute (4) Atrial fibrillation with RVR: Status: Acute (5) Acute respiratory failure with hypoxia: Status: Acute (6) Acute metabolic encephalopathy: Status: Acute DS: Summary Hospital Course Hospital Course: Admission note HPI Pt is a 87-year-old female with a PMH significant for?unspecified dementia, HTN, HLD, asthma, [id number]-siihilscn diabetes, hypothyroidism, persistent AFib on Eliquis, HFrEF, and GERD who presents to the ED with?generalized weakness and increased confusion since earlier this morning.? Patient is alert and oriented to self only and thus incapable of providing HPI.? Unsuccessfully attempted to contact ; HPI thus obtained from chart review.? Patient lives with her . Patient was apparently in her usual state of health up until last night when she went to bed.? Patient was incontinent of urine early this morning at 03 :00 when she got up to go to the bathroom.? Patient again got up to go to the bathroom at around 06:00 and was unable to get herself off the toilet d/t generalized weakness.? called EMS who found the patient to be in AFib with RVR and satting at 86% O2 on RA.? EMS administered metoprolol 5 mg IV. In the ED patient was febrile up to 102.1, tachycardic up to the 120s, tachypneic up to 26, and hypotensive up to 191/103, satting at 90% O2 on RA.? Patient placed on 4L OxyMask, no satting 96% O2. Labs were significant for platelets of 140, magnesium 1.5, BNP elevated at 502. No leukocytosis, H&H stable.? Electrolytes WNL. Renal function baseline.? Hepatic function baseline.? Troponin negative at 6.6.? Procalcitonin 0.04.? VBG WNL.? UA negative for UTI.? Respiratory panel pending. CXR showed patchy density of right upper lobe which may be atelectasis or pneumonitis, and probable small left pleural effusion. CT?of head showed no acute intracranial pathology but atrophic changes related to microangiopathy. EKG demonstrated AFib with RVR of 114. Pt was treated with metoprolol, Tylenol, and Zosyn. Pt will be admitted to the hospital acute hypoxic respiratory failure setting of possible pneumonia and AFib with RVR. Hospital course The patient was admitted for evaluation of acute hypoxic respiraotry failure, acute metabolic encephalopathy, and viral sepsis due to parainfluenza complciated by moderate persistent asthma with acute decompensation. treated with IV steroids, nebulizers and antibiotics of azithromycin for 5 days with supplemental oxygen. patient improved slowly over the course of hospital stay weaning down oxygen supplement to room air. finised Antibiotics, steroids courses while inpatient for 5 days. Noted to have metabolic encephalopathy at time of presentation related to history of dementia complicated with acute hospital delerium requiring orienting strategies, atypical antipychotics as needed for patient safety only as Zyprexa which helped the patient mentaiton to improve and to get off the sitter from room. She was able to participate with physical therapy team who recommended short term rehablitation. Noted to have peristent afib with rvr. improved with increase dose of Metoprolol to 100 mg bid and addition of Digoxin. to continue both at time of discharge and to be followed as outpatient for further adjustments. Start Digoxin as prescribed Increase Metoprolol to 100 mg bid To use Zyprexa as needed for agitation To follow with PCP after short term rehab for further management of dementia Time Spent with Patient Time attestation: Total time managing care of this patient today ____ minutes. Discharge coordination time: Greater than 30 minutes Quality: Safe Use of Opioids Does Pt have an Active Cancer Diagnosis on the Problem List?: No Quality: Stroke Does the patient have a stroke diagnosis?: No Physical Exam Vital Signs: Vital Signs: Last Vital Signs Temp 97.4 F 11/30/22 07:13 Pulse 101 H 11/30/22 07:13 Resp 20 11/30/22 07:13 BP 158/89 H 11/30/22 07:13 Pulse Ox 92 11/30/22 07:13 O2 Del Method Room Air 11/30/22 07:13 O2 Flow Rate 2 11/28/22 23:05 BMI result Body Mass Index 21.9 Const: Other: Constitutional : Awake, interactive, less delirious, not in distress Neck : Normal inspection, Supple Cardiovascular : irregular irregular, no JVP, no lower extremity edema Respiratory : good bilateral air entry, no crackles, wheezes or rhonchi Gastrointestinal: soft, lax, Normal bowel sounds, Non tender Skin : Warm, Dry Neurological : Alert & oriented to self, No focal deficit , more interactive DS: Data Data Completed and Pending Labs on day of discharge: Laboratory Results - last 24 hr 11/29/22 11/29/22 11/30/22 15:59 19:47 07:15 POC Glucose 365 H* 249 H 155 H Imaging Chest x-ray: Radiologist's impression: ITS Impressions Chest X-Ray 11/22/22 08:32 IMPRESSION: Patchy density right upper lobe which may be related to atelectasis or pneumonitis. Probable small left pleural effusion. Head CT 11/22/22 09:52 IMPRESSION: No acute intracranial pathology. 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 Chest CT 11/22/22 13:35 IMPRESSION: Bronchial wall thickening with some mucus plugging as described above which may be related to infectious process versus reactive airways disease. Cardiomegaly without pulmonary edema. Fleischner guidelines were followed. Chest X-Ray 11/25/22 15:58 IMPRESSION: Slight improvement in appearances when compared to the prior study. Chest X-Ray 11/28/22 21:29 IMPRESSION: No acute cardiopulmonary process. Discharge Plan Discharge Anticipated Discharge Date/Time: 11/30/22 10:56 Patient Disposition: Xfer SNF Discharge Diagnosis: Viral sepsis Atrial fibrillation with rapid ventricular response Encephalopathy Referrals: [facility] [Outside] - 1 Week Raffaele Saldana MD [Primary Care Provider] - 1 Week Discharge Medications: New metoprolol tartrate 100 mg Tablet 100 mg PO BID Qty: 60 0RF Protocol: Hold for SBP/HR < HOLD for SBP < : 90 HOLD for HR < : 60 digoxin 125 mcg (0.125 mg) Tablet 0.125 mg PO Q2D 30 Days Qty: 15 0RF olanzapine 5 mg Tablet 5 mg PO BID PRN (Reason: severe agitation patient safet) Qty: 12 0RF Continued fluticasone propion-salmeterol [Advair Diskus] 250-50 mcg/dose blister with device 1 puff inhalation BID brimonidine 0.2 % drops 1 drp ophthalmic (eye) BID latanoprost 0.005 % drops 1 drp ophthalmic (eye) BEDTIME atorvastatin 10 mg tablet 10 mg PO BEDTIME calcium carbonate-vitamin D2 600 mg calcium- 200 unit tablet 1 tab PO DAILY memantine 10 mg tablet 10 mg PO BID metformin 500 mg tablet 500 mg PO DAILY omeprazole 40 mg capsule,delayed release(DR/EC) 40 mg PO DAILY@0630 PreserVision AREDS-2 250-90-40-1 mg capsule 1 tab PO BID albuterol sulfate 90 mcg/actuation HFA aerosol inhaler 2 puff PO Q4H PRN (Reason: Shortness Of Breath Or Wheezing) levothyroxine 75 mcg tablet 75 mcg PO DAILY@0600 furosemide 20 mg tablet 20 mg PO BID@0800,1700 meclizine 12.5 mg tablet 12.5 mg PO DAILY PRN (Reason: Dizziness) potassium chloride 8 mEq tablet extended release 8 meq PO BEDTIME Eliquis 2.5 mg tablet 2.5 mg PO BID Qty: 180 3RF Discontinued metoprolol tartrate 50 mg tablet 50 mg PO BID Discharge Orders: Discharge Order (Routine); Ordered 11/30/22 Ordered By: Cuca Webb Diet: Advance to usual diet Activity on Discharge: As tolerated Stand Alone Forms: Patient Portal Discharge page Care Plan Goals: Read below Health Concerns: Read below Plan of Treatment: Read below Assessment: You were admitted for evaluation of difficulties breathing and confusion. Treated for viral illness and possible pneumonia with steroids, antibiotics and nebulizers with good response. Mental status improved during hospital stay. you were evaluated by physical therapy team who recommended short term rehab for you. Start Digoxin as prescribed Increase Metoprolol to 100 mg bid To use Zyprexa as needed for agitation To follow with PCP after short term rehab for further management of dementia Discharge Date/Time: 11/30/22 15:14
[2022-11-30 11:16] VITALS: BP 141/89; PULSE 97; RESP 20; TEMP 36.1; O2SAT 93
[2022-11-30 11:40] LABS: Glucose, Whole Blood 101 mg/dL (60-115)
== END 2022-11-30 15:14 | disposition skilled nursing facility (03) | DRG 871 ==
LOC: HO.ED 09:25 → HO.EDOVER 12:34 → HO.IMC 16:55
PROVIDERS: Internal Medicine; Physician Assistant; Admitting Provider Student in an Organized Health Care Education/Training Program; Emergency Provider Emergency Medicine; PCP Internal Medicine; Visit Provider Student in an Organized Health Care Education/Training Program
DX: A41.89 Other specified sepsis (principal); G93.41 Metabolic encephalopathy; J96.01 Acute respiratory failure with hypoxia; I48.19 Other persistent atrial fibrillation; J45.41 Moderate persistent asthma with (acute) exacerbation; F05 Delirium due to known physiological condition; B97.89 Other viral agents as the cause of diseases classified elsewhere; F03.90 Unspecified dementia, unspecified severity, without behavioral disturbance, psychotic disturbance, mood disturbance, and anxiety; E11.65 Type 2 diabetes mellitus with hyperglycemia; E03.9 Hypothyroidism, unspecified; Z20.822 Contact with and (suspected) exposure to COVID-19; Z79.01 Long term (current) use of anticoagulants; Z79.51 Long term (current) use of inhaled steroids; Z79.84 Long term (current) use of oral hypoglycemic drugs; Z79.890 Hormone replacement therapy; Z79.899 Other long term (current) drug therapy
CPT/HCPCS: 36415; 70450; 71045; 71250; 80048; 80076; 81001; 82803; 82947; 83605; 83735; 83880; 84145; 84443; 84484; 85025; 85027; 85610; 85730; 87040; 87086; 87493; 87507; 87633; 93005; 93306; 94640; 97116; 97162; 99285; J0456; J0696; J1200; J2060; J2543; J2920; J3475; Q9957

== ENCOUNTER 2022-12-13 13:07 | Outpatient (REF) | payer MEDICARE, MEDICAID, SELFPAY ==
[2022-12-13 15:41] LABS: Digoxin 0.4 ng/mL (0.8-2.0)
[2022-12-13 15:42] LABS: Anion Gap 15 (12-20); Blood Urea Nitrogen 17 mg/dL (9-16); Calcium 9.4 mg/dL (8.4-10.2); Carbon Dioxide 22 mmol/L (22-29); Chloride 109 mmol/L (96-108); Estimated Glomerular Filt Rate 46; Glucose Random 237 mg/dL (60-115); Potassium 3.6 mmol/L (3.3-5.1); Sodium 142 mmol/L (135-145)
== END 2022-12-13 13:08 | disposition home or self-care (01) ==
LOC: CF 13:07
PROVIDERS: PCP Internal Medicine; Referring Provider Internal Medicine; Visit Provider Internal Medicine Cardiovascular Disease
DX: I48.20 Chronic atrial fibrillation, unspecified (principal); I50.9 Heart failure, unspecified; J96.00 Acute respiratory failure, unspecified whether with hypoxia or hypercapnia; J96.01 Acute respiratory failure with hypoxia; Z79.899 Other long term (current) drug therapy; Z79.84 Long term (current) use of oral hypoglycemic drugs
CPT/HCPCS: 36415; 80048; 80162; 99212

== ENCOUNTER 2022-12-22 09:24 | Emergency (ER) | payer MEDICARE, MEDICAID, SELFPAY ==
--- NOTE | ~2022-12-22 | CT_ITS ---
EXAMINATION: CT HEAD WITHOUT CONTRAST CLINICAL INFORMATION: Agitation COMPARISON: CT 11/22/2022 TECHNIQUE: Contiguous axial imaging was performed from the skull base to vertex without intravenous administration of contrast. This CT examination was performed using dose optimization techniques as appropriate, variously including the following: *Automated exposure control *Adjustment of mA and/or kV according to patient size (this includes techniques or standardized protocols for targeted exams where dose is matched to indication/reason for exam; i.e. extremities or head) *Use of iterative reconstruction technique DLP: 557 mGy-cm FINDINGS: There is no evidence of acute intracranial hemorrhage or edematous territorial infarction. No abnormal mass effect or midline shift is seen. Alatorre to white matter differentiation is well preserved. No extra-axial fluid collections are identified. Commensurate prominence of the ventricles and sulci is compatible with generalized parenchymal volume loss. There is periventricular and subcortical white matter hypoattenuation, most likely representing microangiopathic disease. No acute calvarial fracture.. Paranasal sinuses and mastoid air cells are well-aerated. CT/CT head/brain wo IV con IMPRESSION: No CT evidence of acute intracranial hemorrhage or edematous acute infarction. Chronic changes as detailed above.
--- NOTE | ~2022-12-22 | XR_ITS ---
EXAMINATION: XR CHEST CLINICAL INFORMATION: Altered mental status. COMPARISON: Most recent chest radiograph dated 11/28/2022. TECHNIQUE: Frontal view of the chest was obtained. FINDINGS: Mild, chronic interstitial prominence. Findings are unchanged. No new focal airspace consolidation. No pleural effusion or pneumothorax. Stable cardiomediastinal silhouette. XR/XR chest 1V IMPRESSION: No acute cardiopulmonary findings.
[2022-12-22 09:43] VITALS: BP 159/72; BP 160/86; PULSE 68; PULSE 78; RESP 16; TEMP 36.6; O2SAT 95; O2SAT 97; BMI 22.9
--- NOTE | 2022-12-22 09:52 | ED.AMS ---
HPI - Altered Mental Status General Chief Complaint: Altered Mental Status Stated Complaint: AMS Time Seen by Provider: 12/22/22 09:52 Source: patient, EMS, RN notes reviewed and old records reviewed Mode of arrival: ambulatory History of Present Illness HPI narrative: 87-year-old female past medical history dementia, HTN, HLD, asthma, diabetes, hypothyroid, persistent AFib on Eliquis, CHF, GERD, recently discharged from our facility for parainfluenza virus/PNA/sepsis and acute hypoxic respiratory failure, presenting to the ED today via EMS from home, recently discharged from [facility] on , per patient with increasing agitation and hallucinations overnight. States patient was persistently getting out of bed/urinating, was unable to care for her, and worried about her safety. Denies falls/injury or trauma. Patient denies complaints at present MD complaint: confusion Related Data Home Medications Medication Instructions Recorded Confirmed fluticasone 250 mcg-salmeterol 50 1 puff inhalation BID 05/22/21 12/22/22 mcg/dose blistr powdr for inhalation (Advair Diskus) albuterol sulfate 90 mcg/actuation 2 puff PO Q4H PRN Shortness Of 10/04/21 12/22/22 aerosol inhaler Breath Or Wheezing brimonidine 0.2 % eye drops 1 drp ophthalmic (eye) BID 11/12/21 12/22/22 latanoprost 0.005 % eye drops 1 drp ophthalmic (eye) BEDTIME 11/12/21 12/22/22 atorvastatin 10 mg tablet 10 mg PO BEDTIME 11/30/21 12/22/22 calcium carb-ergocalciferol (vit 1 tab PO DAILY 11/30/21 12/22/22 D2) 600 mg calcium-200 unit tablet memantine 10 mg tablet 10 mg PO BID 11/30/21 12/22/22 metformin 500 mg tablet 500 mg PO DAILY 11/30/21 12/22/22 omeprazole 40 mg capsule,delayed 40 mg PO DAILY@0630 11/30/21 12/22/22 release potassium chloride 8 mEq 8 meq PO BEDTIME 11/30/21 12/22/22 tablet,extended release vit C 250 mg-vit E 90 mg-zinc 40 1 tab PO BID 11/30/21 12/22/22 mg-copper 1 [id number] capsule (PreserVision AREDS-2) furosemide 20 mg tablet 40 mg PO DAILY 11/22/22 12/22/22 levothyroxine 75 mcg tablet 75 mcg PO DAILY@0600 11/22/22 12/22/22 meclizine 12.5 mg tablet 12.5 mg PO DAILY PRN Dizziness 11/22/22 12/22/22 escitalopram oxalate 5 mg tablet 5 mg PO DAILY 12/22/22 12/22/22 Previous Rx's Medication Instructions Recorded apixaban 2.5 mg tablet (Eliquis) 2.5 mg PO BID #180 tabs 06/12/22 digoxin 125 mcg (0.125 mg) tablet 0.125 mg PO Q2D 30 days #15 tabs 11/30/22 metoprolol tartrate 100 mg tablet 100 mg PO BID #60 tabs 11/30/22 olanzapine 5 mg tablet 5 mg PO BID PRN severe agitation 11/30/22 patient safet #12 tabs Allergies Allergy/AdvReac Type Severity Reaction Status Date / Time hydrochlorothiazide Allergy Unknown Unknown Verified 10/04/21 10:15 Review of Systems Review of Systems: Constitutional: No Fever, No Chills, No Fatigue, No Malaise ENT/Mouth: No sore throat, No Rhinorrhea, No Swallowing Difficulty Cardiovascular: No Chest Pain, No SOB Respiratory: No Cough, No Dyspnea Gastrointestinal: No Nausea, No Vomiting, No Diarrhea, No Constipation, No Abdominal pain Musculoskeletal: No joint pain, No Myalgias Skin: No Skin Lesions, No rash Neuro: + agitation Yes all other systems are reviewed and are negative Constitutional: Constitutional: Reports as per [facility] Past Medical History Attestation statement: The following information was validated with the patient. Source: old records reviewed Medical History Acute congestive heart failure Bilateral carotid artery disease Chronic atrial fibrillation Congestive heart failure COPD (chronic obstructive pulmonary disease) Diabetes Dizziness HTN (hypertension) Hypoxia Seasonal allergies Surgical History History of esophagogastroduodenoscopy (EGD) Hx of appendectomy Hx of cholecystectomy Hx of colonoscopy Hx of hysterectomy Family History Family History Father CVD (cardiovascular disease) HTN (hypertension) Heart failure Mother Diabetes Cancer Brother CVD (cardiovascular disease) Social History Social History Household Members: Spouse Housing: House Are you a primary health care marketing manager to a significant other at home: No Do you presently have visiting nurse or other home services: Yes ([employer]) Alcohol intake: former Patient Tobacco Use Status: Never used Tobacco Advance Directives: Yes Advance Directives on File: Yes Advance Directives Date on File: 05/22/21 service: No Current occupational status: retired Physical Exam ED Vital Signs: Vital Signs - 24 hr 12/22/22 09:43 12/22/22 13:47 Temperature 98 F 97.5 F Pulse Rate 68 69 Respiratory Rate 16 18 Blood Pressure 159/72 H 142/56 H Pulse Oximetry 95 94 Oxygen Delivery Method Room Air Room Air BMI result Body Mass Index 22.9 Const General: cooperative, healthy appearing and no acute distress Orientation/consciousness: oriented to person and oriented to place Limitations: other limitations (Baseline dementia) HENMT Head: Yes normal to inspection and Yes atraumatic Ears: hearing grossly normal bilaterally General nose exam: Normal external nose present Face and sinus: Yes normal facial exam Eyes General: appearance normal, both eyes and all related structures EOM: EOMs intact bilaterally Neck Neck: Yes normal visual inspection and Yes no meningeal signs Resp Effort & Inspection: normal respiratory effort and no respiratory distress Auscultation: crackles on the left at the base Cardio Rate: regular rate Heart sounds: S1 normal heart sound present and S2 normal heart sound present GI Inspection: Yes normal to inspection Palpation (GI): Soft to palpation, nontender, no guarding and not rigid Skin Rashes: no rashes Wounds: no wounds Neuro General: oriented to person, oriented to place, tone normal, moves all extremities, no meningeal signs, no focal motor deficits and CN's II-XI intact bilaterally Cranial nerves: Yes CN's II-XII intact bilaterally and Yes Bilaterally intact EOM present Motor exam (neuro): 5/5 motor strength present throughout Extrem General: Yes normal to inspection and Yes no pedal edema Course Course Course Narrative: -1210--no leukocytosis. H&H stable. BUN chronically elevated. T bili acute on chronically elevated. BNP chronically elevated -UA negative XR chest 1V IMPRESSION: No acute cardiopulmonary findings. -1211--patient medically cleared for PT/case management evaluation. Physician observation initiated -patient was evaluated by Physical therapy and recommended home with services. Case Management spoke with patient, she has [facility] for [facility]p & home PT/OT in place. Will obtain psychiatry consult for medication recommendations. is primary caregiver, likely needs scheduled antipsychotic CT head/brain wo IV con IMPRESSION: No CT evidence of acute intracranial hemorrhage or edematous acute infarction. ? Chronic changes as detailed above. > 1630--ED care transferred to [facility] pending psychiatry consult Medications Administered Discontinued Medications Generic Name Dose Route Start Last Admin Trade Name Freq PRN Reason Stop Dose Admin Olanzapine 5 mg 12/22/22 13:24 12/22/22 13:46 Olanzapine 5 Mg Tablet PO 12/22/22 13:25 5 mg ONCE ONE Administration Medical Decision Making Medical Decision Making [facility] Narrative: 87-year-old female past medical history dementia, HTN, HLD, asthma, diabetes, hypothyroid, persistent AFib on Eliquis, CHF, GERD, recently discharged from our facility for parainfluenza virus/PNA/sepsis and acute hypoxic respiratory failure, presenting to the ED today via EMS from home, recently discharged from [facility] on , per patient with increasing agitation and hallucinations overnight. On exam vital signs stable, NAD, nontoxic appearing, A&O x2, baseline dementia, pleasantly confused, left basilar crackles noted, abdomen soft/nontender. No focal neuro deficits. Concern for progressive/increasing dementia vs metabolic/infectious etiologies. Lower suspicion for ICH Plan: EKG, labs, UA, CXR, case management consult Please refer to course for remaining clinical decision making, interpretation of labs/imaging results, and discussions with consultants and/or family members. Differential Diagnosis Differential Diagnoses: The differential diagnosis associated with the presentation includes As above Admission/Observation Consideration of admission/observation: Escalation of care including admission/observation considered Consult Healthcare Provider Management of the patient was discussed with: Behavioral Health Provider (Case Management) Lab Data [facility] Lab Attestation statement: I reviewed the patient's lab results. 12/22/22 10:35 12/22/22 10:35 Labs: Lab Results 12/22/22 12/22/22 12/22/22 Range/Units 10:11 10:35 10:35 WBC 9.1 (4.8-10.8) X10*3/uL RBC 4.06 L (4.20-5.50) X10*6/uL Hgb 12.0 (12.0-16.0) g/dl Hct 36.9 L (37.0-47.0) % MCV 90.9 (80.0-98.0) fL MCH 29.6 (27.0-33.0) pg MCHC 32.5 (31.0-35.0) g/dl RDW 14.1 (11.0-16.0) % Plt Count 199 (160-400) X10*3/uL MPV 9.7 (9.4-12.3) fL Immature Gran % (Auto) 0.4 (0.0-0.4) % Neut % (Auto) 80.1 H (45-73) % Lymph % (Auto) 11.9 L (20-40) % Borden % (Auto) 6.8 (2-11) % Eos % (Auto) 0.6 (0-4) % Baso % (Auto) 0.2 (0-2) % Lymph # (Auto) 1.1 L (1.2-4.9) X10*3/uL Borden # (Auto) 0.6 (0.1-1.2) X10*3/uL Eos # (Auto) 0.1 (0.0-0.4) X10*3/uL Baso # (Auto) 0.0 (0.0-0.2) X10*3/uL Abs Immat Gran (auto) 0.04 H (0.00-0.03) X10*3/uL Absolute Neuts (auto) 7.3 (2.0-8.3) x10*3/uL Absolute Nucleated RBC 0.000 (0.0-0.012) X10*3/uL Nucleated RBC % (auto) 0.0 (0.0-0.2) /100WBC PT (10.0-13.1) SEC INR (0.9-1.1) Sodium 138 (135-145) mmol/L Potassium 3.8 (3.3-5.1) mmol/L Chloride 103 (96-108) mmol/L Carbon Dioxide 25 (22-29) mmol/L Anion Gap 14 (12-20) BUN 23 H (9-16) mg/dL Creatinine 0.98 (0.5-1.4) mg/dL Estim Creat Clear Calc 29.0 Estimated GFR 54 Random Glucose 194 H (60-115) mg/dL Calcium 9.4 (8.4-10.2) mg/dL Magnesium 1.7 (1.6-2.6) mg/dL Total Bilirubin 1.5 H (0.0-1.0) mg/dL Direct Bilirubin 0.4 (0.0-0.5) mg/dL AST 18 (5-31) U/L ALT 27 (0-31) U/L Alkaline Phosphatase 93 (39-117) U/L Troponin I High Sens (<3.5-17.0) ng/L B-Natriuretic Peptide (<100) pg/mL Total Protein 6.0 L (6.5-8.0) g/dL Albumin 3.4 L (3.5-5.0) g/dL Urine Color Yellow Urine Appearance Clear Urine pH 6.5 (5.0-9.0) Ur Specific [place] <= 1.005 (1.005-1.025) Urine Protein Negative (Neg-Trace) mg/dL Urine Glucose (UA) Negative (Negative) mg/dL Urine Ketones Negative (Negative) mg/dL Urine Blood Negative (Negative) Urine Nitrite Negative (Negative) Ur Leukocyte Esterase Negative (Negative) COVID-19 (LAN) (Negative) COVID-19 Clin Com Influenza Type A (CLARISSA) (Negative) Influenza Type B (CLARISSA) (Negative) Influenza A & B Note 12/22/22 12/22/22 12/22/22 Range/Units 10:35 10:35 10:35 WBC (4.8-10.8) X10*3/uL RBC (4.20-5.50) X10*6/uL Hgb (12.0-16.0) g/dl Hct (37.0-47.0) % MCV (80.0-98.0) fL MCH (27.0-33.0) pg MCHC (31.0-35.0) g/dl RDW (11.0-16.0) % Plt Count (160-400) X10*3/uL MPV (9.4-12.3) fL Immature Gran % (Auto) (0.0-0.4) % Neut % (Auto) (45-73) % Lymph % (Auto) (20-40) % Borden % (Auto) (2-11) % Eos % (Auto) (0-4) % Baso % (Auto) (0-2) % Lymph # (Auto) (1.2-4.9) X10*3/uL Borden # (Auto) (0.1-1.2) X10*3/uL Eos # (Auto) (0.0-0.4) X10*3/uL Baso # (Auto) (0.0-0.2) X10*3/uL Abs Immat Gran (auto) (0.00-0.03) X10*3/uL Absolute Neuts (auto) (2.0-8.3) x10*3/uL Absolute Nucleated RBC (0.0-0.012) X10*3/uL Nucleated RBC % (auto) (0.0-0.2) /100WBC PT 14.7 H (10.0-13.1) SEC INR 1.3 H (0.9-1.1) Sodium (135-145) mmol/L Potassium (3.3-5.1) mmol/L Chloride (96-108) mmol/L Carbon Dioxide (22-29) mmol/L Anion Gap (12-20) BUN (9-16) mg/dL Creatinine (0.5-1.4) mg/dL Estim Creat Clear Calc Estimated GFR Random Glucose (60-115) mg/dL Calcium (8.4-10.2) mg/dL Magnesium (1.6-2.6) mg/dL Total Bilirubin (0.0-1.0) mg/dL Direct Bilirubin (0.0-0.5) mg/dL AST (5-31) U/L ALT (0-31) U/L Alkaline Phosphatase (39-117) U/L Troponin I High Sens < 2.7 D (<3.5-17.0) ng/L B-Natriuretic Peptide 390 H (<100) pg/mL Total Protein (6.5-8.0) g/dL Albumin (3.5-5.0) g/dL Urine Color Urine Appearance Urine pH (5.0-9.0) Ur Specific [place] (1.005-1.025) Urine Protein (Neg-Trace) mg/dL Urine Glucose (UA) (Negative) mg/dL Urine Ketones (Negative) mg/dL Urine Blood (Negative) Urine Nitrite (Negative) Ur Leukocyte Esterase (Negative) COVID-19 (LAN) (Negative) COVID-19 Clin Com Influenza Type A (CLARISSA) (Negative) Influenza Type B (CLARISSA) (Negative) Influenza A & B Note 12/22/22 12/22/22 Range/Units 10:35 10:35 WBC (4.8-10.8) X10*3/uL RBC (4.20-5.50) X10*6/uL Hgb (12.0-16.0) g/dl Hct (37.0-47.0) % MCV (80.0-98.0) fL MCH (27.0-33.0) pg MCHC (31.0-35.0) g/dl RDW (11.0-16.0) % Plt Count (160-400) X10*3/uL MPV (9.4-12.3) fL Immature Gran % (Auto) (0.0-0.4) % Neut % (Auto) (45-73) % Lymph % (Auto) (20-40) % Borden % (Auto) (2-11) % Eos % (Auto) (0-4) % Baso % (Auto) (0-2) % Lymph # (Auto) (1.2-4.9) X10*3/uL Borden # (Auto) (0.1-1.2) X10*3/uL Eos # (Auto) (0.0-0.4) X10*3/uL Baso # (Auto) (0.0-0.2) X10*3/uL Abs Immat Gran (auto) (0.00-0.03) X10*3/uL Absolute Neuts (auto) (2.0-8.3) x10*3/uL Absolute Nucleated RBC (0.0-0.012) X10*3/uL Nucleated RBC % (auto) (0.0-0.2) /100WBC PT (10.0-13.1) SEC INR (0.9-1.1) Sodium (135-145) mmol/L Potassium (3.3-5.1) mmol/L Chloride (96-108) mmol/L Carbon Dioxide (22-29) mmol/L Anion Gap (12-20) BUN (9-16) mg/dL Creatinine (0.5-1.4) mg/dL Estim Creat Clear Calc Estimated GFR Random Glucose (60-115) mg/dL Calcium (8.4-10.2) mg/dL Magnesium (1.6-2.6) mg/dL Total Bilirubin (0.0-1.0) mg/dL Direct Bilirubin (0.0-0.5) mg/dL AST (5-31) U/L ALT (0-31) U/L Alkaline Phosphatase (39-117) U/L Troponin I High Sens (<3.5-17.0) ng/L B-Natriuretic Peptide (<100) pg/mL Total Protein (6.5-8.0) g/dL Albumin (3.5-5.0) g/dL Urine Color Urine Appearance Urine pH (5.0-9.0) Ur Specific [place] (1.005-1.025) Urine Protein (Neg-Trace) mg/dL Urine Glucose (UA) (Negative) mg/dL Urine Ketones (Negative) mg/dL Urine Blood (Negative) Urine Nitrite (Negative) Ur Leukocyte Esterase (Negative) COVID-19 (LAN) Negative (Negative) COVID-19 Clin Com See Note Influenza Type A (CLARISSA) Negative (Negative) Influenza Type B (CLARISSA) Negative (Negative) Influenza A & B Note See Note Independent Interpretation I performed an independent interpretation of an: EKG (EKG AFib at a rate of 70, QRS 92. QTC 442. ST no longer depressed and lateral leads. Nonspecific T-wave abnormality. No STEMI) Radiology Impression Discussion of test interpretation with radiology: I have reviewed the radiologist's reading. Independent Historian Clinical information obtained from an independent historian. History obtained from or confirmed by: Spouse External Record Review External record reviewed: Inpatient record, Office record, Outpatient record, Prior outpatient labs, Prior outpatient radiology, Primary care record and Outside ED record Tests considered The following testing was considered but not selected: As above Chronic Conditions Patient?s care impacted by: Other Social Determinants Patient?s care significantly limited by Social Determinants of Health including: Problems related to primary support group and Other Social Determinant of Health Discharge Plan Discharge Clinical Impression: Dementia with behavioral disturbance Patient Disposition: Still a Patient Prescriptions: No Action fluticasone propion-salmeterol [Advair Diskus] 250-50 mcg/dose blister with device 1 puff inhalation BID brimonidine 0.2 % drops 1 drp ophthalmic (eye) BID latanoprost 0.005 % drops 1 drp ophthalmic (eye) BEDTIME atorvastatin 10 mg tablet 10 mg PO BEDTIME calcium carbonate-vitamin D2 600 mg calcium- 200 unit tablet 1 tab PO DAILY memantine 10 mg tablet 10 mg PO BID metformin 500 mg tablet 500 mg PO DAILY omeprazole 40 mg capsule,delayed release(DR/EC) 40 mg PO DAILY@0630 PreserVision AREDS-2 250-90-40-1 mg capsule 1 tab PO BID albuterol sulfate 90 mcg/actuation HFA aerosol inhaler 2 puff PO Q4H PRN (Reason: Shortness Of Breath Or Wheezing) levothyroxine 75 mcg tablet 75 mcg PO DAILY@0600 furosemide 20 mg tablet 40 mg PO DAILY meclizine 12.5 mg tablet 12.5 mg PO DAILY PRN (Reason: Dizziness) metoprolol tartrate 100 mg Tablet 100 mg PO BID Qty: 60 0RF Protocol: Hold for SBP/HR < HOLD for SBP < : 90 HOLD for HR < : 60 digoxin 125 mcg (0.125 mg) Tablet 0.125 mg PO Q2D 30 Days Qty: 15 0RF olanzapine 5 mg Tablet 5 mg PO BID PRN (Reason: severe agitation patient safet) Qty: 12 0RF escitalopram oxalate 5 mg Tablet 5 mg PO DAILY potassium chloride 8 mEq tablet extended release 8 meq PO BEDTIME Eliquis 2.5 mg tablet 2.5 mg PO BID Qty: 180 3RF Referrals: [facility] [Outside] - 1 day (RESUMPTION OF DETENTION, HOME OT/PT)
--- NOTE | 2022-12-22 10:01 | ECG_ITS ---
Test Reason : AMS Blood Pressure : / mmHG Vent. Rate : 070 BPM Atrial Rate : 000 BPM P-R Int : 000 ms QRS Dur : 092 ms QT Int : 410 ms P-R-T Axes : 000 048 063 degrees QTc Int : 442 ms Atrial fibrillation Abnormal ECG When compared with ECG of 22-NOV-2022 08:07, Vent. rate has decreased BY 44 BPM Referred By: Sindy Bailey Electronically Signed By:CHANTEL LATHAM
[2022-12-22 10:24] LABS: Appearance Urine Clear; Color Urine Yellow; Glucose Urine UA Negative (Negative); Leukocyte Esterase Urine Negative (Negative); Nitrite Urine Negative (Negative); PH 6.5 (5.0-9.0); Specific Gravity - Urine <= 1.005 (1.005-1.025); Urine Blood Negative (Negative); Urine Ketones Negative (Negative); Urine Protein Negative (Neg-Trace)
[2022-12-22 10:40] LABS: MANUAL DIFF FLAG NO
[2022-12-22 10:41] LABS: Basophils Percent Auto 0.2 % (0-2); Eosinophils Absolute Auto 0.1 X10*3/uL (0.0-0.4); Eosinophils Percent Auto 0.6 % (0-4); Hematocrit 36.9 % (37.0-47.0); Imm Gran Abs Auto 0.04 X10*3/uL (0.00-0.03); Imm Gran Pct Auto 0.4 % (0.0-0.4); Lymphocytes Absolute Auto 1.1 X10*3/uL (1.2-4.9); Lymphocytes Percent Auto 11.9 % (20-40); Mean Corpuscular HGB Conc 32.5 g/dl (31.0-35.0); Mean Corpuscular Hemoglobin 29.6 pg (27.0-33.0); Mean Corpuscular Volume 90.9 fL (80.0-98.0); Mean Platelet Volume 9.7 fL (9.4-12.3); Monocytes Absolute Auto 0.6 X10*3/uL (0.1-1.2); Monocytes Percent Auto 6.8 % (2-11); Neutrophils Absolute Auto 7.3 x10*3/uL (2.0-8.3); Neutrophils Percent Auto 80.1 % (45-73); Platelet Count 199 X10*3/uL (160-400); Red Blood Count 4.06 X10*6/uL (4.20-5.50); Red Cell Distribution Width 14.1 % (11.0-16.0); White Blood Count 9.1 X10*3/uL (4.8-10.8)
[2022-12-22 10:51] LABS: INTERNATIONAL NORM RATIO 1.3 (0.9-1.1); Prothrombin Time 14.7 SEC (10.0-13.1)
[2022-12-22 10:56] LABS: Alanine Aminotransferase 27 U/L (0-31); Albumin Level 3.4 g/dL (3.5-5.0); Alkaline Phosphatase 93 U/L (39-117); Anion Gap 14 (12-20); Aspartate Amino Transferase 18 U/L (5-31); Bilirubin Direct 0.4 mg/dL (0.0-0.5); Bilirubin Total 1.5 mg/dL (0.0-1.0); Blood Urea Nitrogen 23 mg/dL (9-16); Calcium 9.4 mg/dL (8.4-10.2); Carbon Dioxide 25 mmol/L (22-29); Chloride 103 mmol/L (96-108); Estimated Glomerular Filt Rate 54; Glucose Random 194 mg/dL (60-115); Magnesium 1.7 mg/dL (1.6-2.6); Potassium 3.8 mmol/L (3.3-5.1); Sodium 138 mmol/L (135-145)
[2022-12-22 11:02] LABS: B Type Natriuretic Peptide 390 pg/mL (<100)
[2022-12-22 11:09] LABS: COVID-19 Test Negative (Negative); IDNOW Serial# BCCEAD1C
[2022-12-22 11:10] LABS: IDNOW Serial# 08D9AD1C; Influenza A Negative (Negative); Influenza B2 Negative (Negative)
[2022-12-22 11:13] LABS: Troponin-I High Sensitivity < 2.7 ng/L (<3.5-17.0)
--- NOTE | 2022-12-22 12:24 | PC.NURSE ---
Pt has been up tpo BR to urinate at least 4-5 times since arrival. Is steady on feet. Minimal assist. states that the same was happening all night, mult trips to bathroom. Now has a small lunch at bedside.
--- NOTE | 2022-12-22 12:49 | PC.NURSE ---
PT at bedside.
--- NOTE | 2022-12-22 12:52 | MHC.CM.PN ---
Addendum entered by Teetee Null RN 12/22/22 13:32: PT ACTIVE W/[facility] FOR SN, HOME OT/PT Addendum entered by Teetee Null RN 12/22/22 13:05: IF PT UNABLE TO BE MANAGED BY MEDICATION ANTIC PT MAY NEED LTC HOWEVER PT'S CURRENTLY AGREEABLE TO TAKE PT HOME. Original Note: EMR REVOIEWED, PT W/DEMENTIA DISCHARGED FROM [facility] 2 DAYS AGO, CM MET W/PT AND SERG [phone], CELL [phone], D/T DEMENTIA PT'S ANSWERED ALL QUESTIONS, PT LIVES AT HOME W/, HAS [facility] W/SN/OT[facility]PT AND A NURSE CAME TO DO INITAL INTAKE HOWEVER PT NOT HOME LONG ENOUGH TO START OT/PT, SERG REPORTS [facility] HAS NOT RESTARTED YET HOWEVER TYPICALLY COMES ON WED/FRI, SERG REPORTS PT HAS BEEN BABBLING AND WAS UP ALL NIGHT USING THE BR. CM DISCUSSED CASE W/ED PROVIDER PT HAS DEMENTIA W/INCREASED AGITATION, OLANZAPINE 5MG BID PRN ON MED LIST, ED PROVIDER TO HAVE PSYCH CONSULT PLACED.
[2022-12-22] MEDS: OLANZapine 5 MG TABLET PO ×2 (13:46→20:53)
[2022-12-22 13:47] VITALS: BP 142/56; PULSE 69; RESP 18; TEMP 36.4; O2SAT 94
--- NOTE | 2022-12-22 13:48 | PC.NURSE ---
has become increasingly agitated, stating help over and over. voicing his frustration with 's deteriorating condition. i'm not going to take you home if you keep this up .
--- NOTE | 2022-12-22 14:09 | PHA.MEDREC ---
Pharmacy Consult ? Medication Reconciliation Pharmacy has completed the medication reconciliation. spoke with and had pt list as well as list from [facility] where Loren left 2 days ago
--- NOTE | 2022-12-22 15:19 | PC.NURSE ---
ambulatory otBR w/ minimal assist. less aggitated. zyprexa somewhat effective. awaits physch consult.
--- NOTE | 2022-12-22 15:28 | PC.NURSE ---
pt and pt argueing in room, pt continues to shout out help me! whats going on? pt continually tells pt shut up .
[2022-12-22 17:00] VITALS: BP 161/65; PULSE 82; RESP 16; TEMP 37.3; O2SAT 93
--- NOTE | 2022-12-22 20:07 | PM.PSYCN ---
History of Present Illness Date of Service: 12/22/22 Chief Complaint: AMS Reason for Consult: dementia with behavioral disturbance HPI Narrative: per HPI of today's ED note: 87-year-old female past medical history dementia, HTN, HLD, asthma, diabetes, hypothyroid, persistent AFib on Eliquis, CHF, GERD, recently discharged from our facility for parainfluenza virus/PNA/sepsis and acute hypoxic respiratory failure, presenting to the ED today via EMS from home, recently discharged from [facility] on , per patient with increasing agitation and hallucinations overnight.? States patient was persistently getting out of bed/urinating, was unable to care for her, and worried about her safety.? Denies falls/injury or trauma.? Patient denies complaints at present pt seen in ED by psych , this automotive service writer. pt was pleasant and cooperative. she was unable to name the year and stated that it was the middle of may. on being asked to tell MD what kind of a building we were in, she was unable to hazard a guess. MD suggested she choose from [facility], [facility], or government building. she supposed it was none of the above. she believed she was in [place]. MD informed her we are in [place] at [facility] or [facility], that this is a hospital. only several minutes later MD asked pt what city we are in, and she was able to recall [place]. on being asked what type of facility we are at she was once again unable to say. she was once again prompted with the same three choices as above, and she once again supposed it was none of those three. she stated her mood was fine and she denied any SI/HI/AVH. [facility] Medical History Acute congestive heart failure Bilateral carotid artery disease Chronic atrial fibrillation Congestive heart failure COPD (chronic obstructive pulmonary disease) Diabetes Dizziness HTN (hypertension) Hypoxia Seasonal allergies Surgical History History of esophagogastroduodenoscopy (EGD) Hx of appendectomy Hx of cholecystectomy Hx of colonoscopy Hx of hysterectomy Social History: lives in her own home with her , who has been her answering service agent Diagnostics Vital Signs (24Hr): Vital Signs - 24 hr 12/22/22 09:43 12/22/22 13:47 12/22/22 17:00 Temperature 98 F 97.5 F 99.1 F Pulse Rate 68 69 82 Respiratory Rate 16 18 16 Blood Pressure 159/72 H 142/56 H 161/65 H Pulse Oximetry 95 94 93 Oxygen Delivery Method Room Air Room Air Room Air BMI result Body Mass Index 22.9 Labs 12/22/22 10:35 12/22/22 10:35 Labs: Laboratory Results - last 48 hr 12/22/22 12/22/22 12/22/22 10:11 10:35 10:35 WBC 9.1 RBC 4.06 L Hgb 12.0 Hct 36.9 L MCV 90.9 MCH 29.6 MCHC 32.5 RDW 14.1 Plt Count 199 MPV 9.7 Immature Gran % (Auto) 0.4 Neut % (Auto) 80.1 H Lymph % (Auto) 11.9 L [place] % (Auto) 6.8 Eos % (Auto) 0.6 Baso % (Auto) 0.2 Lymph # (Auto) 1.1 L [place] # (Auto) 0.6 Eos # (Auto) 0.1 Baso # (Auto) 0.0 Abs Immat Gran (auto) 0.04 H Absolute Neuts (auto) 7.3 Absolute Nucleated RBC 0.000 Nucleated RBC % (auto) 0.0 PT INR Sodium 138 Potassium 3.8 Chloride 103 Carbon Dioxide 25 Anion Gap 14 BUN 23 H Creatinine 0.98 Estim Creat Clear Calc 29.0 Estimated GFR 54 Random Glucose 194 H Calcium 9.4 Magnesium 1.7 Total Bilirubin 1.5 H Direct Bilirubin 0.4 AST 18 ALT 27 Alkaline Phosphatase 93 Troponin I High Sens B-Natriuretic Peptide Total Protein 6.0 L Albumin 3.4 L Urine Color Yellow Urine Appearance Clear Urine pH 6.5 Ur Specific Carlotta <= 1.005 Urine Protein Negative Urine Glucose (UA) Negative Urine Ketones Negative Urine Blood Negative Urine Nitrite Negative Ur Leukocyte Esterase Negative COVID-19 (LAN) COVID-19 Clin Com Influenza Type A (CLARISSA) Influenza Type B (CLARISSA) Influenza A & B Note 12/22/22 12/22/22 12/22/22 10:35 10:35 10:35 WBC RBC Hgb Hct MCV MCH MCHC RDW Plt Count MPV Immature Gran % (Auto) Neut % (Auto) Lymph % (Auto) [place] % (Auto) Eos % (Auto) Baso % (Auto) Lymph # (Auto) [place] # (Auto) Eos # (Auto) Baso # (Auto) Abs Immat Gran (auto) Absolute Neuts (auto) Absolute Nucleated RBC Nucleated RBC % (auto) PT 14.7 H INR 1.3 H Sodium Potassium Chloride Carbon Dioxide Anion Gap BUN Creatinine Estim Creat Clear Calc Estimated GFR Random Glucose Calcium Magnesium Total Bilirubin Direct Bilirubin AST ALT Alkaline Phosphatase Troponin I High Sens < 2.7 D B-Natriuretic Peptide 390 H Total Protein Albumin Urine Color Urine Appearance Urine pH Ur Specific Carlotta Urine Protein Urine Glucose (UA) Urine Ketones Urine Blood Urine Nitrite Ur Leukocyte Esterase COVID-19 (LAN) COVID-19 Clin Com Influenza Type A (CLARISSA) Influenza Type B (CLARISSA) Influenza A & B Note 12/22/22 12/22/22 10:35 10:35 WBC RBC Hgb Hct MCV MCH MCHC RDW Plt Count MPV Immature Gran % (Auto) Neut % (Auto) Lymph % (Auto) [place] % (Auto) Eos % (Auto) Baso % (Auto) Lymph # (Auto) [place] # (Auto) Eos # (Auto) Baso # (Auto) Abs Immat Gran (auto) Absolute Neuts (auto) Absolute Nucleated RBC Nucleated RBC % (auto) PT INR Sodium Potassium Chloride Carbon Dioxide Anion Gap BUN Creatinine Estim Creat Clear Calc Estimated GFR Random Glucose Calcium Magnesium Total Bilirubin Direct Bilirubin AST ALT Alkaline Phosphatase Troponin I High Sens B-Natriuretic Peptide Total Protein Albumin Urine Color Urine Appearance Urine pH Ur Specific Carlotta Urine Protein Urine Glucose (UA) Urine Ketones Urine Blood Urine Nitrite Ur Leukocyte Esterase COVID-19 (LAN) Negative COVID-19 Clin Com See Note Influenza Type A (CLARISSA) Negative Influenza Type B (CLARISSA) Negative Influenza A & B Note See Note Imaging Radiology Impressions: ITS Impressions Chest X-Ray 12/22/22 10:35 IMPRESSION: No acute cardiopulmonary findings. Head CT 12/22/22 13:11 IMPRESSION: No CT evidence of acute intracranial hemorrhage or edematous acute infarction. Chronic changes as detailed above. Mental Status Exam Mental Status Exam Narrative: adequately groomed, dressed in [facility]. cooperative, pleasant. no PMA/PMR. speech nml rate, amount, loudness, tone, latency. thoughts linear and logical, but hampered by poor attention. affect full range, normo-intense, non-labile. mood euthyumic. denies SI/HI/AVH. Medications Medications Current Medications Albuterol Sulfate (Albuterol Sulfate 90 Mcg 8 Gm Inhaler) 2 puff INHALE Q4H PRN PRN Reason: Shortness Of Breath Or Wheezing Apixaban (Apixaban 2.5 Mg Tablet) 2.5 mg PO BID [facility] Atorvastatin Calcium (Atorvastatin Calcium 10 Mg Tablet) 10 mg PO BEDTIME [facility] Brimonidine Tartrate (Brimonidine Tartrate 0.2% Oph 5 Ml Bottle) 1 drop EYE-BOTH BID [facility] Calcium Carbonate/Cholecalciferol (Calcium + Vitamin D 250 Mg Tablet) 250 mg PO DAILY [facility] Digoxin (Digoxin 0.125 Mg Tablet) 0.125 mg PO Q2D [facility] Escitalopram Oxalate (Escitalopram Oxalate 5 Mg Tablet) 5 mg PO DAILY [facility] Fluticasone/Vilanterol (Fluticasone/Vilanterol 100/25 Blst.W.Dev) 1 puff INHALE RDAILY [facility] Furosemide (Furosemide 40 Mg Tablet) 40 mg PO DAILY CARLYLE; Protocol Latanoprost (Latanoprost 0.005 % Ophth [place] 2.5 Ml Drops) 1 drop EYE-BOTH BEDTIME [facility] Levothyroxine Sodium (Levothyroxine Sodium 75 Mcg Tablet) 75 mcg PO DAILY@0600 [facility] Meclizine HCl (Meclizine Hcl 12.5 Mg Tablet) 12.5 mg PO DAILY PRN PRN Reason: Dizziness Memantine (Memantine Hcl 10 Mg Tablet) 10 mg PO BID [facility] Metformin HCl (Metformin Hcl 500 Mg Tablet) 500 mg PO DAILY [facility] Metoprolol Tartrate (Metoprolol Tartrate 100 Mg Tablet) 100 mg PO BID CARLYLE; Protocol Multivitamins/Vitamin C (Multivitamin Tablet) 1 tab PO BID [facility] Olanzapine (Olanzapine 5 Mg Tablet) 5 mg PO BID PRN PRN Reason: severe agitation patient safet Omeprazole (Omeprazole 40 Mg Capsule.Dr) 40 mg PO DAILY@0630 [facility] Potassium Chloride (Potassium Chloride Er 10 Meq Tablet.Er) 10 meq PO BEDTIME [facility] Allergies Allergies Allergy/AdvReac Type Severity Reaction Status Date / Time hydrochlorothiazide Allergy Unknown Unknown Verified 10/04/21 10:15 Assessment & Plan Assessment & Plan (1) Dementia with behavioral disturbance: Status: Acute Code(s): F03.918 - Unspecified dementia, unspecified severity, with other behavioral disturbance Plan i would start with 5 mg olanzapine PO QHS with PRNS of 2.5 mg every 4 hours throughout the day until pt's pattern of agitation is described. once that is done, one could schedule 2.5 mg olanzapine an hour prior to expected periods of agitation. Total time managing care of this patient today __45__ minutes.
[2022-12-22] MEDS: Potassium Chloride ER 10 MEQ TABLET.ER PO (20:53)
[2022-12-22] MEDS: Apixaban 2.5 MG TABLET PO (20:53)
[2022-12-22] MEDS: Memantine HCl 10 MG TABLET PO (20:53)
[2022-12-22] MEDS: Atorvastatin Calcium 10 MG TABLET PO (20:53)
[2022-12-22] MEDS: Multivitamin TABLET 1 TAB PO (20:54)
[2022-12-22] MEDS: Metoprolol Tartrate 100 MG TABLET PO (20:54)
--- NOTE | 2022-12-22 23:08 | PC.NURSE ---
pt getting out of bed, bed alarms on. pt taken to the bathroom with steady gait.
[2022-12-22] MEDS: OLANZapine 2.5 MG TABLET PO (23:49)
--- NOTE | 2022-12-23 06:12 | PC.NURSE ---
x1 assist to bathroom, gait slow but steady. urinating without difficulty. assisted back to bed without incident. calm/cooperative and redirectable. tolerates pills well with pudding/thin liquids. on hospital bed. cont to reinforce safety and monitor
[2022-12-23] MEDS: Levothyroxine Sodium 75 MCG TABLET PO (07:16)
[2022-12-23] MEDS: Omeprazole 40 MG CAPSULE.DR PO (07:16)
[2022-12-23 07:36] VITALS: BP 162/78; PULSE 97; RESP 17; TEMP 37; O2SAT 92
[2022-12-23 10:59] VITALS: BP 165/82; PULSE 85; RESP 15; O2SAT 92
[2022-12-23] MEDS: Escitalopram Oxalate 5 MG TABLET PO (11:03)
[2022-12-23] MEDS: Multivitamin TABLET 1 TAB PO (11:03)
[2022-12-23] MEDS: Apixaban 2.5 MG TABLET PO (11:03)
[2022-12-23] MEDS: Furosemide 40 MG TABLET PO (11:03)
[2022-12-23] MEDS: Calcium + Vitamin D 250 MG TABLET PO (11:03)
[2022-12-23] MEDS: Memantine HCl 10 MG TABLET PO (11:03)
[2022-12-23] MEDS: metFORMIN HCl 500 MG TABLET PO (11:04)
[2022-12-23] MEDS: Metoprolol Tartrate 100 MG TABLET PO (11:04)
--- NOTE | 2022-12-23 12:02 | MHC.CM.ED ---
Patient remains in ER. Psych consult completed. Recommended Zyprexa 5mg PO at night and 2.5mg every 4 hours as needed for agitation. Met with patient and , Ronni at bedside. Shoshana aware of medication recommendations and feel he can safely take his home. [facility] will resume services. Ronni states patient doesn't know where her glasses are. Teetee OSORIO aware. Patient, Ronni, Teetee OSORIO and Rafaela COOPER aware of discharge plan. Continue to monitor for d/c needs.
--- NOTE | 2022-12-23 14:16 | PC.NURSE ---
reports pt is missing her glasses - reports she had them yesterday. pt did not have glasses this morning upon AM assessment and vitals. cleaned room and went through linen cart - no glasses were found.
== END 2022-12-23 14:17 | disposition home or self-care (01) ==
PROVIDERS: Physician Assistant; Emergency Provider Emergency Medicine
DX: F03.918 Unspecified dementia, unspecified severity, with other behavioral disturbance (principal); Z20.822 Contact with and (suspected) exposure to COVID-19; E11.9 Type 2 diabetes mellitus without complications; I11.0 Hypertensive heart disease with heart failure; I50.9 Heart failure, unspecified; E78.5 Hyperlipidemia, unspecified; I48.91 Unspecified atrial fibrillation; J96.01 Acute respiratory failure with hypoxia; Z79.01 Long term (current) use of anticoagulants; Z79.899 Other long term (current) drug therapy; Z79.84 Long term (current) use of oral hypoglycemic drugs
CPT/HCPCS: 36415; 51701; 70450; 71045; 80048; 80076; 81003; 83735; 83880; 84484; 85025; 85610; 87502; 87635; 93005; 97162; 99285

== ENCOUNTER 2022-12-27 17:49 | Outpatient (REF) | payer MEDICARE, MEDICAID, SELFPAY ==
[2022-12-27 18:08] LABS: Appearance Urine Clear; Color Urine Straw; Glucose Urine UA Negative (Negative); Leukocyte Esterase Urine Negative (Negative); Nitrite Urine Negative (Negative); PH 5.5 (5.0-9.0); Urine Blood Negative (Negative); Urine Ketones Negative (Negative); Urine Protein Negative (Neg-Trace)
== END 2022-12-27 17:50 | disposition home or self-care (01) ==
LOC: HO.LNP 17:49
PROVIDERS: PCP Internal Medicine; Visit Provider Internal Medicine
DX: N39.0 Urinary tract infection, site not specified (principal)
CPT/HCPCS: 81003; 87086

== ENCOUNTER 2023-03-26 15:17 | Outpatient (REF) | payer MEDICARE, MEDICAID, SELFPAY ==
[2023-03-26 15:24] LABS: MANUAL DIFF FLAG NO
[2023-03-26 15:45] LABS: Basophils Percent Auto 0.3 % (0-2); Eosinophils Absolute Auto 0.1 X10*3/uL (0.0-0.4); Eosinophils Percent Auto 1.1 % (0-4); Hematocrit 42.5 % (37.0-47.0); Hemoglobin 13.9 g/dl (12.0-16.0); Imm Gran Abs Auto 0.04 X10*3/uL (0.00-0.03); Imm Gran Pct Auto 0.4 % (0.0-0.4); Lymphocytes Absolute Auto 1.3 X10*3/uL (1.2-4.9); Lymphocytes Percent Auto 14.3 % (20-40); Mean Corpuscular HGB Conc 32.7 g/dl (31.0-35.0); Mean Corpuscular Hemoglobin 28.8 pg (27.0-33.0); Mean Corpuscular Volume 88.2 fL (80.0-98.0); Mean Platelet Volume 10.7 fL (9.4-12.3); Monocytes Absolute Auto 0.5 X10*3/uL (0.1-1.2); Neutrophils Percent Auto 77.9 % (45-73); Platelet Count 187 X10*3/uL (160-400); Red Blood Count 4.82 X10*6/uL (4.20-5.50); Red Cell Distribution Width 13.2 % (11.0-16.0)
[2023-03-26 15:47] LABS: Alanine Aminotransferase 11 U/L (0-31); Albumin Level 3.7 g/dL (3.5-5.0); Alkaline Phosphatase 83 U/L (39-117); Anion Gap 11 (12-20); Aspartate Amino Transferase 12 U/L (5-31); Bilirubin Total 0.6 mg/dL (0.0-1.0); Blood Urea Nitrogen 18 mg/dL (9-16); Calcium 9.4 mg/dL (8.4-10.2); Carbon Dioxide 26 mmol/L (22-29); Chloride 107 mmol/L (96-108); Estimated Glomerular Filt Rate 53; Glucose Fasting 227 mg/dL (60-99); Potassium 3.5 mmol/L (3.3-5.1); Sodium 140 mmol/L (135-145); Total Protein 6.5 g/dL (6.5-8.0)
[2023-03-26 16:03] LABS: TSH reflex Free T4 1.12 uIU/mL (0.32-4.0)
[2023-03-26 16:16] LABS: Folate 12.3 ng/mL (> or = 4.0); Vitamin B12 517 pg/mL (200-900)
== END 2023-03-26 15:18 | disposition home or self-care (01) ==
LOC: HO.LNP 15:17
PROVIDERS: Visit Provider Internal Medicine
DX: R40.0 Somnolence (principal)
CPT/HCPCS: 80053; 82607; 82746; 84443; 85025

== ENCOUNTER 2023-06-11 11:15 | Outpatient (REF) | payer MEDICARE, MEDICAID, SELFPAY ==
[2023-06-11 11:19] LABS: MANUAL DIFF FLAG NO
[2023-06-11 11:40] LABS: Basophils Percent Auto 0.4 % (0-2); Eosinophils Absolute Auto 0.1 X10*3/uL (0.0-0.4); Eosinophils Percent Auto 1.7 % (0-4); Hematocrit 44.8 % (37.0-47.0); Hemoglobin 14.8 g/dl (12.0-16.0); Imm Gran Abs Auto 0.03 X10*3/uL (0.00-0.03); Imm Gran Pct Auto 0.4 % (0.0-0.4); Lymphocytes Absolute Auto 2.9 X10*3/uL (1.2-4.9); Lymphocytes Percent Auto 38.9 % (20-40); Mean Corpuscular Hemoglobin 30.3 pg (27.0-33.0); Mean Corpuscular Volume 91.6 fL (80.0-98.0); Mean Platelet Volume 10.9 fL (9.4-12.3); Monocytes Absolute Auto 0.6 X10*3/uL (0.1-1.2); Monocytes Percent Auto 7.7 % (2-11); Neutrophils Absolute Auto 3.8 x10*3/uL (2.0-8.3); Neutrophils Percent Auto 50.9 % (45-73); Platelet Count 190 X10*3/uL (160-400); Red Blood Count 4.89 X10*6/uL (4.20-5.50); Red Cell Distribution Width 12.6 % (11.0-16.0); White Blood Count 7.5 X10*3/uL (4.8-10.8)
[2023-06-11 11:55] LABS: Appearance Urine Clear; Color Urine Yellow; Glucose Urine UA Negative (Negative); Leukocyte Esterase Urine Small (1+) (Negative); Nitrite Urine Negative (Negative); PH 5.5 (5.0-9.0); Specific Gravity - Urine 1.025 (1.005-1.025); UMIC TRIGGER UACC YES; Urine Blood Negative (Negative); Urine Ketones Negative (Negative); Urine Protein 100 (2+) mg/dL (Neg-Trace)
[2023-06-11 11:59] LABS: Bacteria Urine None Seen (None Seen); Hyaline Casts Urine 0-2 /LPF (0-2); RBC Urine 0-2 /HPF (0-2); Squamous Epithelial Cell Urine 0-2 /HPF (0-2); UACC Culture Trigger YES
[2023-06-11 12:09] LABS: Albumin Level 3.9 g/dL (3.5-5.0); Anion Gap 15 (12-20); Calcium 9.6 mg/dL (8.4-10.2); Carbon Dioxide 27 mmol/L (22-29); Chloride 107 mmol/L (96-108); Cholesterol 149 mg/dL (<200); Estimated Average Glucose 166 mg/dL; Glucose Fasting 156 mg/dL (60-99); Hemoglobin A1c % 7.4 % (<6.0); Sodium 146 mmol/L (135-145)
[2023-06-11 12:14] LABS: Alanine Aminotransferase 11 U/L (0-31); Alkaline Phosphatase 86 U/L (39-117); Aspartate Amino Transferase 12 U/L (5-31); Bilirubin Total 0.7 mg/dL (0.0-1.0); Blood Urea Nitrogen 26 mg/dL (9-16); Estimated Glomerular Filt Rate 53; HDL Cholesterol 52 mg/dL (>40); LDL Cholesterol Calculated 80 mg/dL (<100); Triglycerides 88 mg/dL (<150)
[2023-06-11 12:21] LABS: Creatinine Urine 125.12 mg/dL
[2023-06-11 12:38] LABS: Microalbum/Creatinine Ratio Ur 477.9 ug/mg cr (<30)
== END 2023-06-11 11:16 | disposition home or self-care (01) ==
LOC: HO.LNP 11:15
PROVIDERS: Visit Provider Internal Medicine
DX: I10 Essential (primary) hypertension (principal); E11.9 Type 2 diabetes mellitus without complications; R82.90 Unspecified abnormal findings in urine
CPT/HCPCS: 80053; 80061; 81001; 82043; 82570; 83036; 85025; 87086

== ENCOUNTER 2023-06-18 13:18 | Outpatient (AMB) | payer MEDICARE, MEDICAID, SELFPAY ==
--- NOTE | 2023-06-18 13:33 | A.OFFVIS_ITS ---
Intake Vital Signs 06/18/23 13:34 Height 5 ft Weight 99 lb 3.328 oz BMI 19.4 BP 120/72 Blood Pressure Location Lt brachial Position Sitting Pulse 60 Intake Visit Reasons: 6 month follow up Intake Note: 6 month follow-up feeling good Nitroglycerin Distributor Required: No Allergies hydrochlorothiazide Allergy (Unknown, Verified 10/04/21 10:15) Unknown Medication List - Last Reconciled 06/18/23 by Jimmy Plascencia MD albuterol sulfate 90 mcg/actuation 2 puffs PO Q4H PRN apixaban (Eliquis) 2.5 mg PO BID atorvastatin 10 mg PO BEDTIME brimonidine 0.2% 1 drp ophthalmic (eye) BID calcium carbonate-vitamin D2 600 mg calcium- 200 unit 1 tab PO DAILY digoxin 125 mcg PO Q OTHER DAY escitalopram oxalate 5 mg PO DAILY fluticasone propion-salmeterol 250-50 mcg/dose (Advair Diskus) 1 puff inhalation BID furosemide 40 mg (2 x 20 mg) PO DAILY 30 days latanoprost 0.005% 1 drp ophthalmic (eye) BEDTIME levothyroxine 75 mcg PO DAILY@0600 meclizine 12.5 mg PO DAILY PRN memantine 10 mg PO BID metformin 500 mg PO DAILY metoprolol tartrate 100 mg See Protocol PO BID olanzapine (Zyprexa) 5 mg PO Q4-6H PRN olanzapine 5 mg PO BID PRN omeprazole 40 mg PO DAILY@0630 potassium chloride ER 16 mEq PO BEDTIME vit C,R-Vu-rcdyz-lutein-zeaxan 250-90-40-1 mg (PreserVision AREDS-2) 1 tab PO BID HPI HPI Comments History of Present Illness Details Loren comes for follow-up accompanied by her . She is doing well overall with no hospitalization for heart failure. Takes her diuretics well. Weight has been stable. No worsening shortness of breath, orthopnea, PND, abdominal distension, leg edema. No lightheadedness, syncope. As per the she does not drink enough free water every day. She denies any prolon ged palpitation irregular heartbeat. Takes all medications. No bleeding issues or neurologic events. No obvious significant fall issues at this point in time. [facility] Medical History Hypoxia Seasonal allergies COPD (chronic obstructive pulmonary disease) Diabetes Congestive heart failure Acute congestive heart failure Dizziness Chronic atrial fibrillation Bilateral carotid artery disease HTN (hypertension) Surgical History History of esophagogastroduodenoscopy (EGD) Hx of colonoscopy Hx of hysterectomy Hx of cholecystectomy Hx of appendectomy Family History Father CVD (cardiovascular disease) HTN (hypertension) Heart failure Mother Diabetes Cancer Brother CVD (cardiovascular disease) Social History Household Members: Spouse Housing: House Are you a primary career consultant to a significant other at home: No Do you presently have visiting nurse or other home services: Yes (MANAGER DELI) Alcohol intake: former Comment: 1:1 sitter Patient Tobacco Use Status: Never used Tobacco Advance Directives Date on File: 05/22/21 service: No Current occupational status: retired Review of Systems Const Denies chills, Denies fatigue, Denies fever(s), Denies frequent falls, Denies weakness, Denies weight gain and Denies weight loss ENT Denies dizziness Card Denies chest pain, Denies leg edema, Denies lightheadedness, Denies palpitations, Denies dyspnea, Denies dyspnea on exertion, Denies orthopnea and Denies other (loss of consciousness) Resp Denies cough, Denies dyspnea and Denies dyspnea on exertion GI Denies hematochezia and Denies change in stool character Musc Denies abnormal gait, Denies muscle weakness, Denies numbness, Denies radiating pain into limb and Denies tingling Neuro Denies abnormal gait, Reports confusion, Denies dizziness, Denies frequent falls, Denies numbness, Denies tingling and Denies weakness Psych Reports confusion Endo Denies fatigue and Denies palpitations Physical Exam Vital Signs: Last Vital Signs Pulse 60 06/18/23 13:34 BP 120/72 06/18/23 13:34 BMI result Body Mass Index 19.4 Const General: cooperative, comfortable, in distress mild and respiratory and confusion Nutritional Appearance: thin and other (Frail elderly woman) Orientation/consciousness: confusion Limitations: wheelchair Neck Neck: Yes trachea midline, Yes supple and Yes no JVD Resp Effort & Inspection: normal respiratory effort Auscultation: clear to auscultation bilaterally and diminished lung sounds Cardio Jugular venous distension: JVD Rhythm: abnormal rhythm irregularly irregular Heart sounds: S1 normal heart sound present, S2 normal heart sound present, no click, no gallops and Murmur heart sound present systolic GI Auscultation: normal bowel sounds Skin General skin exam: no rashes or lesions noted Neuro General: no focal motor deficits and confusion Extrem General: No clubbing, No cyanosis and No edema Assessment & Plan Assessment & Plan (1) Congestive heart failure: Code(s): I50.9 - Heart failure, unspecified Plan: Patient with heart failure mildly reduced LV ejection fraction with overall euvolemic status. Continue current diuretic dose. Importance daily weight monitoring was discussed. Should at least have quarterly renal function test to assess for renal function as well as sodium and potassium levels. Continue rate control approach. Importance of diuretic therapy was discussed. Avoidance of salt loading was discussed. Also advised to drink adequate free fluid to reduce risk of hypernatremia. This was discussed with her as well as her . (2) Chronic atrial fibrillation: Code(s): I48.20 - Chronic atrial fibrillation, unspecified Plan: Chronic rate control atrial fibrillation. Continue current rate control with digoxin and metoprolol therapy. Has done well. Has failed rhythm control approach. Continue full oral anticoagulation, currently on renally adjusted dose of Eliquis. Follow-up blood work today. Follow up in the clinic in 6 months time, sooner p.r.n.. Thank you for allowing me to partake in the care Orders: Orders Basic Metabolic Panel Today I50.9 - Heart failure, unspecified Complete Blood Count no Diff Today I50.9 - Heart failure, unspecified Digoxin Today I48.20 - Chronic atrial fibrillation, unspecified, I50.9 - Heart failure, unspecified Coding Level of Care Code Est Pt Level 4 (71165) Diagnoses Congestive heart failure I50.9 Chronic atrial fibrillation I48.20
[2023-06-18 13:34] VITALS: BP 120/72; PULSE 60; BMI 19.4
== END 2023-06-18 13:52 | disposition home or self-care (01) ==
PROVIDERS: PCP Internal Medicine; Visit Provider Internal Medicine Cardiovascular Disease
DX: I50.9 Heart failure, unspecified (principal); I48.20 Chronic atrial fibrillation, unspecified
CPT/HCPCS: 99214

== ENCOUNTER 2023-06-18 13:18 | Outpatient (REF) | payer MEDICARE, MEDICAID, SELFPAY ==
[2023-06-18 14:32] LABS: Hematocrit 47.7 % (37.0-47.0); Hemoglobin 15.6 g/dl (12.0-16.0); Mean Corpuscular HGB Conc 32.7 g/dl (31.0-35.0); Mean Corpuscular Volume 91.7 fL (80.0-98.0); Mean Platelet Volume 10.9 fL (9.4-12.3); Platelet Count 199 X10*3/uL (160-400); Red Cell Distribution Width 12.5 % (11.0-16.0); White Blood Count 9.8 X10*3/uL (4.8-10.8)
[2023-06-18 15:11] LABS: Anion Gap 16 (12-20); Blood Urea Nitrogen 28 mg/dL (9-16); Calcium 9.8 mg/dL (8.4-10.2); Carbon Dioxide 26 mmol/L (22-29); Chloride 105 mmol/L (96-108); Estimated Glomerular Filt Rate 52; Glucose Random 112 mg/dL (60-115); Potassium 3.8 mmol/L (3.3-5.1); Sodium 143 mmol/L (135-145)
[2023-06-18 15:33] LABS: Digoxin 0.7 ng/mL (0.8-2.0)
== END 2023-06-18 13:19 | disposition home or self-care (01) ==
LOC: HO.LAB 13:18
PROVIDERS: PCP Internal Medicine; Visit Provider Internal Medicine Cardiovascular Disease
DX: I50.9 Heart failure, unspecified (principal); I48.20 Chronic atrial fibrillation, unspecified; Z79.899 Other long term (current) drug therapy
CPT/HCPCS: 36415; 80048; 80162; 85027; 99212

== ENCOUNTER 2023-07-12 13:03 | Outpatient (REF) | payer MEDICARE, MEDICAID, SELFPAY ==
--- NOTE | 2023-07-12 15:22 | MHC.AU.MED ---
Medical Clearance for Hearing Instrumentation Date: 07/12/23 Patient Name: Loren Mendoza Date of : 1935 Primary Care Provider: Raffaele Saldana MD We have seen your patient on 07/12/23 and have determined that they are a candidate for amplification (See accompanying report). Specifically, they would benefit from: Hearing aid use in both ears There is a statute that addresses Medical Evaluation Requirements prior to fitting a patient with a hearing aid. According to [place] statute 265 CMR:6.03(1), (a) General. Except as provided in 265 CMR 6.03(1)(b), a human service coordinator shall not sell a hearing aid unless the prospective user has presented to the human service coordinator a written statement signed by a licensed physician that states that the patient's hearing loss has been medically evaluated and the patient may be considered a candidate for a hearing aid. The medical evaluation must have taken place within the preceding six months. Please note: Due to the [place] Statute referenced above, we cannot accept a signature other than that of a licensed physician. CANDY COOKER HELPER and PA signatures cannot be accepted. I am in agreement with the above recommendation. There is no medical contraindication for hearing instrumentation. Physician Signature Date Physician Name (Printed)
--- NOTE | 2023-07-15 09:42 | MHC.AU.HA1 ---
Hearing Aid Evaluation Date of Visit: 07/12/23 Historical Information: Description of Hearing: Mild sloping to moderately-severe sensorineural hearing loss, bilaterally Summary: Loren was accompanied by her , Emeterio. Loren is diagnosed with dementia and Emeterio has noticed a gradual decline in her hearing. She is not responding as well as she used to and also prefers the television volume to be elevated. Loren requires frequent repetition to understand a conversation. Loren, herself, reported minimal perceived hearing difficulties and is hesitant towards hearing aids. However, she reported she is willing to try them if they will help her. Discussed different styles - Opted for custom ITCs for ease of insertion as Loren will likely insert/remove the hearing aids herself. Impressions taken, bilaterally, without incident, although Loren was extremely sensitive during impressions. Hearing Aid Prescription: Based on the individual?s shared listening needs, communication environments, dexterity, desire for connectivity, and personal preferences, the following prescription for amplification has been made: Right ear: Make, Model, Color: MyCarGossip 16 ITC-R Color: [place] Battery Size: Rechargeable Left ear: Left ear prescription to be same as Right Hearing Aid above: Make, Model, Color: MyCarGossip 16 ITC-R Color: [place] Battery Size: Rechargeable Accessories/Assistive Technology: Directory Compiler Plan of Care: Patient wishes to purchase hearing aids as prescribed Action Taken/Action Needed: [place] Impressions Taken (in hold drawer). Medical Clearance to be requested from PCP/ENT. Hearing Instrument Fitting to be scheduled when materials arrive Primary Diagnosis: H90.3 Bilateral Sensorineural Hearing Loss Signature: Provider: Milly Gallego, [facility]
== END 2023-07-12 13:04 | disposition home or self-care (01) ==
LOC: HO.SH 13:03
PROVIDERS: Visit Provider Internal Medicine
DX: Z01.118 Encounter for examination of ears and hearing with other abnormal findings (principal); Z46.1 Encounter for fitting and adjustment of hearing aid; H90.3 Sensorineural hearing loss, bilateral
CPT/HCPCS: 92557; 92591; V5275

== ENCOUNTER 2023-07-16 14:33 | Outpatient (REF) | payer MEDICARE, MEDICAID, SELFPAY ==
[2023-07-16 14:57] LABS: Potassium 3.6 mmol/L (3.3-5.1)
== END 2023-07-16 14:34 | disposition home or self-care (01) ==
LOC: HO.LNP 14:33
PROVIDERS: Visit Provider Internal Medicine
DX: E87.6 Hypokalemia (principal)
CPT/HCPCS: 84132

== ENCOUNTER 2023-08-12 10:48 | Outpatient (REF) | payer MEDICARE, MEDICAID, SELFPAY ==
--- NOTE | 2023-08-12 12:51 | MHC.AU.HA2 ---
Hearing Instrument Fitting- Adult- Binaural Date of Visit: 08/12/23 Hearing Instruments Dispensed: Right Ear: Make, Model, Color, Serial Number: Mainor Ortega ITC-R SN: [id number] Color: [place] Lobby Attendant Repair Warranty: 08/24/2026 Lobby Attendant Loss and Damage Warranty: 08/24/2026 [facility] Service Plan: 08/12/2024 Battery Size: Rechargeable Type of Wax Guard: HearClear Left Ear: Percy, Model, Color, Serial Number: Mainor Ortega ITC-R SN: [id number] Color: [place] Lobby Attendant Repair Warranty: 08/24/2026 Lobby Attendant Loss and Damage Warranty: 08/24/2026 [facility] Service Plan: 08/12/2024 Battery Size: Rechargeable Type of Wax Guard: HearClear Accessories/Assistive Technology: Starlink Television Station Manager SN: [id number] Jane: 10/22/2026 Summary of Fitting: Accompanied by her , Loren is diagnosed with dementia. Ran feedback analyzer and real ear measures. Decreased to [place] experience level due to perceived loudness. Discussed care and use including rechargeability. Disabled program button and VC wheel. Push button still programmed for on/off with a push and hold. Practiced insertion and removal multiple times in office to ensure Loren was comfortable with it. She was able to insert/remove both hearing aids and place them in the explosive operator bomb successfully multiple times. Did not discuss cleaning/changing wax guards to keep appointment as simple as possible - Will discuss cleaning at follow up. Not interested in bluetooth. Counseled extensively on acclimatization period and new experience with both physical fit and sound quality of the hearing aids. Encouraged daily, consistent use. At the end of the appointment, Loren reported blurry vision. Unclear if related to the hearing aids; although, advised her that hearing aid fittings do not typically impact vision. Loren subsequently reported clean vision and blurry vision intermittently for the duration of the appointment both with and without hearing aids in her ears. Recommended follow up with PCP for these vision concerns. Recommendations: A hearing instrument follow-up was scheduled. Diagnosis Code(s): Primary Diagnosis: H90.3 Bilateral Sensorineural Hearing Loss Signature: Provider: Milyl Gallego, [facility]
== END 2023-08-12 10:49 | disposition home or self-care (01) ==
LOC: HO.HAP 10:48
PROVIDERS: Visit Provider Internal Medicine
DX: Z46.1 Encounter for fitting and adjustment of hearing aid (principal); H90.3 Sensorineural hearing loss, bilateral
CPT/HCPCS: V5011; V5020; V5160; V5259

== ENCOUNTER 2023-08-15 14:48 | Outpatient (REF) | payer MEDICARE, MEDICAID, SELFPAY | END 2023-08-15 14:49 | disposition home or self-care (01) | LOC: HO.HAP 14:48 | PROVIDERS: Visit Provider Internal Medicine | DX: Z13.89 Encounter for screening for other disorder (principal) ==

== ENCOUNTER 2023-08-20 08:22 | Outpatient (REF) | payer MEDICARE, MEDICAID, SELFPAY ==
[2023-08-20 11:12] LABS: Blood Urea Nitrogen 21 mg/dL (9-16)
== END 2023-08-20 08:23 | disposition home or self-care (01) ==
LOC: HO.10HDL 08:22
PROVIDERS: Visit Provider Internal Medicine
DX: R79.9 Abnormal finding of blood chemistry, unspecified (principal)
CPT/HCPCS: 36415; 84520

== ENCOUNTER 2023-09-03 12:49 | Outpatient (REF) | payer MEDICARE, MEDICAID, SELFPAY | END 2023-09-03 12:50 | disposition home or self-care (01) | LOC: HO.HAP 12:49 | PROVIDERS: Visit Provider Internal Medicine | DX: Z13.89 Encounter for screening for other disorder (principal) ==

== ENCOUNTER 2023-09-16 12:31 | Outpatient (REF) | payer MEDICARE, MEDICAID, SELFPAY | END 2023-09-16 12:32 | disposition home or self-care (01) | LOC: HO.MAMMO 12:31 | PROVIDERS: PCP Internal Medicine; Visit Provider Internal Medicine | DX: Z12.31 Encounter for screening mammogram for malignant neoplasm of breast (principal) | CPT/HCPCS: 77063; 77067 ==

== ENCOUNTER → 2023-09-16 12:45 | Outpatient (BNV) | payer MEDICARE, MEDICAID, SELFPAY | PROVIDERS: PCP Internal Medicine; Visit Provider Radiology Diagnostic Radiology | DX: Z12.31 Encounter for screening mammogram for malignant neoplasm of breast (principal) | CPT/HCPCS: 77063; 77067 ==

== ENCOUNTER 2023-11-15 13:21 | Emergency (ER) | payer MEDICARE, MEDICAID, SELFPAY ==
--- NOTE | ~2023-11-15 | CT_ITS ---
EXAMINATION: CT HEAD WITHOUT CONTRAST CLINICAL INFORMATION: Altered mental status, dizziness COMPARISON: 12/22/2022 TECHNIQUE: Contiguous axial imaging was performed from the skull base to vertex without intravenous administration of contrast. This CT examination was performed using dose optimization techniques as appropriate, variously including the following: *Automated exposure control *Adjustment of mA and/or kV according to patient size (this includes techniques or standardized protocols for targeted exams where dose is matched to indication/reason for exam; i.e. extremities or head) *Use of iterative reconstruction technique DLP: 550 mGy-cm FINDINGS: CT examination of the brain shows considerable age-related involutional changes with prominence of the ventricles and sulci. Periventricular white matter hypodensities are evident, likely on the basis of chronic microvascular ischemic disease. No acute hemorrhage, mass effect or shift is evident. In the posterior fossa, the brainstem, cerebellum and fourth ventricle are unremarkable. The orbits and bony calvarium are intact. The globes are aphakic. The paranasal sinuses and mastoid air cells are well pneumatized and clear. CT/CT head/brain wo IV con IMPRESSION: 1. Considerable Age-related involutional changes and microvascular disease. 2. No acute hemorrhage, mass effect, shift or acute intracranial pathology.
--- NOTE | 2023-11-15 13:39 | ECG_ITS ---
Test Reason : DIZZINESS Blood Pressure : / mmHG Vent. Rate : 068 BPM Atrial Rate : 000 BPM P-R Int : 000 ms QRS Dur : 092 ms QT Int : 416 ms P-R-T Axes : 000 024 072 degrees QTc Int : 442 ms Atrial fibrillation Minimal voltage criteria for LVH, may be normal variant ( Jones product ) Abnormal ECG When compared with ECG of 22-DEC-2022 10:16, No significant change was found Referred By: Fern Padilla Electronically Signed By:ESTUARDO CORDOBA MD
[2023-11-15 13:56] VITALS: BP 127/62; PULSE 67; RESP 18; TEMP 36.6; O2SAT 97; BMI 17.7
--- NOTE | 2023-11-15 13:59 | ED.GENADULT ---
HPI - General Adult General Chief complaint: General Medical Stated complaint: Lethargic/Dizzy Time Seen by Provider: 11/15/23 16:41 Source: patient and family Mode of arrival: EMS Limitations: altered mental status History of Present Illness HPI narrative: 87-year-old female with a PMH significant for?unspecified dementia, HTN, HLD, asthma, xqk-hakveux-omxanncaw diabetes, hypothyroidism, persistent AFib on Eliquis, HFrEF, and GERD who presents to the ED disease dizziness which she gets all the time patient was in the bathroom felt lightheaded more than usually but no fall family was with her at that time denied any chest pain or palpitation or diaphoresis per patient has this episodes multiple times on metoprolol and digoxin no documented bradycardia noticed Related Data Home Medications ?Medication ?Instructions ?Recorded ?Confirmed fluticasone 250 mcg-salmeterol 50 1 puff inhalation BID 05/22/21 06/18/23 mcg/dose blistr powdr for inhalation (Advair Diskus) albuterol sulfate 90 mcg/actuation 2 puff PO Q4H PRN Shortness Of 10/04/21 06/18/23 aerosol inhaler Breath Or Wheezing brimonidine 0.2 % eye drops 1 drp ophthalmic (eye) BID 11/12/21 06/18/23 latanoprost 0.005 % eye drops 1 drp ophthalmic (eye) BEDTIME 11/12/21 06/18/23 atorvastatin 10 mg tablet 10 mg PO BEDTIME 11/30/21 06/18/23 calcium carb-ergocalciferol (vit 1 tab PO DAILY 11/30/21 06/18/23 D2) 600 mg calcium-200 unit tablet memantine 10 mg tablet 10 mg PO BID 11/30/21 06/18/23 metformin 500 mg tablet 500 mg PO DAILY 11/30/21 06/18/23 omeprazole 40 mg capsule,delayed 40 mg PO DAILY@0630 11/30/21 06/18/23 release vit C 250 mg-vit E 90 mg-zinc 40 1 tab PO BID 11/30/21 06/18/23 mg-copper 1 hv-lgxxoc-ezzjkz capsule (PreserVision AREDS-2) levothyroxine 75 mcg tablet 75 mcg PO DAILY@0600 11/22/22 06/18/23 meclizine 12.5 mg tablet 12.5 mg PO DAILY PRN Dizziness 11/22/22 06/18/23 escitalopram oxalate 5 mg tablet 5 mg PO DAILY 12/22/22 06/18/23 potassium chloride 8 mEq 16 meq PO BEDTIME 06/18/23 06/18/23 tablet,extended release Previous Rx's ?Medication ?Instructions ?Recorded metoprolol tartrate 100 mg tablet 100 mg PO BID #60 tabs 11/30/22 olanzapine 5 mg tablet 5 mg PO BID PRN severe agitation 11/30/22 patient safet #12 tabs olanzapine 5 mg tablet (Zyprexa) 5 mg PO Q4-6H PRN agitation #30 12/23/22 tabs digoxin 125 mcg (0.125 mg) tablet 125 mcg PO Q OTHER DAY #45 tabs 05/27/23 apixaban 2.5 mg tablet (Eliquis) 2.5 mg PO BID #180 tabs 06/05/23 furosemide 20 mg tablet 40 mg (2 x 20 mg) PO DAILY #180 07/31/23 tabs Allergies Allergy/AdvReac Type Severity Reaction Status Date / Time hydrochlorothiazide Allergy Unknown Unknown Verified 11/15/23 14:03 Review of Systems Review of Systems: Yes all other systems are reviewed and are negative [facility] Past Medical History Medical History Hypoxia Seasonal allergies COPD (chronic obstructive pulmonary disease) Diabetes Congestive heart failure Acute congestive heart failure Dizziness Chronic atrial fibrillation Bilateral carotid artery disease HTN (hypertension) Surgical History History of esophagogastroduodenoscopy (EGD) Hx of colonoscopy Hx of hysterectomy Hx of cholecystectomy Hx of appendectomy Family History Family History Father CVD (cardiovascular disease) HTN (hypertension) Heart failure Mother Diabetes Cancer Brother CVD (cardiovascular disease) Social History Social History Household Members: Spouse Housing: House Are you a primary healthcare economics consultant to a significant other at home: No Do you presently have visiting nurse or other home services: Yes (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) Alcohol intake: former Comment: 1:1 sitter Patient Tobacco Use Status: Never used Tobacco Advance Directives: Yes Advance Directives on File: Yes Advance Directives Date on File: 05/22/21 Do you have a plan to hurt others: No Plan service: No Current occupational status: retired Physical Exam ED Vital Signs: Vital Signs - 24 hr 11/15/23 13:56 11/15/23 16:38 11/15/23 16:39 Temperature 97.8 F 98.1 F Pulse Rate 67 69 61 Respiratory Rate 18 17 Blood Pressure 127/62 155/76 H 163/67 H Pulse Oximetry 97 97 Oxygen Delivery Method Room Air Room Air 11/15/23 16:40 11/15/23 16:41 11/15/23 18:10 Temperature 98.1 F Pulse Rate 65 71 69 Respiratory Rate 18 Blood Pressure 166/69 H 165/70 H 155/76 H Pulse Oximetry 97 Oxygen Delivery Method Room Air BMI result Body Mass Index 17.7 Appearance: Alert. Oriented X2. No acute distress. Eyes: PERRLA, No Nystagmus ENT: Pharynx normal. Oral Mucosa moist Neck: Normal inspection. Neck supple. CVS: Normal heart rate and rhythm. Pulses normal. Respiratory: No respiratory distress. Equal air entry bilateral, no wheezing/rales/rhonchi Abdomen: Soft and nontender. Bowel sounds are present, no mass palpable, no CVA tenderness Skin: Skin warm and dry. Normal skin color. Normal skin turgor. Extremities: No lower extremity edema. No calf tenderness Neuro: Oriented X 2. No motor deficit. Demented+ Course Course Course Narrative: This is an RME done by ALLISON Padilla: Additional HPI, ROS, PE not included below will be deferred to primary provider. 88 year old female hx of afib, chf, htn, dementia, poor historian presents w/ who states patient started acting strange around 12:30 became dizzy and collapsed but was caught. Reports patient has been complaing of huber putnam lately she has dementia but seems to be more confused than ever. Unclear last known well time. No head strike or LOC . Patient confused unable to provide hx who is limited historian here to help Unabvle to perform NIHSS ot following comands Appearance: Alert.? Not oriented to person, place time or situation. No acute cardiopulmonary distress distress.? Head: Normocephalic, atraumatic, no step-offs or deformities Neck: Normal inspection.? Neck supple.? CVS: Pulses normal.? Respiratory: No respiratory distress.? Skin: ? Normal skin color. Extremities: Global weaknes Neuro: Not oriented to person, place time or situation.? No motor deficit.? No sensory deficit. Medical Decision Making Medical Decision Making [facility] Narrative: Patient with near-syncope/frequent disease bowels no documented bradycardia no orthostatic hypotension in the ER EKG labs stable discharge patient home patient has a follow-up plan with dairy cattle farm worker for further management Differential Diagnosis Differential Diagnoses: The differential diagnosis associated with the presentation includes Orthostatic hypotension/bradycardia/metabolic/UTI Lab Data [facility] Lab Attestation statement: I reviewed the patient's lab results. 11/15/23 13:53 11/15/23 13:54 Labs: Lab Results 11/15/23 11/15/23 11/15/23 Range/Units 13:53 13:54 16:52 WBC 10.7 (4.8-10.8) X10*3/uL RBC 4.83 (4.20-5.50) X10*6/uL Hgb 14.4 (12.0-16.0) g/dl Hct 43.0 (37.0-47.0) % MCV 89.0 (80.0-98.0) fL MCH 29.8 (27.0-33.0) pg MCHC 33.5 (31.0-35.0) g/dl RDW 12.9 (11.0-16.0) % Plt Count 170 (160-400) X10*3/uL MPV 10.5 (9.4-12.3) fL Immature Gran % (Auto) 0.6 H (0.0-0.4) % Neut % (Auto) 76.0 H (45-73) % Lymph % (Auto) 15.4 L (20-40) % [place] % (Auto) 7.0 (2-11) % Eos % (Auto) 0.7 (0-4) % Baso % (Auto) 0.3 (0-2) % Lymph # (Auto) 1.6 (1.2-4.9) X10*3/uL [place] # (Auto) 0.8 (0.1-1.2) X10*3/uL Eos # (Auto) 0.1 (0.0-0.4) X10*3/uL Baso # (Auto) 0.0 (0.0-0.2) X10*3/uL Abs Immat Gran (auto) 0.06 H (0.00-0.03) X10*3/uL Absolute Neuts (auto) 8.1 (2.0-8.3) x10*3/uL Absolute Nucleated RBC 0.000 (0.0-0.012) X10*3/uL Nucleated RBC % (auto) 0.0 (0.0-0.2) /100WBC PT 13.5 H (11.1-13.3) SEC INR 1.1 (0.9-1.1) Sodium 139 (135-145) mmol/L Potassium 4.0 (3.3-5.1) mmol/L Chloride 104 (96-108) mmol/L Carbon Dioxide 24 (22-29) mmol/L Anion Gap 15 (12-20) BUN 26 H (9-16) mg/dL Creatinine 1.09 (0.5-1.4) mg/dL Estim Creat Clear Calc 25.5 Estimated GFR 47 Random Glucose 218 H (60-115) mg/dL Calcium 9.6 (8.4-10.2) mg/dL Magnesium 1.7 (1.6-2.6) mg/dL Total Bilirubin 0.6 (0.0-1.0) mg/dL AST 11 (5-31) U/L ALT 11 (0-31) U/L Alkaline Phosphatase 75 (39-117) U/L Total Creatine Kinase 28 (26-140) U/L Total Protein 6.9 (6.5-8.0) g/dL Albumin 3.8 (3.5-5.0) g/dL Lipase 32 (8-78) U/L Urine Color Yellow Urine Appearance Clear Urine pH 5.0 (5.0-9.0) Ur Specific [place] 1.010 (1.005-1.025) Urine Protein Negative (Neg-Trace) mg/dL Urine Glucose (UA) Negative (Negative) mg/dL Urine Ketones Negative (Negative) mg/dL Urine Blood Negative (Negative) Urine Nitrite Negative (Negative) Ur Leukocyte Esterase Small (1+) H (Negative) Urine RBC 0-2 (0-2) /HPF Urine WBC 11-20 H (0-5) /HPF Ur Squamous Epith Cells 0-2 (0-2) /HPF Urine Bacteria None Seen (None Seen) Hyaline Casts 0-2 (0-2) /LPF Independent Interpretation I performed an independent interpretation of an: EKG and CT Scan Interpretation: AFib with ventricular rate of 68 beats per minute LVH no acute STT wave changes no acute ischemia Radiology Impression Discussion of test interpretation with radiology: I have reviewed the radiologist's reading. Radiologist Impression: [address] [address] [address] Scan Report Signed Patient: Loren Mendoza MR#: [id number] : 1935 Acct:[id number] Age/Sex: 88 / F ADM Date: 11/15/23 Loc: .ED Attending Dr: Ordering Physician: Fern Padilla Date of Service: 11/15/23 Procedure(s): CT head/brain wo IV con Accession Number(s): [id number] cc: Raffaele Saldana MD; Fern Padilla~ EXAMINATION: CT HEAD WITHOUT CONTRAST CLINICAL INFORMATION: Altered mental status, dizziness COMPARISON: 12/22/2022 TECHNIQUE: Contiguous axial imaging was performed from the skull base to vertex without intravenous administration of contrast. This CT examination was performed using dose optimization techniques as appropriate, variously including the following: *Automated exposure control *Adjustment of mA and/or kV according to patient size (this includes techniques or standardized protocols for targeted exams where dose is matched to indication/reason for exam; i.e. extremities or head) *Use of iterative reconstruction technique DLP: 550 mGy-cm FINDINGS: CT examination of the brain shows considerable age-related involutional changes with prominence of the ventricles and sulci. Periventricular white matter hypodensities are evident, likely on the basis of chronic microvascular ischemic disease. No acute hemorrhage, mass effect or shift is evident. In the posterior fossa, the brainstem, cerebellum and fourth ventricle are unremarkable. The orbits and bony calvarium are intact. The globes are aphakic. The paranasal sinuses and mastoid air cells are well pneumatized and clear. CT/CT head/brain wo IV con IMPRESSION: 1. Considerable Age-related involutional changes and microvascular disease. 2. No acute hemorrhage, mass effect, shift or acute intracranial pathology. Discharge Plan Discharge Clinical Impression: Near syncope Patient Disposition: Home, Self-Care Instructions: Near Syncope (ED) Additional Instructions: Drink plenty of fluids Follow with your dairy cattle farm worker as scheduled Prescriptions: No Action digoxin 125 mcg (0.125 mg) tablet 125 mcg PO Q OTHER DAY Qty: 45 3RF Eliquis 2.5 mg tablet 2.5 mg PO BID Qty: 180 3RF furosemide 20 mg tablet 40 mg PO DAILY Qty: 180 3RF fluticasone propion-salmeterol [Advair Diskus] 250-50 mcg/dose blister with device 1 puff inhalation BID brimonidine 0.2 % drops 1 drp ophthalmic (eye) BID latanoprost 0.005 % drops 1 drp ophthalmic (eye) BEDTIME atorvastatin 10 mg tablet 10 mg PO BEDTIME calcium carbonate-vitamin D2 600 mg calcium- 200 unit tablet 1 tab PO DAILY memantine 10 mg tablet 10 mg PO BID metformin 500 mg tablet 500 mg PO DAILY omeprazole 40 mg capsule,delayed release(DR/EC) 40 mg PO DAILY@0630 PreserVision AREDS-2 250-90-40-1 mg capsule 1 tab PO BID albuterol sulfate 90 mcg/actuation HFA aerosol inhaler 2 puff PO Q4H PRN (Reason: Shortness Of Breath Or Wheezing) levothyroxine 75 mcg tablet 75 mcg PO DAILY@0600 meclizine 12.5 mg tablet 12.5 mg PO DAILY PRN (Reason: Dizziness) metoprolol tartrate 100 mg Tablet 100 mg PO BID Qty: 60 0RF Protocol: Hold for SBP/HR < HOLD for SBP < : 90 HOLD for HR < : 60 olanzapine 5 mg Tablet 5 mg PO BID PRN (Reason: severe agitation patient safet) Qty: 12 0RF escitalopram oxalate 5 mg Tablet 5 mg PO DAILY olanzapine [Zyprexa] 5 mg tablet 5 mg PO Q4-6H PRN (Reason: agitation) Qty: 30 0RF potassium chloride 8 mEq tablet extended release 16 meq PO BEDTIME Interventions: ED Discharge Assessment Last Done: 11/15/23 18:10 Discharge Date/Time: 11/15/23 18:10 Print Language: Uruguayan
[2023-11-15 14:02] LABS: MANUAL DIFF FLAG NO
[2023-11-15 14:04] LABS: Basophils Percent Auto 0.3 % (0-2); Eosinophils Absolute Auto 0.1 X10*3/uL (0.0-0.4); Eosinophils Percent Auto 0.7 % (0-4); Hemoglobin 14.4 g/dl (12.0-16.0); Imm Gran Abs Auto 0.06 X10*3/uL (0.00-0.03); Imm Gran Pct Auto 0.6 % (0.0-0.4); Lymphocytes Absolute Auto 1.6 X10*3/uL (1.2-4.9); Lymphocytes Percent Auto 15.4 % (20-40); Mean Corpuscular HGB Conc 33.5 g/dl (31.0-35.0); Mean Corpuscular Hemoglobin 29.8 pg (27.0-33.0); Mean Platelet Volume 10.5 fL (9.4-12.3); Monocytes Absolute Auto 0.8 X10*3/uL (0.1-1.2); Neutrophils Absolute Auto 8.1 x10*3/uL (2.0-8.3); Platelet Count 170 X10*3/uL (160-400); Red Blood Count 4.83 X10*6/uL (4.20-5.50); Red Cell Distribution Width 12.9 % (11.0-16.0); White Blood Count 10.7 X10*3/uL (4.8-10.8)
[2023-11-15 14:15] LABS: INTERNATIONAL NORM RATIO 1.1 (0.9-1.1); Prothrombin Time 13.5 SEC (11.1-13.3)
[2023-11-15 14:25] LABS: Anion Gap 15 (12-20)
[2023-11-15 14:26] LABS: Alanine Aminotransferase 11 U/L (0-31); Albumin Level 3.8 g/dL (3.5-5.0); Alkaline Phosphatase 75 U/L (39-117); Aspartate Amino Transferase 11 U/L (5-31); Bilirubin Total 0.6 mg/dL (0.0-1.0); Blood Urea Nitrogen 26 mg/dL (9-16); Calcium 9.6 mg/dL (8.4-10.2); Carbon Dioxide 24 mmol/L (22-29); Chloride 104 mmol/L (96-108); Creatinine Clr Calc Pharmacy 25.5; Estimated Glomerular Filt Rate 47; Glucose Random 218 mg/dL (60-115); Lipase 32 U/L (8-78); Magnesium 1.7 mg/dL (1.6-2.6); Sodium 139 mmol/L (135-145); Total Protein 6.9 g/dL (6.5-8.0)
[2023-11-15 16:38] VITALS: BP 155/76; PULSE 69; RESP 17; TEMP 36.7; O2SAT 97
[2023-11-15 16:39] VITALS: BP 163/67; PULSE 61
[2023-11-15 16:40] VITALS: BP 166/69; PULSE 65
[2023-11-15 16:41] VITALS: BP 165/70; PULSE 71
[2023-11-15 16:58] LABS: Appearance Urine Clear; Color Urine Yellow; Glucose Urine UA Negative (Negative); Leukocyte Esterase Urine Small (1+) (Negative); Nitrite Urine Negative (Negative); UMIC TRIGGER UACC YES; Urine Blood Negative (Negative); Urine Ketones Negative (Negative); Urine Protein Negative (Neg-Trace)
[2023-11-15 17:03] LABS: Bacteria Urine None Seen (None Seen); Hyaline Casts Urine 0-2 /LPF (0-2); RBC Urine 0-2 /HPF (0-2); Squamous Epithelial Cell Urine 0-2 /HPF (0-2); UACC Culture Trigger YES
--- NOTE | 2023-11-15 17:42 | PC.NURSE ---
ambulated with steady gait to the bathroom, denied any dizziness upon standing. resting quietly in room with visitor at bedside, offering no complaints.
[2023-11-15 18:10] VITALS: BP 155/76; PULSE 69; RESP 18; TEMP 36.7; O2SAT 97
== END 2023-11-15 18:10 | disposition home or self-care (01) ==
PROVIDERS: Physician Assistant; Emergency Provider Internal Medicine; PCP Internal Medicine
DX: R55 Syncope and collapse (principal); R42 Dizziness and giddiness; I11.0 Hypertensive heart disease with heart failure; I50.20 Unspecified systolic (congestive) heart failure; I48.91 Unspecified atrial fibrillation; Z79.01 Long term (current) use of anticoagulants; Z79.899 Other long term (current) drug therapy
CPT/HCPCS: 36415; 70450; 80053; 81001; 82550; 83690; 83735; 85025; 85610; 87086; 93005; 99284

== ENCOUNTER → 2023-11-15 13:39 | Outpatient (BNV) | payer MEDICARE, MEDICAID, SELFPAY | PROVIDERS: Emergency Provider Internal Medicine; PCP Internal Medicine; Visit Provider Internal Medicine Cardiovascular Disease | DX: I48.91 Unspecified atrial fibrillation (principal); R94.31 Abnormal electrocardiogram [ECG] [EKG] | CPT/HCPCS: 93010 ==

== ENCOUNTER 2023-12-23 13:29 | Outpatient (AMB) | payer MEDICARE, MEDICAID, SELFPAY ==
[2023-12-23 13:33] VITALS: BP 110/70; PULSE 84; BMI 19.4
--- NOTE | 2023-12-23 13:33 | MHC.OFFVIS ---
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: No Ocean Lifeguard Specialist: Ocean Lifeguard Specialist Present Accompanied by: Spouse Allergies hydrochlorothiazide Allergy (Unknown, Verified 11/15/23 14:03) Unknown Medication List - Last Reconciled 12/23/23 by Jimmy Plascencia MD albuterol sulfate 90 mcg/actuation 2 puffs PO Q4H PRN apixaban (Eliquis) 2.5 mg PO BID atorvastatin 10 mg PO BEDTIME brimonidine 0.2% 1 drp ophthalmic (eye) BID digoxin 125 mcg PO Q OTHER DAY escitalopram oxalate 5 mg PO DAILY fluticasone propion-salmeterol 250-50 mcg/dose (Advair Diskus) 1 puff inhalation BID furosemide 40 mg (2 x 20 mg) PO DAILY latanoprost 0.005% 1 drp ophthalmic (eye) BEDTIME levothyroxine 75 mcg PO DAILY@0600 meclizine 12.5 mg PO DAILY PRN memantine 10 mg PO BID metformin 500 mg PO DAILY metoprolol tartrate 100 mg See Protocol PO BID olanzapine (Zyprexa) 5 mg PO Q4-6H PRN olanzapine 5 mg PO BID PRN omeprazole 40 mg PO DAILY@0630 vit C,V-Te-sxraz-lutein-zeaxan 250-90-40-1 mg (PreserVision AREDS-2) 1 tab PO BID HPI Comments Details: Loren comes for follow-up accompanied by her . She has no new cardiac symptoms at current point time. No worsening shortness of breath, orthopnea, leg edema, abdominal distention. No prolonged palpitation irregular heartbeat. No lightheadedness, syncope. No bleeding issues or neurologic events. Takes all her medications regularly. [facility] Medical History Hypoxia Seasonal allergies COPD (chronic obstructive pulmonary disease) Diabetes Congestive heart failure Acute congestive heart failure Dizziness Chronic atrial fibrillation Bilateral carotid artery disease HTN (hypertension) Surgical History History of esophagogastroduodenoscopy (EGD) Hx of colonoscopy Hx of hysterectomy Hx of cholecystectomy Hx of appendectomy Family History Father CVD (cardiovascular disease) HTN (hypertension) Heart failure Mother Diabetes Cancer Brother CVD (cardiovascular disease) Social History Household Members: Spouse Housing: House Are you a primary director of career services to a significant other at home: No Do you presently have visiting nurse or other home services: Yes (SUPPORT DIRECTOR) Alcohol intake: former Comment: 1:1 sitter Patient Tobacco Use Status: Never used Tobacco Advance Directives Date on File: 05/22/21 service: No Current occupational status: retired Review of Systems Const Denies chills, Denies fatigue, Denies fever(s), Denies frequent falls, Denies weakness, Denies weight gain and Denies weight loss ENT Denies dizziness Card Denies chest pain, Denies leg edema, Denies lightheadedness, Denies palpitations, Denies dyspnea, Denies dyspnea on exertion, Denies orthopnea and Denies other (loss of consciousness) Resp Denies cough, Denies dyspnea and Denies dyspnea on exertion GI Denies hematochezia and Denies change in stool character Musc Denies abnormal gait, Denies muscle weakness, Denies numbness, Denies radiating pain into limb and Denies tingling Neuro Denies abnormal gait, Reports confusion, Denies dizziness, Denies frequent falls, Denies numbness, Denies tingling and Denies weakness Psych Reports confusion Endo Denies fatigue and Denies palpitations Physical Exam Vital Signs: Last Vital Signs Pulse 84 12/23/23 13:33 BP 110/70 12/23/23 13:33 BMI result Body Mass Index 19.4 Const General: cooperative, comfortable, in distress mild and respiratory and confusion Nutritional Appearance: thin and other (Frail elderly woman) Orientation/consciousness: confusion Limitations: wheelchair Neck Neck: Yes trachea midline, Yes supple and Yes no JVD Resp Effort & Inspection: normal respiratory effort Auscultation: clear to auscultation bilaterally and diminished lung sounds Cardio Jugular venous distension: JVD Rhythm: abnormal rhythm irregularly irregular Heart sounds: S1 normal heart sound present, S2 normal heart sound present, no click, no gallops and Murmur heart sound present systolic GI Auscultation: normal bowel sounds Skin General skin exam: no rashes or lesions noted Neuro General: no focal motor deficits and confusion Extrem General: No clubbing, No cyanosis and No edema Assessment & Plan Assessment & Plan (1) Chronic atrial fibrillation: Code(s): I48.20 - Chronic atrial fibrillation, unspecified Category: Medical Plan: Chronic rate control atrial fibrillation on dual therapy with metoprolol and digoxin. Doing well with rate control. Has no worsening symptoms. Continue rate control approach. Digoxin assay every 6 months. Continue full oral anticoagulation, currently on renally adjusted dose of Eliquis. (2) Congestive heart failure: Code(s): I50.9 - Heart failure, unspecified Category: Medical Plan: Heart failure preserved ejection fraction, clinically euvolemic and well compensated. Continue aggressive rate control approach as above. Continue current diuretic dose. Clinically appears to be having no issues at this point time. Importance of diuretic therapy was discussed. Daily weight monitoring avoidance of salt loading was discussed. Additional diuretics as need be. Advised to call me with worsening symptoms. Follow up in clinic in 6 months time, sooner p.r.n.. Thank you for allowing me to partake in her care Orders: Orders Digoxin Today I48.20 - Chronic atrial fibrillation, unspecified Coding Level of Care Code Est Pt Level 4 (54027) Diagnoses Chronic atrial fibrillation I48.20 Congestive heart failure I50.9
== END 2023-12-23 13:55 | disposition home or self-care (01) ==
PROVIDERS: PCP Internal Medicine; Visit Provider Internal Medicine Cardiovascular Disease
DX: I48.20 Chronic atrial fibrillation, unspecified (principal); I50.9 Heart failure, unspecified
CPT/HCPCS: 99214

== ENCOUNTER 2023-12-23 13:29 | Outpatient (REF) | payer MEDICARE, MEDICAID, SELFPAY ==
[2023-12-23 16:13] LABS: Digoxin 1.5 ng/mL (0.8-2.0)
== END 2023-12-23 13:30 | disposition home or self-care (01) ==
LOC: HO.LAB 13:29
PROVIDERS: PCP Internal Medicine; Visit Provider Internal Medicine Cardiovascular Disease
DX: I48.20 Chronic atrial fibrillation, unspecified (principal); I50.9 Heart failure, unspecified; Z79.899 Other long term (current) drug therapy
CPT/HCPCS: 36415; 80162; 99212

== ENCOUNTER 2024-01-20 11:35 | Outpatient (REF) | payer MEDICARE, MEDICAID, SELFPAY ==
[2024-01-20 14:05] LABS: Digoxin < 0.2 ng/mL (0.8-2.0)
== END 2024-01-20 11:36 | disposition home or self-care (01) ==
LOC: HO.LAB 11:35
PROVIDERS: PCP Internal Medicine; Visit Provider Internal Medicine Cardiovascular Disease
DX: I48.20 Chronic atrial fibrillation, unspecified (principal); I50.9 Heart failure, unspecified
CPT/HCPCS: 36415; 80162

== ENCOUNTER 2024-06-15 12:10 | Outpatient (REF) | payer MEDICARE, MEDICAID, SELFPAY ==
--- OUTSIDE RECORDS SUMMARY | 2024-06-15 12:13 | XMS_ITS | Continuity of Care Document ---
Author Organization [facility] Address [address] [address] Phone Care Team Providers Care Lpn Rn Hospice Name Role Phone Jennie Beard MD Unavailable Unavailable Medications Medication Instructions Dosage Effective Dates (start - stop) Status Comments Calcium 600 + D(3) 600 mg-10 mcg (400 unit) tablet take one tablet by mouth daily - Active AREDS 2 Vitamins ORAL take one tablet by mouth daily - Active aspirin 81 mg ORAL TABLET take one tablet by mouth daily - Active atorvastatin 10 mg tablet take 1 tablet by oral route every day 10 MG - Active brimonidine 0.2 % eye drops instill 1 drop by ophthalmic route every 8 hours into affected eye(s) 1.00 drop - Active glimepiride 1 mg tablet take 1 tablet by oral route every day 1 MG - Active latanoprost (PF) 0.005 % eye drops one drop into affected eye daily - Active memantine 10 mg tablet take 1 tablet by oral route 2 times every day 10 MG - Active metformin 500 mg tablet take 1 tablet by oral route 2 times every day with morning and evening meals 500 MG - Active metoprolol tartrate 50 mg tablet take 1 tablet by oral route 2 times every day with meals 50 MG - Active omeprazole 40 mg capsule,delayed release take 1 capsule by oral route every day before a meal 40 MG - Active Xarelto 20 mg tablet take 1 tablet by or al route every day with the evening meal 20 MG - Active valsartan 320 mg tablet take 1 tablet by oral route every day 320 MG - Active Advance Directives Directive Yes / No Effective Date File Name No Information Encounters Encounter Description Practice Location Reason(s) For Visit Diagnoses Date Provider Providers Copied on Encounter [facility], [facility] [place], [place], [id number], [place] tel:[phone] [facility] No Information 2 Kisha Jennie. [address] [place] [address], [id number] , [place]. tel:[phone] [facility], [address] [address], [place], [place], [id number], [place] tel:[phone] [place] No Information 2 Vivian Kristy. [address] [place], [place], [id number] , [place]. tel:[phone] Family History Family Member Type Diagnosis Age At Onset No Information Payers Payer name Insurance type Covered republican ID Authoriza tion(s) No Information Social History Type Description Quantity Date Captured Comments Sex Female Smoking Status No Information Chief Complaint And Reason For Visit No Information Reason For Referral Reason For Referral No Information History Of Present Illness Encounter Date Complaint History Of Prese nt Illness No Information Functional Status Date Functional Assessmen t No Information Instructions Date Instruction Additional Infor mation No Information Assessments Type Assessment Date No Information Patient Care Teams Name Effective Dates (start - stop) Status Members No Information
--- OUTSIDE RECORDS SUMMARY | 2024-06-15 12:13 | XMS_ITS | Clinical Summary ---
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 Active 07-01 00:00: 00 TYPE 2 DIABETES MELLITUS WITHOUT COMPLICATION S Active 07-01 00:00: 00 CHRONIC OBSTRUCTIVE PULMONARY DISEASE, UNSPECIFIED Active 07-01 00:00: 00 UNSP DEMENTIA, UNSP SEVERITY, WITHOUT BEH/PSYCH/MO OD/ANX Active 07-01 00:00: 00 CHRONIC ATRIAL FIBRILLATION , UNSPECIFIED Active 07-01 00:00: 00 HYPERLIPIDEM IA, UNSPECIFIED Active 07-01 00:00: 00 ACUTE RESPIRATORY FAILURE WITH HYPOXIA Active 07-01 00:00: 00 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 Ordering Clinician Indication Dosage Frequency Signature (SIG) Comments Components brimonidine 0.2 % eye drops 4-25 00:00: 00 12-06 23:59 :00 No [id number] Per instruc tions TWICE DAILY Per instructio ns TWICE DAILY (route: ophthalmic (eye)) Med Classific ation: Ophthalmi c Agents furosemide 20 mg tablet 10-23 00:00: 00 12-06 23:59 :00 No [id number] Per instruc tions 2 TIMES DAILY Per instructio ns 2 TIMES DAILY (route: oral) Med Classific ation: Cardiovas cular Therapy Agents latanoprost 0.005 % eye drops 10-23 00:00: 00 12-06 23:59 :00 No [id number] Per instruc tions EVERY PM Per instructio ns EVERY PM (route: ophthalmic (eye)) Med Classific ation: Ophthalmi c Agents meclizine 12.5 mg tablet 10-23 00:00: 00 11-16 00:00 :00 No [id number] Unavailable Per instruc tions EVERY DAY NEEDED Per instructio ns EVERY DAY NEEDED (route: oral) Med Classific ation: Gastroint estinal Therapy Agents Advair Diskus 250 mcg-50 mcg/dose powder for inhalation 11-16 00:00: 00 12-06 23:59 :00 No [id number] 1 inhalat ion 2 TIMES DAILY 1 inhalation 2 TIMES DAILY (route: inhalation ) Med Classific ation: Respirato ry Therapy Agents albuterol sulfate HFA 90 mcg/actuati on aerosol inhaler 11-16 00:00: 00 12-06 23:59 :00 No [id number] 2 puff EVERY 4 HOURS 2 puff EVERY 4 HOURS (route: inhalation ) Med Classific ation: Respirato ry Therapy Agents atorvastati n 10 mg tablet 11-16 00:00: 00 12-06 23:59 :00 No [id number] 10 mg BEDTIME 10 mg BEDTIME (route: oral) Med Classific ation: Cardiovas cular Therapy Agents hydralazine 10 mg tablet 11-16 00:00: 00 12-06 23:59 :00 No [id number] 10 mg 3 TIMES DAILY 10 mg 3 TIMES DAILY (route: oral) Med Classific ation: Cardiovas cular Therapy Agents levothyroxi ne 50 mcg tablet 11-16 00:00: 00 12-06 23:59 :00 No [id number] 50 mcg DAILY 50 mcg DAILY (route: oral) Med Classific ation: Endocrine memantine 10 mg tablet 11-16 00:00: 00 12-06 23:59 :00 No [id number] 10 mg 2 TIMES DAILY 10 mg 2 TIMES DAILY (route: oral) Med Classific ation: Cognitive Disorder Therapy metformin 500 mg tablet 11-16 00:00: 00 12-06 23:59 :00 No [id number] 2 tablet 2 TIMES DAILY 2 tablet 2 TIMES DAILY (route: oral) Med Classific ation: Endocrine metoprolol tartrate 50 mg tablet 11-16 00:00: 00 12-06 23:59 :00 No [id number] 50 mg 2 TIMES DAILY 50 mg 2 TIMES DAILY (route: oral) Med Classific ation: Cardiovas cular Therapy Agents Mucinex 600 mg tablet, extended release 11-16 00:00: 00 12-06 23:59 :00 No [id number] 1 tablet DAILY 1 tablet DAILY (route: oral) Med Classific ation: Respirato ry Therapy Agents omeprazole 40 mg capsule,del ayed release 11-16 00:00: 00 12-06 23:59 :00 No [id number] 1 capsule DAILY 1 capsule DAILY (route: oral) Med Classific ation: Gastroint estinal Therapy Agents valsartan 320 mg tablet 11-16 00:00: 00 12-06 23:59 :00 No [id number] 1 tablet DAILY 1 tablet DAILY (route: oral) Med Classific ation: Cardiovas cular Therapy Agents Xarelto 20 mg tablet 11-16 00:00: 00 12-06 23:59 :00 No [id number] 1 tablet DAILY 1 tablet DAILY (route: oral) Med Classific ation: Hematolog ical Agents Immunizations Ordered Immunization Name Filled Immunization Name Date Status Comments Refusal Reason COVID-19, COVID-19 2021-03-16 00:00:00 INFLUENZA, TIV (INACTIVATED) 2021-03-16 00:00:00 PNEUMOCOCCAL (PPV), PPV 2018-05-01 00:00:00 TETANUS, TDAP (TETANUS) 2015-07-01 00:00:00 Vital Signs Vital Name Observation Time Observation Value Commen ts Temperature 2022-01-10 09:07:00.000 97.6 [degF] Temperature 2022-01-04 09:11:00.000 98.1 [degF] Temperature 2021-12-26 16:15:00.000 97 [degF] Temperature 2021-12-18 09:11:00.000 97.1 [degF] Temperature 2021-12-11 09:09:00.000 97.1 [degF] Temperature 2021-12-04 09:13:00.000 97.1 [degF] Temperature 2021-12-01 10:21:00.000 97.1 [degF] Temperature 2021-11-24 14:07:00.000 97.7 [degF] Temperature 2021-11-20 14:16:00.000 97.1 [degF] Temperature 2021-11-16 14:27:00.000 97.8 [degF] BMI (%) 2021-11-16 14:27:00.000 20 kg/m2 Height 2021-11-16 14:27:00.000 62 [in_us] Pulse 2022-01-10 09:07:00.000 76 /min Pulse 2022-01-04 09:11:00.000 70 /min Pulse 2021-12-26 16:15:00.000 70 /min Pulse 2021-12-18 09:11:00.000 84 /min Pulse 2021-12-11 09:09:00.000 84 /min Pulse 2021-12-04 09:13:00.000 84 /min Pulse 2021-12-01 10:21:00.000 70 /min Pulse 2021-11-24 14:07:00.000 91 /min Pulse 2021-11-20 14:16:00.000 95 /min Pulse 2021-11-16 14:27:00.000 81 /min O2 Saturation (%) 2022-01-04 09:11:00.000 96 % O2 Saturation (%) 2021-12-18 09:11:00.000 99 % O2 Saturation (%) 2021-12-11 09:09:00.000 95 % O2 Saturation (%) 2021-12-04 09:13:00.000 96 % O2 Saturation (%) 2021-12-01 10:21:00.000 96 % O2 Saturation (%) 2021-11-24 14:07:00.000 95 % O2 Saturation (%) 2021-11-20 14:16:00.000 95 % Respirations 2022-01-10 09:07:00.000 18 /min Respirations 2022-01-04 09:11:00.000 18 /min Respirations 2021-12-26 16:15:00.000 18 /min Respirations 2021-12-18 09:11:00.000 18 /min Respirations 2021-12-11 09:09:00.000 18 /min Respirations 2021-12-04 09:13:00.000 18 /min Respirations 2021-12-01 10:21:00.000 18 /min Respirations 2021-11-24 14:07:00.000 18 /min Respirations 2021-11-20 14:16:00.000 18 /min Respirations 2021-11-16 14:27:00.000 18 /min Weight (lbs) 2022-01-04 09:11:00.000 108 [lb_av] Weight (lbs) 2021-12-26 16:15:00.000 109 [lb_av] Weight (lbs) 2021-12-18 09:12:00.000 109 [lb_av] Weight (lbs) 2021-12-11 09:09:00.000 109 [lb_av] Weight (lbs) 2021-12-04 09:13:00.000 110 [lb_av] Weight (lbs) 2021-12-01 10:21:00.000 110 [lb_av] Weight (lbs) 2021-11-24 14:07:00.000 110 [lb_av] Weight (lbs) 2021-11-20 14:16:00.000 110 [lb_av] Weight (lbs) 2021-11-16 14:27:00.000 110 [lb_av] Systolic Blood Pressure 2022-01-10 09:07:00.000 132 mm [Hg] Systolic Blood Pressure 2022-01-04 09:11:00.000 118 mm [Hg] Systolic Blood Pressure 2021-12-26 16:15:00.000 126 mm [Hg] Systolic Blood Pressure 2021-12-18 09:11:00.000 116 mm [Hg] Systolic Blood Pressure 2021-12-11 09:09:00.000 112 mm [Hg] Systolic Blood Pressure 2021-12-04 09:13:00.000 128 mm [Hg] Systolic Blood Pressure 2021-12-01 10:21:00.000 142 mm [Hg] Systolic Blood Pressure 2021-11-24 14:07:00.000 138 mm [Hg] Systolic Blood Pressure 2021-11-20 14:16:00.000 130 mm [Hg] Systolic Blood Pressure 2021-11-16 14:27:00.000 138 mm [Hg] Diastolic Blood Pressure 2022-01-10 09:07:00.000 72 mm [Hg] Diastolic Blood Pressure 2022-01-04 09:11:00.000 64 mm [Hg] Diastolic Blood Pressure 2021-12-26 16:15:00.000 64 mm [Hg] Diastolic Blood Pressure 2021-12-18 09:11:00.000 68 mm [Hg] Diastolic Blood Pressure 2021-12-11 09:09:00.000 64 mm [Hg] Diastolic Blood Pressure 2021-12-04 09:13:00.000 70 mm [Hg] Diastolic Blood Pressure 2021-12-01 10:21:00.000 70 mm [Hg] Diastolic Blood Pressure 2021-11-24 14:07:00.000 76 mm [Hg] Diastolic Blood Pressure 2021-11-20 14:16:00.000 62 mm [Hg] Diastolic Blood Pressure 2021-11-16 14:27:00.000 72 mm [Hg] Plan of Treatment Planned Activity Planned Date Details Comments Future Scheduled Test SKILLED NU RSE TO PERFORM GENERAL ASSESSMENT AND EVALUATE PATIENT, IDENTIFY PRIMARY AND CO-MORBID CONDITIONS, AND DEVELOP PATIENT SPECIFIC PLAN OF CARE THAT INCLUDES PATIENT GOAL FOR HOME HEALTH. CLINICAL SUMMARY SOC THE PATIENT IS RECEIVING HOMECARE DUE TO EXACERBATION OF: CHF RECENT HOSPITALIZATION/INPATIENT ADMISSION RELATED TO: CHF EXACERBATION NEW OR CHANGED MEDICATIONS PERTINENT TO THE PLAN OF CARE: NONE PATIENT LIVING SITUATION/CAREGIVER STATUS: SPOUSE IS PRIMARY CG RECENT FALLS: NONE REPORTED SKILLED TEACHING AND TRAINING, OBSERVATION AND ASSESSMENT, AND/OR TREATMENTS THAT REQUIRE SKILLED CARE: CHF EDUCATION, DIABETES EDUCATION ADDITIONAL DISCIPLINES NEEDED OR DECLINED ORDERED SERVICES: NONE NEEDED OR DECLINED [code = SKILLED NURSE TO PERFORM GENERAL ASSESSMENT AND EVALUATE PATIENT, IDENTIFY PRIMARY AND CO-MORBID CONDITIONS, AND DEVELOP PATIENT SPECIFIC PLAN OF CARE THAT INCLUDES PATIENT GOAL FOR HOME HEALTH. CLINICAL SUMMARY SOC THE PATIENT IS RECEIVING HOMECARE DUE TO EXACERBATION OF: CHF RECENT HOSPITALIZATION/INPATIENT ADMISSION RELATED TO: CHF EXACERBATION NEW OR CHANGED MEDICATIONS PERTINENT TO THE PLAN OF CARE: NONE PATIENT LIVING SITUATION/CAREGIVER STATUS: SPOUSE IS PRIMARY CG RECENT FALLS: NONE REPORTED SKILLED TEACHING AND TRAINING, OBSERVATION AND ASSESSMENT, AND/OR TREATMENTS THAT REQUIRE SKILLED CARE: CHF EDUCATION, DIABETES EDUCATION ADDITIONAL DISCIPLINES NEEDED OR DECLINED ORDERED SERVICES: NONE NEEDED OR DECLINED] Future Scheduled Test SKILLED NU RSE FOR O/A OF LOWER EXTREMITIES TO IDENTIFY CHANGES OR LESIONS ASSOCIATED WITH DIABETES MELLITUS FOR EARLY INTERVENTIONS OF COMPLICATIONS. SKILLED NURSE TO PROVIDE INSTRUCTION ON PROPER DIABETIC SKIN/FOOT CARE. [code = SKILLED NURSE FOR O/A OF LOWER EXTREMITIES TO IDENTIFY CHANGES OR LESIONS ASSOCIATED WITH DIABETES MELLITUS FOR EARLY INTERVENTIONS OF COMPLICATIONS. SKILLED NURSE TO PROVIDE INSTRUCTION ON PROPER DIABETIC SKIN/FOOT CARE.] Future Scheduled Test SKILLED NU RSE TO REVIEW PATIENT MEDICATIONS. INSTRUCT PATIENT/CAREGIVER ON MONITORING OF EFFECTIVENESS, ADVERSE DRUG REACTIONS, SIDE EFFECTS OF ALL MEDICATIONS (PRESCRIPTION/-OTC), AND HOW AND WHEN TO REPORT PROBLEMS. [code = SKILLED NURSE TO REVIEW PATIENT MEDICATIONS. INSTRUCT PATIENT/CAREGIVER ON MONITORING OF EFFECTIVENESS, ADVERSE DRUG REACTIONS, SIDE EFFECTS OF ALL MEDICATIONS (PRESCRIPTION/-OTC), AND HOW AND WHEN TO REPORT PROBLEMS.] Future Scheduled Test SKILLED NU RSE TO PERFORM HOME SAFETY AND FALL ASSESSMENT AND PROVIDE INSTRUCTION TO IMPLEMENT HOME SAFETY AND FALL PREVENTION STRATEGIES. [code = SKILLED NURSE TO PERFORM HOME SAFETY AND FALL ASSESSMENT AND PROVIDE INSTRUCTION TO IMPLEMENT HOME SAFETY AND FALL PREVENTION STRATEGIES.] Future Scheduled Test SKILLED NU RSE TO OBTAIN PULSE OXIMETRY MEASUREMENT PRN FOR SIGNS AND SYMPTOMS OF SHORTNESS OF BREATH, ACTIVITY INTOLERANCE AND WHEN OXYGEN IS ORDERED. [code = SKILLED NURSE TO OBTAIN PULSE OXIMETRY MEASUREMENT PRN FOR SIGNS AND SYMPTOMS OF SHORTNESS OF BREATH, ACTIVITY INTOLERANCE AND WHEN OXYGEN IS ORDERED.] Future Scheduled Test PATIENT VIDES S A RISK OF REHOSPITALIZATION. SKILLED NURSE TO ESTABLISH SUPPORT MEASURES TO MINIMIZE RISK OF REHOSPITALIZATION, AND INSTRUCT PATIENT/CAREGIVER ON METHODS TO REDUCE AVOIDABLE HOSPITALIZATION. [code = PATIENT HAS A RISK OF REHOSPITALIZATION. SKILLED NURSE TO ESTABLISH SUPPORT MEASURES TO MINIMIZE RISK OF REHOSPITALIZATION, AND INSTRUCT PATIENT/CAREGIVER ON METHODS TO REDUCE AVOIDABLE HOSPITALIZATION.] Future Scheduled Test SKILLED NU RSE TO PROVIDE INSTRUCTION TO PATIENT/CAREGIVER RELATED TO DISCHARGE PLANNING. [code = SKILLED NURSE TO PROVIDE INSTRUCTION TO PATIENT/CAREGIVER RELATED TO DISCHARGE PLANNING. ] Future Scheduled Test SKILLED NU RSE FOR OBSERVATION AND ASSESSMENT OF PATIENTS PAIN LEVEL AND EFFECTIVENESS OF PAIN MANAGEMENT REGIMEN. SKILLED NURSE TO INSTRUCT PATIENT/CAREGIVER REGARDING PHARMACOLOGIC AND NON-PHARMACOLOGIC PAIN CONTROL MEASURES. SKILLED NURSE TO REPORT TO PHYSICIAN IF PAIN IS UNCONTROLLED WITH CURRENT PAIN MANAGEMENT REGIMEN. [code = SKILLED NURSE FOR OBSERVATION AND ASSESSMENT OF PATIENTS PAIN LEVEL AND EFFECTIVENESS OF PAIN MANAGEMENT REGIMEN. SKILLED NURSE TO INSTRUCT PATIENT/CAREGIVER REGARDING PHARMACOLOGIC AND NON-PHARMACOLOGIC PAIN CONTROL MEASURES. SKILLED NURSE TO REPORT TO PHYSICIAN IF PAIN IS UNCONTROLLED WITH CURRENT PAIN MANAGEMENT REGIMEN.] Future Scheduled Test SKILLED NU RSE FOR O/A OF RESPIRATORY SYSTEM TO IDENTIFY CHANGES ASSOCIATED WITH EXACERBATION AND TO PROVIDE SKILLED TEACHING ON MANAGEMENT OF ACUTE RESPIRATORY FAILURE WITH HYPOXIA [code = SKILLED NURSE FOR O/A OF RESPIRATORY SYSTEM TO IDENTIFY CHANGES ASSOCIATED WITH EXACERBATION AND TO PROVIDE SKILLED TEACHING ON MANAGEMENT OF ACUTE RESPIRATORY FAILURE WITH HYPOXIA] Future Scheduled Test SKILLED NU RSE FOR O/A AND TEACHING OF ENDOCRINE SYSTEM TO IDENTIFY CHANGES ASSOCIATED WITH EXACERBATION OF HYPOTHYROIDISM FOR EARLY INTERVENTION OF COMPLICATIONS. [code = SKILLED NURSE FOR O/A AND TEACHING OF ENDOCRINE SYSTEM TO IDENTIFY CHANGES ASSOCIATED WITH EXACERBATION OF HYPOTHYROIDISM FOR EARLY INTERVENTION OF COMPLICATIONS.] Future Scheduled Test SKILLED NU RSE TO ASSESS PATIENT'S SKIN INTEGRITY AND INSTRUCT PATIENT/CAREGIVER ON MEASURES TO PREVENT PRESSURE ULCERS [code = SKILLED NURSE TO ASSESS PATIENT'S SKIN INTEGRITY AND INSTRUCT PATIENT/CAREGIVER ON MEASURES TO PREVENT PRESSURE ULCERS] Future Scheduled Test INSTRUCTED PATIENT/CAREGIVER ON SIGNS AND SYMPTOMS, RISK FACTORS, COMPLICATIONS, AND MANAGEMENT OF ATRIAL FIBRILLATION. [code = INSTRUCTED PATIENT/CAREGIVER ON SIGNS AND SYMPTOMS, RISK FACTORS, COMPLICATIONS, AND MANAGEMENT OF ATRIAL FIBRILLATION.] Future Scheduled Test SKILLED NU RSE TO PROVIDE TEACHING ON SIGNS AND SYMPTOMS AND MANAGEMENT OF HYPERTENSION. [code = SKILLED NURSE TO PROVIDE TEACHING ON SIGNS AND SYMPTOMS AND MANAGEMENT OF HYPERTENSION.] Future Scheduled Test SKILLED NU RSE FOR OBSERVATION AND ASSESSMENT TO IDENTIFY CHANGES ASSOCIATED WITH ADVANCED DEMENTIA AND TEACHING RELATED TO SAFETY MEASURES TO PREVENT INJURY, ELOPEMENT RISKS, BEHAVIOR CHANGES, ACTIVITIES, AND ENVIRONMENTAL CHANGES ALL SECONDARY TO IMPAIRED COGNITIVE STATUS. [code = SKILLED NURSE FOR OBSERVATION AND ASSESSMENT TO IDENTIFY CHANGES ASSOCIATED WITH ADVANCED DEMENTIA AND TEACHING RELATED TO SAFETY MEASURES TO PREVENT INJURY, ELOPEMENT RISKS, BEHAVIOR CHANGES, ACTIVITIES, AND ENVIRONMENTAL CHANGES ALL SECONDARY TO IMPAIRED COGNITIVE STATUS.] Future Scheduled Test SKILLED NU RSE TO INSTRUCT PATIENT/CAREGIVER ON COPD TO INCLUDE TEACHING AND SELF-MANAGEMENT RELATED TO COPD DISEASE PROCESS, SIGNS AND SYMPTOMS, AND COMPLICATIONS. [code = SKILLED NURSE TO INSTRUCT PATIENT/CAREGIVER ON COPD TO INCLUDE TEACHING AND SELF-MANAGEMENT RELATED TO COPD DISEASE PROCESS, SIGNS AND SYMPTOMS, AND COMPLICATIONS.] Future Scheduled Test SKILLED NU RSE FOR O/A, TEACHING AND SELF-MANAGEMENT RELATED TO HEART FAILURE. INSTRUCT PATIENT/CAREGIVER ON SIGNS AND SYMPTOMS OF EXACERBATION TO REPORT. WEIGHT TO BE OBTAINED DAILY AND WEIGHT GAIN OF 2# OVERNIGHT OR 5 # IN 1 WEEK TO BE REPORTED TO PHYSICIAN [code = SKILLED NURSE FOR O/A, TEACHING AND SELF-MANAGEMENT RELATED TO HEART FAILURE. INSTRUCT PATIENT/CAREGIVER ON SIGNS AND SYMPTOMS OF EXACERBATION TO REPORT. WEIGHT TO BE OBTAINED DAILY AND WEIGHT GAIN OF 2# OVERNIGHT OR 5 # IN 1 WEEK TO BE REPORTED TO PHYSICIAN] Future Scheduled Test SKILLED NU RSE FOR O/A AND TEACHING OF DIABETIC MANAGEMENT INCLUDING BLOOD SUGAR MONITORING/USE OF GLUCOMETER, DIABETIC DIET, LOWER EXTREMITY SKIN INSPECTION, PROPER SKIN/FOOT CARE, AND SIGNS AND SYMPTOMS HYPO/HYPERGLYCEMIA TO REPORT AND METHODS TO MANAGE [code = SKILLED NURSE FOR O/A AND TEACHING OF DIABETIC MANAGEMENT INCLUDING BLOOD SUGAR MONITORING/USE OF GLUCOMETER, DIABETIC DIET, LOWER EXTREMITY SKIN INSPECTION, PROPER SKIN/FOOT CARE, AND SIGNS AND SYMPTOMS HYPO/HYPERGLYCEMIA TO REPORT AND METHODS TO MANAGE] Goal 2022-01-10 Patient Goal - FEEL BETTER Goal Provider Goal - A PLAN OF CARE WILL BE ESTABLISHED THAT MEETS PATIENT'S DETENTION NEEDS AND INCLUDES PATIENT GOAL FOR HOME HEALTH. Goal Provider Goal - CHANGES IN LOWER EXTREMITIES WILL BE IDENTIFIED AND REPORTED TO MD FOR PROMPT INTERVENTION TO PREVENT ASSOCIATED RISKS THROUGHOUT THE CERTIFICATION PERIOD. PATIENT/CAREGIVER WILL VERBALIZE UNDERSTANDING OF PROPER DIABETIC SKIN/FOOT CARE BY THE END OF THE CERTIFICATION PERIOD. Goal Provider Goal - PATIENT/CAREGIVER WILL VERBALIZE UNDERSTANDING OF EDUCATION PROVIDED ON MEDICATIONS BY THE END OF THE CERTIFICATION PERIOD. Goal Provider Goal - PATIENT/CAREGIVER WILL VERBALIZE/DEMONSTRATE EFFECTIVE HOME SAFETY AND FALL PREVENTION STRATEGIES THROUGHOUT CERTIFICATION PERIOD. Goal Provider Goal - PULSE OXIMETER RESULTS OBTAINED NEEDED FOR RESPIRATORY COMPLICATIONS. Goal Provider Goal - PATIENT WILL HAVE SUPPORT MEASURES ESTABLISHED TO PREVENT REHOSPITALIZATION AND PATIENT/CAREGIVER WILL VERBALIZE/DEMONSTRATE METHODS TO REDUCE AVOIDABLE HOSPITALIZATION BY END OF EPISODE Goal Provider Goal - PATIENT/CAREGIVER WILL VERBALIZE UNDERSTANDING OF DISCHARGE PLANNING INSTRUCTIONS BY DATE OF DISCHARGE. Goal Provider Goal - PATIENT/CAREGIVER WILL DEMONSTRATE UNDERSTANDING OF PHARMACOLOGIC AND NONPHARMACOLOGIC PAIN CONTROL MEASURES AND PATIENT WILL HAVE IMPROVEMENT IN PAIN INTERFERING WITH ACTIVITY EVIDENCED BY PAIN CONTROLLED AT LEVEL OF 7 OR LESS BY END OF CERTIFICATION PERIOD. Goal Provider Goal - PATIENT/CAREGIVER WILL VERBALIZE/DEMONSTRATE MANAGEMENT OF RESPIRATORY DISEASE PROCESS. CHANGES IN RESPIRATORY STATUS WILL BE IDENTIFIED AND REPORTED TO PHYSICIAN FOR PROMPT INTERVENTION THROUGHOUT THE CERTIFICATION PERIOD. Goal Provider Goal - PATIENT/CAREGIVER WILL VERBALIZE SIGNS AND SYMPTOMS OF EXACERBATION TO REPORT TO NURSE/PHYSICIAN. CHANGES IN ENDOCRINE SYSTEM WILL BE IDENTIFIED AND REPORTED TO PHYSICIAN FOR PROMPT INTERVENTION THROUGHOUT THE CERTIFICATION PERIOD. Goal Provider Goal - PATIENT/CAREGIVER WILL VERBALIZE UNDERSTANDING OF PRESSURE ULCER PREVENTION BY END OF EPISODE Goal Provider Goal - PATIENT/CAREGIVER WILL VERBALIZE UNDERSTANDING OF SIGNS AND SYMPTOMS, COMPLICATIONS, AND MANAGEMENT OF ATRIAL FIBRILLATION Goal Provider Goal - PATIENT/CAREGIVER WILL VERBALIZE SIGNS AND SYMPTOMS OF HYPERTENSION AND WILL BE ABLE TO DEMONSTRATE ABILITY TO MANAGE EXACERBATION BY MONITORING AT HOME, DECREASING SODIUM INTAKE, INCREASING FLUID INTAKE Goal Provider Goal - PATIENT/CAREGIVER WILL VERBALIZE /DEMONSTRATE APPROPRIATE ENVIRONMENTAL/SAFETY MODIFICATIONS IN RESPONSE TO BEHAVIOR/COGNITIVE CHANGES ASSOCIATED WITH DEMENTIA DIAGNOSIS. Goal Provider Goal - PATIENT/CAREGIVER WILL VERBALIZE/DEMONSTRATE KNOWLEDGE AND MANAGEMENT OF COPD BY END OF EPISODE Goal Provider Goal - PATIENT/CAREGIVER WILL VERBALIZE/DEMONSTRATE KNOWLEDGE AND MANAGEMENT OF HEART FAILURE DISEASE PROCESS BY END OF EPISODE Goal Provider Goal - PATIENT/CAREGIVER WILL VERBALIZE/DEMONSTRATE KNOWLEDGE OF DIABETIC MANAGEMENT. CHANGES IN DIABETIC STATUS WILL BE IDENTIFIED AND REPORTED TO PHYSICIAN FOR PROMPT INTERVENTION THROUGHOUT THE CERTIFICATION PERIOD. Reason for Visit INDEPENDENT IN THE HOME Encounters Start Date/Time End Date/Time Encounter Type Admission Type Attending [facility] Care Department Encounter ID Discharge Date Discharge Status Discharge Condition Discharge Reason Percent Goals Met 2021-11-16 00:00:00 2022-01-10 00:00:00 Outpatient NEW ADMISSION [facility] [id number] 00:00:00 DISCHARGE TO HOME OR SELF CARE INDEPENDEN T IN THE HOME GOALS MET ( ONLY) 100.00
--- OUTSIDE RECORDS SUMMARY | 2024-06-15 12:13 | XMS_ITS | Continuity of Care Document ---
Author Organization [facility] Address [address] [place] [address] Phone Care Team Providers Care Information Security Systems Instructor Name Role Phone NIYA WILSON FACC, SHAREE Unavailable Unavailable Allergies, Adverse Reactions, Alerts Substance Reaction Status Criticality No Known allergies Medications Medication Instructions Dosage Effective Dates (start - stop) Status Comments levothyroxine 88 mcg tablet take 1 tablet by oral route every day 88 MCG - Active Calcium 600 600 mg (1,500 mg) Tab take 1 tablet by ORAL route 2 times every day 200 MG - Active Diovan 320 mg tablet take 1 tablet by oral route every day 320 MG - Active omeprazole 40 mg capsule,delayed release take 1 capsule by oral route every day before a meal 40 MG - Active metoprolol tartrate 25 mg tablet take 1 tablet by oral route 2 times every day 25 MG - Active Mucinex 600 mg tablet,extended release take 1 tablet by oral route every day as needed - Active latanoprost 0.005 % Eye Drops instill 1 drop by ophthalmic route every day into affected eye(s) in the evening 1.00 drop - Active Xarelto 20 mg ORAL CAPSULE take 1 tablet (20MG) by ORAL route every day - Active Singulair 10 mg Tab take 1 tablet (10MG) by ORAL route every day in the evening 10 MG - Active Advair Diskus 250 mcg-50 mcg/Dose for Inhalation inhale 1 puff by INHALATION route 2 times every day morning and evening approximately 12 hours apart 1.00 puff - Active Centrum Silver Tab take 1 tablet by ORAL route every day - Active Betimol 0.5 % Eye Drops instill 1 drop by Ophthalmic route 2 times every day into affected eye(s) 1.00 drop - Active Lipitor 10 mg Tab take 1 tablet (10MG) by ORAL route every day 10 MG - Active Fish Oil 1,000 mg capsule take 3 tablet by ORAL route every day - No Longer Active Omeprazole 20 mg Tab, Delayed Release QD - No Longer Active Levothyroxine 75 mcg Tab take 1 tablet (75MCG) by ORAL route every day 75 MCG - No Longer Active Calcium 600 600 mg (1,500 mg) Tab take 1 tablet (200MG) by ORAL route every day 200 MG - No Longer Active Diovan 160 mg Tab take 1 tablet (160MG) by ORAL route every day 160 MG - No Longer Active Bystolic 10 mg Tab take 2 tablet (20MG) by ORAL route every day 20 MG - No Longer Active Procedures Procedure Date OFFICE/OUTPATIENT VISIT, EST ELECTROCARDIOGRAM, COMPLETE OFFICE/OUTPATIENT VISIT, EST ELECTROCARDIOGRAM, COMPLETE OFFICE/OUTPATIENT VISIT, EST ELECTROCARDIOGRAM, COMPLETE OFFICE/OUTPATIENT VISIT, EST ELECTROCARDIOGRAM, COMPLETE OFFICE/OUTPATIENT VISIT, EST 1 Rx via qualified eRx sys ELECTROCARDIOGRAM, COMPLETE ECHO COMPLETE W/DPLR & CF EXTRACRANIAL STUDY OFFICE/OUTPATIENT VISIT, EST ELECTROCARDIOGRAM, COMPLETE OFFICE/OUTPATIENT VISIT, EST OFFICE/OUTPATIENT VISIT, EST CARDIOVASCULAR STRESS TEST OFFICE/OUTPATIENT VISIT, EST ELECTROCARDIOGRAM, COMPLETE OFFICE/OUTPATIENT VISIT, EST OFFICE/OUTPATIENT VISIT, EST OFFICE/OUTPATIENT VISIT, EST ECHO EXAM OF HEART DOPPLER ECHO EXAM, HEART DOPPLER COLOR FLOW ADD-ON NUC MED MYOCARDIAL PERF SPECT MULT HEART WALL MOTION ADD-ON HEART FUNCTION ADD-ON CARDIOVASCULAR STRESS TEST Tc99m tetrofosmin/MYOVIEW Adenosine injection OFFICE CONSULTATION ELECTROCARDIOGRAM, COMPLETE PROTHROMBIN TIME Advance Directives Directive Yes / No Effective Date File Name Resuscitation Not Answered N/A N/A Life Support Not Answered N/A N/A Intubation Not Answered N/A N/A Antibiotics Not Answered N/A N/A IV Fluid Support Not Answered N/A N/A Tube Feed Not Answered N/A N/A Other Directive N/A N/A WARNING:The information contained in this section is historical and is provided for information only and does not constitute a legal document or any assurance that the information is still accurate. Please verify the information with the michael of the legal document before using it for clinical purposes. Encounters Encounter Description Practice Location Reason(s) For Visit Diagnoses Date Provider Providers Copied on Encounter OFFICE/OUTPAT IENT VISIT, EST [facility], [address] [address], [place], [address], [place] tel: [phone] [facility] Atrial Fibrillation, ParoxysmalHypertensi onHyperlipidemiaCVA, Old or HealedLong-term Use of Anticoagulants 3 NIYA WILSON [facility]. [address], [facility], [place], [place], [id number] , [place]. tel:[phone] Referring Provider: Cristy Cuellar NP [facility], [address] [facility], [place], [address]. tel:[phone] OFFICE/OUTPAT IENT VISIT, EST [facility], [address], [place], [address], [place] tel:[phone] [facility] Atrial Fibrillation, ParoxysmalHypertensi onHyperlipidemiaCVA, Old or HealedLong-term Use of Anticoagulants 3 NIYA AUGUSTE SHAREE. [address], [facility], [place], [place], [id number] , [place]. tel:[phone] Referring Provider: SHAREE AUGUSTE L, [address] [facility], [place], [address] . tel:[phone] OFFICE/OUTPAT IENT VISIT, EST [facility], [address], [place], [address], [place] tel:[phone] [facility] Atrial Fibrillation, ParoxysmalHypertensi onHyperlipidemiaCVA, Old or HealedLong-term Use of Anticoagulants 2 Juma Juarez. [address], [facility], [place], [address]. tel: [phone] Referring Provider: SHAREE NÚÑEZ MD [facility], [address] [facility], [place], [address] . tel:[phone] OFFICE/OUTPAT IENT VISIT, EST [facility], [address], [place], [address], [place] tel:[phone] [facility] Atrial Fibrillation, ParoxysmalHypertensi onHyperlipidemiaCVA, Old or HealedLong-term Use of Anticoagulants 2 NIYA WILSON FACC SHAREE. [address], [facility], [place], [place], [id number] , [place]. tel:[phone] Referring Provider: SHAREE AUGUSTE L, [address] [facility], [place], [address] . tel:[phone] [facility], [address], [place], [address], [place] tel:[phone] [facility] No Information 2 Maciel Lynn. [address], [facility], [place], [address]. tel: [phone] OFFICE/OUTPAT IENT VISIT, EST [facility], [address], [place], [address], tel: [phone] [facility] Atrial Fibrillation, ParoxysmalHypertensi onHyperlipidemia October-0 2 NIYA WILSON [facility]. [address], [facility], [place], [place], [id number] , [place]. tel: [phone] Referring Provider: SHAREE NÚÑEZ MD [facility], [address] [facility], [place], [address] . tel:[phone] [facility], [address], [address], [place] tel: [phone] [facility] No Information 2 Ana Rosa Echevarria . [address], [facility], [place], [address], [place]. tel: [phone] Referring Provider: SHAREE NÚÑEZ MD [facility], [address] [facility], [place], [address] . tel:[phone] OFFICE/OUTPAT IENT VISIT, EST [facility], [address] [address], [place], [address], [place] tel: [phone] [facility] HypertensionHyperlip idemiaAtrial Fibrillation, ParoxysmalCVA, Old or Healed Sep-3 0 2 NIYA WILSON [facility]. [address], [facility], [place], [place], [id number] , [place]. tel: [phone] Referring Provider: SHAREE NÚÑEZ MD [facility], [address] [facility], [place], [address] . tel:[phone] OFFICE/OUTPAT IENT VISIT, EST [facility], [address] [facility] [address], [place], [address], [place] tel: [phone] [facility] HypertensionHyperlip idemiaAtrial Fibrillation, Paroxysmal Mar-2 1 NIYA WILSON [facility]. [address], [facility], [place], [place], [address] , [place]. tel: [phone] Referring Provider: SHAREE NÚÑEZ MD [facility], [address] [facility], [place], [address] . tel:[phone] OFFICE/OUTPAT IENT VISIT, EST [facility], [address], [place], [address], [place] tel: [phone] [facility] HyperlipidemiaHypert ensionAtrial Fibrillation, Paroxysmal Oct-0 201 0 NIYA WILSON [facility]. [address], [facility], [place], [place], [id number] , [place]. tel: [phone] Referring Provider: SHAREE NÚÑEZ MD [facility], [address] [facility], [place], [address] . tel:[phone] OFFICE/OUTPAT IENT VISIT, EST [facility], [address], [place], [address], [place] tel: [phone] [facility] HyperlipidimaHyperte nsion, UnspecifiedAtrial Fibrillation, Paroxysmal Mar- 2 9 NIYA WILSON [facility]. [address], [facility], [place], [place], [id number] , [place]. tel: [phone] Referring Provider: Cristy Cuellar NP [facility], [address] [facility], [place], [address]. tel:[phone] OFFICE/OUTPAT IENT VISIT, EST [facility], [address], [place], [address], [place] tel: [phone] [facility] No Information 9 NIYA WILSON [facility]. [address], [facility], [place], [place], [id number] , [place]. tel: [phone] Referring Provider: Cristy Cuellar NP [facility], [address] [facility], [place], [address]. tel:[phone] [facility], [address], [place], [address], [place] tel: [phone] [facility] No Information 0 9 NIYA WILSON [facility]. [address], [facility], [place], [place], [id number] , [place]. tel: [phone] OFFICE/OUTPAT IENT VISIT, EST [facility], [address], [place], [address], [place] tel: [phone] [facility] Unspecified essential hypertensionAtrial Fibrillation 8 NIYA WILSON [facility]. [address], [facility], [place], [place], [id number] , [place]. tel: [phone] Referring Provider: SHAREE NÚÑEZ MD [facility], [address] [facility], [place], [address] . tel:[phone] OFFICE/OUTPAT IENT VISIT, EST [facility], [address], [place], [address], [place] tel: [phone] [facility] Atrial fibrillationUnspecif ied essential hypertension 8 NIYA WILSON [facility]. [address], [facility], [place], [place], [id number] , [place]. tel: [phone] Referring Provider: SHAREE NÚÑEZ MD [facility], [address] [facility], [place], [address] . tel:[phone] [facility], [address], [place], [address], [place] tel:[phone] [facility] Atrial fibrillation Mar-2 0-200 8 Kenan Jules. [address], [place], [place], [id number] . tel: [phone] Referring Provider: Cristy Cuellar CHEMICAL MILLING PROCESSOR [facility], [address] [facility], [place], [address]. tel:[phone] [facility], [address], [place], [address], [place] tel: [phone] [facility] Atrial fibrillation Aug-2 0-200 8 Ana Rosa Echevarria . [address], [facility], [place], [address], [place]. tel: [phone] Referring Provider: SHAREE NÚÑEZ MD [facility], [address] [place], [address] . tel:[phone] OFFICE CONSULTATION [facility], [address], [place], [address], [place] tel:[phone] [facility] Atrial fibrillationOther and unspecified hyperlipidemiaUnspec ified essential hypertensionPalpitat ions Mar-0 6-200 8 Kenan Jules. [address] [facility], [facility], [place], [place], [address] . tel: [phone] Referring Provider: SHAREE NÚÑEZ MD [facility], [address] [facility], [place], [address] . tel:[phone] Family History Family Member Type Diagnosis Age At Onset Brother Problem (finding) Myocardial infarction Father Problem (finding) TIA Brother Problem (finding) hypertension Mother Problem (finding) hypertension Payers Payer name Insurance type Covered alliance party ID Authoriza tion(s) Medicare Part B MB [id number] [facility] Out Of [place] [id number] Social History Type Description Quantity Date Captured Comments Alcohol Use Details Caffeine Use Details No Tobacco Use Status No Information Smoking Status Never smoker Non-Smoking Tobacco Use Details : No Details Available : No Details Available Sex Female Vital Signs Date / Time: Height Weight BMI Pulse Rate Blood Pressure Temperature Respiratory Rate Body Surface Area Head Circumference Head Circ. Percentile Wt./[place]. Percentile BMI percentile Pulse Ox Inhaled Ox 10:23 AM 61.00 in 62.730 kg (138.00 lbs) 26.1 0 kg/m eter (2) 61 /min 138/84 mm[Hg] Chief Complaint And Reason For Visit No Information Reason For Referral Reason For Referral No Information History Of Present Illness Encounter Date Complaint History Of Prese nt Illness No Information Functional Status Date Functional Assessmen t No Information Medications Administered Medication Instructions Dosage Effective Dates (start - stop) Status Comments Fish Oil 1,000 mg capsule take 3 tablet by ORAL route every day - No Longer Active Omeprazole 20 mg Tab, Delayed Release QD - No Longer Active Instructions Date Instruction Additional Infor mation No Information Assessments Type Assessment Date No Information Patient Care Teams Name Effective Dates (start - stop) Status Members No Information
[2024-06-15 12:18] LABS: MANUAL DIFF FLAG NO
[2024-06-15 12:38] LABS: Appearance Urine Clear; Basophils Percent Auto 0.5 % (0-2); Color Urine Yellow; Eosinophils Absolute Auto 0.2 X10*3/uL (0.0-0.4); Eosinophils Percent Auto 2.2 % (0-4); Glucose Urine UA Negative (Negative); Hematocrit 45.1 % (37.0-47.0); Hemoglobin 14.8 g/dl (12.0-16.0); Imm Gran Abs Auto 0.04 X10*3/uL (0.00-0.03); Imm Gran Pct Auto 0.5 % (0.0-0.4); Leukocyte Esterase Urine Small (1+) (Negative); Mean Corpuscular HGB Conc 32.8 g/dl (31.0-35.0); Mean Corpuscular Hemoglobin 29.4 pg (27.0-33.0); Mean Corpuscular Volume 89.5 fL (80.0-98.0); Mean Platelet Volume 11.3 fL (9.4-12.3); Monocytes Absolute Auto 0.6 X10*3/uL (0.1-1.2); Monocytes Percent Auto 7.4 % (2-11); NRBC Pct Auto 0.2 /100WBC (0.0-0.2); Neutrophils Absolute Auto 4.6 x10*3/uL (2.0-8.3); Neutrophils Percent Auto 54.4 % (45-73); Nitrite Urine Negative (Negative); Platelet Count 175 X10*3/uL (160-400); Red Blood Count 5.04 X10*6/uL (4.20-5.50); Red Cell Distribution Width 12.8 % (11.0-16.0); Specific Gravity - Urine 1.025 (1.005-1.025); UMIC TRIGGER UACC YES; Urine Blood Negative (Negative); Urine Ketones Negative (Negative); Urine Protein 100 (2+) mg/dL (Neg-Trace); White Blood Count 8.5 X10*3/uL (4.8-10.8)
[2024-06-15 12:41] LABS: Bacteria Urine None Seen (None Seen); Hyaline Casts Urine 0-2 /LPF (0-2); RBC Urine 0-2 /HPF (0-2); Squamous Epithelial Cell Urine 0-2 /HPF (0-2); UACC Culture Trigger YES
[2024-06-15 12:53] LABS: Estimated Average Glucose 166 mg/dL; Hemoglobin A1C 214.1078 umol/L; Hemoglobin A1c % 7.4 % (<6.0); Total Hemoglobin (HGBA1C) 3717.1284 umol/L
[2024-06-15 12:54] LABS: Alanine Aminotransferase 15 U/L (0-31); Alkaline Phosphatase 71 U/L (39-117); Anion Gap 15 (12-20); Aspartate Amino Transferase 26 U/L (5-31); Bilirubin Total 0.7 mg/dL (0.0-1.0); Blood Urea Nitrogen 20 mg/dL (9-16); Calcium 8.9 mg/dL (8.4-10.2); Carbon Dioxide 25 mmol/L (22-29); Chloride 105 mmol/L (96-108); Cholesterol 165 mg/dL (<200); Estimated Glomerular Filt Rate 55; Glucose Fasting 170 mg/dL (60-99); HDL Cholesterol 66 mg/dL (>40); Iron 125 mcg/dL (30-160); LDL Cholesterol Calculated 82 mg/dL (<100); Percent Iron Saturation 44 % (15-50); Potassium 3.5 mmol/L (3.3-5.1); Sodium 141 mmol/L (135-145); Total Iron Binding Capacity 283 mcg/dL (228-428); Triglycerides 88 mg/dL (<150); Unsaturated Iron Binding 158 ug/dL
[2024-06-15 13:12] LABS: Creatinine Urine 106.68 mg/dL
[2024-06-15 13:35] LABS: Microalbum/Creatinine Ratio Ur 1279.5 ug/mg cr (<30)
== END 2024-06-15 12:11 | disposition home or self-care (01) ==
LOC: HO.LNP 12:10
PROVIDERS: Visit Provider Internal Medicine
DX: I10 Essential (primary) hypertension (principal); E11.9 Type 2 diabetes mellitus without complications; D50.9 Iron deficiency anemia, unspecified; I50.9 Heart failure, unspecified; E78.00 Pure hypercholesterolemia, unspecified
CPT/HCPCS: 80053; 80061; 81001; 82043; 82570; 83036; 83540; 85025; 87086

== ENCOUNTER 2024-07-29 10:53 | Outpatient (REF) | payer MEDICARE, MEDICAID, SELFPAY ==
[2024-07-29 13:18] LABS: Digoxin 0.3 ng/mL (0.8-2.0)
[2024-07-29 13:50] LABS: HBS Num1 0.31 mIU/mL (0-7.99); HBc Num1 0.14 S/CO (0.00-0.79); HBsAGNum1 0.34 S/CO (0.00-0.99); HIV AB/AG Nonreactive (Nonreactive); HIV Num 1 0.05 S/CO (0.00-0.99); Hepatitis B Core Antibody Nonreactive (Nonreactive); Hepatitis B Surface Antigen Negative (Negative); ~HepC Num1 0.09 S/CO (0.00-0.79); ~Hepatitis B Surface Antibody NONREACTIVE (Nonreactive); ~Hepatitis C Antibody Nonreactive (Nonreactive)
--- OUTSIDE RECORDS SUMMARY | 2024-07-29 13:52 | XMS_ITS | Patient Health Record ---
Author Organization Raffaele Saldana MD Address [address] [place], [place] [id number] Care Team Providers Care Code Enforcement Officer Name Role Phone Raffaele Saldana Primary Care Provider [phone] Allergies Allergen (clinical drug ingredient) Drug/Non Drug Allergy documented on EMR Reaction Allergy Type Onset Date Status hydrochlorothiazide HCTZ (uncoded) photosensitivity Allergy Active Results Component Value Reference Range Notes Hemoglobin A1c Reviewed date:09/24/2023 01:53:11 PM Interpretation: Performing Lab: Notes/Report: Hemoglobin A1c 8.1 Hemoglobin A1c Reviewed date:12/26/2023 01:44:20 PM Interpretation: Performing Lab: Notes/Report: Hemoglobin A1c 7.6 Hemoglobin A1c Reviewed date:03/23/2024 01:25:06 PM Interpretation: Performing Lab: Notes/Report: Hemoglobin A1c 7.3 Complete Blood Count Auto Di ff Reviewed date:06/15/2024 05:10:59 PM Interpretation: Performing Lab:[facility], [address] [place] [phone] Notes/Report: White Blood Count 8.5 4.8-10.8 X10*3/uL [...] 0.0-0.2 /100WBC Neutrophils Absolute Auto 4.6 2.0-8.3 x10*3/uL Imm Gran Abs Auto 0.04 0.00-0.03 X10*3/uL Lymphocytes Absolute Auto 3.0 1.2-4.9 X10*3/uL Monocytes Absolute Auto 0.6 0.1-1.2 X10*3/uL Eosinophils Absolute Auto 0.2 0.0-0.4 X10*3/uL Basophils Absolute Auto 0.0 0.0-0.2 X10*3/uL NRBC Abs Auto 0.020 0.0-0.012 X10*3/uL Comprehensive [place]. Panel Fa st Reviewed date:06/15/2024 05:06:02 PM Interpretation: Performing Lab:[facility], [address] [place] [phone] Notes/Report: Sodium 141 135-145 mmol/L Potassium 3.5 3.3-5.1 mmol/L Mild Hemolysis.Interpret result with caution Chloride 105 96-108 mmol/L [...] U/L Total Protein 7.0 6.5-8.0 g/dL Mild Hemolysis.Interpret result with caution Albumin Level 4.0 3.5-5.0 g/dL Alkaline Phosphatase 71 39-117 U/L IRON PROFILE Reviewed date:06/15/2024 05:09:04 PM Interpretation: Performing Lab:[facility], [address] [place] [phone] Notes/Report: Iron 125 30-160 mcg/dL Mild Hemolysis.Interpret result with caution Total Iron Binding Capacity 283 228-428 mcg/dL Percent Iron Saturation 44 15-50 % Unsaturated Iron Binding 158 Mil d Hemolysis.Interpret result with caution. Lipid Panel Reviewed date:06/15/2024 03:23:36 PM Interpretation: Performing Lab:[facility], [address] [place] [phone] Notes/Report: Triglycerides 88 <150 mg/dL Desirable Triglyceride: [...] Random Reviewed date:06/15/2024 05:09:14 PM Interpretation: Performing Lab:[facility], [address] [place] [phone] Notes/Report: Creatinine Urine 106.68 Microalbumin Urine 1365.0 Microalbum/Creatinine Ratio Ur 1279.5 <30 ug/mg cr Albumin/Creatinine Ratio Reference Ranges: Normal: < 30 ug/mg creatinine Microalbuminuria: 30 - 300 ug/mg creatinine Clinical Albuminuria: > 300 ug/mg creatinine Hemoglobin A1c Reviewed date:06/15/2024 05:04:00 PM Interpretation: Performing Lab:[facility], [address] [place] [phone] Notes/Report: Hemoglobin A1c % 7.4 <6.0 % [...] average glucose, using the formula of the [id number] Average Glucose study (ADAG), Diabetes Care, Vol.31,#8, Jan. 2007 UA ClnCatch+Micro w/rflx Cul t Reviewed date:06/15/2024 05:13:58 PM Interpretation: Performing Lab:[facility], [address] [place] [phone] Notes/Report: Urine, Clean Catch Color Urine Yellow Appearance Urine Clear PH 6.0 5.0-9.0 Glucose Urine UA Negative Negative mg/dL Urine Blood Negative Negative Specific [place] - Urine 1.025 1.005-1.025 Urine Protein 100 (2+) Neg-Trace mg/dL Urine Ketones Negative Negative mg/dL Nitrite Urine Negative Negative Leukocyte Esterase Urine Small (1+) Negative RBC Urine 0-2 0-2 /HPF WBC Urine 11-20 0-5 /HPF Squamous Epithelial Cell Urine 0-2 0-2 /HPF Bacteria Urine None Seen None Seen Hyaline Casts Urine 0-2 0-2 /LPF Glucose, finger stick Reviewed date:09/24/2023 01:39:29 PM Interpretation: Performing Lab: Notes/Report: Value 127 Glucose, finger stick Reviewed date:12/26/2023 01:38:46 PM Interpretation: Performing Lab: Notes/Report: Value 277 Glucose, finger stick Reviewed date:03/23/2024 01:19:47 PM Interpretation: Performing Lab: Notes/Report: Value 148 MM tomosynthesis screening B I Reviewed date:10/10/2023 03:19:45 PM Interpretation: Performing Lab: Notes/Report: [address] [place] [address] Mammography Report Signed Patient: Loren Mendoza MR#: [id number] 7 : 1935 Acct:[id number] Age/Sex: 88 / F ADM Date: 09/16/23 Loc: HO.MAMMO Attending Dr: Raffaele Saldana MD Ordering Physician: Raffaele Saldana MD Results: 1Ne gative Date of Service: 09/16/23 Follow Up: 1 Year From Orig ina Mammogram Procedure(s): MM tomosynthesis screening BI Accession Number(s): [id number] cc: Raffaele Saldana MD EXAMINATION: MM SCREENING DIGITAL BREAST TOMOSYNTHESIS, BILATERAL CLINICAL INFORMATION: Screening. Asymptomatic. COMPARISON: Mammography: This study is compared with prior exams dating back to 2019. TECHNIQUE: Digital breast tomosynthesis is performed in both the craniocaudal and mediolateral oblique views along with computer-aided detection (CAD). Synthesized 2D images are generated from the tomosynthesis. FINDINGS: The breasts are heterogeneously dense, which may obscure small masses (ACR BI-RADS breast composition Category c). There are no significant masses, abnormal calcifications, or other abnormalities. MM/MM tomosynthesis screening BI IMPRESSION: No mammographic evidence of malignancy. ASSESSMENT: BI-RADS BI-RADS 1 - Negative RECOMMENDATION: Routine annual mammography screening. 1 year F/U This examination should not preclude the clinical evaluation of a suspicious palpable abnormality. This patient's information was entered into a reminder system with a target due date for their next mammogram. Dictated By: Sabi Guerrero MD Signed By: <Electronically signed by Sabi Guerrero MD in OV> 10/08/23 6528 DD/ 1254 TD/TT: Applications Coordinator: [address] [place] [address] Mammography Report Signed Patient: Loren Mendoza MR#: [id number] 7 : 1935 Acct:[id number] Age/Sex: 88 / F ADM Date: 09/16/23 Loc: HO.MAMMO Attending Dr: Raffaele Saldana MD Ordering Physician: Raffaele Saldana MD Results: 1Ne gative Date of Service: 09/16/23 Follow Up: 1 Year From Orig ina Mammogram Procedure(s): MM tomosynthesis screening BI Accession Number(s): [id number] cc: Raffaele Saldana MD EXAMINATION: MM SCREENING DIGITAL BREAST TOMOSYNTHESIS, BILATERAL CLINICAL INFORMATION: Screening. Asymptomatic. COMPARISON: Mammography: This st udy is compared with prior exams dating back to 2019. TECHNIQUE: Digital breast tomosynthesis is performed in both the craniocaudal and mediolateral oblique views along with computer-aided detection (CAD). Synthesized 2D image s are generated from the tomosynthesis. FINDINGS: The breasts are heterogeneously dense, which may obscure small masses (ACR BI-RADS breast composition Category c). There are no significant masses, abnormal calcifications, or other abnormalities. MM/MM tomosynthesis screening BI IMPRESSION: No mammographic evidence of malignancy. ASSESSMENT: BI-RADS BI-RADS 1 - Negative RECOMMENDATION: Routine annual mammography screening. 1 year F/U This examination toi uld not preclude the clinical evaluation of a suspicious palpable abnormality. This patient's information was entered into a reminder system with a target due date for their next mammogram. Dictated By: Sabi Guerrero MD Signed By: <Electronically signed by Sabi Guerrero MD in OV> 10/08/23 9320 DD/ 1254 TD/TT: Applications Coordinator: Complete Blood Count Auto Di ff Reviewed date:11/15/2023 08:31:02 PM Interpretation: Performing Lab:[facility], [address] [place] [phone] Notes/Report: White Blood Count 10.7 4.8-10.8 X10*3/uL Red Blood Count 4.83 4.20-5.50 X10*6/uL Hemoglobin 14.4 12.0-16.0 g/dl Hematocrit 43.0 37.0-47.0 % Mean Corpuscular Volume 89.0 80.0-98.0 fL Mean Corpuscular Hemoglobin 29.8 27.0-33.0 pg Mean Corpuscular HGB Conc 33.5 31.0-35.0 g/dl Red Cell Distribution Width 12.9 11.0-16.0 % Platelet Count 170 160-400 X10*3/uL Mean Platelet Volume 10.5 9.4-12.3 fL Neutrophils Percent Auto 76.0 45-73 % Imm Gran Pct Auto 0.6 0.0-0.4 % Lymphocytes Percent Auto 15.4 20-40 % Monocytes Percent Auto 7.0 2-11 % Eosinophils Percent Auto 0.7 0-4 % Basophils Percent Auto 0.3 0-2 % NRBC Pct Auto 0.0 0.0-0.2 /100WBC Neutrophils Absolute Auto 8.1 2.0-8.3 x10*3/uL Imm Gran Abs Auto 0.06 0.00-0.03 X10*3/uL Lymphocytes Absolute Auto 1.6 1.2-4.9 X10*3/uL Monocytes Absolute Auto 0.8 0.1-1.2 X10*3/uL Eosinophils Absolute Auto 0.1 0.0-0.4 X10*3/uL Basophils Absolute Auto 0.0 0.0-0.2 X10*3/uL NRBC Abs Auto 0.000 0.0-0.012 X10*3/uL Prothrombin Time INR Reviewed date:11/15/2023 08:03:25 PM Interpretation: Performing Lab:[address] [phone] Notes/Report: Prothrombin Time 13.5 11.1-13.3 SEC INTERNATIONAL NORM RATIO 1.1 0.9-1.1 INTERNATIONAL NORMALIZED RATIO (INR) REFERENCE RANGES Reference Range For patients not on anticoagulant therapy: 0.9 - 1.1 INR ranges for oral anticoagulant therapy: For prevention and treatment of venous thrombosis and pulmonary embolism: 2.0 - 3.0 For acute myocardial infarction with aspirin therapy: 2.0 - 3.0 For acute myocardial infarction without aspirin therapy: 3.0 - 4.0 For patients with mechanical prosthetic heart valves: 2.5 - 3.5 Comprehensive Met. Panel Reviewed date:11/15/2023 08:19:32 PM Interpretation: Performing Lab:[address] [phone] Notes/Report: Sodium 139 135-145 mmol/L Potassium 4.0 3.3-5.1 mmol/L Chloride 104 96-108 mmol/L Carbon Dioxide 24 22-29 mmol/L Anion Gap 15 12-20 Blood Urea Nitrogen 26 9-16 mg/dL Creatinine 1.09 0.5-1.4 mg/dL Creatinine Clr Calc Pharmacy 25.5 Provided height and weight: 160.02 cm, 45.359 kg. eGFR (calculated from the MDRD study equation) and eCrCl (calculated from the Cockcroft-Gault equation) are based on different parameters and may not yield comparable results. If eCrCl result is absurd, please check patient's height/weight. Estimated Glomerular Filt Rate 47 NOTE: For -Portuguese individuals, multiply the result by 1.210. Chronic Kidney Disease: Estimated GFR < 60 mL/min/1.73m2 Severe Kidney Disease: Estimated GFR < 15 mL/min/1.73m2 Glucose Random 218 60-115 mg/dL Calcium 9.6 8.4-10.2 mg/dL Bilirubin Total 0.6 0.0-1.0 mg/dL Aspartate Amino Transferase 11 5-31 U/L Alanine Aminotransferase 11 0-31 U/L Total Protein 6.9 6.5-8.0 g/dL Albumin Level 3.8 3.5-5.0 g/dL Alkaline Phosphatase 75 39-117 U/L Magnesium Reviewed date:11/15/2023 08:04:41 PM Interpretation: Performing Lab:[facility], [address] [place] [phone] Notes/Report: Magnesium 1.7 1.6-2.6 mg/dL Creatine Kinase Total Reviewed date:11/15/2023 08:05:01 PM Interpretation: Performing Lab:[facility], [address] [place] [phone] Notes/Report: Creatine Kinase Total 28 26-140 U/L Lipase Reviewed date:11/15/2023 08:03:56 PM Interpretation: Performing Lab:[facility], [address] [place] [phone] Notes/Report: Lipase 32 8-78 U/L Urine Culture Reviewed date:11/18/2023 12:52:42 PM Interpretation: Performing Lab:[facility], [address] [place] [phone] Notes/Report: Urine Culture Report Result Urine Culture > 100,000 cfu/ml Urine Culture Mixed bacterial luiz a characteristic of Urine Culture urogenital contamination. UA ClnCatch+Micro w/rflx Cul t Reviewed date:11/16/2023 06:32:33 PM Interpretation: Performing Lab:[facility], [address] [place] [phone] Notes/Report: [id number] Urine, Clean Catch Color Urine Yellow Appearance Urine Clear PH 5.0 5.0-9.0 Glucose Urine UA Negative Negative mg/dL Urine Blood Negative Negative Specific [place] - Urine 1.010 1.005-1.025 Urine Protein Negative Neg-Trace mg/dL Urine Ketones Negative Negative mg/dL Nitrite Urine Negative Negative Leukocyte Esterase Urine Small (1+) Negative RBC Urine 0-2 0-2 /HPF WBC Urine 11-20 0-5 /HPF Squamous Epithelial Cell Urine 0-2 0-2 /HPF Bacteria Urine None Seen None Seen Hyaline Casts Urine 0-2 0-2 /LPF CT head/brain wo con Reviewed date:11/15/2023 08:03:16 PM Interpretation: Performing Lab: Notes/Report: [address] [address] [address] Scan Report Signed Patient: Loren Mendoza MR#: [id number] 7 : 1935 Acct:[id number] Age/Sex: 88 / F ADM Date: 11/15/23 Loc: HO.ED Attending Dr: Ordering Physician: Fern Padilla Date of Service: 11/15/23 Procedure(s): CT head/brain wo IV con Accession Number(s): [id number] cc: Raffaele Saldana MD; Fern Padilla EXAMINATION: CT HEAD WITHOUT CONTRAST CLINICAL INFORMATION: Altered mental status, dizziness COMPARISON: 12/22/2022 TECHNIQUE: Contiguous axial imaging was performed from the skull base to vertex without intravenous administration of contrast. This CT examination was performed using dose optimization techniques as appropriate, variously including the following: *Automated exposure control *Adjustment of mA and/or kV according to patient size (this includes techniques or standardized protocols for targeted exams where dose is matched to indication/reason for exam; i.e. extremities or head) *Use of iterative reconstruction technique DLP: 550 mGy-cm FINDINGS: CT examination of the brain shows considerable age-related involutional changes with prominence of the ventricles and sulci. Periventricular white matter hypodensities are evident, likely on the basis of chronic microvascular ischemic disease. No acute hemorrhage, mass effect or shift is evident. In the posterior fossa, the brainstem, cerebellum and fourth ventricle are unremarkable. The orbits and bony calvarium are intact. The globes are aphakic. The paranasal sinuses and mastoid air cells are well pneumatized and clear. CT/CT head/brain wo IV con IMPRESSION: 1. Considerable Age-related involutional changes and microvascular disease. 2. No acute hemorrhage, mass effect, shift or acute intracranial pathology. Dictated By: Mike Seo MD Signed By: <Electronically signed by Mike Seo MD in OV> 11/15/23 1435 DD/ 1418 TD/TT: Applications Coordinator: [place] [address] CT Scan Report Signed Patient: Loren Mendoza MR#: [id number] 7 : 1935 Acct:[id number] Age/Sex: 88 / F ADM Date: 11/15/23 Loc: .ED Attending Dr: Ordering Physician: Fern Padilla Date of Service: 11/15/23 Procedure(s): CT head/brain wo IV con Accession Number(s): [id number] cc: Raffaele Saldana MD; Fern Padilla EXAMINATION: CT HEAD WITHOUT CONTRAST CLINICAL INFORMATION: Altered mental statu s, dizziness COMPARISON: 12/22/2022 TECHNIQUE: Contiguous axial imaging was performed from the skull base to vertex without intravenous administration of contrast. This CT examination was performed using dose optimization techniques as appropriate, various ly including the following: *Automated exposure control *Adjustment of mA and/or kV according to patient size (this includes techniques or standardized protocols for targeted exams where dose is matched to indication/reason for exam; i.e. extremities or head) *Use of iterative reconstruction technique DLP: 550 mGy-cm FINDINGS: CT examination of th e brain shows considerable age-related involutional changes with promine nce of the ventricles and sulci. Periventricular white matter hypodensities are evident, likely on the basis of chronic microvascular ischem ic disease. No acute hemorrhage, mass effect or shift is evident. In the posterior fossa, the brainstem , cerebellum and fourth ventricle are unremarkable. The orbits and bony calvarium are intact. The globes are aphakic. The paranasal sinuses an d mastoid air cells are well pneumatized and clear. CT/CT head/brain wo IV con IMPRESSION: 1. Considerable Age-related involutional changes and microvascular disease. 2. No acute hemorrha ge, mass effect, shift or acute intracranial pathology. Dictated By: Mike Seo MD Signed By: <Electronically signed by Mike Seo MD in OV> 11/15/23 1435 DD/ 1418 TD/TT: Applications Coordinator: Digoxin Reviewed date:12/23/2023 05:11:29 PM Interpretation: Performing Lab:[facility], [address] [place] [phone] Notes/Report: Digoxin 1.5 0.8-2.0 ng/mL Assay modified to minimize interference from aldosterone antagonists (e.g. spironolactone and canrenone). Digoxin Reviewed date:01/20/2024 05:35:30 PM Interpretation: Performing Lab:[facility], [address] [place] [phone] Notes/Report: Digoxin < 0.2 0.8-2.0 ng/mL Assay modified to minimize interference from aldosterone antagonists (e.g. spironolactone and canrenone). Urine Culture Reviewed date:06/16/2024 12:35:19 PM Interpretation: Performing Lab:[address] [phone] Notes/Report: Urine Culture Report Result Urine Culture 10,000 to 50,000 cfu/ml Urine Culture Mixed bacterial luiz a characteristic of Urine Culture urogenital contamination. Reason For Referral No Information Medications Medication SIG (Take, Route, Frequency, Duration) Notes Start Date End Date Status Ferrous Sulfate 325 (65 Fe) MG 1 tablet Orally Once a day Active Levothyroxine Sodium 75 MCG TAKE 1 TABLET EVERY MORNINGON AN EMPTY STOMACH Active FreeStyle Lite Test - USE TO TEST BLOOD SYUGAR ONCE DAILY for 90 Active metFORMIN HCl 500 MG TAKE 1TABLETS TWICE A DAY WITH MEALS Orally Once a day Active Metoprolol Tartrate 50 MG TAKE 1 TABLET 2 TIMES DAILY WITH FOOD Active Digoxin 0.125MG TAKE 1 TABLET ONCE DAILY for 90 Not-Taking Furosemide 20 MG 1 2ablet Orally Once a day Active Januvia 50 MG 1 tablet Orally Once a day for 90 days Not-Taking Digoxin 125 MCG 1 tablet Orally ever y other day Active Meclizine HCl 12.5 MG TAKE 1 TABLET BY M OUTH EVERY DAY NEEDED for 30 Active Eliquis 2.5 MG as directed Orally Active Potassium Chloride ER 8 MEQ TAKE 1 TABLET BY MOUTH EVERY DAY WITH FOOD for 90 Active Atorvastatin Calcium 10 MG TAKE 1 TABLET ONCE DAILY Active Betimol 0.5 % 1 drop into affected eye Ophthalmic twice a day Active Latanoprost 0.005 % 1 drop into affected eye in the evening Ophthalmic Once a day Active Breo Ellipta 100-25 MCG/ACT 1 puff Inhalation Once a day 09/24/2023 Active Namenda Titration Carson 5 (28)-10 (21) MG as directed Orally 05/31/2014 Not-Ta frantz Albuterol Sulfate HFA 108 (90 Base) MCG/ACT INHALE 2 PUFFS INTO THE LUNGS EVERY 4 HOURS NEEDED Active Memantine HCl 10 MG TAKE 1 TABLET TWICE A DAY for 90 Active Valtrex 1 GM 2 tablets Orally juliet ry 12 hrs for 1 dose 09/18/2013 Not-Taking Omeprazole 40 MG TAKE 1 CAPSULE DAILY for 90 Active FreeStyle Lancets - USE TO TEST DAILY fo r 90 Active Immunizations Vaccine Route Administration Date Status Comme nts Flu Vaccine IM Intramuscular 02/27/2011 Administered Flu Vaccine IM Intramuscular 03/18/2012 Administered Flu Vaccine IM Intramuscular 03/23/2013 Administered PPSV23 (Pnemovax) IM Intramuscular 03/27/2013 Administered Fluarix Quadrivalent IM Intramuscular 03/05/2014 Administe red Shingles Unknown 07/26/2008 Administered Prevnar 13 IM Intramuscular 09/30/2014 Administered Fluarix Quadrivalent IM Intramuscular 03/28/2015 Administe red Fluarix Quadrivalent IM Intramuscular 04/10/2016 Administe red TDaP IM Intramuscular 04/20/2016 Administered Fluarix Quadrivalent IM Intramuscular 03/05/2017 Adminbarrett red Shingrix Unknown 01/06/2018 Administered [facility] Fluarix Quadrivalent IM Intramuscular 03/25/2018 Administe red Shingrix Unknown 03/03/2018 Administered PPSV23 (Pnemovax) IM Intramuscular 05/06/2018 Administered Fluarix Quadrivalent IM Intramuscular 03/23/2019 Adminbarrett mcknight Influenza High Dose IM Intramuscular 03/11/2020 Administer ed Covid Vaccine Unknown 08/05/2020 Administered [facility] Covid Vaccine Unknown 09/23/2020 Administered Influenza High Dose IM Intramuscular 03/10/2021 Administer ed SARS-COV-2 Pfizer Unknown 03/30/2021 Administered [facility] SARS-COV-2 Pfizer Unknown 03/30/2021 Administered SARS-COV-2 Pfizer Unknown 10/19/2021 Administered [facility] SARS-COV-2 Pfizer Unknown 10/19/2021 Administered Influenza High Dose IM Intramuscular 03/13/2022 Administer ed SARS-COV-2 Pfizer Unknown 03/26/2022 Administered [facility] Influenza High Dose IM Intramuscular 03/26/2023 Administer ed SARS-COV-2 Pfizer Unknown 12/29/2022 Administered Influenza High Dose IM Intramuscular 03/09/2024 Administer ed Flu Vaccine Unknown 03/05/2014 Pending Social History Tobacco Use: Social History Observation [...] ast year? 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) Active confirmed Problem 83079578 Sacroiliitis, no t elsewhere classified (M46.1) Active confirmed Problem Hypothyroid (66592219) Hypothyroid (E03.9) Active confirmed Problem 897718756 Mild intermitten t asthma without complication (J45.20) Active confirmed Problem 447231356 History of TIA (transient ischemic attack) (Z86.73) Active confirmed Problem 639657034 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) Active confirmed Problem 66779697 Diabetes type 2, controlled (E11.9) Active confirmed Problem 62814821 Iron deficiency anemia, unspecified iron deficiency anemia type (D50.9) Active confirmed Problem 082386560 Pure hypercholesterolemia (E78.00) Active confirmed Problem 546736622 History of gastr ic ulcer (Z87.19) Active confirmed Problem Heart failure (05163057) Acute congestive heart failure, unspecified congestive heart failure type (I50.9) Active confirmed Problem 065929674115556 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) Active confirmed Problem 829019054 Atrial fibrillat ion, chronic (I48.20) Active confirmed Problem 69999016 Primary hyperten davi (I10) Active confirmed Problem 673206163 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) Active confirmed Problem 225587619253 Somnolence, dayt dillon (R40.0) Active confirmed Problem 00870439 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 Problem 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 Vital Signs Blood pressure diastolic 70 mm Hg 06/25/2024 olayinka ght is up 2 pounds since 03-23-24 Height 62 in 06/25/2024 weight is up 2 pounds since 03-23-24 Blood pressure systolic 122 mm Hg 06/25/2024 weig ht is up 2 pounds since 03-23-24 Weight 104 lbs 06/25/2024 weight is up 2 pounds since 03-23-24 BMI 19.02 kg/m2 06/25/2024 weight is up 2 pounds since 03-23-24 Encounters Encounter Location Date Provider Diagnosis Raffaele Saldana MD [address] [place] [id number] 03/09/2024 Raffaele Saldana Encounter for immuni zation Z23 Raffaele Saldana MD [address] [place] [id number] 06/15/2024 Raffaele Saldana Hypertension I10 ; Diabetes type 2, controlled E11.9 ; Iron deficiency anemia, unspecified iron deficiency anemia type D50.9 ; Acute congestive heart failure, unspecified congestive heart failure type I50.9 and Pure hypercholesterolemia E78.00 Raffaele Saldana MD [address] [facility] [address] [id number] 09/24/2023 Raffaele Saldana Diabetes type 2, controlled E11.9 and Mild intermittent asthma without complication J45.20 Raffaele Saldana MD [address] [place] [id number] 12/26/2023 Raffaele Saldana Diabetes type 2, controlled E11.9 ; Atrial fibrillation, chronic I48.20 and Dementia with Lewy bodies G31.83 Raffaele Saldana MD [address] [place] [id number] 03/23/2024 Raffaele Saldana Diabetes type 2, controlled E11.9 ; Chronic hypotension I95.89 ; SunDown syndrome F05 ; Acute congestive heart failure, unspecified congestive heart failure type I50.9 and Atrial fibrillation, chronic I48.20 Raffaele Saldana MD [address] [place] [address] [id number] 06/25/2024 Raffaele Saldana Hypertension I10 ; Diabetes type 2, controlled E11.9 ; Pure hypercholesterolemia E78.00 ; Acute congestive heart failure, unspecified congestive heart failure type I50.9 ; Mild intermittent asthma without complication J45.20 ; Atrial fibrillation, chronic I48.20 ; Iron deficiency anemia, unspecified iron deficiency anemia type D50.9 and Hypothyroid E03.9 Raffaele Saldana MD [address] [place] [address] [id number] 11/15/2023 Raffaele Saldana MD [address] [place] [address] [id number] 11/19/2023 Raffaele Saldana Assessments Encounter Date Diagnosis (ICD Code) Assessment Notes Treatment Notes Treatment Clinical Notes Section Notes 03/09/2024 Encounter for immunization (ICD-10 - Z23) 06/15/2024 Hypertension (ICD-10 - I10) 06/15/2024 Diabetes type 2, controlled (ICD-10 - E11.9) 09/24/2023 Diabetes type 2, controlled (ICD-10 - E11.9) stable, will continue current regiment 09/24/2023 Mild intermittent asthma without complication (ICD-10 - J45.20) PAtient verbalized understabding of medication and directions for use, will continue current regiment as well 12/26/2023 Diabetes type 2, controlled (ICD-10 - E11.9) 7.6 a1c is acceptable at this age, will continue curren regiment 12/26/2023 Atrial fibrillation, chronic (ICD-10 - I48.20) have reaffirmed need for him to give her the digoxin in order that no mistakes 03/23/2024 Diabetes type 2, controlled (ICD-10 - E11.9) well controlled 03/23/2024 Chronic hypotension (ICD-10 - I95.89) is on metoprolol for her heart rate. 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 told him not to argue with her 06/25/2024 Pure hypercholesterolemia (ICD-10 - E78.00) well controlled, at goal, will continue current regiment 06/15/2024 Acute congestive hea rt failure, unspecified congestive heart failure type (ICD-10 - I50.9) 03/23/2024 Acute congestive hea rt failure, unspecified congestive heart failure type (ICD-10 - I50.9) 06/25/2024 Acute congestive hea rt failure, unspecified congestive heart failure type (ICD-10 - I50.9) stable, will cntinue current regiment 06/15/2024 Pure hypercholesterolemia (ICD-10 - E78.00) 03/23/2024 Atrial fibrillation, chronic (ICD-10 - I48.20) 06/25/2024 Mild intermittent asthma without complication (ICD-10 - J45.20) stabke, will contiue current regiment 06/25/2024 Atrial fibrillation, chronic (ICD-10 - I48.20) stable, will contiue curent regiment 06/25/2024 Iron deficiency anem ia, unspecified iron deficiency anemia type (ICD-10 - D50.9) doing well, will continue current regiment 06/25/2024 Hypothyroid (ICD-10 - E03.9) stable, will continue current regiment Plan Of Treatment Pending Test Test Name Order Date X ray : Spines, lumbosacral 02/02/2011 Electrocardiogram (EKG) 04/20/2016 CHOLESTEROL, TOTAL 02/27/2011 Next Appt Details Provider Name:Raffaelekaren Acuna ier, 12/18/2024 07:45:00 AM, [address] [place] [address], [address], [phone], Provider Name:Raffaele Acuna ier, 12/24/2024 01:30:00 PM, [address] [place] [address], [address], [phone], Provider Name:Raffaele Acuna ier, 07/16/2025 07:15:00 AM, [address] [place] [address], [address], [phone], Provider Name:Raffaele Manpreet Kalpana ier, 07/23/2025 01:00:00 PM, [address] [place] [address], [address], [phone], Insurance Providers Payer Name Payer Address Payer Phone Subscriber Number Group Number Insured Name Patient Relationship to Insured Coverage Start Date Coverage End Date MEDICARE NHIC ROSA ELENA [address] [place] [id number] Loren Mendoza Self - patient is the insured [facility] [address] [place] [address] [id number] Loren Mendoza Self - patient is the insured Medical (General) History Medical History History ICD Code peptic ulcer disease osteoarthritis asthma had pft's and showed mild obstruction Atrial fibrillation Hypothyroidism hypertension colonoscopy 2008 glaucoma bone density 05/2011 with Cristy Lees M.D. echo - 11/2013 hematuria workup neg 2015 Needs B&C every 6 months due to Xarelto (06/05/19)
== END 2024-07-29 10:54 | disposition home or self-care (01) ==
LOC: HO.LAB 10:53
PROVIDERS: PCP Internal Medicine; Visit Provider Internal Medicine Cardiovascular Disease
DX: I11.0 Hypertensive heart disease with heart failure (principal); I50.9 Heart failure, unspecified; I48.20 Chronic atrial fibrillation, unspecified; Z79.01 Long term (current) use of anticoagulants; Z79.899 Other long term (current) drug therapy
CPT/HCPCS: 36415; 80162; 86704; 86706; 86803; 87340; 87389; 93005; 99212

== ENCOUNTER 2024-07-29 10:53 | Outpatient (AMB) | payer MEDICARE, MEDICAID, SELFPAY ==
[2024-07-29 11:02] VITALS: BP 116/60; PULSE 69; BMI 19.2
--- NOTE | 2024-07-29 11:02 | MHC.OFFVIS ---
Vital Signs 07/29/24 11:02 Height 5 ft 1 in Weight 101 lb 6.602 oz BMI 19.2 BP 116/60 Blood Pressure Location Lt brachial Position Sitting Pulse 69 Pulse Source Monitor Intake Visit Reasons: 6 mth f/up Allergies hydrochlorothiazide Allergy (Unknown, Verified 11/15/23 14:03) Unknown Medication List - Last Reconciled 07/29/24 by Jimmy Plascencia MD albuterol sulfate 90 mcg/actuation 2 puffs PO Q4H PRN apixaban (Eliquis) 2.5 mg PO BID atorvastatin 10 mg PO BEDTIME brimonidine 0.2% 1 drp ophthalmic (eye) BID digoxin 125 mcg PO Q OTHER DAY escitalopram oxalate 5 mg PO DAILY fluticasone propion-salmeterol 250-50 mcg/dose (Advair Diskus) 1 puff inhalation BID furosemide 40 mg (2 x 20 mg) PO DAILY latanoprost 0.005% 1 drp ophthalmic (eye) BEDTIME levothyroxine 75 mcg PO DAILY@0600 meclizine 12.5 mg PO DAILY PRN memantine 10 mg PO BID metformin 500 mg PO DAILY metoprolol tartrate 50 mg See Protocol PO BID omeprazole 40 mg PO DAILY@0630 vit C,P-Ue-hogak-lutein-zeaxan 250-90-40-1 mg (PreserVision AREDS-2) 1 tab PO BID HPI Comments Details: Loren comes for follow-up. She is accompanied by her . She was noted to have elevated blood pressure at home readings occasionally blood pressure in the 170/100 range. No obvious significant increase in stress or agitation. Takes all her medications regularly. No worsening heart failure symptoms. Denies any prolonged palpitation irregular heartbeat. No orthopnea, PND, leg edema. Active around the house. No lightheadedness, syncope. Denies any exertional chest pain. No bleeding issues or neurologic events. [facility] Medical History Hypoxia Seasonal allergies COPD (chronic obstructive pulmonary disease) Diabetes Congestive heart failure Acute congestive heart failure Dizziness Chronic atrial fibrillation Bilateral carotid artery disease HTN (hypertension) Surgical History History of esophagogastroduodenoscopy (EGD) Hx of colonoscopy Hx of hysterectomy Hx of cholecystectomy Hx of appendectomy Family History Father CVD (cardiovascular disease) HTN (hypertension) Heart failure Mother Diabetes Cancer Brother CVD (cardiovascular disease) Social History Household Members: Spouse Housing: House Are you a primary administrator health care facility to a significant other at home: No Do you presently have visiting nurse or other home services: Yes ([facility]) Alcohol intake: former Comment: 1:1 sitter Patient Tobacco Use Status: Never used Tobacco Advance Directives Date on File: 05/22/21 service: No Current occupational status: retired Review of Systems Const Denies weakness ENT Denies dizziness Card Denies chest pain, Denies chest pain with activity, Denies syncope, Denies rapid heart rate, Denies pedal edema, Denies edema, Denies leg edema, Denies lightheadedness, Denies palpitations, Denies dyspnea, Denies dyspnea on exertion and Denies orthopnea Resp Denies cough, Denies dyspnea and Denies dyspnea on exertion GI Denies hematochezia and Denies change in stool character Musc Denies abnormal gait, Denies muscle cramps, Denies muscle weakness, Denies numbness, Denies radiating pain into limb and Denies tingling Neuro Denies abnormal gait, Reports confusion, Denies dizziness, Denies syncope, Denies numbness, Denies tingling and Denies weakness Psych Reports confusion Endo Denies palpitations Physical Exam Vital Signs: Last Vital Signs Pulse 69 07/29/24 11:02 BP 116/60 07/29/24 11:02 BMI result Body Mass Index 19.2 Const General: cooperative, comfortable, in distress mild and respiratory and confusion Nutritional Appearance: thin and other (Frail elderly woman) Orientation/consciousness: confusion Limitations: wheelchair Neck Neck: Yes trachea midline, Yes supple and Yes no JVD Resp Effort & Inspection: normal respiratory effort Auscultation: clear to auscultation bilaterally and diminished lung sounds Cardio Jugular venous distension: JVD Rhythm: abnormal rhythm irregularly irregular Heart sounds: S1 normal heart sound present, S2 normal heart sound present, no click, no gallops and Murmur heart sound present systolic GI Auscultation: normal bowel sounds Skin General skin exam: no rashes or lesions noted Neuro General: no focal motor deficits and confusion Extrem General: No clubbing, No cyanosis and No edema Office Procedures EKG Details: EKG shows atrial fibrillation with scooping ST changes suggestive digit effect 28883-[id number], Complete Assessment & Plan Assessment & Plan (1) Congestive heart failure: Code(s): I50.9 - Heart failure, unspecified Category: Medical Plan: Heart failure preserved ejection fraction, clinically euvolemic and well compensated on current furosemide dose. Management of heart failure was discussed. Daily weight monitoring avoidance of salt loading was discussed additional diuretics as need be. Avoidance of salt loading was discussed. Better blood pressure control, see below. Continue current rate control with atrial fibrillation. (2) Chronic atrial fibrillation: Code(s): I48.20 - Chronic atrial fibrillation, unspecified Category: Medical Plan: Chronic rate control atrial fibrillation has failed control approach in the past. Continue current rate control with metoprolol as well as digoxin therapy. Digoxin assay needs to be performed every 3 months. Will order the same. Continue full oral anticoagulation, currently on Eliquis 2.5 mg b.i.d.. Quarterly renal function test should also be pursued. (3) Hypertension: Code(s): I10 - Essential (primary) hypertension Category: Medical Plan: Hypertension with elevated blood pressure reading. Will start on low-dose amlodipine therapy. Advise to monitor blood pressure regularly. Target goal blood pressure less than systolic 140 and diastolic less than 90. This was discussed with him. Low-salt diet was discussed. Stress mitigation strategies was discussed. Will follow up in the clinic in 6 months time, sooner p.r.n.. Thank you for allowing me to partake in her Orders: Orders Digoxin Today Jimmy Plascencia MD I48.20 - Chronic atrial fibrillation, unspecified Medications: New amlodipine 2.5 mg PO DAILY 30 tabs 5RF Jimmy Plascencia MD Changed From metoprolol tartrate 100 mg See Protocol PO BID 60 tabs 0RF To metoprolol tartrate 50 mg See Protocol PO BID Cuca Webb MD Coding Level of Care Code Est Pt Level 4 (95058) Complex EM visit Add On G2211 Diagnoses Congestive heart failure I50.9 Chronic atrial fibrillation I48.20 Hypertension I10 CPT Codes EKG - CPT: 89335-Tlpexzzmpheokxizf, Complete ([id number])
--- OUTSIDE RECORDS SUMMARY | 2024-07-29 13:03 | XMS_ITS ---
Author Organization Raffaele Saldana MD Address [address] [place], [place] [phone] Care Team Providers Care Card Mounter Name Role Phone Raffaele Saldana Primary Care [...] Location Date Provider Diagnosis Raffaele Saldana MD [address] [place] [address] [place] [phone] 06/25/2024 Raffaele Saldana Hypertension I10 ; Diabetes [...] Up: 6 Months, Reason: Provider Name:Raffaele Acuna my, 12/18/2024 07:45:00 AM, [address], [address], [place], [phone], Provider Name:Raffaele Acuna my, 12/24/2024 01:30:00 PM, [address], [address], [place], [phone], Provider Name:Raffaele Manpreet Kalpana pepe, 07/16/2025 07:15:00 AM, [address], [address], [place], [phone], Provider Name:Raffaele Acuna my, 07/23/2025 01:00:00 PM, [address], [address], [place], [phone], Progress Notes * Loren MATUTE MDOB:1935 (88 yo F)Acc No.[id number]:06/25/2024 Patient:?Loren Matute Provider:?Raffaele Saldana MD :1935???Age:88 Y???Sex:Female D ate:06/25/2024 Address:[address] [place] [address], [place], [id number] Subjective: * Chief Complaints: * ???Review labsAccompanied by * HPI: ???Depression Screening:?PHQ-9?Little interest or pleasure in doing things?Not at all,?Feeling down, depressed, or hopeless?Not at all,?Trouble falling or staying asleep, or sleeping too much?Not at all,?Feeling tired or having little energy?Not at all,?Poor appetite or overeating?Not at all,?Feeling bad about yourself or that you are a failure, or have let yourself or your family down?Not at all,?Trouble concentrating on things, such as reading the newspaper or watching television?Not at all,?Moving or speaking so slowly that other people could have noticed; or the opposite, being so fidgety or restless that you have been moving around a lot more than usual?Not at all,?Thoughts that you would be better off or of hurting yourself in some way?Not at all,?Total Score?0.?Interpretation and Intervention?Depression Screening Findings?Negative,?Follow-Up for Depression?: review of PHQ-9 found negative result, no follow-up needed.?Communication Needs:?Communication Needs?Does the patient have a hearing impairment?No,?Does the patient have a vision impairment??Yes,?If yes, what is the vision impairment??Glasses,?Does the patient have a cognition impairment??No.?Fall Risk:?History?Have you had any falls with injury in the past year??No,?Have you had two or more falls in the past year??No.?SDOH Questions:?SDOH Questions?In the past year have you been worried about losing housing??No,?In the past year have you or any family members you live with been unable to get any of the following when it was really needed? Check all that apply:?None.?Symptom(s):? patient is a 88 yo female here for review of recent labs and follow upof chronic issues. * ROS:?General/Constitutional:?Patient denies?fatigue , headache.?Change in appetite?denies.?Chills?denies.?Fever?denies.?Ophthalmologic:?Blurred vision?denies.?Discharge?denies.?Pain?denies.?ENT:?Patient denies?decreased sense of smell , any loss of taste , sore throat.?Decreased hearing?denies.?Sore throat?denies.?Swollen glands?denies.?Endocrine:?Cold intolerance?denies.?Excessive thirst?denies.?Heat intolerance?denies.?Weight loss?denies.?Respiratory:?Cough?denies.?Shortness of breath at rest?denies.?Shortness of breath with exertion?denies.?Wheezing?denies.?Cardiovascular:?Chest pain at rest?denies.?Chest pain with exertion?denies.?Irregular heartbeat?denies.?Shortness of breath?denies.?Gastrointestinal:?Abdominal pain?denies.?Change in bowel habits?denies.?Diarrhea?denies.?Nausea?denies.?Rectal bleeding?denies.?Vomiting?denies .?Genitourinary:?Blood in urine?denies.?Difficulty urinating?denies.?Frequent urination?denies.?Urinary incontinence?Denies.?Musculoskeletal:?Patient denies?muscle aches.?Painful joints?denies.?Weakness?denies.?Peripheral Vascular:?Patient denies?red and blue toes.?Skin:?Dry skin?denies.?Itching?denies.?Denies?Mole(s),? changes in moles, new moles or any lesions of concern.?Denies?Photosensitivity.?Rash?denies.?Neurologic:?Dizziness?denies.?Fainting?denies.?Headache?denies.? * Medical History:? * Surgical History:? * Hospitalization/Major Diagno stic Procedure:? * Family History:?Father: dece ased 76 yrs.?Mother: 63 yrs, diagnosed with Cancer.?1 brother(s) . 1 son(s) , 1 daughter(s) . .? 1 brother [place] 1 daughter 1 son airplane crashand 1 son 24 hours after ., No pertinent family medical history, Denies mental health/substance abuse family history, No pertinent family medical history, No pertinent family medical history, No pertinent family medical history, Denies mental health/substance abuse family history. * Social History:?Tobacco Use:?Tobacco Use/Smoking?Patient is a?nonsmoker,?Additional Findings: Tobacco Non-User?Current non-smoker, currently using no form of tobacco.?Drugs/Alcohol:?Alcohol Screen?Did you have a drink containing alcohol in the past year??No,?Points?0,?Interpretation?Negative.?Miscellaneous:?Caffeine: yes, frequency:, 1 cup of tea per day. Children: yes. no Exercise. Home smoke detector use: yes. Housing: owning. Living with: spouse. Marital status: . Occupation: retired. Pets: none. no Travel outside of the [place]. * Medications:?TakingBetimol 0 .5 % Solution 1 drop into affected eye [...] A DAY WITH MEALS Orally [facility]Fr[facility] L[facility] Test - Strip USE TO TEST [...] reviewed and reconciled with the patient * Allergies:?HCTZ: terence kapadia[Allergies Verified] Objective: * Vitals:?Ht: 62, Wt:104, BMI: 19.02, BP:122/70 weight is up 2 pounds since 03-23-24. * ???Past Orders: ???Lab:Complete Blood Count Auto Diff (Order Date - 06/15/2024) (Collection Date - 06/15/2024) ? Value Reference Range ?White Blood Count 8.5 4. 8-10.8 - X10*3/uL ?Red Blood Count 5.04 4.20 -5.50 - X10*6/uL ?Hemoglobin 14.8 12.0-16.0 - g/dl ?Hematocrit 45.1 37.0-47.0 - % ?Mean Corpuscular Volume 89.5 80.0-98.0 - fL ?Mean Corpuscular Hemoglobin 29.4 27.0-33.0 - pg ?Mean Corpuscular HGB Conc 32.8 31.0-35.0 - g/dl ?Red Cell Distribution Width 12.8 11.0-16.0 - % ?Platelet Count 175 160-4 00 - X10*3/uL ?Mean Platelet Volume 11.3 9.4-12.3 - fL ?Neutrophils Percent Auto 54.4 45-73 - % ?Imm Gran Pct Auto 0.5 H 0. 0-0.4 - % ?Lymphocytes Percent Auto 35.0 20-40 - % ?Monocytes Percent Auto 7.4 2-11 - % ?Eosinophils Percent Auto 2.2 0-4 - % ?Basophils Percent Auto 0.5 0-2 - % ?NRBC Pct Auto 0.2 0.0-0. 2 - /100WBC ?Neutrophils Absolute Auto 4.6 2.0-8.3 - x10*3/uL ?Imm Gran Abs Auto 0.04 H 0. 00-0.03 - X10*3/uL ?Lymphocytes Absolute Auto 3.0 1.2-4.9 - X10*3/uL ?Monocytes Absolute Auto 0.6 0.1-1.2 - X10*3/uL ?Eosinophils Absolute Auto 0.2 0.0-0.4 - X10*3/uL ?Basophils Absolute Auto 0.0 0.0-0.2 - X10*3/uL ?NRBC Abs Auto 0.020 H 0.0-0. 012 - X10*3/uL ???Lab:UA ClnCatch+Micro w/r flx Cult (Order Date - 06/15/2024) (Collection Date - 06/15/2024) ? Value Reference Range ?Color Urine Yellow - ?Appearance Urine Clear - ?PH 6.0 5.0-9.0 - ?Glucose Urine UA Negative Neg ative - mg/dL ?Urine Blood Negative Negative - ?Specific [place] - Urine 1.025 1.005-1.025 - ?Urine Protein 100 (2+) A Neg-Tr elizabeth - mg/dL ?Urine Ketones Negative Negati ve - mg/dL ?Nitrite Urine Negative Negati ve - ?Leukocyte Esterase Urine Small (1+) A Negative - ?RBC Urine 0-2 0-2 - /HPF ?WBC Urine 11-20 A 0-5 - /HPF ?Squamous Epithelial Cell Urine 0-2 0-2 - /HPF ?Bacteria Urine None Seen None Seen - ?Hyaline Casts Urine 0-2 0-2 - /LPF ???Lab:Comprehensive [place]. P aiden Fast (Order Date - 06/15/2024) (Collection Date - 06/15/2024) ? Value Reference Range ?Sodium 141 135-145 - mmo l/L ?Bilirubin Total 0.7 0.0- 1.0 - mg/dL ?Aspartate Amino Transferase 26 5-31 - U/L ?Alanine Aminotransferase 15 0-31 - U/L ?Total Protein 7.0 6.5-8. 0 - g/dL ?Albumin Level 4.0 3.5-5. 0 - g/dL ?Alkaline Phosphatase 71 39-117 - U/L ?Potassium 3.5 3.3-5.1 - mmol/L ?Chloride 105 96-108 - mm ol/L ?Carbon Dioxide 25 22-29 - mmol/L ?Anion Gap 15 12-20 - ?Blood Urea Nitrogen 20 H 9-16 - mg/dL ?Creatinine 0.96 0.5-1.4 - mg/dL ?Estimated Glomerular Filt Rate 55 - ?Glucose Fasting 170 H 60-9 9 - mg/dL ?Calcium 8.9 8.4-10.2 - m g/dL ???Lab:Urine Culture (Order Date - 06/15/2024) (Collection Date - 06/15/2024) ? Value Reference Range ?Urine Culture urogenital contamination. - ???Lab:IRON PROFILE (Order D ate - 06/15/2024) (Collection Date - 06/15/2024) ? Value Reference Range ?Iron 125 30-160 - mcg/dL ?Total Iron Binding Capacity 283 228-428 - mcg/dL ?Percent Iron Saturation 44 15-50 - % ?Unsaturated Iron Binding 158 - ug/dL ???Lab:Lipid Panel (Order Da te - 06/15/2024) (Collection Date - 06/15/2024) ? Value Reference Range ?Triglycerides 88 <150 - mg/dL ?Cholesterol 165 <200 - m g/dL ?LDL Cholesterol Calculated 82 <100 - mg/dL ?HDL Cholesterol 66 >40 - mg/dL ???Lab:Microalbumin, Random (Order Date - 06/15/2024) (Collection Date - 06/15/2024) ? Value Reference Range ?Creatinine Urine 106.68 - m g/dL ?Microalbumin Urine 1365.0 - mg/L ?Microalbum Creatinine Ratio Ur 1279.5 H <30 - ug/mg cr ???Lab:Hemoglobin A1c (Order Date - 06/15/2024) (Collection Date - 06/15/2024) ? Value Reference Range ?Hemoglobin A1c % 7.4 H <6. 0 - % ?Estimated Average Glucose 166 - mg/dL * Examination: ???General Examination: ?GENERAL APPEARANCE:?well developed, well nourished, in no acute distress.?HEAD:?normocephalic, atraumatic.?EYES:?pupils equal, round, reactive to light and accommodation, sclera non-icteric.?EARS:?normal.?ORAL CAVITY:?mucosa moist.?THROAT:?clear.?NECK/THYROID:?neck supple, full range of motion, no cervical lymphadenopathy, no bruits.?SKIN:?warm and dry, no suspicious lesions.?HEART:?regular rate and rhythm, S1, S2 normal, no murmurs.?LUNGS:?clear to auscultation bilaterally.?BREASTS:?No mass, no lump.?ABDOMEN:?soft, nontender, nondistended, bowel sounds present, normal, no organomegaly , no masses palpable.?RECTAL EXAM:?declined.?FEMALE GENITOURINARY:?not done.?EXTREMITIES:?no clubbing, cyanosis, or edema.?NEUROLOGIC:?nonfocal, motor strength normal upper and lower extremities, sensory exam intact.? Assessment: * Assessment: 1.?Hypertension - I10 (Prima ry)?2.?Diabetes type 2, controlled - E11.9?3.?Pure hypercholesterolemia - E78.00?4.?Acute congestive heart failure, unspecified congestive heart failure type - I50.9?5.?Mild intermittent asthma without complication - J45.20?6.?Atrial fibrillation, chronic - I48.20?7.?Iron deficiency anemia, unspecified iron deficiency anemia type - D50.9?8.?Hypothyroid - E03.9? Plan: * Treatment: 2.?Diabetes type 2, controll ed? Continue metFORMIN HCl Tablet, 500 MG, TAKE 1TABLETS TWICE A DAY WITH MEALS, Orally, Once a day.?? Notes: doing well, will continue current regiment?? 3.?Pure hypercholesterolemia ? Continue Atorvastatin Calcium Tablet, 10 MG, TAKE 1 TABLET ONCE DAILY.?? Notes: well controlled, at goal, will continue current regiment?? 4.?Acute congestive heart fa ilure, unspecified congestive heart failure type? Continue Furosemide Tablet, 20 MG, 1 2ablet, Orally, Once a day.?? Notes: stable, will cntinue current regiment?? 5.?Mild intermittent asthma without complication? Continue Breo Ellipta Aerosol Powder Breath Activated, 100-25 MCG/ACT, 1 puff, Inhalation, Once a day;?Continue Albuterol Sulfate HFA Aerosol Solution, 108 (90 Base) MCG/ACT, INHALE 2 PUFFS INTO THE LUNGS EVERY 4 HOURS NEEDED.?? Notes: stabke, will contiue current regiment?? 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 Continue Digoxin Tablet, 125 MCG, 1 tablet, Orally, every other day;?Continue Eliquis Tablet, 2.5 MG, as directed, Orally.?? Notes: stable, will contiue curent regiment?? 7.?Iron deficiency anemia, u nspecified iron deficiency anemia type? Continue Ferrous Sulfate Tablet, 325 (65 Fe) MG, 1 tablet, Orally, Once a day.?? Notes: doing well, will continue current regiment?? 8.?Hypothyroid? Continue Levothyroxine Sodium Tablet, 75 MCG, TAKE 1 TABLET EVERY MORNINGON AN EMPTY STOMACH.?? Notes: stable, will continue current regiment?? * Procedure Codes:? * Preventive Medicine:? ??Counseling:?Care goal follow-up plan:?Counseling for abnormal BMI provided?No.? ??Diabetes Care Plan:?Patient Lifestyle Goals?Needs to maintain diet control.?Treatment Goals?A1C< 7.?Barriers ?No specific barriers, doing well.?Self-Managment Plan?Increase light exercise to 3 times a week for 30 minutes.?Expected Outcome maintaining stable blood sugar levels within a target range.? ??CHF Care Plan:?Patient Lifestyle Goals?Relieve symptoms and improve quality of life.?Treatment Goals?Take medicine exactly as directed and plan for RX refills.?Barriers ?No Specific barriers.?Self-Managment Goals?Monitor your symptoms daily.?Expected Outcome?preventing complications like fluid build-up in the lungs.? * Follow Up:?6 Months * * Sign off status: Completed true * Provider:?Raffaele Saldana MD Date:?1 08/26/2023 Generated for Lio phillip/Niko/eTransmitting on:?07/29/2024 01:03 PM EST History and Physical Notes * HPI (History [...] patient have a vision impairmen t?: Yes ?If yes, what is the vision impairment?: Glasses Does the patient have a cognition impair ment?: No Examination Category Sub-Category Detail Notes Category Not es General Examination GENERAL APPEARANCE: well dev eloped, well nourished, in no acute distress HEAD: normocephalic, atrau matic EYES: pupils equal, round, reactive to light and accommodation, sclera non- icteric EARS: normal THROAT: clear NECK/THYROID: neck supple, [...]
--- OUTSIDE RECORDS SUMMARY | 2024-07-29 13:03 | XMS_ITS ---
Author Organization Raffaele Saldana MD Address [address] [place], [place] [id number] Care Team Providers Care Director Of Manufacturing Operations Name Role Phone Raffaele Saldana Primary Care Provider [phone] Allergies Allergen (clinical drug ingredient) Drug/Non Drug Allergy documented on EMR Reaction Allergy Type Onset Date Status hydrochlorothiazide HCTZ (uncoded) photosensitivity Allergy Active Results Component Value Reference Range Notes Hemoglobin A1c Reviewed date:03/23/2024 01:25:06 PM Interpretation: Performing Lab: Notes/Report: Hemoglobin A1c 7.3 Glucose, finger stick Reviewed date:03/23/2024 01:19:47 PM Interpretation: Performing Lab: Notes/Report: Value 148 REASON FOR VISIT 3 month, Accompanied by Medications Medication SIG (Take, Route, Frequency, Duration) Notes Start Date End Date Status Valtrex 1 GM 2 tablets Orally juliet ry 12 hrs for 1 dose 09/18/2013 Not-Taking Namenda Titration Carson 5 (28)-10 (21) MG as directed Orally 05/31/2014 Not-Ta frantz Januvia 50 MG 1 tablet Orally Once a day for 90 days Not-Taking Digoxin 0.125MG TAKE 1 TABLET ONCE DAILY for 90 Not-Taking metFORMIN HCl 500 MG TAKE 1TABLETS TWICE A DAY WITH MEALS Orally Once a day Active FreeStyle Lite Test - USE TO TEST BLOOD SUGAR DAILY for 90 Active Eliquis 2.5 MG as directed Orally Active Metoprolol Tartrate 50 MG TAKE 1 TABLET 2 TIMES DAILYWITH FOOD Active Digoxin 125 MCG 1 tablet Orally ever y other day Active Omeprazole 40 MG TAKE 1 CAPSULE DAILY for 90 Active Memantine HCl 10 MG TAKE 1 TABLET TWICE A DAY for 90 Active Levothyroxine Sodium 75 MCG TAKE 1 TABLET EVERY MORNINGON AN EMPTY STOMACH for 90 Active Atorvastatin Calcium 10 MG TAKE 1 TABLET ONCE DAILY for 90 Active Albuterol Sulfate HFA 108 (90 Base) MCG/ACT INHALE 2 PUFFS INTO THE LUNGS EVERY 4 HOURS NEEDED Active Breo Ellipta 100-25 MCG/ACT 1 puff Inhalation Once a day for 90 days 09/24/2023 Active Meclizine HCl 12.5 MG TAKE 1 TABLET BY M OUTH EVERY DAY NEEDED for 30 Active Furosemide 20 MG 1 2ablet Orally Once a day Active Potassium Chloride ER 8 MEQ TAKE 2 TABLET BY MOUTH EVERY DAY WITH FOOD Orally Once a day Active FreeStyle Lancets - USE TO TEST DAILY fo r 90 Active Ferrous Sulfate 325 (65 Fe) MG 1 tablet Orally Once a day Active Latanoprost 0.005 % 1 drop into affected eye in the evening Ophthalmic Once a day Active Betimol 0.5 % 1 drop into affected eye Ophthalmic twice a day Active Problems Problem Type SNOMED Code ICD Code Onset Dates Problem Status W/U Status Risk Notes Problem [id number] SunDown syndrome (F05) Active confirmed Vital Signs Blood pressure systolic 92 mm Hg 03/23/20 24 Blood pressure diastolic 60 mm Hg 024 Height 62 in 03/23/2024 Weight 102 lbs 03/23/2024 BMI 18.65 kg/m2 03/23/2024 Encounters Encounter Location Date Provider Diagnosis Raffaele Saldana MD [address] [place] [address] [place] [phone] 03/23/2024 Raffaele Saldana Diabetes type 2, controlled E11.9 ; Chronic hypotension I95.89 ; SunDown syndrome F05 ; Acute congestive heart failure, unspecified congestive heart failure type I50.9 and Atrial fibrillation, chronic I48.20 Assessments Encounter Date Diagnosis (ICD Code) Assessment Notes Treatment Notes Treatment Clinical Notes Section Notes 03/23/2024 Diabetes type 2, controlled (ICD-10 - E11.9) well controlled 03/23/2024 Chronic hypotension (ICD-10 - I95.89) is on metoprolol for her heart rate. not on amlodipine 03/23/2024 SunDown syndrome (ICD-10 - F05) does not want meds for it. told him not to argue with her 03/23/2024 Acute congestive heart failure, unspecified congestive heart failure type (ICD-10 - I50.9) 03/23/2024 Atrial fibrillation, chronic (ICD-10 - I48.20) Plan Of Treatment Medication Medication Name Sig Start Date Stop Date Notes metFORMIN HCl 500 MG TAKE 1TABLETS TWICE A DAY WITH MEALS Orally Once a day Treatment Notes Assessment Notes Diabetes type 2, controlled well control led Chronic hypotension is on metoprolol for her heart rate. not on amlodipine SunDown syndrome does not want meds f or it. told him not to argue with her Next Appt Details Provider Name:Raffaele pepe, 12/18/2024 07:45:00 AM, [address] [place] [address], [address], [phone], Provider Name:Raffaele pepe, 12/24/2024 01:30:00 PM, [address] [place] [address], [address], [phone], Provider Name:Raffaele pepe, 07/16/2025 07:15:00 AM, [address] [place] [address], [address], [phone], Provider Name:Raffaele whiter, 07/23/2025 01:00:00 PM, [address] [place] [address], [address], [phone], Progress Notes * Loren MATUTE MDOB:1935 (88 yo F)Acc No.[id number]:03/23/2024 Progress Notes Patient:?Loren Matute Provider:?Raffaele Saldana MD :1935???Age:88 Y???Sex:Female D ate:03/23/2024 Address:[address] [place] [address], [facility] [place], [id number] Subjective: * Chief Complaints: * ???3 monthAccompanied by hus band * HPI: ???Symptom(s):? patient is a 88 yo female here for 3 month follow up visit, has sundowning after supper every day. * ROS:?General/Constitutional:?Denies?Chills.?Denies?Fatigue.?Denies?Fever.?Denies?Headache.?ENT:?Patient denies?decreased sense of smell , any loss of taste , sore throat.?Denies?Sore throat.?Respiratory:?Denies?Cough.?Denies?Shortness of breath at rest.?Denies?Shortness of breath with exertion.?Gastrointestinal:?Denies?Diarrhea.?Denies?Nausea.?Musculoskeletal:?Patient denies?muscle aches.?Peripheral Vascular:?Patient denies?red and blue toes.? * Medical History:? * Surgical History:? * Hospitalization/Major Diagno stic Procedure:? * Medications:?TakingBetimol 0 .5 % Solution 1 drop into affected eye Ophthalmic twice a dayLatanoprost 0.005 % Solution 1 drop into affected eye in the evening Ophthalmic Once a dayFerrous Sulfate 325 (65 Fe) MG Tablet 1 tablet Orally Once a dayFreeStyle Lancets - Miscellaneous USE TO TEST DAILY Potassium Chloride ER 8 MEQ Tablet Extended Release TAKE 2 TABLET BY MOUTH EVERY DAY WITH FOOD Orally Once a dayFurosemide 20 MG Tablet 1 2ablet Orally Once [...] MCG Tablet 1 tablet Orally every other dayMetoprolol Tartrate 50 MG Tablet TAKE 1 TABLET 2 TIMES DAILYWITH FOOD Eliquis 2.5 MG Tablet as directed Orally metFORMIN HCl 500 MG Tablet TAKE 1TABLETS TWICE A DAY WITH MEALS Orally Once a dayFreeStyle Lite Test - Strip USE TO TEST BLOOD SUGAR DAILY Omeprazole 40 MG Capsule Delayed Release TAKE 1 CAPSULE DAILY Taking Betimol 0.5 % Solution 1 drop into affected eye Ophthalmic twice a dayTaking Latanoprost 0.005 % Solution 1 drop into affected eye in the evening Ophthalmic Once a dayTaking Ferrous Sulfate 325 (65 Fe) MG Tablet 1 tablet Orally Once a dayTaking FreeStyle Lancets - Miscellaneous USE TO TEST DAILY Taking Potassium Chloride ER 8 MEQ Tablet Extended Release TAKE 2 TABLET BY MOUTH EVERY DAY WITH FOOD Orally Once a dayTaking Furosemide 20 MG Tablet 1 2ablet Orally [...] Tablet 1 tablet Orally every other dayTaking Metoprolol Tartrate 50 MG Tablet TAKE 1 TABLET 2 TIMES DAILYWITH FOOD Taking Eliquis 2.5 MG Tablet as directed Orally Taking metFORMIN HCl 500 MG Tablet TAKE 1TABLETS TWICE A DAY WITH MEALS Orally Once a dayTaking FreeStyle Lite Test - Strip USE TO TEST BLOOD SUGAR DAILY Taking Omeprazole 40 MG Capsule Delayed Release TAKE 1 CAPSULE DAILY Not-Taking/PRNDigoxin 0.125MG Tablet TAKE 1 TABLET ONCE DAILY Januvia 50 MG Tablet 1 tablet Orally Once a dayNamenda Titration Carson 5 (28)-10 (21) MG Tablet as directed Orally Valtrex 1 GM Tablet 2 tablets Orally every 12 hrsNot-Taking/PRN Digoxin 0.125MG Tablet TAKE 1 TABLET ONCE DAILY Not-Taking/PRN Januvia 50 MG Tablet 1 tablet Orally Once a dayNot-Taking/PRN Namenda Titration Carson 5 (28)-10 (21) MG Tablet as directed Orally Not-Taking/PRN Valtrex 1 GM Tablet 2 tablets Orally every 12 hrsDiscontinuedamLODIPine Besylate 2.5 MG Tablet TAKE 1 TABLET BY MOUTH ONCE DAILY Medication List reviewed and reconciled with the patientDiscontinued amLODIPine Besylate 2.5 MG Tablet TAKE 1 TABLET BY MOUTH ONCE DAILY Medication List reviewed and reconciled with the patient * Allergies:?HCTZ: photosensit kang[Allergies Verified] Objective: * Vitals:?Ht: 62, Wt:102, BMI: 18.65, BP:92/60. * Examination: ???General Examination: ?GENERAL APPEARANCE:? alert, well hydrated, in no distress , elderly, female.?HEAD:? normocephalic.?SKIN:? good turgor.?HEART:? regular rate and rhythm, no murmurs, rubs, gallops.?LUNGS:? no wheezes, rales, rhonchi, good air movement, clear to auscultation bilaterally.? Assessment: * Assessment: 1.?Diabetes type 2, controll ed - E11.9 (Primary)?2.?Chronic hypotension - I95.89?3.?SunDown syndrome - F05?4.?Acute congestive heart failure, unspecified congestive heart failure type - I50.9?5.?Atrial fibrillation, chronic - I48.20? Plan: * Treatment: ? Value Reference Range ?Hemoglobin A1c 7.3 * Olive John 4 01:25:04 PM EDT > ?LAB: Glucose, finger stick* ? Value Reference Range ?Value 148 * Olive John 4 01:19:45 PM EDT > Notes: well controlled??2.?Chronic hypotension? Notes: is on metoprolol for her heart rate. not on amlodipine??3.?SunDown syndrome? Notes: does not want meds for it. told him not to argue with her?? * Procedure Codes:?99046 ASSAY , GLUCOSE, BLOOD QUANT, Modifiers: QW 60265 GLYCATED HEMOGLOBIN TEST, Modifiers: QW * * Sign off status: Completed true * Provider:?Raffaele Saldana MD Date:?0 03/23/2024 Generated for Pilyi ng/Niko/eTransmitting on:?07/29/2024 01:03 PM EST History and Physical Notes * HPI (History of Present Illness) Category Sub-Category Detail Notes Category Not es Symptom(s) patient is a 88 yo female here for 3 month follow up visit, has sundowning after supper every day. Examination Category Sub-Category Detail Notes Category Not es General Examination GENERAL APPEARANCE: alert, w ell hydrated, in no distress , elderly, female HEAD: normocephalic HEART: regular rate and rhy thm, no murmurs, rubs, gallops LUNGS: no wheezes, rales, r honchi, good air movement, clear to auscultation bilaterally SKIN: good turgor
--- OUTSIDE RECORDS SUMMARY | 2024-07-29 13:04 | XMS_ITS ---
Author Organization Raffaele Saldana MD Address [address] [place], [place] [id number] Care Team Providers Care Application Design Engineer Name Role Phone Raffaele Saldana Primary Care Provider Results Component Value Reference Range Notes Complete Blood Count Auto Di ff Reviewed date:06/15/2024 05:10:59 PM Interpretation: Performing Lab:[facility], [address] [place] [phone] Notes/Report: White Blood Count 8.5 4.8-10.8 X10*3/uL Red Blood Count 5.04 4.20-5.50 X10*6/uL Hemoglobin 14.8 12.0-16.0 g/dl Hematocrit 45.1 37.0-47.0 % Mean Corpuscular Volume 89.5 80.0-98.0 fL Mean Corpuscular Hemoglobin 29.4 27.0-33.0 pg Mean Corpuscular HGB Conc 32.8 31.0-35.0 g/dl Red Cell Distribution Width 12.8 11.0-16.0 % Platelet Count 175 160-400 X10*3/uL Mean Platelet Volume 11.3 9.4-12.3 fL Neutrophils Percent Auto 54.4 45-73 % Imm Gran Pct Auto 0.5 0.0-0.4 % Lymphocytes Percent Auto 35.0 20-40 % Monocytes Percent Auto 7.4 2-11 % Eosinophils Percent Auto 2.2 0-4 % Basophils Percent Auto 0.5 0-2 % NRBC Pct Auto 0.2 0.0-0.2 /100WBC Neutrophils Absolute Auto 4.6 2.0-8.3 x10*3/u L Imm Gran Abs Auto 0.04 0.00-0.03 X10*3/uL Lymphocytes Absolute Auto 3.0 1.2-4.9 X10*3/u L Monocytes Absolute Auto 0.6 0.1-1.2 X10*3/uL Eosinophils Absolute Auto 0.2 0.0-0.4 X10*3/u L Basophils Absolute Auto 0.0 0.0-0.2 X10*3/uL NRBC Abs Auto 0.020 0.0-0.012 X10*3/uL Comprehensive [place]. Panel Fa st Reviewed date:06/15/2024 05:06:02 PM Interpretation: Performing Lab:[facility], [address] [place] [phone] Notes/Report: Sodium 141 135-145 mmol/L Potassium 3.5 3.3-5.1 mmol/L Mild Hemolysi s.Interpret result with caution Chloride 105 96-108 mmol/L Carbon Dioxide 25 22-29 mmol/L Anion Gap 15 12-20 Blood Urea Nitrogen 20 9-16 mg/dL Creatinine 0.96 0.5-1.4 mg/dL Estimated Glomerular Filt Rate 55 Chronic Kidney Disease: Estimated GFR < 60 mL/min/1.73m2 Severe Kidney Disease: Estimated GFR < 15 mL/min/1.73m2 Glucose Fasting 170 60-99 mg/dL A fasting glucose of 126 mg/dl or greater on more than one occasion is considered diagnostic of diabetes. Calcium 8.9 8.4-10.2 mg/dL Bilirubin Total 0.7 0.0-1.0 mg/dL Slight Icte cadence. Aspartate Amino Transferase 26 5-31 U/L Mild Hemolysis.Interpret result with caution Alanine Aminotransferase 15 0-31 U/L Total Protein 7.0 6.5-8.0 g/dL Mild Hemolysis .Interpret result with caution Albumin Level 4.0 3.5-5.0 g/dL Alkaline Phosphatase 71 39-117 U/L IRON PROFILE Reviewed date:06/15/2024 05:09:04 PM Interpretation: Performing Lab:[facility], [address] [place] [phone] Notes/Report: Iron 125 30-160 mcg/dL Mild Hemolysis .Interpret result with caution Total Iron Binding Capacity 283 228-428 mcg/d L Percent Iron Saturation 44 15-50 % Unsaturated Iron Binding 158 Mil d Hemolysis.Interpret result with caution. Lipid Panel Reviewed date:06/15/2024 03:23:36 PM Interpretation: Performing Lab:[facility], [address] [place] [phone] Notes/Report: Triglycerides 88 <150 mg/dL Desirable Triglyceride: less than 150 mg/dL Borderline High Triglyceride 150-199 mg/dL High Triglyceride: 200-499 mg/dL Very High Triglyceride: greater than or equal to 5OO mg/dL Cholesterol 165 <200 mg/dL Desirable Cholesterol: less than 200 mg/dL Borderline High Cholesterol: 200-239 mg/dL High Cholesterol: greater than 239 mg/dL LDL Cholesterol Calculated 82 <100 mg/dL Desirable LDL: less than 100 mg/dL Near Optimal/Above Optimal LDL: 110-129 mg/dL Borderline High LDL: 130-159 mg/dL High LDL: 160-189 mg/dL Very High LDL: greater than or equal to 190 mg/dL HDL Cholesterol 66 >40 mg/dL Desirable HDL: greater than 40 mg/dL Note: This HDL assay may give artificially low results in patients with liver disease. Microalbumin, Random Reviewed date:06/15/2024 05:09:14 PM Interpretation: Performing Lab:[facility], [address] [place] [phone] Notes/Report: Creatinine Urine 106.68 Microalbumin Urine 1365.0 Microalbum/Creatinine Ratio Ur 1279.5 <30 ug/mg cr Albumin/Creatinine Ratio Reference Ranges: Normal: < 30 ug/mg creatinine Microalbuminuria: 30 - 300 ug/mg creatinine Clinical Albuminuria: > 300 ug/mg creatinine Hemoglobin A1c Reviewed date:06/15/2024 05:04:00 PM Interpretation: Performing Lab:[facility], [address] [place] [phone] Notes/Report: Hemoglobin A1c % 7.4 <6.0 % Hemoglobin A1C Reference Range Adults: 4.8 - 6.0 % Non diabetic: < 6.0 % Goal: < 7.0 % Additional Action Suggested: > 8.0 % Note: Hemoglobin A1c results are invalid for patients with abnormal amounts of HbF. Blood transfusions may impact the HbA1c concentration in the patient sample. Estimated Average Glucose 166 eAG = Estimated average glucose which is %A1C expressed as average glucose, using the formula of the O1R-Bemzkvl Average Glucose study (ADAG), Diabetes Care, Vol.31,#8, Jan. 2007 UA ClnCatch+Micro w/rflx Cul t Reviewed date:06/15/2024 05:13:58 PM Interpretation: Performing Lab:[facility], [address] [place] [phone] Notes/Report: Urine, Clean Catch Color Urine Yellow Appearance Urine Clear PH 6.0 5.0-9.0 Glucose Urine UA Negative Negative mg/dL Urine Blood Negative Negative Specific Morgan - Urine 1.025 1.005-1.025 Urine Protein 100 (2+) Neg-Trace mg/dL Urine Ketones Negative Negative mg/dL Nitrite Urine Negative Negative Leukocyte Esterase Urine Small (1+) Negative RBC Urine 0-2 0-2 /HPF WBC Urine 11-20 0-5 /HPF Squamous Epithelial Cell Urine 0-2 0-2 /HPF Bacteria Urine None Seen None Seen Hyaline Casts Urine 0-2 0-2 /LPF REASON FOR VISIT yearly fasting labs Encounters Encounter Location Date Provider Diagnosis Raffaele Saldana MD [address] [place] [address] [address] [place], [place] [phone] 06/15/2024 Raffaele Saldana Hypertension I10 ; Diabetes type 2, controlled E11.9 ; Iron deficiency anemia, unspecified iron deficiency anemia type D50.9 ; Acute congestive heart failure, unspecified congestive heart failure type I50.9 and Pure hypercholesterolemia E78.00 Assessments Encounter Date Diagnosis (ICD Code) Assessment Notes Treatment Notes Treatment Clinical Notes Section Notes 06/15/2024 Hypertension (ICD-10 - I10) 06/15/2024 Diabetes type 2, controlled (ICD-10 - E11.9) 06/15/2024 Iron deficiency anem ia, unspecified iron deficiency anemia type (ICD-10 - D50.9) 06/15/2024 Acute congestive hea rt failure, unspecified congestive heart failure type (ICD-10 - I50.9) 06/15/2024 Pure hypercholesterolemia (ICD-10 - E78.00) Plan Of Treatment Next Appt Details Provider Name:Raffaele Acuna ier, 12/18/2024 07:45:00 AM, [address], [address], [place], [phone], Provider Name:Raffaele Acuna ier, 12/24/2024 01:30:00 PM, [address], [address], [place], [phone], Provider Name:Raffaele Acuna ier, 07/16/2025 07:15:00 AM, [address], [address], [place], [phone], Provider Name:Raffaele Acuna ier, 07/23/2025 01:00:00 PM, [address], [address], [place], [phone], Progress Notes * Loren MATUTE MDOB:1935 (88 yo F)Acc No.[id number]:06/15/2024 Progress Note Patient:?Loren MATUTE Provider:?Raffaele Saldana MD :1935???Age:88 Y???Sex:Female D ate:06/15/2024 Address:[address] [place] [address], [place], [id number] Subjective: * Chief Complaints: * ???1. Yearly fasting labs. * Medical History:? Objective: * Vitals:? Assessment: * Assessment: 1.?Hypertension - I10 (Prima ry)???2.?Diabetes type 2, controlled - E11.9???3.?Iron deficiency anemia, unspecified iron deficiency anemia type - D50.9???4.?Acute congestive heart failure, unspecified congestive heart failure type - I50.9???5.?Pure hypercholesterolemia - E78.00??? Plan: * Treatment: 2.?Diabetes type 2, controll ed?LAB: Complete Blood Count Auto Diff (Collection Date & Time - 06/15/2024 07:15 AM) ?LAB: Comprehensive [place]. Panel Fast (Collection Date & Time - 06/15/2024 07:15 AM) ?LAB: IRON PROFILE (Collection Date & Time - 06/15/2024 07:15 AM) ?LAB: Lipid Panel (Collection Date & Time - 06/15/2024 07:15 AM) ?LAB: Microalbumin, Random (Collection Date & Time - 06/15/2024 07:15 AM) ?LAB: Hemoglobin A1c (Collection Date & Time - 06/15/2024 07:15 AM) ?LAB: UA ClnCatch+Micro w/rflx Cult (Collection Date & Time - 06/15/2024 07:15 AM) 3.?Iron deficiency anemia, u nspecified iron deficiency anemia type?LAB: Complete Blood Count Auto Diff (Collection Date & Time - 06/15/2024 07:15 AM) ?LAB: Comprehensive [place]. Panel Fast (Collection Date & Time - 06/15/2024 07:15 AM) ?LAB: IRON PROFILE (Collection Date & Time - 06/15/2024 07:15 AM) ?LAB: Lipid Panel (Collection Date & Time - 06/15/2024 07:15 AM) ?LAB: Microalbumin, Random (Collection Date & Time - 06/15/2024 07:15 AM) ?LAB: Hemoglobin A1c (Collection Date & Time - 06/15/2024 07:15 AM) ?LAB: UA ClnCatch+Micro w/rflx Cult (Collection Date & Time - 06/15/2024 07:15 AM) 4.?Acute congestive heart fa ilure, unspecified congestive heart failure type?LAB: Complete Blood Count Auto Diff (Collection Date & Time - 06/15/2024 07:15 AM) ?LAB: Comprehensive [place]. Panel Fast (Collection Date & Time - 06/15/2024 07:15 AM) ?LAB: IRON PROFILE (Collection Date & Time - 06/15/2024 07:15 AM) ?LAB: Lipid Panel (Collection Date & Time - 06/15/2024 07:15 AM) ?LAB: Microalbumin, Random (Collection Date & Time - 06/15/2024 07:15 AM) ?LAB: Hemoglobin A1c (Collection Date & Time - 06/15/2024 07:15 AM) ?LAB: UA ClnCatch+Micro w/rflx Cult (Collection Date & Time - 06/15/2024 07:15 AM) 5.?Pure hypercholesterolemia ?LAB: Complete Blood Count Auto Diff (Collection Date & Time - 06/15/2024 07:15 AM) ?LAB: Comprehensive [place]. Panel Fast (Collection Date & Time - 06/15/2024 07:15 AM) ?LAB: IRON PROFILE (Collection Date & Time - 06/15/2024 07:15 AM) ?LAB: Lipid Panel (Collection Date & Time - 06/15/2024 07:15 AM) ?LAB: Microalbumin, Random (Collection Date & Time - 06/15/2024 07:15 AM) ?LAB: Hemoglobin A1c (Collection Date & Time - 06/15/2024 07:15 AM) ?LAB: UA ClnCatch+Micro w/rflx Cult (Collection Date & Time - 06/15/2024 07:15 AM) * Procedure Codes:?17288 VENIP UNCT, ROUTINE* * * The named appointment provid er may or may not be the originator of this progress note, and it is not deemed complete until electronically signed by the appointment provider. Sign off status: Pending * Provider:?Raffaele Saldana MD Date:?1 08/16/2023 Generated for Lio phillip/Niko/eTransmitting on:?07/29/2024 01:03 PM EST
--- OUTSIDE RECORDS SUMMARY | 2024-07-29 13:04 | XMS_ITS | Patient Health Record ---
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 Name Role Phone Raffaele Saldana MD Primary Care Provider Jose Bowser Unavailable [phone] ALLERGIES Allergen (clinical drug ingredient) Drug/Non Drug Allergy documented on EMR Reaction Allergy Type Onset Date Status ATCH (uncoded) Unknown Allergy Activ e REASON FOR REFERRAL No Information MEDICATIONS Medication SIG (Take, Route, Frequency, Duration) Notes Start Date End Date Status Mucinex 600 MG 1 tablet as needed Orally every 12 hrs Active Omeprazole 40 MG Oral for 90 A ctive Atorvastatin Calcium 10 MG 1 tablet Oral ly Once a day for 30 day(s) Active Advair Diskus 250-50 MCG/DOSE Inhalation for 90 Active Iron (Ferrous Sulfate) 325 (65 Fe) MG 1 tablet Orally TWICE a day Active Furosemide 20 MG Oral for 90 A ctive Calcium 600 MG with D 1 tablet with meals Orally Once a day Active metFORMIN HCl 500 MG Oral for 90 Active PreserVision AREDS 2 Active Latanoprost 0.005 % Ophthalmic for 70 Active Potassium Chloride ER 8 MEQ 1 tablet with food Orally Once a day Active Brimonidine Tartrate 0.2 % INSTILL 1 ADAM P IN BOTH EYES TWICE DAILY Ophthalmic for 75 Active Metoprolol Tartrate 50 MG Oral for 90 Active Memantine HCl 10 MG Oral for 90 Active Xarelto 20 MG Oral for 90 Acti ve Valsartan 160 MG 1 tablet Orally Once a day Active Aspir-81 Not-Taking Levothyroxine Sodium 50 MCG Oral for 90 Active IMMUNIZATIONS Vaccine Route Administration Date Status Comme nts Influenza Unknown 03/01/2021 Administered Influenza Unknown 03/01/2022 Administered SOCIAL HISTORY Sex Assigned At : Social History Observation Description Sex Assigned At Unknown PROBLEMS Problem Type ICD Code Onset Dates Problem Status W/U Status Risk SNOMED Code Notes Problem Iron deficiency anemia (D50.9) Active confirmed Iron deficien cy anemia (97192717) Problem Gastric polyp (K31.7) Active confirmed Gastric polyp (91956809) Problem Microcytic anemia (D50.9) Active confirmed 862119138 Problem Iron deficiency anemia, unspecified iron deficiency anemia type (D50.9) Active confirmed 57669868 Problem Diarrhea, unspecified type (R19.7) Active confirmed 15905088 Problem Diverticulosis of colon (K57.30) Active confirmed Diverticulosi s of colon (826074902) PLAN OF TREATMENT Pending Test Test Name Order Date IRON + IBC (FE) 10/11/2021 IRON + IBC (FE) 09/05/2021 CBC w DIFF 10/11/2021 CBC w DIFF 09/05/2021 STOOL WBC 06/21/2022 OVA & PARASITES (O&P) 06/21/2022 STOOL WBC 07/05/2022 C DIFFICILE RFLX PCR 07/05/2022 Ferritin 10/11/2021 Calprotectin, Fecal 07/05/2022 Future Test Test Name Order Date UPPER GI ENDOSCOPY 02/19/2013 UPPER GI ENDOSCOPY 09/05/2021 COLONOSCOPY 09/05/2021 Insurance Providers Payer Name Payer Address Payer Phone Subscriber Number Group Number Insured Name Patient Relationship to Insured Coverage Start Date Coverage End Date MEDICARE OF [place] [address] [place] [address] [phone] [id number] ALEX MATUTE Self - patient is the insured [employer] ATT[employer] CLAIMS [address] [place] [address] [phone] [id number] ALEX MATUTE Self - patient is the insured MEDICAL (GENERAL) HISTORY Medical History History ICD Code Colonoscopy 02-10-2009--tubular adenoma r emoved EGD 10-28-2007-small gastric ulcer-bx neg for H.pylori--she had a followup endoscopy in January of 2008 revealing healing of the ulcer Hospitalized in 12/2012 with abdominal pain and CT suggestive of inflammatory changes and ? perforation near 3rd portion of duodenum-trated by Dr. Alatorre with NG tube and antibiotics-no surgery required Colon polyps--tubular adenoma removed in 2003 and 2008 Hypertension COPD Denies [place],CVA,renal disease Hypothyroidism Afib--she is followed by a c ardiologist in [place], where she resides for the winter--She sees Dr. Plascencia as well Dementia EGD 03/2013-milkd gastritis, neg. Hpylori , small hiatal hernia NIDDM Iron def anemia-Colonoscopy 09/2021 was negative, EGD was unremarkable including duodenal biopsies negative for celiac disease and negative gastric biopsies for H.pylori Surgical History Surgery Date(Month/Year) appendectomy hysterectomy and removal of 1 ovary cholecystectomy
== END 2024-07-29 11:22 | disposition home or self-care (01) ==
PROVIDERS: PCP Internal Medicine; Visit Provider Internal Medicine Cardiovascular Disease
DX: I50.9 Heart failure, unspecified (principal); I48.20 Chronic atrial fibrillation, unspecified; I10 Essential (primary) hypertension
CPT/HCPCS: 93010; 99214; G2211

== ENCOUNTER 2024-10-05 12:00 | Outpatient (REF) | payer MEDICARE, MEDICAID, SELFPAY ==
--- OUTSIDE RECORDS SUMMARY | 2024-10-05 14:26 | XMS_ITS ---
Author Organization Raffaele Saldana MD Address [address] [place], [place] [phone] Care Team Providers Care Oil Gas And Pipe Tester Name Role Phone Raffaele Saldana Primary Care [...] Location Date Provider Diagnosis Raffaele Saldana MD [address] [place] [address] [place] [phone] 06/25/2024 Raffaele Saldana Hypertension I10 ; Diabetes [...] [address], [address], [place], [phone], Provider Name:Raffaele Acuna my, 12/24/2024 01:30:00 PM, [address], [address], [place], [phone], Provider Name:Raffaele Manpreet Kalpana pepe, 07/16/2025 07:15:00 AM, [address], [address], [place], [phone], Provider Name:Raffaele Acuna my, 07/23/2025 01:00:00 PM, [address], [address], [place], [phone], Progress Notes * Loren MATUTE MDOB:1935 (88 yo F)Acc No.[id number]:06/25/2024 Patient:?Loren Matute Provider:?Raffaele Saldana MD :1935???Age:88 Y???Sex:Female D ate:06/25/2024 Address:[address] [place] [address], [place], [id number] Subjective: * Chief Complaints: * ???Review labsAccompanied [...] , 1 daughter(s) . .? 1 brother [place] 1 daughter 1 son airplane crashand 1 [...] A DAY WITH MEALS Orally [facility] Test - Strip USE TO [...] mg/dL ?Urine Blood Negative Negative - ?Specific [place] - Urine 1.025 1.005-1.025 - ?Urine Protein [...] Casts Urine 0-2 0-2 - /LPF ???Lab:[facility]prehensive [place]. P aiden Fast (Order Date - 06/15/2024) [...] stabke, will contiue current regiment?? 6.?Atrial fibrillation, chromium plater selena? Continue Digoxin Tablet, 125 MCG, 1 [...] MD Date:?1 08/26/2023 Generated for Lio phillip/Niko/eTransmitting on:?10/05/2024 02:26 PM EDT History and Physical Notes * HPI [...]
--- OUTSIDE RECORDS SUMMARY | 2024-10-05 14:27 | XMS_ITS | Patient Health Record ---
Author Organization [facility] Address [address] [place] [phone] Care Team Providers Care Terra Cotta Roofer Name Role Phone Raffaele Saldana MD Primary Care Provider Jose Bowser Unavailable [phone] Allergies Allergen (clinical drug ingredient) Drug/Non Drug Allergy documented on EMR Reaction Allergy Type Onset Date Status ATCH (uncoded) Unknown Allergy Activ e Reason For Referral No Information Medications Medication [...] Sodium 50 MCG Oral for 90 Active Immunizations Vaccine Route Administration Date Status Comme nts Influenza Unknown 03/01/2021 Administered Influenza Unknown 03/01/2022 Administered Problems Problem Type SNOMED Code ICD Code Onset Dates Problem Status W/U Status Risk Notes Problem Iron deficiency anemia (40273010) Iron deficiency anemia (D50.9) Active confirmed Problem Gastric polyp (57626914) Gastric polyp (K31.7) Active confirmed Problem 327703479 Microcytic anemi a (D50.9) Active confirmed Problem 06762185 Iron deficiency anemia, unspecified iron deficiency anemia type (D50.9) Active confirmed Problem 18929393 Diarrhea, unspecified type (R19.7) Active confirmed Problem Diverticulosis of colon (090921320) Diverticulosis of colon (K57.30) Active confirmed Plan Of Treatment Pending Test Test Name Order Date IRON + IBC (FE) 09/05/2021 IRON + IBC (FE) 10/11/2021 CBC w DIFF 09/05/2021 CBC w DIFF 10/11/2021 STOOL WBC 06/21/2022 OVA & PARASITES (O&P) [...] Date MEDICARE OF [place] [address] [place] [address] [id number] ALEX MATUTE Self - patient is the insured [employer] ATT[employer] CLAIMS [address] [place] [address] [id number] ALEX MATUTE Self - patient is the insured Medical (General) History Medical History History ICD Code Colonoscopy 02-10-2009--tubular [...] in 2003 and 2008 Hypertension COPD Denies [place],CVA,renal disease Hypothyroidism Afib--she is followed by a c ardiologist in [place], where she resides for the winter--She sees Dr. Plascencia as well Dementia EGD 03/2013-milkd gastritis, neg. Hpylori , small hiatal hernia NIDDM Iron def anemia-Colonoscopy 09/2021 was negative, EGD was unremarkable including duodenal biopsies negative for celiac disease and negative gastric biopsies for H.pylori Surgical History Surgery Date(Month/Year) appendectomy hysterectomy and removal of 1 ovary cholecystectomy
--- OUTSIDE RECORDS SUMMARY | 2024-10-05 14:27 | XMS_ITS ---
Author Organization Raffaele Saldana MD Address [address] [place], [place] [phone] Care Team Providers Care Physical Education Specialist Name Role Phone Raffaele Saldana Primary [...] Problem Status W/U Status Risk Notes Problem 673024107 SunDown syndrome (F05) Active confirmed Vital Signs Blood pressure systolic 92 mm Hg 03/23/20 24 Blood pressure diastolic 60 mm Hg 024 Height 62 in 03/23/2024 Weight 102 lbs 03/23/2024 BMI 18.65 kg/m2 03/23/2024 Encounters Encounter Location Date Provider Diagnosis Raffaele Saldana MD [address] [place] [address] [place] [phone] 03/23/2024 Raffaele Saldana Diabetes type 2, controlled [...] Details Provider Name:Raffaele pepe, 12/18/2024 07:45:00 AM, [address] [place] [address], [address], [phone], Provider Name:Raffaele pepe, 12/24/2024 01:30:00 PM, [address] [place] [address], [address], [phone], Provider Name:Raffaele pepe, 07/16/2025 07:15:00 AM, [address] [place] [address], [address], [phone], Provider Name:Raffaele whiter, 07/23/2025 01:00:00 PM, [address] [place] [address], [address], [phone], Progress Notes * Loren MATUTE MDOB:1935 (88 yo F)Acc No.[id number]:03/23/2024 Progress Notes Patient:?Loren Matute Provider:?Raffaele Saldana MD :1935???Age:88 Y???Sex:Female D ate:03/23/2024 Address:[address] [place] [address], [facility] [place], [id number] Subjective: * Chief Complaints: * ???3 monthAccompanied [...] not to argue with her?? * Procedure Codes:?78781 ASSAY , GLUCOSE, BLOOD QUANT, Modifiers: QW 42119 GLYCATED HEMOGLOBIN TEST, Modifiers: QW * * Sign off status: Completed true * Provider:?Raffaele Saldana MD Date:?0 03/23/2024 Generated for Pilyi ng/Niko/eTransmitting on:?10/05/2024 02:26 PM EDT History and Physical [...]
--- OUTSIDE RECORDS SUMMARY | 2024-10-05 14:27 | XMS_ITS ---
Author Organization Raffaele Saldana MD Address [address] [place], [place] [phone] Care Team Providers Care Central Sterile Technician Name Role Phone Raffaele Saldana Primary Care Provider Results Component Value Reference Range Notes Complete Blood Count Auto Di ff Reviewed date:06/15/2024 05:10:59 PM Interpretation: Performing Lab:[facility], [address] [place] [phone] Notes/Report: White Blood Count 8.5 4.8-10.8 X10*3/uL [...] NRBC Abs Auto 0.020 0.0-0.012 X10*3/uL Comprehensive [place]. Panel Fa st Reviewed date:06/15/2024 05:06:02 PM Interpretation: Performing Lab:[facility], [address] [place] [phone] Notes/Report: Sodium 141 135-145 mmol/L Potassium 3.5 [...] PROFILE Reviewed date:06/15/2024 05:09:04 PM Interpretation: Performing Lab:[facility], [address] [place] [phone] Notes/Report: Iron 125 30-160 mcg/dL Mild Hemolysis .Interpret result with caution Total Iron Binding Capacity 283 228-428 mcg/d L Percent Iron Saturation 44 15-50 % Unsaturated Iron Binding 158 Mil d Hemolysis.Interpret result with caution. Lipid Panel Reviewed date:06/15/2024 03:23:36 PM Interpretation: Performing Lab:[facility], [address] [place] [phone] Notes/Report: Triglycerides 88 <150 mg/dL Desirable Triglyceride: [...] Random Reviewed date:06/15/2024 05:09:14 PM Interpretation: Performing Lab:[facility], [address] [place] [phone] Notes/Report: Creatinine Urine 106.68 Microalbumin Urine 1365.0 Microalbum/Creatinine Ratio Ur 1279.5 <30 ug/mg cr Albumin/Creatinine Ratio Reference Ranges: Normal: < 30 ug/mg creatinine Microalbuminuria: 30 - 300 ug/mg creatinine Clinical Albuminuria: > 300 ug/mg creatinine Hemoglobin A1c Reviewed date:06/15/2024 05:04:00 PM Interpretation: Performing Lab:[facility], [address] [place] [phone] Notes/Report: Hemoglobin A1c % 7.4 <6.0 % [...] average glucose, using the formula of the O5Y-Ewxwlju Average Glucose study (ADAG), Diabetes Care, Vol.31,#8, Jan. 2007 UA ClnCatch+Micro w/rflx Cul t Reviewed date:06/15/2024 05:13:58 PM Interpretation: Performing Lab:[facility], [address] [place] [phone] Notes/Report: Urine, Clean Catch Color Urine Yellow Appearance Urine Clear PH 6.0 5.0-9.0 Glucose Urine UA Negative Negative mg/dL Urine Blood Negative Negative Specific [place] - Urine 1.025 1.005-1.025 Urine Protein 100 [...] Location Date Provider Diagnosis Raffaele Saldana MD [address] [place] [address] [address] [place], [place] [phone] 06/15/2024 Raffaele Saldana Hypertension I10 ; Diabetes [...] [address], [address], [place], [phone], Provider Name:Raffaele Acuna ier, 12/24/2024 01:30:00 PM, [address], [address], [place], [phone], Provider Name:Raffaele Acuna ier, 07/16/2025 07:15:00 AM, [address], [address], [place], [phone], Provider Name:Raffaele Acuna ier, 07/23/2025 01:00:00 PM, [address], [address], [place], [phone], Progress Notes * Loren MATUTE MDOB:1935 (89 yo F)Acc No.[id number]:06/15/2024 Progress Note Patient:?Loren MATUTE Provider:?Raffaele Saldana MD :1935???Age:88 Y???Sex:Female D ate:06/15/2024 Address:[address] [place] [address], [phone] Subjective: * Chief Complaints: * ???1. Yearly [...] Time - 06/15/2024 07:15 AM) ?LAB: [facility] [place]. Panel Fast (Collection Date & Time - [...] Time - 06/15/2024 07:15 AM) ?LAB: [facility] [place]. Panel Fast (Collection Date & Time - [...] Time - 06/15/2024 07:15 AM) ?LAB: [facility] [place]. Panel Fast (Collection Date & Time - [...] Time - 06/15/2024 07:15 AM) ?LAB: [facility] [place]. Panel Fast (Collection Date & Time - [...] Time - 06/15/2024 07:15 AM) * Procedure Codes:?79732 VENIP UNCT, ROUTINE* * * The named appointment provid er may or may not be the originator of this progress note, and it is not deemed complete until electronically signed by the appointment provider. Sign off status: Pending * Provider:?Raffaele Saldana MD Date:?1 08/16/2023 Generated for Lio phillip/Niko/eTransmitting on:?10/05/2024 02:27 PM EDT
== END 2024-10-05 12:01 | disposition home or self-care (01) ==
LOC: HO.MAMMO 12:00
PROVIDERS: PCP Internal Medicine; Visit Provider Internal Medicine
DX: Z12.31 Encounter for screening mammogram for malignant neoplasm of breast (principal)
CPT/HCPCS: 77063; 77067

== ENCOUNTER → 2024-10-05 12:30 | Outpatient (BNV) | payer MEDICARE, MEDICAID, SELFPAY | PROVIDERS: PCP Internal Medicine; Visit Provider Internal Medicine | DX: Z12.31 Encounter for screening mammogram for malignant neoplasm of breast (principal) | CPT/HCPCS: 77063; 77067 ==

== ENCOUNTER 2024-12-21 10:17 | Outpatient (REF) | payer MEDICARE, MEDICAID, SELFPAY ==
--- OUTSIDE RECORDS SUMMARY | 2024-06-25 09:30 | XMS_ITS ---
Author Organization Rfafaele Saldana MD Address [address] [place], [place] [id number] Care Team Providers Care Marketing Graphics Specialist Name Role Phone Raffaele Saldana Primary Care [...] Location Date Provider Diagnosis Raffaele Saldana MD [address] [place] [address] [place] [phone] 06/25/2024 Raffaele Saldana Hypertension I10 ; Diabetes [...] 6 Months, Reason: Provider Name:Raffaele Acuna ier, 12/24/2024 01:30:00 PM, [address], [address], [place], [phone], Provider Name:Raffaele Acuna ier, 07/16/2025 07:15:00 AM, [address], [address], [place], [phone], Provider Name:Raffaele Acuna ier, 07/23/2025 01:00:00 PM, [address], [address], [place], [phone], Progress Notes * Loren MATUTE MDOB:1935 (88 yo F)Acc No.[id number]:06/25/2024 Patient: Raheem morrison Loren Raheem Provider: Lolly Saldana MD :1935 A ge:88 Y S ex:Female Date:06/25/2024 Address:[address] [place] [address], [place], [id number] Subjective: * Chief Complaints: * R eview [...] , 1 daughter(s) . . 1 brother DC 1 daughter 1 son airplane crashand 1 [...] MG Tablet 1 tablet Orally [facility] Lancets - Miscellaneous USE TO TEST DAILY [...] A DAY WITH MEALS [facility]ally [facility] Test - Strip USE TO TEST BLOOD [...] mg/dL Urine Blood Negative Negative - Specific [place] - Urine 1.025 1.005-1.025 - Urine Protein [...] Urine 0-2 0-2 - /LPF L ab:Comprehensive [place]. Panel Fast (Order Date - 06/15/2024) (Collection [...] Sign off status: Completed true * Provider: oLlly Saldana MD Date: 08/26/2023 Generated for Lio phillip/Niko/Catalinoitting on: 0 12/21/2024 11:27 AM EDT History and Physical Notes * [...] had two or more falls in the st year?: No Communication Needs Communication Needs Does [...]
[2024-12-21 11:21] LABS: Alanine Aminotransferase 8 U/L (0-31); Albumin Level 4.4 g/dL (3.5-5.0); Alkaline Phosphatase 63 U/L (39-117); Aspartate Amino Transferase 22 U/L (5-31); Bilirubin Direct 0.3 mg/dL (0.0-0.5); Bilirubin Total 0.9 mg/dL (0.0-1.0); Cholesterol 174 mg/dL (<200); HDL Cholesterol 66 mg/dL (>40); LDL Cholesterol Calculated 79 mg/dL (<100); Total Protein 7.1 g/dL (6.5-8.0); Triglycerides 145 mg/dL (<150)
[2024-12-21 13:38] LABS: Reflex LDLD? No
== END 2024-12-21 10:18 | disposition home or self-care (01) ==
LOC: HO.LNP 10:17
PROVIDERS: Visit Provider Internal Medicine
DX: E78.00 Pure hypercholesterolemia, unspecified (principal)
CPT/HCPCS: 80061; 80076

== ENCOUNTER 2025-02-02 10:48 | Outpatient (REF) | payer MEDICARE, MEDICAID, SELFPAY ==
[2025-02-02 12:14] LABS: Anion Gap 14 (12-20); Blood Urea Nitrogen 20 mg/dL (9-16); Calcium 9.4 mg/dL (8.4-10.2); Carbon Dioxide 27 mmol/L (22-29); Chloride 106 mmol/L (96-108); Estimated Glomerular Filt Rate 50; Potassium 3.7 mmol/L (3.3-5.1); Sodium 143 mmol/L (135-145)
[2025-02-02 12:23] LABS: Digoxin 0.3 ng/mL (0.8-2.0)
== END 2025-02-02 10:49 | disposition home or self-care (01) ==
LOC: HO.LAB 10:48
PROVIDERS: PCP Internal Medicine; Visit Provider Internal Medicine Cardiovascular Disease
DX: I48.20 Chronic atrial fibrillation, unspecified (principal); I50.9 Heart failure, unspecified
CPT/HCPCS: 36415; 80048; 80162; 99212

== ENCOUNTER 2025-02-02 10:48 | Outpatient (AMB) | payer MEDICARE, MEDICAID, SELFPAY ==
--- OUTSIDE RECORDS SUMMARY | 2024-06-25 09:30 | XMS_ITS ---
Author Organization Raffaele Saldana MD Address [address] [place], [place] [id number] Care Team Providers Care Weathercaster Name Role Phone Raffaele Saldana Primary Care Provider Allergies Allergen (clinical drug ingredient) Drug/Non Drug Allergy documented on EMR Reaction Allergy Type Onset Date Status hydrochlorothiazide HCTZ (uncoded) photosensitivity Allergy Active REASON FOR VISIT review labs, Accompanied by Medications Medication SIG (Take, Route, Frequency, Duration) Notes Start Date End Date Status Januvia 50 MG 1 tablet Orally Once a day for 90 days Not-Taking Digoxin 125 MCG 1 tablet Orally ever y other day Active Eliquis 2.5 MG as directed Orally Active Namenda Titration Carson 5 (28)-10 (21) MG as directed Orally 05/31/2014 Not-Ta frantz Valtrex 1 GM 2 tablets Orally juliet ry 12 hrs for 1 dose 09/18/2013 Not-Taking Ferrous Sulfate 325 (65 Fe) MG 1 tablet Orally Once a day Active Levothyroxine Sodium 75 MCG TAKE 1 TABLET EVERY MORNINGON AN EMPTY STOMACH Active Metoprolol Tartrate 50 MG TAKE 1 TABLET 2 TIMES DAILY WITH FOOD Active Digoxin 0.125MG TAKE 1 TABLET ONCE DAILY for 90 Not-Taking Potassium Chloride ER 8 MEQ TAKE 1 TABLET BY MOUTH EVERY DAY WITH FOOD for 90 Active FreeStyle Lite Test - USE TO TEST BLOOD SYUGAR ONCE DAILY for 90 Active metFORMIN HCl 500 MG TAKE 1TABLETS TWICE A DAY WITH MEALS Orally Once a day Active Atorvastatin Calcium 10 MG TAKE 1 TABLET ONCE DAILY Active Albuterol Sulfate HFA 108 (90 Base) MCG/ACT INHALE 2 PUFFS INTO THE LUNGS EVERY 4 HOURS NEEDED Active Omeprazole 40 MG TAKE 1 CAPSULE DAILY for 90 Active Furosemide 20 MG 1 2ablet Orally Once a day Active Meclizine HCl 12.5 MG TAKE 1 TABLET BY M OUTH EVERY DAY NEEDED for 30 Active Breo Ellipta 100-25 MCG/ACT 1 puff Inhalation Once a day 09/24/2023 Active Memantine HCl 10 MG TAKE 1 TABLET TWICE A DAY for 90 Active FreeStyle Lancets - USE TO TEST DAILY fo r 90 Active Betimol 0.5 % 1 drop into affected eye Ophthalmic twice a day Active Latanoprost 0.005 % 1 drop into affected eye in the evening Ophthalmic Once a day Active Social History Tobacco Use: Social History Observation Description Date Details (start date - stop date) Never Smoker NA - NA Tobacco Use/Smoking Question Answer Notes Patient is a nonsmoker Additional Findings: Tobacco Non-User Cu rrent non-smoker, currently using no form of tobacco Alcohol Screen Question Answer Notes Did you have a drink containing alcohol in the p ast year? No Points 0 Interpretation Negative Vital Signs Blood pressure systolic 122 mm Hg 06/25/20 24 Blood pressure diastolic 70 mm Hg 024 Height 62 in 06/25/2024 Weight 104 lbs 06/25/2024 BMI 19.02 kg/m2 06/25/2024 weight is up 2 pounds since 03-23-24 Encounters Encounter Location Date Provider Diagnosis Raffaele Saldana MD [address] [place] [address] [place] [phone] 06/25/2024 Raffaele Saldana Hypertension I10 ; Diabetes type 2, controlled E11.9 ; Pure hypercholesterolemia E78.00 ; Acute congestive heart failure, unspecified congestive heart failure type I50.9 ; Mild intermittent asthma without complication J45.20 ; Atrial fibrillation, chronic I48.20 ; Iron deficiency anemia, unspecified iron deficiency anemia type D50.9 and Hypothyroid E03.9 Assessments Encounter Date Diagnosis (ICD Code) Assessment Notes Treatment Notes Treatment Clinical Notes Section Notes 06/25/2024 Hypertension (ICD-10 - I10) good bp, will continue current regiment 06/25/2024 Diabetes type 2, controlled (ICD-10 - E11.9) doing well, will continue current regiment 06/25/2024 Pure hypercholesterolemia (ICD-10 - E78.00) well controlled, at goal, will continue current regiment 06/25/2024 Acute congestive hea rt failure, unspecified congestive heart failure type (ICD-10 - I50.9) stable, will cntinue current regiment 06/25/2024 Mild intermittent as thma without complication (ICD-10 - J45.20) stabke, will contiue current regiment 06/25/2024 Atrial fibrillation, chronic (ICD-10 - I48.20) stable, will contiue curent regiment 06/25/2024 Iron deficiency anem ia, unspecified iron deficiency anemia type (ICD-10 - D50.9) doing well, will continue current regiment 06/25/2024 Hypothyroid (ICD-10 - E03.9) stable, will continue current regiment Plan Of Treatment Medication Medication Name Sig Start Date Stop Date Notes Digoxin 125 MCG 1 tablet Orally ever y other day Eliquis 2.5 MG as directed Orally Ferrous Sulfate 325 (65 Fe) MG 1 tablet Orally Once a day Levothyroxine Sodium 75 MCG TAKE 1 TABLE T EVERY MORNINGON AN EMPTY STOMACH Metoprolol Tartrate 50 MG TAKE 1 TABLET 2 TIMES DAILY WITH FOOD metFORMIN HCl 500 MG TAKE 1TABLETS TWICE A DAY WITH MEALS Orally Once a day Atorvastatin Calcium 10 MG TAKE 1 TABLET ONCE DAILY Albuterol Sulfate HFA 108 (9 0 Base) MCG/ACT INHALE 2 PUFFS INTO THE LUNGS EVERY 4 HOURS NEEDED Furosemide 20 MG 1 2ablet Orally Once a day Breo Ellipta 100-25 MCG/ACT 1 puff Inhal ation Once a day 09/24/2023 Treatment Notes Assessment Notes Hypertension good bp, will contin ue current regiment Diabetes type 2, controlled doing well, will continue current regiment Pure hypercholesterolemia well controlle d, at goal, will continue current regiment Acute congestive heart failu re, unspecified congestive heart failure type stable, will cntinue current regiment Mild intermittent asthma without complic ation stabke, will contiue current regiment Atrial fibrillation, chronic stable, yumiko l contiue curent regiment Iron deficiency anemia, unsp ecified iron deficiency anemia type doing well, will continue current regiment Hypothyroid stable, will continu e current regiment Next Appt Details Follow Up: 6 Months, Reason: Provider Name:Raffaele Acuna ier, 07/16/2025 07:15:00 AM, [address], [address], [place], [phone], Provider Name:Raffaele Acuna ier, 07/23/2025 01:00:00 PM, [address], [address], [place], [phone], Progress Notes * Loren MATUTE MDOB:1935 (88 yo F)Acc No.[id number]:06/25/2024 Patient: Loren Vo Provider: Lolly Saldana MD :[id number] A ge:88 Y S ex:Female Date:06/25/2024 Address:[address] [place] [address], [facility] [place], [id number] Subjective: * Chief Complaints: * R eview labsAccompanied by * HPI: D epression Screening: PHQ-9 L ittle interest or pleasure in doing things N ot at all, F eeling down, depressed, or hopeless N ot at all, T rouble falling or staying asleep, or sleeping too much N ot at all, F eeling tired or having little energy N ot at all, P oor appetite or overeating N ot at all, F eeling bad about yourself or that you are a failure, or have let yourself or your family down N ot at all, T rouble concentrating on things, such as reading the newspaper or watching television N ot at all, M oving or speaking so slowly that other people could have noticed; or the opposite, being so fidgety or restless that you have been moving around a lot more than usual N ot at all, T houghts that you would be better off or of hurting yourself in some way N ot at all, T otal Score 0 . I nterpretation and Intervention D epression Screening Findings N egative, F ollow-Up for Depression : review of PHQ-9 found negative result, no follow-up needed. C ommunication Needs: Communication Needs D oes the patient have a hearing impairment N o, D oes the patient have a vision impairment? Y es, I f yes, what is the vision impairment? G lasses, D oes the patient have a cognition impairment? N o. F all Risk: History H ave you had any falls with injury in the past year? N o, H ave you had two or more falls in the past year? N o. S JULIET Questions: SDOH Questions I n the past year have you been worried about losing housing? N o, I n the past year have you or any family members you live with been unable to get any of the following when it was really needed? Check all that apply: N one. S ymptom(s): patient is a 88 yo female here for review of recent labs and follow upof chronic issues. * ROS: G eneral/Constitutional: Patient denies f atigue , headache. C hange in appetite?denies. C hills d enies. F ever d enies. O phthalmologic: Blurred vision d enies. D ischarge d enies. P ain d enies. E NT: Patient denies d ecreased sense of smell , any loss of taste , sore throat. D ecreased hearing d enies. S ore throat d enies. S wollen glands d enies. E ndocrine: Cold intolerance d enies. E xcessive thirst d enies. H eat intolerance d enies. W eight loss d enies. R espiratory: Cough d enies. S hortness of breath at rest d enies. S hortness of breath with exertion d enies. W heezing d enies. C ardiovascular: Chest pain at rest d enies. C hest pain with exertion?denies. I rregular heartbeat d enies. S hortness of breath d enies. ? G astrointestinal: Abdominal pain d enies. C hange in bowel habits d enies. D iarrhea d enies. N ausea d enies. R ectal bleeding d enies. V omiting d enies . G enitourinary: Blood in urine d enies. D ifficulty urinating d enies. F requent urination d enies. U rinary incontinence D enies. M usculoskeletal: Patient denies m uscle aches. P ainful joints d enies. W eakness d enies. P eripheral Vascular: Patient denies r ed and blue toes. S kin: Dry skin d enies. I tching d enies. D enies?Mole(s), changes in moles, new moles or any lesions of concern. D enies P hotosensitivity. R manjinder d enies. N eurologic: Dizziness d enies. F ainting d enies. H eadache?denies. * Medical History: * Surgical History: * Hospitalization/Major Diagno stic Procedure: * Family History: F ather: 76 yrs. M other: 63 yrs, diagnosed with Cancer. 1 brother(s) . 1 son(s) , 1 daughter(s) . . 1 brother [place] 1 daughter 1 son airplane crashand 1 son 24 hours after ., No pertinent family medical history, Denies mental health/substance abuse family history, No pertinent family medical history, No pertinent family medical history, No pertinent family medical history, Denies mental health/substance abuse family history. * Social History: T obacco Use: T obacco Use/Smoking P atient is a n onsmoker, A dditional Findings: Tobacco Non-User C urrent non-smoker, currently using no form of tobacco. D rugs/Alcohol: A lcohol Screen D id you have a drink containing alcohol in the past year? N o, P oints 0 , I nterpretation N egative. M iscellaneous: C affeine: yes, frequency:, 1 cup of tea per day. Children: yes. no Exercise. Home smoke detector use: yes. Housing: owning. Living with: spouse. Marital status: . Occupation: retired. Pets: none. no Travel outside of the [place]. * Medications: T akingBetimol 0.5 % Solution 1 drop into affected eye Ophthalmic twice a dayLatanoprost 0.005 % Solution 1 drop into affected eye in the evening Ophthalmic Once a dayFerrous Sulfate 325 (65 Fe) MG Tablet 1 tablet Orally Once a dayFreeStyle Lancets - Miscellaneous USE TO TEST DAILY Furosemide 20 MG Tablet 1 2ablet Orally Once a dayMeclizine HCl 12.5 MG Tablet TAKE 1 TABLET BY MOUTH EVERY DAY NEEDED Breo Ellipta 100-25 MCG/ACT Aerosol Powder Breath Activated 1 puff Inhalation Once a dayAlbuterol Sulfate HFA 108 (90 Base) MCG/ACT Aerosol Solution INHALE 2 PUFFS INTO THE LUNGS EVERY 4 HOURS NEEDED Atorvastatin Calcium 10 MG Tablet TAKE 1 TABLET ONCE DAILY Levothyroxine Sodium 75 MCG Tablet TAKE 1 TABLET EVERY MORNINGON AN EMPTY STOMACH Memantine HCl 10 MG Tablet TAKE 1 TABLET TWICE A DAY Digoxin 125 MCG Tablet 1 tablet Orally every other dayEliquis 2.5 MG Tablet as directed Orally Omeprazole 40 MG Capsule Delayed Release TAKE 1 CAPSULE DAILY metFORMIN HCl 500 MG Tablet TAKE 1TABLETS TWICE A DAY WITH MEALS Orally Once a dayFreeStyle Lite Test - Strip USE TO TEST BLOOD SYUGAR ONCE DAILY Metoprolol Tartrate 50 MG Tablet TAKE 1 TABLET 2 TIMES DAILY WITH FOOD Potassium Chloride ER 8 MEQ Tablet Extended Release TAKE 1 TABLET BY MOUTH EVERY DAY WITH FOOD Taking Betimol 0.5 % Solution 1 drop into affected eye Ophthalmic twice a dayTaking Latanoprost 0.005 % Solution 1 drop into affected eye in the evening Ophthalmic Once a dayTaking Ferrous Sulfate 325 (65 Fe) MG Tablet 1 tablet Orally Once a dayTaking FreeStyle Lancets - Miscellaneous USE TO TEST DAILY Taking Furosemide 20 MG Tablet 1 2ablet Orally Once a dayTaking Meclizine HCl 12.5 MG Tablet TAKE 1 TABLET BY MOUTH EVERY DAY NEEDED Taking Breo Ellipta 100-25 MCG/ACT Aerosol Powder Breath Activated 1 puff Inhalation Once a dayTaking Albuterol Sulfate HFA 108 (90 Base) MCG/ACT Aerosol Solution INHALE 2 PUFFS INTO THE LUNGS EVERY 4 HOURS NEEDED Taking Atorvastatin Calcium 10 MG Tablet TAKE 1 TABLET ONCE DAILY Taking Levothyroxine Sodium 75 MCG Tablet TAKE 1 TABLET EVERY MORNINGON AN EMPTY STOMACH Taking Memantine HCl 10 MG Tablet TAKE 1 TABLET TWICE A DAY Taking Digoxin 125 MCG Tablet 1 tablet Orally every other dayTaking Eliquis 2.5 MG Tablet as directed Orally Taking Omeprazole 40 MG Capsule Delayed Release TAKE 1 CAPSULE DAILY Taking metFORMIN HCl 500 MG Tablet TAKE 1TABLETS TWICE A DAY WITH MEALS Orally Once a dayTaking FreeStyle Lite Test - Strip USE TO TEST BLOOD SYUGAR ONCE DAILY Taking Metoprolol Tartrate 50 MG Tablet TAKE 1 TABLET 2 TIMES DAILY WITH FOOD Taking Potassium Chloride ER 8 MEQ Tablet Extended Release TAKE 1 TABLET BY MOUTH EVERY DAY WITH FOOD Not-Taking/PRNDigoxin 0.125MG Tablet TAKE 1 TABLET ONCE DAILY Januvia 50 MG Tablet 1 tablet Orally Once a dayNamenda Titration Carson 5 (28)-10 (21) MG Tablet as directed Orally Valtrex 1 GM Tablet 2 tablets Orally every 12 hrsMedication List reviewed and reconciled with the patientNot-Taking/PRN Digoxin 0.125MG Tablet TAKE 1 TABLET ONCE DAILY Not-Taking/PRN Januvia 50 MG Tablet 1 tablet Orally Once a dayNot-Taking/PRN Namenda Titration Carson 5 (28)-10 (21) MG Tablet as directed Orally Not-Taking/PRN Valtrex 1 GM Tablet 2 tablets Orally every 12 hrsMedication List reviewed and reconciled with the patient * Allergies: H CTZ: photosensitivityyes[Allergies Verified] Objective: * Vitals: H t: 62, Wt:104, BMI:19.02, BP:122/70 weight is up 2 pounds since 03-23-24. * P ast Orders: L ab:Complete Blood Count Auto Diff (Order Date - 06/15/2024) (Collection Date - 06/15/2024) Value Reference Range White Blood Count 8.5 4.8-10.8 - X10*3/uL Red Blood Count 5.04 4.20-5.50 - X10*6/uL Hemoglobin 14.8 12.0-16.0 - g/dl Hematocrit 45.1 37.0-47.0 - % Mean Corpuscular Volume 89.5 80.0-98.0 - fL Mean Corpuscular Hemoglobin 29.4 27.0-33.0 - pg Mean Corpuscular HGB Conc 32.8 31.0-35.0 - g/ dl Red Cell Distribution Width 12.8 11.0-16.0 - % Platelet Count 175 160-400 - X10*3/uL Mean Platelet Volume 11.3 9.4-12.3 - fL Neutrophils Percent Auto 54.4 45-73 - % Imm Gran Pct Auto 0.5 H 0.0-0.4 - % Lymphocytes Percent Auto 35.0 20-40 - % Monocytes Percent Auto 7.4 2-11 - % Eosinophils Percent Auto 2.2 0-4 - % Basophils Percent Auto 0.5 0-2 - % NRBC Pct Auto 0.2 0.0-0.2 - /100WBC Neutrophils Absolute Auto 4.6 2.0-8.3 - x10* 3/uL Imm Gran Abs Auto 0.04 H 0.00-0.03 - X10*3/uL Lymphocytes Absolute Auto 3.0 1.2-4.9 - X10* 3/uL Monocytes Absolute Auto 0.6 0.1-1.2 - X10*3/ uL Eosinophils Absolute Auto 0.2 0.0-0.4 - X10* 3/uL Basophils Absolute Auto 0.0 0.0-0.2 - X10*3/ uL NRBC Abs Auto 0.020 H 0.0-0.012 - X10*3/uL L ab:UA ClnCatch+Micro w/rflx Cult (Order Date - 06/15/2024) (Collection Date - 06/15/2024) Value Reference Range Color Urine Yellow - Appearance Urine Clear - PH 6.0 5.0-9.0 - Glucose Urine UA Negative Negative - mg/dL Urine Blood Negative Negative - Specific Davy - Urine 1.025 1.005-1.025 - Urine Protein 100 (2+) A Neg-Trace - mg/dL Urine Ketones Negative Negative - mg/dL Nitrite Urine Negative Negative - Leukocyte Esterase Urine Small (1+) A Negative - RBC Urine 0-2 0-2 - /HPF WBC Urine 11-20 A 0-5 - /HPF Squamous Epithelial Cell Urine 0-2 0-2 - /HPF Bacteria Urine None Seen None Seen - Hyaline Casts Urine 0-2 0-2 - /LPF L ab:Comprehensive [place]. Panel Fast (Order Date - 06/15/2024) (Collection Date - 06/15/2024) Value Reference Range Sodium 141 135-145 - mmol/L Bilirubin Total 0.7 0.0-1.0 - mg/dL Aspartate Amino Transferase 26 5-31 - U/L Alanine Aminotransferase 15 0-31 - U/L Total Protein 7.0 6.5-8.0 - g/dL Albumin Level 4.0 3.5-5.0 - g/dL Alkaline Phosphatase 71 39-117 - U/L Potassium 3.5 3.3-5.1 - mmol/L Chloride 105 96-108 - mmol/L Carbon Dioxide 25 22-29 - mmol/L Anion Gap 15 12-20 - Blood Urea Nitrogen 20 H 9-16 - mg/dL Creatinine 0.96 0.5-1.4 - mg/dL Estimated Glomerular Filt Rate 55 - Glucose Fasting 170 H 60-99 - mg/dL Calcium 8.9 8.4-10.2 - mg/dL L ab:Urine Culture (Order Date - 06/15/2024) (Collection Date - 06/15/2024) Value Reference Range Urine Culture urogenital contamination. - L ab:IRON PROFILE (Order Date - 06/15/2024) (Collection Date - 06/15/2024) Value Reference Range Iron 125 30-160 - mcg/dL Total Iron Binding Capacity 283 228-428 - mc g/dL Percent Iron Saturation 44 15-50 - % Unsaturated Iron Binding 158 - ug/dL L ab:Lipid Panel (Order Date - 06/15/2024) (Collection Date - 06/15/2024) Value Reference Range Triglycerides 88 <150 - mg/dL Cholesterol 165 <200 - mg/dL LDL Cholesterol Calculated 82 <100 - mg/dL HDL Cholesterol 66 >40 - mg/dL L ab:Microalbumin, Random (Order Date - 06/15/2024) (Collection Date - 06/15/2024) Value Reference Range Creatinine Urine 106.68 - mg/dL Microalbumin Urine 1365.0 - mg/L Microalbum Creatinine Ratio Ur 1279.5 H <30 - ug/mg cr L ab:Hemoglobin A1c (Order Date - 06/15/2024) (Collection Date - 06/15/2024) Value Reference Range Hemoglobin A1c % 7.4 H <6.0 - % Estimated Average Glucose 166 - mg/dL * Examination: G eneral Examination: GENERAL APPEARANCE: w ell developed, well nourished, in no acute distress. HEAD: n ormocephalic, atraumatic. EYES: p upils equal, round, reactive to light and accommodation, sclera non-icteric. EARS: n ormal. ORAL CAVITY: m ucosa moist. THROAT: c lear. NECK/THYROID: n juan carlos supple, full range of motion, no cervical lymphadenopathy, no bruits. SKIN: w arm and dry, no suspicious lesions. HEART: r egular rate and rhythm, S1, S2 normal, no murmurs.? LUNGS: c lear to auscultation bilaterally. BREASTS: N o mass, no lump. ABDOMEN: s oft, nontender, nondistended, bowel sounds present, normal, no organomegaly , no masses palpable. RECTAL EXAM: d eclined. FEMALE GENITOURINARY: n ot done. EXTREMITIES: n o clubbing, cyanosis, or edema. NEUROLOGIC: n onfocal, motor strength normal upper and lower extremities, sensory exam intact. Assessment: * Assessment: 1. H ypertension - I10 (Primary) 2 . D iabetes type 2, controlled - E11.9 3 . P ure hypercholesterolemia - E78.00 4 . A cute congestive heart failure, unspecified congestive heart failure type - I50.9 5 . M ild intermittent asthma without complication - J45.20?6. A trial fibrillation, chronic - I48.20 7 . I honey deficiency anemia, unspecified iron deficiency anemia type - D50.9 8 . H ypothyroid - E03.9 Plan: * Treatment: 2. D iabetes type 2, controlled Continue metFORMIN HCl Tablet, 500 MG, TAKE 1TABLETS TWICE A DAY WITH MEALS, Orally, Once a day.? Notes: doing well, will continue current regiment 3. P ure hypercholesterolemia Continue Atorvastatin Calcium Tablet, 10 MG, TAKE 1 TABLET ONCE DAILY. Notes: well controlled, at goal, will continue current regiment 4. A cute congestive heart failure, unspecified congestive heart failure type Continue Furosemide Tablet, 20 MG, 1 2ablet, Orally, Once a day. Notes: stable, will cntinue current regiment 5. M ild intermittent asthma without complication Continue Breo Ellipta Aerosol Powder Breath Activated, 100-25 MCG/ACT, 1 puff, Inhalation, Once a day; C ontinue Albuterol Sulfate HFA Aerosol Solution, 108 (90 Base) MCG/ACT, INHALE 2 PUFFS INTO THE LUNGS EVERY 4 HOURS NEEDED. Notes: stabke, will contiue current regiment 6. A trial fibrillation, chronic Continue Digoxin Tablet, 125 MCG, 1 tablet, Orally, every other day; C ontinue Eliquis Tablet, 2.5 MG, as directed, Orally. Notes: stable, will contiue curent regiment 7. I honey deficiency anemia, unspecified iron deficiency anemia type Continue Ferrous Sulfate Tablet, 325 (65 Fe) MG, 1 tablet, Orally, Once a day. Notes: doing well, will continue current regiment 8. H ypothyroid Continue Levothyroxine Sodium Tablet, 75 MCG, TAKE 1 TABLET EVERY MORNINGON AN EMPTY STOMACH. ? Notes: stable, will continue current regiment * Procedure Codes: * Preventive Medicine: Counseling: C are goal follow-up plan: C ounseling for abnormal BMI provided?No. Diabetes Care Plan: P atient Lifestyle Goals N eeds to maintain diet control.?Treatment Goals A 1C< 7. B arriers N o specific barriers, doing well. S elf-Managment Plan I ncrease light exercise to 3 times a week for 30 minutes. E xpected Outcome maintaining stable blood sugar levels within a target range. CHF Care Plan: P atient Lifestyle Goals R elieve symptoms and improve quality of life. T reatment Goals T armando medicine exactly as directed and plan for RX refills. B arriers N o Specific barriers. S elf-Managment Goals M onitor your symptoms daily. E xpected Outcome p reventing complications like fluid build-up in the lungs. * Follow Up: 6 Months * * Sign off status: Completed true * Provider: Lolly Saldana MD Date: 08/26/2023 Generated for Lio phillip/Niko/Kwamesmitting on: 0 02/02/2025 11:32 AM EDT History and Physical Notes * HPI (History of Present Illness) Category Sub-Category Detail Notes Category Not es Symptom(s) patient is a 88 yo female here for review of recent labs and follow upof chronic issues. Depression Screening PHQ-9 Little inte rest or pleasure in doing things: Not at all Feeling down, depressed, or hopeless: No t at all Trouble falling or staying asleep, or sl eeping too much: Not at all Feeling tired or having little energy: N ot at all Poor appetite or overeating: Not at all Feeling bad about yourself o r that you are a failure, or have let yourself or your family down: Not at all Trouble concentrating on thi ngs, such as reading the newspaper or watching television: Not at all Moving or speaking so slowly that other people could have noticed; or the opposite, being so fidgety or restless that you have been moving around a lot more than usual: Not at all Thoughts that you would be b mehdi off or of hurting yourself in some way: Not at all Total Score: 0 Interpretation and Intervention Depression Zandra rebollar Findings: Negative Follow-Up for Depression: : review of PH Q-9 found negative result, no follow-up needed SDOH Questions SDOH Questions In the past year have you been worried about losing housing?: No In the past year have you or any family members you live with been unable to get any of the following when it was really needed? Check all that apply:: None Fall Risk History Have you had any falls with injury i n the past year?: No Have you had two or more falls in the year?: No Communication Needs Communication Needs Does the patient have a hearing impairment: No Does the patient have a vision impairmen t?: Yes If yes, what is the vision impairment?: Glasses Does the patient have a cognition impair ment?: No Examination Category Sub-Category Detail Notes Category Not es General Examination GENERAL APPEARANCE: well dev eloped, well nourished, in no acute distress HEAD: normocephalic, atrau matic EYES: pupils equal, round, reactive to light and accommodation, sclera non-icteric EARS: normal THROAT: clear NECK/THYROID: neck supple, full ra nge of motion, no cervical lymphadenopathy, no bruits HEART: regular rate and rhy thm, S1, S2 normal, no murmurs LUNGS: clear to auscultatio n bilaterally ABDOMEN: soft, nontender, non distended, bowel sounds present, normal, no organomegaly , no masses palpable NEUROLOGIC: nonfocal, motor stre ngth normal upper and lower extremities, sensory exam intact SKIN: warm and dry, no rolanda picious lesions EXTREMITIES: no clubbing, cyanosi s, or edema BREASTS: No mass, no lump RECTAL EXAM: declined FEMALE GENITOURINARY: not done ORAL CAVITY: mucosa moist
[2025-02-02 10:55] VITALS: BP 110/78; PULSE 90; BMI 18.3
--- NOTE | 2025-02-02 10:55 | A.OFFVIS_ITS ---
Vital Signs 02/02/25 10:55 Height 5 ft 1 in Weight 97 lb 0.054 oz BMI 18.3 BP 110/78 Blood Pressure Location Lt brachial Position Sitting Pulse 90 Intake Visit Reasons: 6m follow up Intake Note: 6 month follow-up feeling good Corporate Quality Assurance Manager Required: No Engineering Laboratory Technician: Engineering Laboratory Technician Present Accompanied by: Spouse Allergies hydrochlorothiazide Allergy (Unknown, Verified 11/15/23 14:03) Unknown Medication List - Last Reconciled 02/02/25 by Jimmy Plascencia MD albuterol sulfate 90 mcg/actuation 2 puffs PO Q4H PRN amlodipine 2.5 mg PO DAILY apixaban (Eliquis) 2.5 mg PO BID atorvastatin 10 mg PO BEDTIME brimonidine 0.2% 1 drp ophthalmic (eye) BID digoxin 125 mcg PO Q OTHER DAY escitalopram oxalate 5 mg PO DAILY fluticasone propion-salmeterol 250-50 mcg/dose (Advair Diskus) 1 puff inhalation BID furosemide 40 mg (2 x 20 mg) PO DAILY latanoprost 0.005% 1 drp ophthalmic (eye) BEDTIME levothyroxine 75 mcg PO DAILY@0600 meclizine 12.5 mg PO DAILY PRN memantine 10 mg PO BID metformin 500 mg PO DAILY metoprolol tartrate 50 mg See Protocol PO BID omeprazole 40 mg PO DAILY@0630 vit C,X-Ku-agqwv-lutein-zeaxan 250-90-40-1 mg (PreserVision AREDS-2) 1 tab PO BID HPI Comments Details: Loren comes for follow-up, accompanied by her . Patient has been overall doing well. No change in functional capacity. No falls. Has no worsening heart failure symptoms. Denies any orthopnea, PND, leg edema. Denies any worsening shortness of breath. No prolonged palpitation irregular heartbeat. No chest pain. No bleeding issues or neurologic events. Overall has remained stable with no hospitalization last 6 months. [facility] Medical History Hypoxia Seasonal allergies COPD (chronic obstructive pulmonary disease) Diabetes Congestive heart failure Acute congestive heart failure Dizziness Chronic atrial fibrillation Bilateral carotid artery disease HTN (hypertension) Surgical History History of esophagogastroduodenoscopy (EGD) Hx of colonoscopy Hx of hysterectomy Hx of cholecystectomy Hx of appendectomy Family History Father CVD (cardiovascular disease) HTN (hypertension) Heart failure Mother Diabetes Cancer Brother CVD (cardiovascular disease) Social History Household Members: Spouse Housing: House Are you a primary health care specialist to a significant other at home: No Do you presently have visiting nurse or other home services: Yes (WEB CONTENT WRITER) Alcohol intake: former Comment: 1:1 sitter Patient Tobacco Use Status: Never used Tobacco Advance Directives Date on File: 05/22/21 service: No Current occupational status: retired Review of Systems Const Denies chills, Denies fatigue, Denies fever(s), Denies frequent falls, Denies weakness, Denies weight gain and Denies weight loss ENT Denies dizziness Card Denies chest pain, Denies leg edema, Denies lightheadedness, Denies palpitations, Denies dyspnea, Denies dyspnea on exertion, Denies orthopnea and Denies other (loss of consciousness) Resp Denies cough, Denies dyspnea and Denies dyspnea on exertion GI Denies hematochezia and Denies change in stool character Musc Denies abnormal gait, Denies muscle weakness, Denies numbness, Denies radiating pain into limb and Denies tingling Neuro Denies abnormal gait, Reports confusion, Denies dizziness, Denies frequent falls, Denies numbness, Denies tingling and Denies weakness Psych Reports confusion Endo Denies fatigue and Denies palpitations Physical Exam Vital Signs: Last Vital Signs Pulse 90 02/02/25 10:55 BP 110/78 02/02/25 10:55 BMI result Body Mass Index 18.3 Const General: cooperative, comfortable, in distress mild and respiratory and confusion Nutritional Appearance: thin and other (Frail elderly woman) Orientation/consciousness: confusion Limitations: wheelchair Neck Neck: Yes trachea midline, Yes supple and Yes no JVD Resp Effort & Inspection: normal respiratory effort Auscultation: clear to auscultation bilaterally and diminished lung sounds Cardio Jugular venous distension: JVD Rhythm: abnormal rhythm irregularly irregular Heart sounds: S1 normal heart sound present, S2 normal heart sound present, no click, no gallops and Murmur heart sound present systolic GI Auscultation: normal bowel sounds Skin General skin exam: no rashes or lesions noted Neuro General: no focal motor deficits and confusion Extrem General: No clubbing, No cyanosis and No edema Assessment & Plan Assessment & Plan (1) Chronic atrial fibrillation: Code(s): I48.20 - Chronic atrial fibrillation, unspecified Category: Medical Plan: Chronic rate control atrial fibrillation dual therapy with digoxin as well as metoprolol therapy. Doing well with rate control. Continue current rate control strategy. Given her longevity of atrial fibrillation as well as her left atrial anatomy change unlikely to pursue rhythm control. Continue full oral anticoagulation, currently on Eliquis which is renally dose adjusted at 2.5 mg b.i.d.. Monitor annual CBC and semi annual renal function test as well as semi annual digoxin assay. (2) Congestive heart failure: Code(s): I50.9 - Heart failure, unspecified Category: Medical Plan: Congestive heart failure preserved ejection fraction related to longstanding atrial fibrillation. Clinically euvolemic and well compensated. Continue agg ressive blood pressure control which is currently well optimized. Continue current diuretic regimen which she takes on a regular basis. Daily weight monitoring avoidance salt loading was discussed. Additional diuretics as need be. Goals of therapy were discussed with her and her . Will follow up in the clinic in 6 months time, sooner p.r.n.. Thank you for allowing me to partake in her care Orders: Orders Digoxin Today I48.20 - Chronic atrial fibrillation, unspecified Basic Metabolic Panel Today I48.20 - Chronic atrial fibrillation, unspecified Coding Level of Care Code Est Pt Level 4 (60895) Complex EM visit Add On G2211 Diagnoses Chronic atrial fibrillation I48.20 Congestive heart failure I50.9
--- OUTSIDE RECORDS SUMMARY | 2025-02-02 11:32 | XMS_ITS | Patient Health Record ---
Author Organization [facility] Address [address] [place] [phone] Care Team Providers Care Dinkey Motor Operator Name Role Phone Raffaele Saldana MD Primary Care Provider Jose Bowser Unavailable [phone] Allergies Allergen (clinical drug ingredient) Drug/Non Drug [...] Status Risk Notes Problem Iron deficiency anemia (21015425) Iron deficiency anemia (D50.9) Active confirmed Problem Gastric polyp (59876637) Gastric polyp (K31.7) Active confirmed Problem 740590237 Microcytic anemi a (D50.9) Active confirmed Problem 26719840 Iron deficiency anemia, unspecified iron deficiency anemia type (D50.9) Active confirmed Problem 34235070 Diarrhea, unspecified type (R19.7) Active confirmed Problem Diverticulosis of colon (141555354) Diverticulosis of colon (K57.30) Active confirmed Plan [...] Date MEDICARE OF [place] [address] [place] [address] [phone] [id number] ALEX MATUTE Self - patient is the insured [employer] ATTN CLAIMS [address] [place] [address] [id number] ALEX MATUTE Self - patient is the [...] in 2003 and 2008 Hypertension COPD Denies [place],CVA,renal disease Hypothyroidism Afib--she is followed by a c ardiologist in [place], where she resides for the winter--She sees Dr. Plascencia as well Dementia EGD 03/2013-milkd gastritis, neg. Hpylori , small hiatal hernia NIDDM Iron def anemia-Colonoscopy 09/2021 was negative, EGD was unremarkable including duodenal biopsies negative for celiac disease and negative gastric biopsies for H.pylori Surgical History Surgery Date(Month/Year) appendectomy hysterectomy and removal of 1 ovary cholecystectomy
--- OUTSIDE RECORDS SUMMARY | 2025-02-02 11:32 | XMS_ITS | Clinical Summary ---
Author Organization [facility] Address [address] [place] [address] Phone Care Team Providers Care Wedding Planner Name Role Phone Unavailable Primary Care Provider Unavailabl e Social History Tobacco Use Types Packs/Day Years Used Date Smoking Tobacco: Never Assessed Education Answer Date Recorded Are you interested in more education? Not on nyasia e 10/27/2022 Are you concerned about learning? Not on file 10/27/2022 No 10/27/2022 No 10/27/2022 Digital Access Answer Date Recorded No 11/27/2022 No 11/27/2022 Reliable internet access at home? Not on file 11/27/2022 Device with a working camera? Not on file Comments Unknown Sex and Gender Information Value Date Recorded Sex Assigned at Not on file Legal Sex Female 3:01 PM EDT Gender Identity Not on file Sexual Orientation Not on file Plan of Treatment Not on file Medical Devices Not on file Additional Source Comments The information contained in this document represents components of the legal health record. It is not the complete legal health record.[facility]
== END 2025-02-02 11:17 | disposition home or self-care (01) ==
LOC: HO.HCS 10:49
PROVIDERS: PCP Internal Medicine; Visit Provider Internal Medicine Cardiovascular Disease
DX: I48.20 Chronic atrial fibrillation, unspecified (principal); I50.9 Heart failure, unspecified
CPT/HCPCS: 99214; G2211